=== PATIENT | female | born 1960 | race Two or more races ===

== ENCOUNTER 2020-02-23 13:11 | Outpatient (REF) | payer OTHER, SELFPAY ==
--- NOTE | 2020-02-23 14:51 | XR_ITS ---
EXAMINATION: XR CHEST CLINICAL INFORMATION: Dyspnea. COMPARISON: None TECHNIQUE: 2 views of the chest were obtained. FINDINGS: No significant abnormality is noted involving the heart, lungs, mediastinum, bony thorax or soft tissues. IMPRESSION: Unremarkable chest examination.
== END 2020-02-23 13:12 | disposition home or self-care (01) ==
LOC: HO.XRAY 13:11
PROVIDERS: PCP Internal Medicine; Visit Provider Internal Medicine Pulmonary Disease
DX: R06.00 Dyspnea, unspecified (principal); G47.33 Obstructive sleep apnea (adult) (pediatric)
CPT/HCPCS: 71046; 99203; 99204

== ENCOUNTER 2020-03-10 09:59 | Outpatient (REF) | payer OTHER, SELFPAY ==
--- NOTE | 2020-03-10 10:31 | MM_ITS ---
EXAMINATION: MM SCREENING DIGITAL BREAST TOMOSYNTHESIS, BILATERAL CLINICAL INFORMATION: Screening. Asymptomatic. The lifetime risk of breast cancer based on the Tyrer-Cuzick Model is 7.3%. COMPARISON: Mammography: January 05, 2019 and studies dating back to December 16, 2013 TECHNIQUE: Digital breast tomosynthesis is performed in both the craniocaudal and mediolateral oblique views along with computer-aided detection (CAD). Synthesized 2D images are generated from the tomosynthesis. FINDINGS: The breasts are almost entirely fatty (ACR BI-RADS breast composition Category a). There are no significant masses, abnormal calcifications, or other abnormalities. MM/MM tomosynthesis screening BI IMPRESSION: There are no significant changes from prior study. ASSESSMENT: BI-RADS 1: Negative RECOMMENDATION: Routine annual mammography screening. This patient's information was entered into a reminder system with a target due date for their next mammogram.
[2020-03-10 11:59] LABS: TSH reflex Free T4 1.13 mIU/mL (0.32-4.0)
== END 2020-03-10 10:00 | disposition home or self-care (01) ==
LOC: HO.LAB 09:59
PROVIDERS: Visit Provider Internal Medicine
DX: Z12.31 Encounter for screening mammogram for malignant neoplasm of breast (principal); E06.3 Autoimmune thyroiditis
CPT/HCPCS: 77063; 77067; 84443

== ENCOUNTER 2020-03-10 10:23 | Outpatient (REF) | payer OTHER, SELFPAY | END 2020-03-10 10:24 | disposition home or self-care (01) | LOC: HO.MAMMO 10:23 | PROVIDERS: PCP Internal Medicine; Visit Provider Internal Medicine | DX: Z13.89 Encounter for screening for other disorder (principal) ==

== ENCOUNTER 2020-03-13 08:34 | Outpatient (REF) | payer OTHER, SELFPAY | END 2020-03-13 08:35 | disposition home or self-care (01) | LOC: HO.LAB 08:34 | PROVIDERS: Visit Provider Internal Medicine | DX: Z20.828 Contact with and (suspected) exposure to other viral communicable diseases (principal) | CPT/HCPCS: C9803; U0003 ==

== ENCOUNTER 2020-07-11 11:42 | Outpatient (REF) | payer OTHER, SELFPAY ==
[2020-07-11 13:59] LABS: Glucose Urine UA NEG (NEG); Leukocyte Esterase Urine 1+ (NEG); Nitrite Urine NEG (NEG); PH 5.5 (5.0-8.0); Specific Gravity - Urine 1.025 (1.005-1.025); Urine Blood NEG (NEG); Urine Ketones NEG (NEG); Urine Protein NEG (NEG-TRACE)
[2020-07-11 14:10] LABS: Appearance Urine HAZY; Color Urine YELLOW
[2020-07-11 14:27] LABS: Anion Gap 12 (12-20); Blood Urea Nitrogen 18 mg/dL (9-16); Calcium 9.7 mg/dL (8.4-10.2); Carbon Dioxide 29 mmol/L (22-29); Chloride 107 mmol/L (96-108); Estimated Glomerular Filt Rate > 60; Glucose Fasting 95 mg/dL (60-99); Potassium 4.4 mmol/L (3.3-5.1); Sodium 144 mmol/L (135-145)
[2020-07-11 14:38] LABS: TSH reflex Free T4 0.54 uIU/mL (0.32-4.0)
[2020-07-11 14:48] LABS: Bacteria Urine TRACE /LPF; RBC Urine 0 /HPF (0); Squamous Epithelial Cell Urine 1+ /LPF
[2020-07-13 04:55] LABS: SARS COV2 IgG Negative (Negative)
== END 2020-07-11 11:43 | disposition home or self-care (01) ==
LOC: HO.LAB 11:42
PROVIDERS: Nurse Practitioner Family; PCP Internal Medicine; Visit Provider Internal Medicine
DX: E03.9 Hypothyroidism, unspecified (principal); M54.5 Low back pain; N39.0 Urinary tract infection, site not specified; Z20.822 Contact with and (suspected) exposure to COVID-19; Z11.9 Encounter for screening for infectious and parasitic diseases, unspecified
CPT/HCPCS: 36415; 80048; 81001; 81003; 84443; 86769

== ENCOUNTER 2020-07-11 12:52 | Outpatient (REF) | payer OTHER, SELFPAY | END 2020-07-11 12:53 | disposition home or self-care (01) | LOC: HO.LAB 12:52 | PROVIDERS: Visit Provider Internal Medicine | DX: Z20.822 Contact with and (suspected) exposure to COVID-19 (principal) | CPT/HCPCS: 36415; C9803; U0003; U0005 ==

== ENCOUNTER 2020-10-03 13:02 | Outpatient (REF) | payer OTHER, SELFPAY ==
--- NOTE | ~2020-10-03 | US_ITS ---
EXAMINATION: US RETROPERITONEAL LIMITED (RENAL ONLY) CLINICAL INFORMATION: Cyst of kidney, acquired. COMPARISON: CT abdomen and pelvis 06/24/2018. Ultrasound abdomen 01/01/2017. X-ray abdomen KUB 07/31/2015. Renal ultrasound 04/23/2013. TECHNIQUE: Real-time imaging of the kidneys. FINDINGS: RIGHT KIDNEY: 11.4 x 6.1 x 5.9 cm (SAG x AP x TRV). The kidney is normal in size, contour, and echogenicity. Renal cortical thickness is normal. No renal calculi or hydronephrosis. There is anechoic cyst upper pole measuring 1.0 x 0.8 x 1.2 cm. No additional cyst seen. LEFT KIDNEY: 15.9 x 6.0 x 6.4 cm (SAG x AP x TRV). The kidney is normal in size, contour, and echogenicity. Renal cortical thickness is normal. No renal calculi or hydronephrosis. There is anechoic cyst upper pole measuring 5.4 x 6.4 x 7.6 cm. Cyst in the lower pole measures 7.9 x 7.1 x 7.6 cm. US/US renal BI IMPRESSION: Bilateral simple renal cysts. There are no echogenic renal calculi or hydronephrosis seen.
== END 2020-10-03 13:03 | disposition home or self-care (01) ==
LOC: HO.US 13:02
PROVIDERS: PCP Internal Medicine; Visit Provider Internal Medicine
DX: N28.1 Cyst of kidney, acquired (principal)
CPT/HCPCS: 76775

== ENCOUNTER 2020-10-05 13:26 | Outpatient (REF) | payer OTHER, SELFPAY ==
[2020-10-05 15:20] LABS: Glucose Urine UA NEG (NEG); Leukocyte Esterase Urine NEG (NEG); Nitrite Urine NEG (NEG); Urine Blood NEG (NEG); Urine Ketones NEG (NEG); Urine Protein NEG (NEG-TRACE)
[2020-10-05 15:45] LABS: Appearance Urine CLEAR; Color Urine YELLOW
== END 2020-10-05 13:27 | disposition home or self-care (01) ==
LOC: HO.LAB 13:26
PROVIDERS: PCP Internal Medicine; Visit Provider Internal Medicine Hypertension Specialist
DX: N28.1 Cyst of kidney, acquired (principal)
CPT/HCPCS: 81003

== ENCOUNTER 2020-10-05 13:58 | Outpatient (REF) | payer OTHER, SELFPAY ==
[2020-10-06 09:36] LABS: Urine Cytology See Pathology rpt
== END 2020-10-05 13:59 | disposition home or self-care (01) ==
LOC: HO.LNP 13:58
PROVIDERS: Visit Provider Internal Medicine Hypertension Specialist
DX: N39.0 Urinary tract infection, site not specified (principal)
CPT/HCPCS: 88112

== ENCOUNTER 2020-11-03 09:30 | Outpatient (REF) | payer OTHER, SELFPAY ==
[2020-11-03 10:57] LABS: Glucose Urine UA NEG (NEG); Leukocyte Esterase Urine 2+ (NEG); Nitrite Urine NEG (NEG); Specific Gravity - Urine 1.015 (1.005-1.025); Urine Blood TRACE (NEG); Urine Ketones NEG (NEG); Urine Protein NEG (NEG-TRACE)
[2020-11-03 10:58] LABS: Appearance Urine HAZY; Color Urine YELLOW
[2020-11-03 11:09] LABS: Bacteria Urine TRACE /LPF; Mucus Urine 1+ /LPF; Renal Epithelial Cells Urine TRACE /LPF; Squamous Epithelial Cell Urine 1+ /LPF; WBC Urine 30-49 /HPF (0-4)
[2020-11-03 11:13] LABS: Alanine Aminotransferase 18 U/L (0-31); Albumin Level 4.2 g/dL (3.5-5.0); Alkaline Phosphatase 91 U/L (39-117); Anion Gap 11 (12-20); Aspartate Amino Transferase 23 U/L (5-31); Bilirubin Total 0.8 mg/dL (0.0-1.0); Blood Urea Nitrogen 17 mg/dL (9-16); Calcium 9.8 mg/dL (8.4-10.2); Carbon Dioxide 31 mmol/L (22-29); Chloride 105 mmol/L (96-108); Cholesterol 164 mg/dL; Estimated Glomerular Filt Rate > 60; Glucose Fasting 87 mg/dL (60-99); HDL Cholesterol 56 mg/dL; LDL Cholesterol Calculated 87 mg/dl; Potassium 4.3 mmol/L (3.3-5.1); Sodium 143 mmol/L (135-145); Total Protein 7.3 g/dL (6.5-8.0); Triglycerides 106 mg/dL
[2020-11-03 11:36] LABS: Thyroid Stimulating Hormone 5.98 uIU/mL (0.32-4.0)
== END 2020-11-03 09:31 | disposition home or self-care (01) ==
LOC: HO.LAB 09:30
PROVIDERS: Internal Medicine; PCP Internal Medicine; Visit Provider Internal Medicine
DX: K27.9 Peptic ulcer, site unspecified, unspecified as acute or chronic, without hemorrhage or perforation (principal); K21.9 Gastro-esophageal reflux disease without esophagitis; D12.6 Benign neoplasm of colon, unspecified; K59.04 Chronic idiopathic constipation; N39.0 Urinary tract infection, site not specified; E03.9 Hypothyroidism, unspecified; E78.5 Hyperlipidemia, unspecified; Z11.9 Encounter for screening for infectious and parasitic diseases, unspecified
CPT/HCPCS: 36415; 80053; 80061; 81001; 84443; 99202

== ENCOUNTER → 2020-11-21 10:14 | Outpatient (BNVA) | payer OTHER, SELFPAY | PROVIDERS: PCP Internal Medicine | DX: N28.1 Cyst of kidney, acquired (principal); N39.0 Urinary tract infection, site not specified; K21.9 Gastro-esophageal reflux disease without esophagitis; E78.5 Hyperlipidemia, unspecified; E03.9 Hypothyroidism, unspecified; D12.6 Benign neoplasm of colon, unspecified; Z90.49 Acquired absence of other specified parts of digestive tract; Z90.710 Acquired absence of both cervix and uterus; Z88.8 Allergy status to other drugs, medicaments and biological substances; Z91.012 Allergy to eggs; Z91.013 Allergy to seafood | CPT/HCPCS: 99212 ==

== ENCOUNTER → 2020-11-24 09:07 | Outpatient (BNVA) | payer OTHER, SELFPAY | PROVIDERS: PCP Internal Medicine; Visit Provider Nurse Practitioner ==

== ENCOUNTER 2021-01-10 08:57 | Outpatient (REF) | payer OTHER, SELFPAY ==
[2021-01-10 09:54] LABS: Appearance Urine CLEAR; Color Urine YELLOW; Glucose Urine UA NEG (NEG); Leukocyte Esterase Urine 1+ (NEG); Nitrite Urine NEG (NEG); Specific Gravity - Urine 1.015 (1.005-1.025); UACC Culture Trigger YES; Urine Blood TRACE (NEG); Urine Ketones NEG (NEG); Urine Protein NEG (NEG-TRACE)
[2021-01-10 10:36] LABS: Thyroid Stimulating Hormone 10.31 uIU/mL (0.32-4.0)
[2021-01-10 10:41] LABS: Squamous Epithelial Cell Urine 1+ /LPF
[2021-01-10 10:42] LABS: Mucus Urine 1+ /LPF; RBC Urine 0-2 /HPF (0)
[2021-01-10 10:43] LABS: Bacteria Urine TRACE /LPF
== END 2021-01-10 08:58 | disposition home or self-care (01) ==
LOC: HO.LAB 08:57
PROVIDERS: PCP Internal Medicine; Visit Provider Internal Medicine
DX: E03.9 Hypothyroidism, unspecified (principal)
CPT/HCPCS: 36415; 81001; 81003; 84443; 87086

== ENCOUNTER 2021-01-19 08:44 | Outpatient (REF) | payer OTHER, SELFPAY | END 2021-01-19 08:45 | disposition home or self-care (01) | LOC: HO.MAMMO 08:44 | PROVIDERS: Visit Provider Internal Medicine | DX: Z13.89 Encounter for screening for other disorder (principal) ==

== ENCOUNTER 2021-01-19 09:10 | Day surgery (SDC) | payer OTHER, SELFPAY ==
--- NOTE | 2021-01-18 09:09 | HO.ANESPROP2 ---
Documented by User: Juhi Celestin NP 01/29/21 15:26 HPI - Anesthesia Eval Consult details Narrative: 61yo F for Upper Endoscopy and Colonoscopy [facility] Active Problems Active Problems: All Active Problems (Updated 11/03/20 @ 11:10 by MARKUS Machado) Chronic idiopathic constipation (Acute) Tubular adenoma of colon (Acute) PUD (peptic ulcer disease) (Acute) Renal cyst (Acute) Screening examination for infectious disease (Acute) Urinary tract infection (Acute) Abdominal pain (Acute) Idiopathic chronic hypotension (Acute) Unsteady gait (Acute) Hypothyroidism (Acute) Lower back pain (Acute) BREONNA (obstructive sleep apnea) (Acute) Dyspnea (Acute) Takes daily multivitamins (Acute) GERD (gastroesophageal reflux disease) (Acute) Past Medical History Medical History Dyslipidemia GERD (gastroesophageal reflux disease) Hypothyroidism Idiopathic chronic hypotension Lower back pain Mild recurrent major depression PUD (peptic ulcer disease) Renal cyst Skin lesion Takes daily multivitamins Unsteady gait Family History Family History Father Diabetes Mother Thyroid disease Chronic mental illness Hypertension Hypercholesterolemia Maternal Aunt Breast cancer Brother In good health Daughter In good health Daughter In good health Sister No problems noted. Surgical History Surgical History H/O elbow surgery H/O hand surgery H/O knee surgery History of section History of cholecystectomy History of foot surgery History of hysterectomy History of removal of cyst History of varicose vein ligation Social History Social History Housing: Apartment Alcohol intake: never Patient Tobacco Use Status: Never used Tobacco e-Cigarette/Vaping Use: Never Used Second Hand Smoke Exposure: No Advance Directives: No Advance Directives Information Provided: No Patient : No service: No Current occupational status: disabled Meds Allergies Allergy/AdvReac Type Severity Reaction Status Date / Time eggs Allergy Intermediate rash Verified 01/23/21 13:34 seafood Allergy Intermediate hives Verified 01/23/21 13:34 shellfish derived Allergy Intermediate RASH Verified 01/23/21 13:34 zolpidem [ZOLPIDEM] Allergy Intermediate HEART Verified 01/23/21 13:34 PALPITATIONS morphine AdvReac Intermediate Vomiting Verified 01/23/21 13:34 Home Medications Medication Instructions Recorded Confirmed Last Taken Type cyclobenzaprine 10 mg tablet 10 mg PO Q8H PRN 02/23/20 01/22/21 Unknown History lidocaine-prilocaine 2.5 %-2.5 % TOPICAL 02/23/20 01/22/21 Unknown History topical cream lorazepam 0.5 mg tablet 0.5 mg PO BID PRN 02/23/20 01/22/21 Unknown History naproxen 500 mg tablet 500 mg PO BID 02/23/20 01/22/21 Unknown History paroxetine HCl 40 mg tablet 40 mg PO DAILY 02/23/20 01/22/21 Unknown History quetiapine 200 mg tablet 200 mg PO BEDTIME 02/23/20 01/22/21 Unknown History trazodone 150 mg tablet 150 mg PO BEDTIME 02/23/20 01/22/21 Unknown History Exam Exam Date and Time: January 18, 2021 09 Pertinent Lab Results Pertinent Lab Results: Laboratory Tests 11/03/20 10:01 Sodium 143 Potassium 4.3 Chloride 105 Carbon Dioxide 31 H BUN 17 H Creatinine 0.79 Assessment and Plan Assessment Anesthesia Assessment: Chart Reviewed Documented by User: Mony Valentin MD 01/19/21 08:34 [facility] Past Medical History Medical History Dyslipidemia GERD (gastroesophageal reflux disease) Hypothyroidism Idiopathic chronic hypotension Lower back pain Mild recurrent major depression PUD (peptic ulcer disease) Renal cyst Skin lesion Takes daily multivitamins Unsteady gait Functional capacity: independent ambulation Patient : No Family History Family History Father Diabetes Mother Thyroid disease Chronic mental illness Hypertension Hypercholesterolemia Maternal Aunt Breast cancer Brother In good health Daughter In good health Daughter In good health Sister No problems noted. Surgical History Surgical History H/O elbow surgery H/O hand surgery H/O knee surgery History of section History of cholecystectomy History of foot surgery History of hysterectomy History of removal of cyst History of varicose vein ligation Social History Social History Housing: Apartment Alcohol intake: never Patient Tobacco Use Status: Never used Tobacco e-Cigarette/Vaping Use: Never Used Second Hand Smoke Exposure: No Advance Directives: No Advance Directives Information Provided: No Patient : No service: No Current occupational status: disabled Meds Allergies Allergy/AdvReac Type Severity Reaction Status Date / Time eggs Allergy Intermediate rash Verified 01/23/21 13:34 seafood Allergy Intermediate hives Verified 01/23/21 13:34 shellfish derived Allergy Intermediate RASH Verified 01/23/21 13:34 zolpidem [ZOLPIDEM] Allergy Intermediate HEART Verified 01/23/21 13:34 PALPITATIONS morphine AdvReac Intermediate Vomiting Verified 01/23/21 13:34 Home Medications Medication Instructions Recorded Confirmed Last Taken Type cyclobenzaprine 10 mg tablet 10 mg PO Q8H PRN 02/23/20 01/22/21 Unknown History lidocaine-prilocaine 2.5 %-2.5 % TOPICAL 02/23/20 01/22/21 Unknown History topical cream lorazepam 0.5 mg tablet 0.5 mg PO BID PRN 02/23/20 01/22/21 Unknown History naproxen 500 mg tablet 500 mg PO BID 02/23/20 01/22/21 Unknown History paroxetine HCl 40 mg tablet 40 mg PO DAILY 02/23/20 01/22/21 Unknown History quetiapine 200 mg tablet 200 mg PO BEDTIME 02/23/20 01/22/21 Unknown History trazodone 150 mg tablet 150 mg PO BEDTIME 02/23/20 01/22/21 Unknown History
[2021-01-19 09:25] VITALS: BMI 37.0
[2021-01-19 09:44] VITALS: BP 125/71; PULSE 64; RESP 16; TEMP 36.5; O2SAT 100
--- NOTE | 2021-01-19 09:50 | MHC.SHP ---
Pre-Procedural Eval Section A Date of Service: 01/19/21 The patient is an INPATIENT: No The History & Physical has been completed within 30 days and I have reviewed it.: No Section B Chief Complaint: Colon cancer screening, constipation, FU of PUD Details of Present Illness: Colon cancer screening, chronic constipation, follow-up of peptic ulcer disease Relevant Family History (Specify if Yes): No Relevant Social History: None Present Medications: see Short Stay Collaborative assessment Medical History: Significant History (GERD (gastroesophageal reflux disease) Hypothyroidism Idiopathic chronic hypotension Lower back pain PUD (peptic ulcer disease) Renal cyst Takes daily multivitamins Unsteady gait) History of Previous Operations: Relevant previous surgery/procedure and date(s) (H/O elbow surgery H/O hand surgery H/O knee surgery History of section History of cholecystectomy History of foot surgery History of hysterectomy History of removal of cyst History of varicose vein ligation) Allergies: Allergies Allergy/AdvReac Type Severity Reaction Status Date / Time eggs Allergy Intermediate rash Verified 11/24/20 09:08 seafood Allergy Intermediate hives Verified 11/24/20 09:08 shellfish derived Allergy Intermediate RASH Verified 11/24/20 09:08 zolpidem [ZOLPIDEM] Allergy Intermediate HEART Verified 11/24/20 09:08 PALPITATIONS Review of Systems Sugical H&P ROS: Negative: Constitution, Cardiovascular and Respiratory and Yes, Specify: Gastrointestinal (abd pain, constipation) Exam Surgical H&P Exam: Normal: Heart, Normal: Lungs, Normal: Extremities and Normal: Abdomen Plan Diagnosis/Plan: Unchanged I have reviewed the history and physical and performed a pertinent physical examination on my patient. No changes have occurred unless specified.
--- NOTE | 2021-01-19 09:58 | PM.OP ---
Brief Operative Note Date of Service: 01/19/21 Pre-op diagnosis: Colon cancer screening, chronic constipation, follow-up of PUD Post-op diagnosis: other (Gastritis, gastric polyp, colon polyps, diverticulosis) Procedure: FLEXIBLE TRANSORAL UPPER GASTROINTESTINAL ENDOSCOPY WITH BIOPSIES AND COLONOSCOPY TILL CECUM WITH SNARE POLYPECTOMY AND SUBMUCOSAL INJECTION UPPER ENDOSCOPY Consent: Indications for the procedure and potential complications of bleeding, perforation, reaction to medications and missed diagnosis were discussed with the patient and informed consent was obtained. Instrument: Olympus GIF H 190 mid size upper endoscope Monitoring: Vital signs and clinical assessment, continuous EKG monitoring, Pulse oximetry, Carbon Dioxide monitoring and blood pressure monitoring were done throughout the procedure. Procedure: The patient was placed in the left lateral decubitis position and pre-procedure medications were administered and a bite block was placed. The endoscope was inserted into the mouth and advanced under direct vision to the third part of duodenum. A careful inspection was made as the upper endoscope was withdrawn including a retroflexed examination of the proximal stomach; Findings and interventions are described below. Findings: Larynx: Normal Esophagus: GE junction at 38 cms. No esophagitis or Badillo's. Stomach: Moderate gastric erythema. No ulcers or erosions noted. Antral biopsies were obtained. A 7-8 mm benign appearing polyp in the antrum - biopsied. Grade 2 flap valve on retroflexed examination of the cardia. Duodenum: Normal bulb and descending duodenum Intervention: Biopsies as noted above COLONOSCOPY PROCEDURE NOTE Consent: Indications for the procedure and potential complications of bleeding, perforation, reaction to medications and missed diagnosis were discussed with the patient and informed consent was obtained. Instrument: Olympus PCF H 190 L variable stiffness pediatric colonoscope Monitoring: Vital signs and clinical assessment, intermittent blood pressure monitoring, continuous EKG monitoring, Pulse oximetry and Carbon Dioxide monitoring were done throughout the procedure. Colon withdrawl time was 44 minutes. Procedure: The patient was placed in the left lateral decubitis position and pre-procedure medications were administered. After a digital rectal examination of the ano-rectum, the video colonoscope was inserted into the rectum and advanced through the colon to the cecum. The colonoscope was slowly withdrawn in a retrograde panoramic fashion and the colon mucosa was carefully examined including a retroflexed view of the rectum. Findings and interventions are described below. Procedure Difficulty: : Colon was long and tortuous and there was some loop formation. Patient was placed in the supine position and LLQ pressure was applied to intubate the cecum Findings: Terminal Ileum: Not evaluated Cecum: Normal Ascending Colon: Two 8-10 mm sessile polyps removed with a hot snare. A 3rd 2 - 2.5 cms sessile polyp in the distal AC removed with a hot snare. Transverse Colon: A 1.5 to 2 cms sessile polyp at the hepatic flexure removed with a hot snare. A 2nd 2 to 2.5 cms sessile polyp at the hepatic flexure raised with 3 cc of Orise and removed with a hot snare. Polypectomy site was marked with Kiara ink. Polyp was retrieved with the help of a Coon Net. A 12-15 mm sessile polyp in the ascending colon removed with a hot snare A few 4-5 mm polyps in the right colon not removed due to excessive length of the procedure. Descending Colon: Normal Sigmoid Colon: A 10 mm diminutive appearing polyp removed with a cold snare. Moderate diverticulosis Rectum: Normal Ano-rectum: Normal Colon preparation: Good after some irrigation Impression and Post Procedure Diagnosis: Endoscopy Findings: STOMACH: Moderate gastric erythema. No ulcers or erosions noted. Antral biopsies were obtained. A 7-8 mm benign appearing polyp in the antrum - biopsied. Colonoscopy Findings: Six medium sized and one large polyps removed Moderate diverticulosis seen in the sigmoid colon Plan: Await pathology results Patient has an appointment on 02/01/21 in the GI Clinic with Madelin Barnes NP. Repeat Colonoscopy interval based on path results - in 1 year if polyps are adenomatous and since multiple polyps were detected and a few polyps smaller polyps were not removed. Adult colonoscope for future colonoscopies. Above findings were reviewed with the patient and Gastritis, colon polyps and diverticulosis handouts were given in the discharge area Surgeon: Melissa Ríos MD Anesthesia: MAC (Gideon Cao CRNA) Was an Electrocardiographic Technician used for this Procedure?: No Electrocardiographic Technician: Evelina Avila Estimated blood loss (mL): 0 Pathology: other (A. gastric antrum, R/O H. pylori B. gastric antrum polyp C. transverse colon polyp D. ascending colon polyp E. hepatic flexure polyps with Orise F. sigmoid polyp) Condition: stable Disposition: PACU
--- NOTE | 2021-01-19 09:59 | W.PM.OPN ---
Operative Note Operative Note Date of Service: 01/19/21 Narrative: Pre-op diagnosis:?Colon cancer screening, chronic constipation, follow-up of PUD Post-op diagnosis:?other (Gastritis, gastric polyp, colon polyps, diverticulosis) Procedure:? FLEXIBLE TRANSORAL UPPER GASTROINTESTINAL ENDOSCOPY WITH BIOPSIES AND COLONOSCOPY TILL CECUM WITH SNARE POLYPECTOMY AND SUBMUCOSAL INJECTION UPPER ENDOSCOPY Consent:?Indications for the procedure and potential complications of bleeding, perforation, reaction to medications and missed diagnosis were discussed with the patient and informed consent was obtained. Instrument:?Olympus GIF H 190 mid size upper endoscope Monitoring: Vital signs and clinical assessment, continuous EKG monitoring, Pulse oximetry, Carbon Dioxide monitoring and blood pressure monitoring were done throughout the procedure. Procedure:?The patient was placed in the left lateral decubitis position and pre-procedure medications were administered and a bite block was placed. The endoscope was inserted into the mouth and advanced under direct vision to the third part of duodenum. A careful inspection was made as the upper endoscope was withdrawn including a retroflexed examination of the proximal stomach; Findings and interventions are described below. Findings: Larynx:??Normal Esophagus:?GE junction at 38 cms. No esophagitis or Badillo's. Stomach:?Moderate gastric erythema. No ulcers or erosions noted.? Antral biopsies were obtained. A 7-8 mm benign appearing polyp in the antrum - biopsied. Grade 2 flap valve on retroflexed examination of the cardia. Duodenum:?Normal bulb and descending duodenum Intervention:?Biopsies as noted above COLONOSCOPY PROCEDURE NOTE Consent:?Indications for the procedure and potential complications of bleeding, perforation, reaction to medications and missed diagnosis were discussed with the patient and informed consent was obtained. Instrument:?Olympus PCF H 190 L variable stiffness pediatric colonoscope Monitoring:?Vital signs and clinical assessment, intermittent blood pressure monitoring, continuous EKG monitoring, Pulse oximetry and Carbon Dioxide monitoring were done throughout the procedure. Colon withdrawl time was 44 minutes. Procedure:?The patient was placed in the left lateral decubitis position and pre-procedure medications were administered. After a digital rectal examination of the ano-rectum, the video colonoscope was inserted into the rectum and advanced through the colon to the cecum. The colonoscope was slowly withdrawn in a retrograde panoramic fashion and the colon mucosa was carefully examined including a retroflexed view of the rectum. Findings and interventions are described below. Procedure Difficulty:?: Colon was long and tortuous and there was some loop formation.? Patient was placed in the supine position and LLQ pressure was applied to intubate the? cecum Findings: Terminal Ileum: Not evaluated Cecum:? Normal Ascending Colon:??Two 8-10 mm sessile polyps removed with a hot snare.? A 3rd 2 - 2.5 cms sessile polyp in the distal AC removed with a hot snare. Transverse Colon:??A 1.5 to 2 cms sessile polyp at the hepatic flexure removed with a hot snare. A 2nd 2 to 2.5 cms sessile polyp at the hepatic flexure raised with 3 cc of Orise and removed with a hot snare.? Polypectomy site was marked with Kiara ink.? Polyp was retrieved with the help of a Coon Net.? A 12-15 mm sessile polyp in the ascending colon removed with a hot snare A few 4-5 mm polyps in the right colon not removed due to excessive length of the procedure. Descending Colon:? Normal Sigmoid Colon:? A 10 mm diminutive appearing polyp removed with a cold snare. Moderate diverticulosis Rectum:??Normal Ano-rectum:??Normal Colon preparation:? Good after some irrigation Impression and Post Procedure Diagnosis: Endoscopy Findings: STOMACH: Moderate gastric erythema. No ulcers or erosions noted.? Antral biopsies were obtained. A 7-8 mm benign appearing polyp in the antrum - biopsied. Colonoscopy Findings: Six medium sized and one large polyps removed Moderate diverticulosis seen in the sigmoid colon Plan: Await pathology results Patient has an appointment on 02/01/21 in the GI Clinic with? Madelin Barnes NP. Repeat Colonoscopy interval based on path results - in 1 year if polyps are adenomatous and since multiple polyps were detected and a few polyps smaller polyps were not removed. Adult colonoscope for future colonoscopies. Above findings were reviewed with the patient and Gastritis, colon polyps and diverticulosis handouts were given in the discharge area Surgeon:?Melissa Ríos MD Anesthesia:?MAC (Gideon Cao CRNA) Was an Manager Event used for this Procedure?:?No Manager Event:?Evelina Avila Estimated blood loss (mL):?0 Pathology:?other (A. gastric antrum, R/O H. pylori? B. gastric antrum polyp? C. transverse colon polyp? D. ascending colon polyp? E. hepatic flexure polyps with Orise? F. sigmoid polyp) Condition:?stable Disposition:?PACU
[2021-01-19 11:30] VITALS: BP 112/63; PULSE 66; RESP 16; TEMP 36.1; O2SAT 99
[2021-01-19 11:45] VITALS: BP 128/75; PULSE 66; RESP 16; TEMP 36.1; O2SAT 98
--- NOTE | 2021-01-19 12:02 | HO.POSTANES ---
Post Anesthesia Evaluation Post Anesthesia Evaluation Vital Signs: Vital Signs Temp Pulse Resp BP Pulse Ox 01/19/21 11:45 97.0 F 66 16 128/75 98 01/19/21 11:30 97.0 F 66 16 112/63 99 01/19/21 09:44 97.7 F 64 16 125/71 100 Anesthesia: Monitored Mental Status: Awake Pain Control: Satisfactory Hydration: Adequate Anesthesia-Related Issues: No Anes. Related Issues
== END 2021-01-19 12:57 | disposition home or self-care (01) ==
PROVIDERS: PCP Internal Medicine; Visit Provider Internal Medicine Gastroenterology
PROC: (CPT 45385; principal; 2021-01-19 10:00)
DX: Z12.11 Encounter for screening for malignant neoplasm of colon (principal); D12.2 Benign neoplasm of ascending colon; D12.3 Benign neoplasm of transverse colon; D12.5 Benign neoplasm of sigmoid colon; K57.30 Diverticulosis of large intestine without perforation or abscess without bleeding; K59.04 Chronic idiopathic constipation; K27.9 Peptic ulcer, site unspecified, unspecified as acute or chronic, without hemorrhage or perforation; K21.9 Gastro-esophageal reflux disease without esophagitis; K29.50 Unspecified chronic gastritis without bleeding; K31.7 Polyp of stomach and duodenum; Z90.49 Acquired absence of other specified parts of digestive tract; Z79.899 Other long term (current) drug therapy; Z88.8 Allergy status to other drugs, medicaments and biological substances
CPT/HCPCS: 45385; 45381; 43239; 88305; 88342

== ENCOUNTER 2021-01-23 12:55 | Outpatient (REF) | payer OTHER, SELFPAY | END 2021-01-23 12:56 | disposition home or self-care (01) | LOC: HO.LAB 12:55 | DX: N39.0 Urinary tract infection, site not specified (principal); N28.1 Cyst of kidney, acquired | CPT/HCPCS: 87086; 99212 ==

== ENCOUNTER 2021-01-25 10:58 | Emergency (ER) | payer OTHER, SELFPAY ==
[2021-01-25 11:46] VITALS: BP 130/67; PULSE 74; RESP 18; TEMP 36.8; O2SAT 98; BMI 38.7
[2021-01-25 12:41] LABS: MANUAL DIFF FLAG NO
[2021-01-25 12:45] LABS: Basophils Percent Auto 0.4 % (0-2); Eosinophils Absolute Auto 0.1 X10*3/uL (0.0-0.4); Eosinophils Percent Auto 2.1 % (0-4); Hematocrit 44.8 % (37-47); Hemoglobin 13.5 g/dl (12.0-16.0); Imm Gran Abs Auto 0.01 X10*3/uL (0.00-0.03); Imm Gran Pct Auto 0.2 % (0.0-0.4); Lymphocytes Absolute Auto 1.3 X10*3/uL (1.2-4.9); Lymphocytes Percent Auto 22.8 % (20-40); Mean Corpuscular HGB Conc 30.1 g/dl (31.0-35.0); Mean Corpuscular Hemoglobin 27.3 pg (27.0-33.0); Mean Corpuscular Volume 90.7 fL (80-98); Mean Platelet Volume 12.6 fL (9.4-12.3); Monocytes Absolute Auto 0.4 X10*3/uL (0.1-1.2); Monocytes Percent Auto 7.7 % (2-11); Neutrophils Absolute Auto 3.8 X10*3/uL (2.0-8.3); Neutrophils Percent Auto 66.8 % (45-73); Platelet Count 153 X10*3/uL (160-400); Red Blood Count 4.94 X10*6/uL (4.20-5.50); Red Cell Distribution Width 12.8 % (11.0-16.0); White Blood Count 5.6 X10*3/uL (4.8-10.8)
[2021-01-25 13:05] LABS: Alanine Aminotransferase 17 U/L (0-31); Albumin Level 3.9 g/dL (3.5-5.0); Alkaline Phosphatase 90 U/L (39-117); Anion Gap 10 (12-20); Aspartate Amino Transferase 19 U/L (5-31); Bilirubin Total 0.3 mg/dL (0.0-1.0); Blood Urea Nitrogen 15 mg/dL (9-16); Calcium 9.7 mg/dL (8.4-10.2); Carbon Dioxide 31 mmol/L (22-29); Chloride 106 mmol/L (96-108); Creatinine Clr Calc Pharmacy 95.3; Estimated Glomerular Filt Rate > 60; Glucose Random 81 mg/dL (60-115); Potassium 4.3 mmol/L (3.3-5.1); Sodium 143 mmol/L (135-145); Total Protein 6.9 g/dL (6.5-8.0)
== END 2021-01-25 14:44 | disposition left against medical advice (07) ==
LOC: HO.ED 14:36
PROVIDERS: Emergency Provider Emergency Medicine
DX: M54.5 Low back pain (principal)
CPT/HCPCS: 36415; 80053; 81001; 85025; 99281; 99283

== ENCOUNTER 2021-01-25 16:18 | Emergency (ER) | payer OTHER, SELFPAY ==
[2021-01-25 16:35] VITALS: BP 144/70; PULSE 79; RESP 8; TEMP 37.1; O2SAT 96; BMI 38.2
[2021-01-25 17:03] LABS: Appearance Urine CLEAR; Color Urine YELLOW; Glucose Urine UA NEG (NEG); Leukocyte Esterase Urine 1+ (NEG); Nitrite Urine NEG (NEG); UACC Culture Trigger YES; Urine Blood NEG (NEG); Urine Ketones NEG (NEG); Urine Protein NEG (NEG-TRACE)
--- NOTE | 2021-01-25 17:18 | ED.GENADULT ---
HPI - General Adult General Chief complaint: Back Pain/Injury Stated complaint: Back pain Time Seen by Provider: 01/25/21 17:18 Source: patient Mode of arrival: ambulatory Limitations: language barrier History of Present Illness HPI narrative: 61-year-old female with past medical history of dyslipidemia, depression, CIC, GERD is here today for complaining of bilateral lower back pain. Her pain started 4 days ago, patient denies any trauma or injury. Patient reports that the pain is worse at night. Patient denies any fecal or urinary incontinence, no paresthesia, pain radiates from her right lower back to right middle back. Patient reports that the pain is located close to the spine. She reports that her pain is worse when she is laying down Related Data Home Medications Medication Instructions Recorded Confirmed cyclobenzaprine 10 mg tablet 10 mg PO Q8H PRN 02/23/20 01/22/21 lidocaine-prilocaine 2.5 %-2.5 % TOPICAL 02/23/20 01/22/21 topical cream lorazepam 0.5 mg tablet 0.5 mg PO BID PRN 02/23/20 01/22/21 naproxen 500 mg tablet 500 mg PO BID 02/23/20 01/22/21 paroxetine HCl 40 mg tablet 40 mg PO DAILY 02/23/20 01/22/21 quetiapine 200 mg tablet 200 mg PO BEDTIME 02/23/20 01/22/21 trazodone 150 mg tablet 150 mg PO BEDTIME 02/23/20 01/22/21 Previous Rx's Medication Instructions Recorded multivitamin-ferrous 1 tab PO DAILY 30 Days #30 tab 02/10/20 fumarate-folic acid 18 mg-400 mcg tablet (Certavite-Antioxidant) blood pressure test kit-large #1 ea 06/06/20 ([facility] Blood Pressure Monitr) atorvastatin 10 mg tablet 10 mg PO DAILY #90 tab 06/23/20 calcium carbonate 600 mg calcium 600 mg PO BID #180 tab 06/23/20 (1,500 mg) tablet sucralfate 1 gram tablet 1 g PO BID #60 tab 09/01/20 pantoprazole 40 mg tablet,delayed 40 mg PO DAILY 90 Days #90 tab 09/19/20 release cane #1 ea 10/11/20 lubiprostone 8 mcg capsule 8 mcg PO BID 30 Days #60 cap 11/03/20 (Amitiza) ibuprofen 800 mg tablet 800 mg PO TID 30 Days #90 tab 11/16/20 lidocaine 5 % topical patch 1 patch TOPICAL DAILY 30 Days #30 12/06/20 ea bisacodyl 5 mg tablet,delayed 10 mg PO BEDTIME 2 Days #4 tab 01/10/21 release (Dulcolax (bisacodyl)) levothyroxine 150 mcg tablet 150 mcg PO DAILY 90 Days #90 tab 01/10/21 toilet seat #1 ea 01/16/21 clotrimazole-betamethasone 1 1 appl TOPICAL BID 14 Days #15 g 01/22/21 %-0.05 % topical cream midodrine 5 mg tablet 5 mg PO TID 30 Days #90 tab 01/22/21 cyclobenzaprine 10 mg tablet 10 mg PO QAM #10 tab 01/25/21 diazepam 5 mg tablet (Valium) 5 mg PO BEDTIME PRN #5 tab 01/25/21 Allergies Allergy/AdvReac Type Severity Reaction Status Date / Time eggs Allergy Intermediate rash Verified 01/23/21 13:34 seafood Allergy Intermediate hives Verified 01/23/21 13:34 shellfish derived Allergy Intermediate RASH Verified 01/23/21 13:34 zolpidem [ZOLPIDEM] Allergy Intermediate HEART Verified 01/23/21 13:34 PALPITATIONS morphine AdvReac Intermediate Vomiting Verified 01/23/21 13:34 Review of Systems Review of Systems: Constitutional : No Weight loss, No Fever, No Chills, No Night Sweats, No Fatigue, No Malaise ENT/Mouth : No Hearing loss, No Ear Pain, No Nasal Congestion, No Sinus Pain, No Hoarseness, No sore throat, No Rhinorrhea, No Swallowing Difficulty Eyes: No Eye Pain, No Swelling, No Redness, No Foreign Body, No Discharge, No Vision Changes Cardiovascular : No Chest Pain, No SOB, No Dyspnea on Exertion, No Orthopnea, No Edema, No Palpitations Respiratory : No Cough, No Sputum, No Wheezing, No Smoke Exposure, No Dyspnea Gastrointestinal : No Nausea, No Vomiting, No Diarrhea, No Constipation, No abdominal Pain, No Hematochezia, No Melena Genitourinary : no irregular bleeding, No Dysuria, No Urinary Frequency, No Hematuria, No Urinary Incontinence, No Urgency, No Flank Pain, No Urinary Flow Changes, No Hesitancy Musculoskeletal : No joint pain, Myalgias, No Joint Swelling, right lower back pain Skin : No Skin Lesions, No rash Neuro : No Weakness, No Numbness, No Paresthesias, No Loss of Consciousness, No Dizziness, No Headache Yes all other systems are reviewed and are negative PMFSH Past Medical History Medical History Dyslipidemia GERD (gastroesophageal reflux disease) Hypothyroidism Idiopathic chronic hypotension Lower back pain Mild recurrent major depression PUD (peptic ulcer disease) Renal cyst Skin lesion Takes daily multivitamins Unsteady gait Surgical History H/O elbow surgery H/O hand surgery H/O knee surgery History of section History of cholecystectomy History of foot surgery History of hysterectomy History of removal of cyst History of varicose vein ligation Family History Family History Father Diabetes Mother Thyroid disease Chronic mental illness Hypertension Hypercholesterolemia Maternal Aunt Breast cancer Brother In good health Daughter In good health Daughter In good health Sister No problems noted. Social History Social History Housing: Apartment Alcohol intake: never Patient Tobacco Use Status: Never used Tobacco e-Cigarette/Vaping Use: Never Used Second Hand Smoke Exposure: No Advance Directives: No Advance Directives Information Provided: No Patient : No service: No Current occupational status: disabled Physical Exam Vital Signs: Vital Signs: Last Vital Signs Temp 98.7 F 01/25/21 16:35 Pulse 79 01/25/21 16:35 Resp 8 L 01/25/21 16:35 BP 144/70 H 01/25/21 16:35 Pulse Ox 96 01/25/21 16:35 Body Mass Index 38.2 Const: General: healthy appearing, no acute distress and well developed Nutritional Appearance: well nourished Orientation/consciousness: patient oriented x3 HENMT: Head: Yes normal to inspection, Yes normocephalic and Yes atraumatic Neck: Neck: Yes normal visual inspection, Yes full ROM and Yes trachea midline Thyroid: Thyroid normal Resp: Auscultation: clear to auscultation bilaterally Cardio: Rate: regular rate Rhythm: regular rhythm GI: Inspection: Yes normal to inspection and No distended Palpation (GI): No hepatosplenomegaly present Auscultation: normal bowel sounds : General: Yes no CVA tenderness Back/Spine/Pelvis: Back: no CVA tenderness Cervical Spine: normal cervical lordosis Thoracic/Lumbar Spine: thoracic and lumbar spine normal to inspection and other (Lower paraspinal muscle tenderness on the right) Pelvis: no pain with anterior-posterior compression Skin: General skin exam: elasticity normal, turgor normal and dry skin Neuro: General: patient oriented x3 Course Course Course Narrative: 61-year-old female with past medical history of dyslipidemia, depression, CIC, hypothyroidism, lower back pain, GERD is here today for name right lower back pain. Upon exam patient has tenderness to paraspinal muscle on the right and mild tenderness to paraspinal muscles on the left. No CVA tenderness, no abdominal pain patient reports that she does have symptoms of nausea at times. Just had upper endoscopy done and has appointment with her certified pedorthotist done at . Will give her antispasmatic. Patient request Zofran. Patient denies any vomiting any abdominal discomfort. Medical Decision Making Lab Data Labs: Lab Results 01/25/21 Range/Units 16:23 Urine Color YELLOW Urine Appearance CLEAR Urine pH 6.0 (5.0-8.0) Ur Specific [place] 1.020 (1.005-1.025) Urine Protein NEG (NEG-TRACE) MG/DL Urine Glucose (UA) NEG (NEG) MG/DL Urine Ketones NEG (NEG) MG/DL Urine Blood NEG (NEG) Urine Nitrite NEG (NEG) Ur Leukocyte Esterase 1+ H (NEG) Discharge Plan Discharge Clinical Impression: Lower back pain Qualifiers: Chronicity: chronic Back pain laterality: right Sciatica presence: without sciatica Qualified Code(s): M54.5 - Low back pain Patient Disposition: Home, Self-Care Instructions: Muscle Spasm (ED) Additional Instructions: You were seen here today for mass of spasm in your back. Your given medication to help you with your spasms. You will be sent home with same medication and in addition you will be sent home with medication that will help you relaxer muscle and get some rest. Please follow-up with your primary care doctor in 2-3 days. Please follow-up with your certified pedorthotist after your upper endoscopy. I am giving you couple doses of anti nausea medication. Prescriptions: New cyclobenzaprine 10 mg tablet 10 mg PO QAM Qty: 10 RF: 0 diazepam [Valium] 5 mg tablet 5 mg PO BEDTIME PRN (Reason: muscle spasm) Qty: 5 RF: 0 No Action Certavite-Antioxidant 18-400 mg-mcg tablet 1 tab PO DAILY 30 Days Qty: 30 RF: 11 (DME) blood pressure test kit-large [[facility] Blood Pressure Monitr] Kit See Rx Instructions .ROUTE .MEDSUPPLY Qty: 1 RF: 0 calcium carbonate 600 mg calcium (1,500 mg) tablet 600 mg PO BID Qty: 180 RF: 3 atorvastatin 10 mg tablet 10 mg PO DAILY Qty: 90 RF: 3 sucralfate 1 gram tablet 1 g PO BID Qty: 60 RF: 6 (DME) cane Device See Rx Instructions .ROUTE .MEDSUPPLY Qty: 1 RF: 0 ibuprofen 800 mg tablet 800 mg PO TID 30 Days Qty: 90 RF: 1 lidocaine 5 % adhesive patch,medicated 1 patch topical DAILY 30 Days Qty: 30 RF: 0 levothyroxine 150 mcg tablet 150 mcg PO DAILY 90 Days Qty: 90 RF: 2 bisacodyl [Dulcolax (bisacodyl)] 5 mg tablet,delayed release (DR/EC) 10 mg PO BEDTIME 2 Days Qty: 4 RF: 0 (DME) toilet seat See Rx Instructions .Route .MEDSUPPLY Qty: 1 RF: 0 midodrine 5 mg tablet 5 mg PO TID 30 Days Qty: 90 RF: 4 clotrimazole-betamethasone 1-0.05 % cream 1 appl topical BID 14 Days Qty: 15 RF: 1 pantoprazole 40 mg tablet,delayed release (DR/EC) 40 mg PO DAILY 90 Days Qty: 90 RF: 4 paroxetine HCl 40 mg tablet 40 mg PO DAILY RF: 0 trazodone 150 mg tablet 150 mg PO BEDTIME RF: 0 lorazepam 0.5 mg tablet 0.5 mg PO BID PRN (Reason: Anxiety) RF: 0 quetiapine 200 mg tablet 200 mg PO BEDTIME RF: 0 lidocaine-prilocaine 2.5-2.5 % cream topical RF: 0 cyclobenzaprine 10 mg tablet 10 mg PO Q8H PRN (Reason: muscle spasm) RF: 0 naproxen 500 mg tablet 500 mg PO BID RF: 0 lubiprostone [Amitiza] 8 mcg capsule 8 mcg PO BID 30 Days Qty: 60 RF: 6
[2021-01-25] MEDS: Cyclobenzaprine HCl 10 MG TABLET PO (17:45)
[2021-01-25] MEDS: Ondansetron ODT 4 MG TAB.RAPDIS TRANSLINGU (17:45)
[2021-01-25 18:19] LABS: Calcium Oxalate Crystals Urine 3+ /LPF; RBC Urine 0 /HPF (0)
== END 2021-01-25 18:32 | disposition home or self-care (01) ==
PROVIDERS: Emergency Provider Emergency Medicine; PCP Internal Medicine
DX: M54.5 Low back pain (principal); F33.1 Major depressive disorder, recurrent, moderate; Z79.899 Other long term (current) drug therapy
CPT/HCPCS: 81001; 81003; 99283

== ENCOUNTER 2021-02-01 10:44 | Outpatient (REF) | payer OTHER, SELFPAY ==
--- NOTE | ~2021-02-01 | XR_ITS ---
EXAMINATION: XR LUMBOSACRAL SPINE CLINICAL INFORMATION: Lower back pain. COMPARISON: Most recent lumbar spine radiographs dated 06/26/2019. TECHNIQUE: Three views of the lumbosacral spine. FINDINGS: The lumbar lordosis is maintained. Minimal grade 1 anterolisthesis of L4 on L5, unchanged. No acute fracture or subluxation. No loss of vertebral body height. Mild multilevel loss of intervertebral disc height with small anterior endplate osteophytes. Bilateral facet arthropathy at L4 through S1. Dystrophic ossification redemonstrated posterior to the sacrum. XR/XR lumbar spine 2-3V IMPRESSION: Minimal grade 1 anterolisthesis of L4 on L5, unchanged. Multilevel degenerative disc disease and bilateral facet arthropathy, unchanged.
== END 2021-02-01 10:45 | disposition home or self-care (01) ==
LOC: HO.XRAY 10:44
PROVIDERS: PCP Internal Medicine; Visit Provider Nurse Practitioner
DX: D12.6 Benign neoplasm of colon, unspecified (principal); K59.04 Chronic idiopathic constipation; K21.9 Gastro-esophageal reflux disease without esophagitis; M54.5 Low back pain; Z98.890 Other specified postprocedural states
CPT/HCPCS: 72100; 99212

== ENCOUNTER 2021-03-13 15:12 | Outpatient (REF) | payer OTHER, SELFPAY ==
--- NOTE | ~2021-03-13 | US_ITS ---
EXAMINATION: US THYROID CLINICAL INFORMATION: Nontoxic goiter, unspecified COMPARISON: None TECHNIQUE: Linear transducer grayscale and color Doppler examination with attention to the region of the thyroid. FINDINGS: SIZE: Measurements of the thyroid lobes and nodules are given in sagittal, anteroposterior and transverse dimensions respectively. Right Thyroid Lobe: 3.5 x 1.1 x 1.1 cm, volume 2.2 mL. Left Thyroid Lobe: 3.1 x 0.6 x 1.0 cm, volume 1.0 mL. Isthmus: 0.1 cm in maximum AP dimension. THYROID PARENCHYMA AND NODULES: The thyroid gland is diffusely atrophied and slightly heterogeneous. There are no nodules. The vascularity of the gland is grossly normal. NODES: No lymphadenopathy is seen in the tissue surrounding the thyroid gland. US/US thyroid IMPRESSION: Thyroid gland is atrophied and heterogeneous. There are no thyroid nodules.
== END 2021-03-13 15:13 | disposition home or self-care (01) ==
LOC: HO.US 15:12
PROVIDERS: PCP Student in an Organized Health Care Education/Training Program; Visit Provider Internal Medicine
DX: E04.9 Nontoxic goiter, unspecified (principal)
CPT/HCPCS: 76536

== ENCOUNTER 2021-03-14 13:54 | Outpatient (REF) | payer OTHER, SELFPAY ==
--- NOTE | ~2021-03-14 | MM_ITS ---
EXAMINATION: MM SCREENING DIGITAL BREAST TOMOSYNTHESIS, BILATERAL CLINICAL INFORMATION: Screening. Asymptomatic. The lifetime risk of breast cancer based on the Tyrer-Cuzick Model is 6%. COMPARISON: Mammography: 03/10/2020, 01/05/2019, 12/31/2017 TECHNIQUE: Digital breast tomosynthesis is performed in both the craniocaudal and mediolateral oblique views along with computer-aided detection (CAD). Synthesized 2D images are generated from the tomosynthesis. FINDINGS: There are scattered areas of fibroglandular density (ACR BI-RADS breast composition Category b). There are no significant masses, abnormal calcifications, or other abnormalities. Breast tissue composition borders on predominantly fatty. Background stromal markings are stable. No significant changes. MM/MM tomosynthesis screening BI IMPRESSION: No mammographic evidence of malignancy. ASSESSMENT: BI-RADS 1: Negative RECOMMENDATION: Routine annual mammography screening. This patient's information was entered into a reminder system with a target due date for their next mammogram.
== END 2021-03-14 13:55 | disposition home or self-care (01) ==
LOC: HO.MAMMO 13:54
PROVIDERS: Visit Provider Internal Medicine
DX: Z12.31 Encounter for screening mammogram for malignant neoplasm of breast (principal)
CPT/HCPCS: 77063; 77067

== ENCOUNTER → 2021-03-15 12:59 | Outpatient (BNVA) | payer OTHER, SELFPAY | PROVIDERS: PCP Student in an Organized Health Care Education/Training Program; Referring Provider Student in an Organized Health Care Education/Training Program; Visit Provider Nurse Practitioner | DX: K59.04 Chronic idiopathic constipation (principal); K21.9 Gastro-esophageal reflux disease without esophagitis; D36.9 Benign neoplasm, unspecified site; M51.36 Other intervertebral disc degeneration, lumbar region; M43.16 Spondylolisthesis, lumbar region | CPT/HCPCS: 99212 ==

== ENCOUNTER 2021-03-27 11:00 | Outpatient (REF) | payer OTHER, SELFPAY ==
[2021-03-27 12:09] LABS: Cholesterol 169 mg/dL; HDL Cholesterol 50 mg/dL; LDL Cholesterol Calculated 99 mg/dl; Triglycerides 100 mg/dL
[2021-03-27 12:30] LABS: Thyroid Stimulating Hormone 3.12 uIU/mL (0.32-4.0)
[2021-03-27 13:57] LABS: Appearance Urine HAZY; Color Urine YELLOW; Glucose Urine UA NEG (NEG); Leukocyte Esterase Urine TRACE (NEG); Nitrite Urine NEG (NEG); Specific Gravity - Urine 1.025 (1.005-1.025); UACC Culture Trigger YES; Urine Blood NEG (NEG); Urine Ketones NEG (NEG); Urine Protein NEG (NEG-TRACE)
[2021-03-27 14:20] LABS: Calcium Oxalate Crystals Urine 1+ /LPF; RBC Urine 0-2 /HPF (0); Squamous Epithelial Cell Urine 1+ /LPF
[2021-03-27 14:21] LABS: Bacteria Urine TRACE /LPF
== END 2021-03-27 11:01 | disposition home or self-care (01) ==
LOC: HO.LAB 11:00
PROVIDERS: PCP Internal Medicine; Visit Provider Internal Medicine
DX: E78.5 Hyperlipidemia, unspecified (principal); E03.9 Hypothyroidism, unspecified
CPT/HCPCS: 36415; 80061; 81001; 81003; 84443; 87086

== ENCOUNTER 2021-06-13 13:19 | Outpatient (REF) | payer OTHER, SELFPAY ==
--- NOTE | ~2021-06-13 | US_ITS ---
EXAMINATION: US RETROPERITONEAL LIMITED (RENAL ONLY) CLINICAL INFORMATION: Acquired cyst. COMPARISON: Ultrasound renal 10/03/2020. CT abdomen 11/12/2018. Ultrasound abdomen 01/01/2017. X-ray KUB 07/31/2015. TECHNIQUE: Real-time imaging of the kidneys. FINDINGS: RIGHT KIDNEY: 11.8 x 6.0 x 5.4 cm (SAG x AP x TRV). The kidney is normal in size, contour, and echogenicity. Renal cortical thickness is normal. No renal calculi or hydronephrosis. Within the upper pole there is a 1.3 x 1.1 x 0.9 cm cyst with a 1 mm septation without internal vascularity with the appearance of a Bosniak 2 cyst. LEFT KIDNEY: 13.3 x 5.6 x 6.5 cm (SAG x AP x TRV). The kidney is normal in size, contour, and echogenicity. Renal cortical thickness is normal. No renal calculi or hydronephrosis. Within the lower pole there is a 7.4 x 8.8 x 5.5 cm simple appearing cyst. Within the upper pole there is a 6.5 x 6.2 x 6.6 cm probably simple cyst but with limited visualization due to rib shadows. US/US renal BI IMPRESSION: Bilateral renal cysts with mildly septated Bosniak 2 type cyst upper pole right kidney..
== END 2021-06-13 13:20 | disposition home or self-care (01) ==
LOC: HO.US 13:19
DX: N28.1 Cyst of kidney, acquired (principal)
CPT/HCPCS: 76775

== ENCOUNTER → 2021-07-13 13:06 | Outpatient (BNVA) | payer OTHER, SELFPAY | PROVIDERS: PCP Internal Medicine; Visit Provider Advanced Practice Midwife ==

== ENCOUNTER → 2021-07-23 13:12 | Outpatient (BNVA) | payer OTHER, SELFPAY | PROVIDERS: PCP Internal Medicine | DX: N28.1 Cyst of kidney, acquired (principal); E03.9 Hypothyroidism, unspecified; E78.5 Hyperlipidemia, unspecified; Z88.8 Allergy status to other drugs, medicaments and biological substances; Z88.6 Allergy status to analgesic agent; Z91.012 Allergy to eggs; Z91.013 Allergy to seafood | CPT/HCPCS: 99212 ==

== ENCOUNTER 2021-08-14 17:23 | Emergency (ER) | payer OTHER, SELFPAY ==
--- NOTE | ~2021-08-14 | XR_ITS ---
EXAMINATION: XR FOOT, RIGHT CLINICAL INFORMATION: 5th pinky toe fracture? Foreign body? COMPARISON: Right foot 09/20/2019 TECHNIQUE: AP, lateral, and oblique views of the right foot. FINDINGS: No radiopaque foreign body. No air in the soft tissue. Status post osteotomy of the distal portion of the proximal phalanx of the fifth toe. There is no fracture. No dislocation. No acute abnormality of the foot. Large plantar calcaneal spur. Large spur at the posterior calcaneus at the insertion of the Achilles tendon. Mild degenerative change of the first metatarsal phalangeal joint. Compared to prior study there has not been substantial change. XR/XR foot RT 2V IMPRESSION: No acute abnormality. No radiopaque foreign body. No air in soft tissue.
[2021-08-14 18:38] VITALS: BP 153/88; PULSE 85; RESP 17; TEMP 36.6; O2SAT 98; BMI 37.0
[2021-08-14 19:37] VITALS: BP 149/79; PULSE 74; RESP 18; O2SAT 100
--- NOTE | 2021-08-14 20:15 | ED.GENADULT ---
HPI - General Adult General Chief complaint: Extremity Problem Stated complaint: object stuck in finger Time Seen by Provider: 08/14/21 18:50 Source: patient Mode of arrival: ambulatory Limitations: no limitations History of Present Illness HPI narrative: 61-year-old female with past medical history of high blood pressure presents to the ED for ecchymosis/blister under right pinky due to possibly hitting toe. Patient states no open wounds, fever, chills, pus discharge, redness, or any other concerning symptoms. Related Data Home Medications Medication Instructions Recorded Confirmed cyclobenzaprine 10 mg tablet 10 mg PO Q8H PRN 02/23/20 06/21/21 lidocaine-prilocaine 2.5 %-2.5 % TOPICAL 02/23/20 06/21/21 topical cream lorazepam 0.5 mg tablet 0.5 mg PO BID PRN 02/23/20 06/21/21 paroxetine HCl 40 mg tablet 40 mg PO DAILY 02/23/20 06/21/21 quetiapine 200 mg tablet 200 mg PO BEDTIME 02/23/20 06/21/21 trazodone 150 mg tablet 150 mg PO BEDTIME 02/23/20 06/21/21 Previous Rx's Medication Instructions Recorded blood pressure test kit-large #1 ea 06/06/20 ([facility] Blood Pressure Monitr) cane #1 ea 10/11/20 ibuprofen 800 mg tablet 800 mg PO TID 30 Days #90 tab 11/16/20 lidocaine 5 % topical patch 1 patch TOPICAL DAILY 30 Days #30 12/06/20 ea bisacodyl 5 mg tablet,delayed 10 mg PO BEDTIME 2 Days #4 tab 01/10/21 release (Dulcolax (bisacodyl)) levothyroxine 150 mcg tablet 150 mcg PO DAILY 90 Days #90 tab 01/10/21 toilet seat #1 ea 01/16/21 diazepam 5 mg tablet (Valium) 5 mg PO BEDTIME PRN #5 tab 01/25/21 multivitamin-ferrous 1 tab PO DAILY 30 Days #30 tab 03/04/21 fumarate-folic acid 18 mg-400 mcg tablet (Certavite-Antioxidant) lubiprostone 24 mcg capsule 24 mcg PO BID 30 Days #60 cap 03/15/21 (Amitiza) sucralfate 1 gram tablet 1 g PO BID #60 tab 03/15/21 clotrimazole-betamethasone 1 1 appl TOPICAL BID 14 Days #15 g 05/11/21 %-0.05 % topical cream atorvastatin 10 mg tablet 10 mg PO DAILY #90 tab 06/01/21 terbinafine HCl 250 mg tablet 250 mg PO DAILY 90 Days #90 tab 06/21/21 calcium carbonate 600 mg calcium 600 mg PO BID #180 tab 06/29/21 (1,500 mg) tablet midodrine 5 mg tablet 5 mg PO TID 30 Days #90 tab 06/29/21 pantoprazole 40 mg tablet,delayed 40 mg PO DAILY 90 Days #90 tab 07/03/21 release naproxen 500 mg tablet 500 mg PO BID 30 Days #60 tab 07/28/21 Allergies Allergy/AdvReac Type Severity Reaction Status Date / Time eggs Allergy Intermediate rash Verified 07/23/21 13:18 seafood Allergy Intermediate hives Verified 07/23/21 13:18 shellfish derived Allergy Intermediate RASH Verified 07/23/21 13:18 zolpidem [ZOLPIDEM] Allergy Intermediate HEART Verified 07/23/21 13:18 PALPITATIONS morphine AdvReac Intermediate Vomiting Verified 07/23/21 13:18 Review of Systems Review of Systems: Ecchymosis/blood blister on the right pinky toe Yes all other systems are reviewed and are negative [facility] Past Medical History Medical History Dyslipidemia GERD (gastroesophageal reflux disease) Hypothyroidism Idiopathic chronic hypotension Lower back pain Mild recurrent major depression Obesity (BMI 35.0-39.9 without comorbidity) Onychomycosis PUD (peptic ulcer disease) Renal cyst Skin lesion Takes daily multivitamins Unsteady gait Surgical History H/O elbow surgery H/O hand surgery H/O knee surgery History of section History of cholecystectomy History of foot surgery History of hysterectomy History of removal of cyst History of varicose vein ligation Family History Family History Father Diabetes Mother Thyroid disease Chronic mental illness Hypertension Hypercholesterolemia Maternal Aunt Breast cancer Brother In good health Daughter In good health Daughter In good health Sister No problems noted. Social History Social History Housing: Apartment Alcohol intake: never Patient Tobacco Use Status: Never used Tobacco e-Cigarette/Vaping Use: Never Used Second Hand Smoke Exposure: No Advance Directives: No Advance Directives Information Provided: No service: No Current occupational status: disabled Physical Exam ED Vital Signs: Vital Signs - 24 hr 08/14/21 18:38 08/14/21 19:37 Temperature 97.8 F Pulse Rate 85 74 Respiratory Rate 17 18 Blood Pressure 153/88 H 149/79 H Pulse Oximetry 98 100 BMI result Body Mass Index 37.0 Const General: cooperative, healthy appearing, comfortable, no acute distress and well developed Orientation/consciousness: patient oriented x3 HENMT Head: Yes normal to inspection, Yes No palpable skull fracture present, Yes normocephalic and No atraumatic Eyes General: appearance normal, both eyes and all related structures Neck Neck: Yes normal visual inspection, Yes full ROM, Yes no lymphadenopathy, Yes no meningeal signs, Yes trachea midline, No anterior neck swelling and No tender Chest Chest palpation & inspection: normal inspection of the chest and normal palpation of entire chest wall Resp Effort & Inspection: normal respiratory effort and able to speak in complete sentences Auscultation: clear to auscultation bilaterally Cardio Jugular venous distension: no JVD Heart sounds: S1 normal heart sound present and S2 normal heart sound present GI Inspection: Yes normal to inspection and No abdominal wall ecchymosis Palpation (GI): Soft to palpation, not firm, nontender, no guarding and not rigid General: No CVA tenderness and Yes no CVA tenderness Back/Spine/Pelvis Back: no CVA tenderness, No CVA tenderness and No back tenderness Skin General skin exam: no rashes or lesions noted and elasticity normal Neuro General: patient oriented x3, gait normal and no meningeal signs Cranial nerves: Yes CN's II-XII intact bilaterally Extrem General: Yes normal to inspection and Yes full ROM Ankle/foot/toe images: 1. small area of blood blister. Negative for any erythema, ecchymosis, open wound, pus discharge, foul odor, or deformity. Lower extremity motor/neuro/vascular exam intact. Psych Appearance: grossly normal, well kempt and not disheveled Course Course Course Narrative: Patient sent for x-ray to rule out any fracture, foreign body, osteomyelitis Reevaluation(s) Reevaluation #1: X-ray came back normal and negative for any fracture, foreign body, or osteomyelitis Time: 20:48 Medical Decision Making MDM Narrative Medical decision making narrative: Blood blister Discharge Plan Discharge Clinical Impression: Blood blister Patient Disposition: Home, Self-Care Instructions: Blister (ED) Additional Instructions: Tiene kevin ampolla de rosales debajo del dedo del pie. Recomendamos simplemente colocar hielo en la ampolla y el vendaje para evitar la fricci?n y la irritaci?n. Rosemary la ampolla, esto puede provocar kevin infecci?n. Regrese al servicio de urgencias por enrojecimiento, hinchaz?n, fiebre, escalofr?os, secreci?n de pus, mal olor o cualquier otro s?ntoma preocupante. Por favor, stoney un seguimiento con el PCP. Prescriptions: No Action (DME) blood pressure test kit-large [[facility] Blood Pressure Monitr] Kit See Rx Instructions .ROUTE .MEDSUPPLY Qty: 1 0RF Rx Instructions: As directed (DME) cane Device See Rx Instructions .ROUTE .MEDSUPPLY Qty: 1 0RF Rx Instructions: As directed ibuprofen 800 mg tablet 800 mg PO TID 30 Days Qty: 90 1RF lidocaine 5 % adhesive patch,medicated 1 patch topical DAILY 30 Days Qty: 30 0RF levothyroxine 150 mcg tablet 150 mcg PO DAILY 90 Days Qty: 90 2RF bisacodyl [Dulcolax (bisacodyl)] 5 mg tablet,delayed release (DR/EC) 10 mg PO BEDTIME 2 Days Qty: 4 0RF (DME) toilet seat See Rx Instructions .Route .MEDSUPPLY Qty: 1 0RF Rx Instructions: As directed Certavite-Antioxidant 18-400 mg-mcg tablet 1 tab PO DAILY 30 Days Qty: 30 11RF clotrimazole-betamethasone 1-0.05 % cream 1 appl topical BID 14 Days Qty: 15 1RF atorvastatin 10 mg tablet 10 mg PO DAILY Qty: 90 3RF calcium carbonate 600 mg calcium (1,500 mg) tablet 600 mg PO BID Qty: 180 3RF midodrine 5 mg tablet 5 mg PO TID 30 Days Qty: 90 4RF Rx Instructions: do not give last dose of day after 6PM or within 4 hrs of bedtime pantoprazole 40 mg tablet,delayed release (DR/EC) 40 mg PO DAILY 90 Days Qty: 90 4RF naproxen 500 mg tablet 500 mg PO BID 30 Days Qty: 60 0RF diazepam [Valium] 5 mg tablet 5 mg PO BEDTIME PRN (Reason: muscle spasm) Qty: 5 0RF terbinafine HCl 250 mg tablet 250 mg PO DAILY 90 Days Qty: 90 0RF paroxetine HCl 40 mg tablet 40 mg PO DAILY 0RF trazodone 150 mg tablet 150 mg PO BEDTIME 0RF lorazepam 0.5 mg tablet 0.5 mg PO BID PRN (Reason: Anxiety) 0RF quetiapine 200 mg tablet 200 mg PO BEDTIME 0RF lidocaine-prilocaine 2.5-2.5 % cream topical 0RF cyclobenzaprine 10 mg tablet 10 mg PO Q8H PRN (Reason: muscle spasm) 0RF sucralfate 1 gram tablet 1 g PO BID Qty: 60 6RF lubiprostone [Amitiza] 24 mcg capsule 24 mcg PO BID 30 Days Qty: 60 6RF Interventions: ED Discharge Assessment Last Done: 08/14/21 21:10 Discharge Date/Time: 08/14/21 21:10 Print Language: Yi
== END 2021-08-14 21:10 | disposition home or self-care (01) ==
PROVIDERS: Emergency Provider Internal Medicine; PCP Internal Medicine
DX: S91.134A Puncture wound without foreign body of right lesser toe(s) without damage to nail, initial encounter (principal); X58.XXXA Exposure to other specified factors, initial encounter; L98.9 Disorder of the skin and subcutaneous tissue, unspecified; E78.5 Hyperlipidemia, unspecified; Z79.02 Long term (current) use of antithrombotics/antiplatelets; Y93.9 Activity, unspecified; Y92.9 Unspecified place or not applicable; Y99.9 Unspecified external cause status
CPT/HCPCS: 73620; 99283; 99284

== ENCOUNTER 2021-08-20 09:54 | Outpatient (REF) | payer OTHER, SELFPAY ==
[2021-08-20 10:56] LABS: Appearance Urine HAZY; Color Urine YELLOW; Glucose Urine UA NEG (NEG); Leukocyte Esterase Urine 2+ (NEG); Nitrite Urine NEG (NEG); UACC Culture Trigger YES; Urine Blood TRACE (NEG); Urine Ketones NEG (NEG); Urine Protein NEG (NEG-TRACE)
[2021-08-20 11:08] LABS: Mucus Urine 1+ /LPF; Squamous Epithelial Cell Urine 1+ /LPF
[2021-08-20 11:28] LABS: Alanine Aminotransferase 19 U/L (0-31); Alkaline Phosphatase 103 U/L (39-117); Anion Gap 12 (12-20); Aspartate Amino Transferase 21 U/L (5-31); Bilirubin Total 0.7 mg/dL (0.0-1.0); Blood Urea Nitrogen 17 mg/dL (9-16); Calcium 9.7 mg/dL (8.4-10.2); Carbon Dioxide 31 mmol/L (22-29); Chloride 103 mmol/L (96-108); Cholesterol 173 mg/dL; Estimated Glomerular Filt Rate > 60; Glucose Random 92 mg/dL (60-115); HDL Cholesterol 44 mg/dL; LDL Cholesterol Calculated 107 mg/dl; Potassium 4.6 mmol/L (3.3-5.1); Sodium 141 mmol/L (135-145); Total Protein 7.2 g/dL (6.5-8.0); Triglycerides 111 mg/dL
[2021-08-20 11:38] LABS: Thyroid Stimulating Hormone 4.06 uIU/mL (0.32-4.0)
== END 2021-08-20 09:55 | disposition home or self-care (01) ==
LOC: HO.LAB 09:54
PROVIDERS: PCP Internal Medicine; Visit Provider Internal Medicine
DX: E78.5 Hyperlipidemia, unspecified (principal); E03.9 Hypothyroidism, unspecified
CPT/HCPCS: 36415; 80053; 80061; 81001; 84443; 87086

== ENCOUNTER → 2021-09-13 11:58 | Outpatient (BNVA) | payer OTHER, SELFPAY | PROVIDERS: PCP Internal Medicine; Referring Provider Student in an Organized Health Care Education/Training Program; Visit Provider Nurse Practitioner | DX: K59.04 Chronic idiopathic constipation (principal); K21.9 Gastro-esophageal reflux disease without esophagitis; D36.9 Benign neoplasm, unspecified site | CPT/HCPCS: 99212 ==

== ENCOUNTER → 2021-10-11 13:02 | Outpatient (BNVA) | payer OTHER, SELFPAY | PROVIDERS: PCP Internal Medicine; Visit Provider Nurse Practitioner | DX: K59.04 Chronic idiopathic constipation (principal); K21.9 Gastro-esophageal reflux disease without esophagitis; Z86.010 Personal history of colon polyps | CPT/HCPCS: 99212 ==

== ENCOUNTER → 2021-10-26 14:57 | Outpatient (BNVA) | payer OTHER, SELFPAY | PROVIDERS: PCP Internal Medicine; Visit Provider Nurse Practitioner | DX: K21.9 Gastro-esophageal reflux disease without esophagitis (principal); K59.04 Chronic idiopathic constipation; K27.9 Peptic ulcer, site unspecified, unspecified as acute or chronic, without hemorrhage or perforation; Z86.010 Personal history of colon polyps; Z98.890 Other specified postprocedural states | CPT/HCPCS: 99212 ==

== ENCOUNTER 2021-10-30 10:03 | Outpatient (REF) | payer OTHER, SELFPAY ==
[2021-10-30 12:04] LABS: Thyroid Stimulating Hormone 3.18 uIU/mL (0.32-4.0)
== END 2021-10-30 10:04 | disposition home or self-care (01) ==
LOC: HO.LAB 10:03
PROVIDERS: PCP Internal Medicine; Visit Provider Internal Medicine
DX: E03.9 Hypothyroidism, unspecified (principal)
CPT/HCPCS: 36415; 84443

== ENCOUNTER 2021-12-05 16:10 | Outpatient (REF) | payer OTHER, SELFPAY ==
[2021-12-05 16:21] LABS: MANUAL DIFF FLAG NO
[2021-12-05 17:21] LABS: Basophils Absolute Auto 0.1 X10*3/uL (0.0-0.2); Basophils Percent Auto 0.7 % (0-2); Eosinophils Absolute Auto 0.2 X10*3/uL (0.0-0.4); Eosinophils Percent Auto 2.1 % (0-4); Hematocrit 45.8 % (37.0-47.0); Hemoglobin 13.9 g/dl (12.0-16.0); Imm Gran Abs Auto 0.02 X10*3/uL (0.00-0.03); Imm Gran Pct Auto 0.3 % (0.0-0.4); Lymphocytes Percent Auto 27.2 % (20-40); Mean Corpuscular HGB Conc 30.3 g/dl (31.0-35.0); Mean Corpuscular Volume 89.1 fL (80.0-98.0); Mean Platelet Volume 12.9 fL (9.4-12.3); Monocytes Absolute Auto 0.6 X10*3/uL (0.1-1.2); Monocytes Percent Auto 8.1 % (2-11); Neutrophils Absolute Auto 4.5 x10*3/uL (2.0-8.3); Neutrophils Percent Auto 61.6 % (45-73); Platelet Count 184 X10*3/uL (160-400); Red Blood Count 5.14 X10*6/uL (4.20-5.50); Red Cell Distribution Width 12.7 % (11.0-16.0); White Blood Count 7.3 X10*3/uL (4.8-10.8)
[2021-12-05 18:15] LABS: Alanine Aminotransferase 17 U/L (0-31); Albumin Level 4.1 g/dL (3.5-5.0); Alkaline Phosphatase 101 U/L (39-117); Anion Gap 17 (12-20); Aspartate Amino Transferase 18 U/L (5-31); Bilirubin Total 0.4 mg/dL (0.0-1.0); Blood Urea Nitrogen 21 mg/dL (9-16); Calcium 9.3 mg/dL (8.4-10.2); Carbon Dioxide 23 mmol/L (22-29); Chloride 107 mmol/L (96-108); Estimated Glomerular Filt Rate > 60; Glucose Random 81 mg/dL (60-115); Potassium 4.2 mmol/L (3.3-5.1); Sodium 143 mmol/L (135-145); Total Protein 7.3 g/dL (6.5-8.0)
== END 2021-12-05 16:11 | disposition home or self-care (01) ==
LOC: HO.LAB 16:10
PROVIDERS: PCP Internal Medicine; Visit Provider Nurse Practitioner
DX: Z01.818 Encounter for other preprocedural examination (principal); K59.04 Chronic idiopathic constipation; K21.9 Gastro-esophageal reflux disease without esophagitis; D36.9 Benign neoplasm, unspecified site; K59.9 Functional intestinal disorder, unspecified
CPT/HCPCS: 36415; 80053; 84443; 85025; 99212

== ENCOUNTER 2021-12-20 15:16 | Outpatient (REF) | payer OTHER, SELFPAY ==
[2021-12-20 15:59] LABS: Urine Cytology See Pathology rpt
[2021-12-20 16:03] LABS: Appearance Urine Clear; Color Urine Yellow; Glucose Urine UA Negative (Negative); Leukocyte Esterase Urine Moderate (2+) (Negative); Nitrite Urine Negative (Negative); Urine Blood Trace (Negative); Urine Ketones Negative (Negative); Urine Protein Negative (Neg-Trace)
[2021-12-20 16:29] LABS: Bacteria Urine None Seen (None Seen); Hyaline Casts Urine 0-2 /LPF (0-2); WBC Urine 0-5 /HPF (0-5)
== END 2021-12-20 15:17 | disposition home or self-care (01) ==
LOC: HO.LAB 15:16
PROVIDERS: PCP Internal Medicine; Visit Provider Internal Medicine Hypertension Specialist
DX: N28.1 Cyst of kidney, acquired (principal)
CPT/HCPCS: 81001; 81003; 88112

== ENCOUNTER 2022-01-02 12:01 | Outpatient (REF) | payer OTHER, SELFPAY ==
--- NOTE | ~2022-01-02 | US_ITS ---
EXAMINATION: US RETROPERITONEAL LIMITED (RENAL ONLY) CLINICAL INFORMATION: Cyst of kidney, acquired. COMPARISON: US retroperitoneal limited (renal only) 06/13/2021 and 10/03/2020. CT abdomen with contrast 11/12/2018. XR abdomen KUB 07/31/2015 and 05/22/2013. TECHNIQUE: Real-time imaging of the kidneys. Technically suboptimal study secondary to body habitus. FINDINGS: RIGHT KIDNEY: 12.8 x 4.0 x 6.3 cm (SAG x AP x TRV). The kidney is normal in size, contour, and echogenicity. Renal cortical thickness is normal. No renal calculi or hydronephrosis. Upper pole 1.3 cm cyst with thin internal septations. No Doppler vascularity. LEFT KIDNEY: 13.9 x 5.8 x 4.8 cm (SAG x AP x TRV). The kidney is normal in size, contour, and echogenicity. Renal cortical thickness is normal. No renal calculi or hydronephrosis. Lower pole cyst measures 8.3 x 5.5 x 7.7 cm . Upper pole cyst measures 6 x 6.3 x 8.2 cm. These appear simple. US/US renal BI IMPRESSION: Bilateral renal cysts. The left-sided cysts are prominent, similar to prior and appearing simple. No specific follow-up recommended. The right renal cyst has a thin internal septation, likely Bosniak 2. This is unchanged.
== END 2022-01-02 12:02 | disposition home or self-care (01) ==
LOC: HO.US 12:01
PROVIDERS: PCP Internal Medicine
DX: N28.1 Cyst of kidney, acquired (principal); K21.9 Gastro-esophageal reflux disease without esophagitis; K59.9 Functional intestinal disorder, unspecified; K59.04 Chronic idiopathic constipation; D36.9 Benign neoplasm, unspecified site
CPT/HCPCS: 76775; 99212

== ENCOUNTER 2022-03-18 12:47 | Outpatient (REF) | payer OTHER, SELFPAY ==
--- NOTE | ~2022-03-18 | MM_ITS ---
EXAMINATION: MM SCREENING DIGITAL BREAST TOMOSYNTHESIS, BILATERAL CLINICAL INFORMATION: Screening. Asymptomatic. COMPARISON: Mammography: 03/14/2021, 03/10/2020, 01/05/2019 TECHNIQUE: Digital breast tomosynthesis is performed in both the craniocaudal and mediolateral oblique views along with computer-aided detection (CAD). Synthesized 2D images are generated from the tomosynthesis. FINDINGS: There are scattered areas of fibroglandular density (ACR BI-RADS breast composition Category b). Breast tissue composition borders on predominantly fatty. Background fibroglandular and stromal densities are stable. No developing density. There are no significant masses, abnormal calcifications, or other abnormalities. The axilla and skin contours are unremarkable. No significant changes. MM/MM tomosynthesis screening BI IMPRESSION: No mammographic evidence of malignancy. ASSESSMENT: BI-RADS 1: Negative RECOMMENDATION: Routine annual mammography screening. This patient's information was entered into a reminder system with a target due date for their next mammogram.
== END 2022-03-18 12:48 | disposition home or self-care (01) ==
LOC: HO.MAMMO 12:47
PROVIDERS: PCP Internal Medicine; Visit Provider Internal Medicine
DX: Z12.31 Encounter for screening mammogram for malignant neoplasm of breast (principal)
CPT/HCPCS: 77063; 77067

== ENCOUNTER 2022-03-20 08:55 | Outpatient (REF) | payer OTHER, SELFPAY ==
[2022-03-20 10:11] LABS: Alanine Aminotransferase 21 U/L (0-31); Albumin Level 4.2 g/dL (3.5-5.0); Alkaline Phosphatase 108 U/L (39-117); Anion Gap 14 (12-20); Aspartate Amino Transferase 23 U/L (5-31); Bilirubin Total 0.6 mg/dL (0.0-1.0); Blood Urea Nitrogen 18 mg/dL (9-16); Calcium 9.5 mg/dL (8.4-10.2); Carbon Dioxide 29 mmol/L (22-29); Chloride 103 mmol/L (96-108); Cholesterol 163 mg/dL; Estimated Glomerular Filt Rate > 60; Glucose Fasting 88 mg/dL (60-99); HDL Cholesterol 44 mg/dL; LDL Cholesterol Calculated 96 mg/dl; Potassium 4.2 mmol/L (3.3-5.1); Sodium 142 mmol/L (135-145); Thyroid Stimulating Hormone 6.43 uIU/mL (0.32-4.0); Total Protein 7.2 g/dL (6.5-8.0); Triglycerides 118 mg/dL
[2022-03-20 12:05] LABS: Appearance Urine Clear; Color Urine Dark Yellow; Glucose Urine UA Negative (Negative); Leukocyte Esterase Urine Moderate (2+) (Negative); Nitrite Urine Negative (Negative); PH 5.5 (5.0-9.0); Specific Gravity - Urine 1.025 (1.005-1.025); UMIC TRIGGER UACC YES; Urine Blood Negative (Negative); Urine Ketones Trace mg/dL (Negative); Urine Protein Trace mg/dL (Neg-Trace)
[2022-03-20 12:15] LABS: Bacteria Urine None Seen (None Seen); Hyaline Casts Urine 0-2 /LPF (0-2); UACC Culture Trigger YES; WBC Urine >50 /HPF (0-5)
== END 2022-03-20 08:56 | disposition home or self-care (01) ==
LOC: HO.LAB 08:55
PROVIDERS: PCP Internal Medicine; Visit Provider Internal Medicine
DX: I95.0 Idiopathic hypotension (principal); E78.5 Hyperlipidemia, unspecified; E03.9 Hypothyroidism, unspecified; R35.0 Frequency of micturition
CPT/HCPCS: 36415; 80053; 80061; 81001; 81003; 84443; 87086

== ENCOUNTER 2022-03-25 13:59 | Emergency (ER) | payer OTHER, SELFPAY ==
[2022-03-25 14:50] VITALS: BP 143/87; PULSE 89; RESP 18; TEMP 36.9; O2SAT 99; BMI 37.9
--- NOTE | 2022-03-25 15:28 | ED.BACK ---
HPI - Back Pain/Injury General Chief Complaint: Back Pain/Injury Stated Complaint: back pain Time Seen by Provider: 03/25/22 15:26 Source: patient Mode of arrival: ambulatory Limitations: no limitations History of Present Illness HPI Narrative: 62 yo female with history of BREONNA, GERD, constipation, hypothyroidism who is presenting to the ER for evaluation of low back pain that started on March 07 after doing heavy lifting at home. She states the pain acutely got worse today, prompting her ER evaluation. Last week she was taking Tylenol with intermittent relief but has not tried any other medications. She states the pain is in her middle and lower back bilaterally. It is worse with moving, bending and lifting. No radiation of the pain into her buttocks or legs. She has no urinary symptoms, no abdominal pain. She denies any weakness or numbness in her lower extremities. No fevers. No trauma or falls. MD elicited complaint: back pain Pertinent past history: prior back pain Onset (ago): week(s) Timing: progressively worsening Severity: severe Similar Symptoms Previously: Yes Quality: aching and spasming Location: right lower back and left lower back Radiation: none Exacerbating factors: movement and walking Relieving factors: supine Context: while lifting Associated symptoms: denies other symptoms Work related injury: No Related Data Home Medications Medication Instructions Recorded Confirmed cyclobenzaprine 10 mg tablet 10 mg PO Q8H PRN muscle spasm 02/23/20 11/06/21 lidocaine-prilocaine 2.5 %-2.5 % topical 02/23/20 11/06/21 topical cream lorazepam 0.5 mg tablet 0.5 mg PO BID PRN Anxiety 02/23/20 11/06/21 paroxetine HCl 40 mg tablet 40 mg PO DAILY 02/23/20 11/06/21 quetiapine 200 mg tablet 200 mg PO BEDTIME 02/23/20 11/06/21 trazodone 150 mg tablet 150 mg PO BEDTIME 02/23/20 11/06/21 Previous Rx's Medication Instructions Recorded blood pressure test kit-large #1 ea 06/06/20 (Advocate Blood Pressure Monitor kit) cane #1 ea 10/11/20 ibuprofen 800 mg tablet 800 mg PO TID 30 days #90 tabs 11/16/20 bisacodyl 5 mg tablet,delayed 10 mg PO BEDTIME 2 days #4 tabs 01/10/21 release (Dulcolax (bisacodyl)) toilet seat #1 ea 01/16/21 diazepam 5 mg tablet (Valium) 5 mg PO BEDTIME PRN muscle spasm 01/25/21 #5 tabs clotrimazole-betamethasone 1 1 appl topical BID 14 days #15 05/11/21 %-0.05 % topical cream grams atorvastatin 10 mg tablet 10 mg PO DAILY #90 tabs 06/01/21 calcium carbonate 600 mg calcium 600 mg PO BID #180 tabs 06/29/21 (1,500 mg) tablet pantoprazole 40 mg tablet,delayed 40 mg PO DAILY 90 days #90 tabs 07/03/21 release naproxen 500 mg tablet 500 mg PO BID 30 days #60 tabs 07/28/21 lubiprostone 24 mcg capsule 24 mcg PO BID #60 caps 08/21/21 sucralfate 1 gram tablet 1 g PO BID #60 tabs 08/21/21 terbinafine HCl 250 mg tablet 250 mg PO DAILY 90 days #90 tabs 10/10/21 linaclotide 290 mcg capsule 290 mcg PO QAM 30 days #30 caps 10/11/21 (Linzess) peg 3350-electrolytes 236 240 ml PO Q10M 1 day #4,000 mL 10/11/21 gram-22.74 gram-6.74 gram-5.86 gram solution (Golytely) famotidine 40 mg tablet (Pepcid) 40 mg PO BEDTIME #30 tabs 10/26/21 midodrine 5 mg tablet 5 mg PO TID 30 days #90 tabs 11/21/21 metoclopramide HCl 5 mg tablet 5 mg PO QIDACHS #120 tabs 12/05/21 (Reglan) multivitamin-ferrous 1 tab PO DAILY 30 days #30 tabs 02/17/22 fumarate-folic acid 18 mg-400 mcg tablet (Certavite-Antioxidant) levothyroxine 200 mcg tablet 200 mcg PO DAILY 90 days #90 tabs 03/21/22 nystatin 100,000 unit/gram topical 1 appl topical DAILY 30 days #30 03/21/22 cream grams cyclobenzaprine 10 mg tablet 10 mg PO TID PRN muscle spasm #14 03/25/22 tabs ibuprofen 600 mg tablet 600 mg PO Q8H PRN pain #14 tabs 03/25/22 lidocaine 5 % topical patch 1 patch topical DAILY #15 ea 03/25/22 Allergies Allergy/AdvReac Type Severity Reaction Status Date / Time eggs Allergy Intermediate rash Verified 01/02/22 14:33 seafood Allergy Intermediate hives Verified 01/02/22 14:33 shellfish derived Allergy Intermediate RASH Verified 01/02/22 14:33 zolpidem [ZOLPIDEM] Allergy Intermediate HEART Verified 01/02/22 14:33 PALPITATIONS morphine AdvReac Intermediate Vomiting Verified 01/02/22 14:33 Review of Systems Review of Systems: Constitutional: No Fever, No Chills ENT/Mouth: No sore throat, No Rhinorrhea Cardiovascular: No Chest Pain, No SOB Respiratory: No Cough, No Sputum Gastrointestinal: No Nausea, No Vomiting, No Diarrhea, No abdominal Pain Genitourinary: No Dysuria, No Urinary Frequency, No Hematuria, no urinary incontinence Musculoskeletal: No joint pain, +Myalgias Skin: No Skin Lesions, No rash Neuro: No Weakness, No Numbness, No Dizziness, No Headache Psych: + Anxiety/Panic, No Depression Heme/Lymph: No Bruising PMFSH Past Medical History Medical History Dyslipidemia GERD (gastroesophageal reflux disease) Hypothyroidism Idiopathic chronic hypotension Lower back pain Mild recurrent major depression Obesity (BMI 35.0-39.9 without comorbidity) Onychomycosis PUD (peptic ulcer disease) Renal cyst Skin lesion Takes daily multivitamins Tubular adenoma of colon Unsteady gait Surgical History H/O elbow surgery H/O hand surgery H/O knee surgery History of section History of cholecystectomy History of foot surgery History of hysterectomy History of removal of cyst History of varicose vein ligation Family History Family History Father Diabetes Mother Thyroid disease Chronic mental illness Hypertension Hypercholesterolemia Maternal Aunt Breast cancer Brother In good health Daughter In good health Daughter In good health Sister No problems noted. Social History Social History Housing: Apartment Alcohol intake: never Patient Tobacco Use Status: Never used Tobacco e-Cigarette/Vaping Use: Never Used Second Hand Smoke Exposure: No Advance Directives: No Advance Directives Information Provided: Yes service: No Current occupational status: disabled Cognitive needs: No Hearing needs: No Vision needs: No Physical Exam Vital Signs: Vital Signs: Last Vital Signs Temp 98.4 F 03/25/22 14:50 Pulse 89 03/25/22 14:50 Resp 18 03/25/22 14:50 BP 143/87 H 03/25/22 14:50 Pulse Ox 99 03/25/22 14:50 O2 Del Method 03/25/22 14:50 BMI result Body Mass Index 37.9 Appearance: Alert. Oriented X3. No acute distress. HEENT: normal inspection CVS: Normal heart rate and rhythm. Pulses normal. Respiratory: No respiratory distress. Skin: Skin warm and dry. Normal skin color. Normal skin turgor. No rashes. Extremities: Normal inspection, normal range of motion of all 4 extremities. Back: Normal inspection, soft tissue tenderness of the low thoracic area and high lumbar area of the paraspinous muscles with palpable spasm. No midline tenderness. Pain with flexion. No CVA tenderness. No SI joint tenderness. Negative straight leg raise test. Neuro: Oriented X 3. No motor deficit. No sensory deficit. Normal DTRs, slow but steady gait Course Course Course Narrative: 62-year-old female presents to the ER for evaluation of low back pain after heavy lifting. No red flag symptoms of low back pain. Palpable spasm and soft tissue tenderness on examination consistent with muscle strain and spasm. Will treat accordingly. Return precautions have been discussed. Encourage follow-up with her PCP. Stable for discharge home. Medications Administered Discontinued Medications Generic Name Dose Route Start Last Admin Trade Name Claudia PRN Reason Stop Dose Admin Ketorolac Tromethamine 30 mg 03/25/22 15:33 03/25/22 15:44 Ketorolac Tromethamine 30 Mg/Ml Vial IM 03/25/22 15:34 30 mg ONCE ONE Administration Lidocaine 1 patch 03/25/22 15:33 03/25/22 15:43 Lidocaine 4 % Patch Adh..Patch TRANSDERMA 03/25/22 15:34 1 patch ONCE ONE Administration Protocol Oxycodone HCl 5 mg 03/25/22 15:33 03/25/22 15:44 Oxycodone Hcl Immed Release 5 Mg Tablet PO 03/25/22 15:34 5 mg ONCE ONE Administration Discharge Plan Discharge Clinical Impression: Strain of lumbar region Patient Disposition: Home, Self-Care Instructions: Low Back Strain (ED), Lower Back Exercises (ED) Additional Instructions: No bending, lifting or twisting. Use ice several times per day for 20 minutes at a time for the next 48 hours and then change to heat. Take medications as prescribed to help with pain and discomfort. Follow up with your Primary Care Doctor this week. If your pain worsens, if you develop new numbness, tingling, weakness, loss of function or incontinence call 911 or come back to the ER right away for evaluation. Sin doblar, levantar o torcer. Use hielo varias veces al d?a arturo 20 minutos a la vez arturo las pr?ximas 48 horas y luego cambie a calor. [place] los medicamentos seg?n lo prescrito para ayudar con el dolor y la incomodidad. Karel un seguimiento con leal m?dico de atenci?n primaria esta semana. Si leal dolor empeora, si desarrolla un nuevo entumecimiento, hormigueo, debilidad, p?rdida de funci?n o incontinencia, llame al 911 o regrese a la keny de emergencias de inmediato para kevin evaluaci?n. Prescriptions: New cyclobenzaprine 10 mg tablet 10 mg PO TID PRN (Reason: muscle spasm) Qty: 14 0RF ibuprofen 600 mg tablet 600 mg PO Q8H PRN (Reason: pain) Qty: 14 0RF lidocaine 5 % adhesive patch,medicated 1 patch topical DAILY Qty: 15 0RF Rx Instructions: leave on most painful area for up to 12 hrs No Action (DME) blood pressure test kit-large [[facility]ocate Blood Pressure Monitr] Kit See Rx Instructions .ROUTE .MEDSUPPLY Qty: 1 0RF Rx Instructions: As directed (DME) cane Device See Rx Instructions .ROUTE .MEDSUPPLY Qty: 1 0RF Rx Instructions: As directed ibuprofen 800 mg tablet 800 mg PO TID 30 Days Qty: 90 1RF bisacodyl [Dulcolax (bisacodyl)] 5 mg tablet,delayed release (DR/EC) 10 mg PO BEDTIME 2 Days Qty: 4 0RF (DME) toilet seat See Rx Instructions .Route .MEDSUPPLY Qty: 1 0RF Rx Instructions: As directed clotrimazole-betamethasone 1-0.05 % cream 1 appl topical BID 14 Days Qty: 15 1RF atorvastatin 10 mg tablet 10 mg PO DAILY Qty: 90 3RF calcium carbonate 600 mg calcium (1,500 mg) tablet 600 mg PO BID Qty: 180 3RF pantoprazole 40 mg tablet,delayed release (DR/EC) 40 mg PO DAILY 90 Days Qty: 90 4RF naproxen 500 mg tablet 500 mg PO BID 30 Days Qty: 60 0RF lubiprostone 24 mcg capsule 24 mcg PO BID Qty: 60 6RF Hold Instructions: Doctor's Order sucralfate 1 gram tablet 1 g PO BID Qty: 60 6RF Hold Instructions: Doctor's Order terbinafine HCl 250 mg tablet 250 mg PO DAILY 90 Days Qty: 90 0RF midodrine 5 mg tablet 5 mg PO TID 30 Days Qty: 90 4RF Rx Instructions: do not give last dose of day after 6PM or within 4 hrs of bedtime Certavite-Antioxidant 18-400 mg-mcg tablet 1 tab PO DAILY 30 Days Qty: 30 11RF levothyroxine 200 mcg tablet 200 mcg PO DAILY 90 Days Qty: 90 1RF nystatin 100,000 unit/gram cream 1 appl topical DAILY 30 Days Qty: 30 1RF diazepam [Valium] 5 mg tablet 5 mg PO BEDTIME PRN (Reason: muscle spasm) Qty: 5 0RF paroxetine HCl 40 mg tablet 40 mg PO DAILY trazodone 150 mg tablet 150 mg PO BEDTIME lorazepam 0.5 mg tablet 0.5 mg PO BID PRN (Reason: Anxiety) quetiapine 200 mg tablet 200 mg PO BEDTIME lidocaine-prilocaine 2.5-2.5 % cream topical cyclobenzaprine 10 mg tablet 10 mg PO Q8H PRN (Reason: muscle spasm) famotidine [Pepcid] 40 mg tablet 40 mg PO BEDTIME Qty: 30 6RF metoclopramide HCl [Reglan] 5 mg tablet 5 mg PO QIDACHS Qty: 120 3RF Rx Instructions: Provider aware of potential interaction with prozac and is monitornig Linzess 290 mcg capsule 290 mcg PO QAM 30 Days Qty: 30 6RF peg 3350-electrolytes [Golytely] 236-22.74-6.74 -5.86 gram recon soln 240 ml PO Q10M 1 Days Qty: 4000 0RF Rx Instructions: until fecal effluent is clear; do not exceed a total volume of 2,000 mL Referrals: Rae Nunez MD [Primary Care Provider] - Print Language: Panamanian
[2022-03-25] MEDS: Lidocaine 4 % Patch ADH..PATCH 1 PATCH TRANSDERMA (15:43)
[2022-03-25] MEDS: Ketorolac Tromethamine 30 MG/ML VIAL IM (15:44)
[2022-03-25] MEDS: oxyCODONE HCl Immed Release 5 MG TABLET PO (15:44)
== END 2022-03-25 16:30 | disposition home or self-care (01) ==
PROVIDERS: Emergency Provider Emergency Medicine; PCP Internal Medicine
DX: S39.012A Strain of muscle, fascia and tendon of lower back, initial encounter (principal); X50.0XXA Overexertion from strenuous movement or load, initial encounter; Y93.E9 Activity, other interior property and clothing maintenance; Y92.039 Unspecified place in apartment as the place of occurrence of the external cause; Y99.9 Unspecified external cause status
CPT/HCPCS: 96372; 99283; 99284; J1885

== ENCOUNTER 2022-04-03 15:04 | Outpatient (REF) | payer OTHER, SELFPAY ==
--- NOTE | ~2022-04-03 | XR_ITS ---
EXAMINATION: X-RAY BILATERAL KNEES CLINICAL INFORMATION: Knee pain COMPARISON: X-ray 01/15/2014 right knee TECHNIQUE: Left knee 5 views. Right knee 4 views. FINDINGS: Right knee: Marginal spur in the 3 compartments. Mild medial compartment joint space loss. Apparent mild patellofemoral joint space loss. No acute fracture or dislocation. Small suprapatellar joint fluid. There is insertional enthesopathy at the patella. Tibial tubercle insertional enthesopathy. Left knee: Marginal osteophytes in 3 compartments. Mild medial and patellofemoral compartment joint space loss. Small effusion. No fracture or dislocation. Insertional enthesopathy of the patella. Tibial tubercle insertional discopathy. XR/XR knee RT 3V IMPRESSION: Right knee: No acute findings. Mild tricompartment osteoarthritis. Small effusion. Left knee: No acute findings seen. Mild tricompartment osteoarthritis. Small effusion.
--- NOTE | ~2022-04-03 | XR_ITS ---
EXAMINATION: X-RAY BILATERAL KNEES CLINICAL INFORMATION: Knee pain COMPARISON: X-ray 01/15/2014 right knee TECHNIQUE: Left knee 5 views. Right knee 4 views. FINDINGS: Right knee: Marginal spur in the 3 compartments. Mild medial compartment joint space loss. Apparent mild patellofemoral joint space loss. No acute fracture or dislocation. Small suprapatellar joint fluid. There is insertional enthesopathy at the patella. Tibial tubercle insertional enthesopathy. Left knee: Marginal osteophytes in 3 compartments. Mild medial and patellofemoral compartment joint space loss. Small effusion. No fracture or dislocation. Insertional enthesopathy of the patella. Tibial tubercle insertional discopathy. XR/XR knee LT 3V IMPRESSION: Right knee: No acute findings. Mild tricompartment osteoarthritis. Small effusion. Left knee: No acute findings seen. Mild tricompartment osteoarthritis. Small effusion.
--- NOTE | ~2022-04-03 | XR_ITS ---
EXAMINATION: XR LUMBOSACRAL SPINE CLINICAL INFORMATION: Low back pain COMPARISON: X-ray 02/01/2021 TECHNIQUE: 5 views of lumbosacral spine. FINDINGS: Minimal anterolisthesis of L4 on L5. Vertebral body heights are maintained. No evidence of acute fracture or subluxation. Multilevel mild loss of intervertebral disc height, with moderate disc height loss at L5-S1. Multilevel facet degeneration. Stable dystrophic ossification posterior to the sacrum. SI joints are intact. XR/XR lumbar spine 2-3V IMPRESSION: Minimal anterolisthesis of L4 on L5. No acute fractures seen. Lumbar spondylosis, moderate L5-S1 disc degeneration, slightly progressed from previous.
== END 2022-04-03 15:05 | disposition home or self-care (01) ==
LOC: HO.XRAY 15:04
PROVIDERS: PCP Internal Medicine; Visit Provider Internal Medicine
DX: M54.50 Low back pain, unspecified (principal); M25.561 Pain in right knee; M25.562 Pain in left knee
CPT/HCPCS: 72100; 73562

== ENCOUNTER 2022-04-05 10:28 | Day surgery (SDC) | payer OTHER, SELFPAY ==
[2022-04-02 14:07] VITALS: BMI 39.6
--- NOTE | 2022-04-04 13:04 | P.CONAN_ITS ---
Documented by User: Juhi Celestin NP 04/04/22 13:05 HPI - Anesthesia Eval Consult details Narrative: 62yo F for Colonoscopy PMFSH Active Problems Active Problems: All Active Problems (Updated 04/03/22 @ 15:19 by Rae Landis MD) Physical exam (Acute) Lumbar pain (Acute) Right knee pain (Acute) Left knee pain (Acute) Small bowel motility disorder (Acute) Pre-op exam (Acute) Onychomycosis (Acute) Obesity (BMI 35.0-39.9 without comorbidity) (Acute) Lumbar adjacent segment disease with spondylolisthesis (Acute) Tubulovillous adenoma (Acute) Low back pain (Acute) Dyslipidemia (Acute) Mild recurrent major depression (Acute) Skin lesion (Acute) Chronic idiopathic constipation (Acute) PUD (peptic ulcer disease) (Acute) Renal cyst (Acute) Screening examination for infectious disease (Acute) Urinary tract infection (Acute) Abdominal pain (Acute) Idiopathic chronic hypotension (Acute) Unsteady gait (Acute) Hypothyroidism (Acute) Lower back pain (Acute) BREONNA (obstructive sleep apnea) (Acute) Dyspnea (Acute) Takes daily multivitamins (Acute) GERD (gastroesophageal reflux disease) (Acute) Past Medical History Medical History Dyslipidemia GERD (gastroesophageal reflux disease) Hypothyroidism Idiopathic chronic hypotension Lower back pain Mild recurrent major depression Obesity (BMI 35.0-39.9 without comorbidity) Onychomycosis PUD (peptic ulcer disease) Renal cyst Skin lesion Takes daily multivitamins Tubular adenoma of colon Unsteady gait Family History Family History Father Diabetes Mother Thyroid disease Chronic mental illness Hypertension Hypercholesterolemia Maternal Aunt Breast cancer Brother In good health Daughter In good health Daughter In good health Sister No problems noted. Surgical History Surgical History H/O elbow surgery H/O hand surgery H/O knee surgery History of section History of cholecystectomy History of foot surgery History of hysterectomy History of removal of cyst History of varicose vein ligation Social History Social History Housing: Apartment Alcohol intake: never Patient Tobacco Use Status: Never used Tobacco e-Cigarette/Vaping Use: Never Used Second Hand Smoke Exposure: No Use of substances other than those prescribed or required for medical reasons: No Are you DNR?: No Advance Directives: No Advance Directives Information Provided: Yes service: No Current occupational status: disabled Cognitive needs: No Hearing needs: No Vision needs: No Meds Allergies Allergy/AdvReac Type Severity Reaction Status Date / Time eggs Allergy Intermediate rash Verified 04/03/22 14:33 seafood Allergy Intermediate hives Verified 04/03/22 14:33 shellfish derived Allergy Intermediate RASH Verified 04/03/22 14:33 zolpidem [ZOLPIDEM] Allergy Intermediate HEART Verified 04/03/22 14:33 PALPITATIONS morphine AdvReac Intermediate Vomiting Verified 04/03/22 14:33 Home Medications Medication Instructions Recorded Confirmed Last Taken Type cyclobenzaprine 10 mg tablet 10 mg PO Q8H PRN muscle spasm 02/23/20 04/03/22 Unknown History lidocaine-prilocaine 2.5 %-2.5 % topical 02/23/20 04/03/22 Unknown History topical cream lorazepam 0.5 mg tablet 0.5 mg PO BID PRN Anxiety 02/23/20 04/03/22 Unknown History paroxetine HCl 40 mg tablet 40 mg PO DAILY 02/23/20 04/03/22 Unknown History quetiapine 200 mg tablet 200 mg PO BEDTIME 02/23/20 04/03/22 Unknown History trazodone 150 mg tablet 150 mg PO BEDTIME 02/23/20 04/03/22 Unknown History Exam Exam Date and Time: April 04, 2022 1304 Height,Weight and Vital Signs: Height 5 ft 7 in Weight 114.759 kg Pertinent Lab Results Pertinent Lab Results: Laboratory Tests 12/05/21 03/20/22 16:19 09:09 WBC 7.3 Hgb 13.9 Hct 45.8 Plt Count 184 Sodium 142 Potassium 4.2 Chloride 103 Carbon Dioxide 29 BUN 18 H Creatinine 0.79 Assessment and Plan Assessment Anesthesia Assessment: Chart Reviewed Documented by User: Reny Gupta MD 04/05/22 10:59 [facility] Past Medical History Medical History Dyslipidemia GERD (gastroesophageal reflux disease) Hypothyroidism Idiopathic chronic hypotension Lower back pain Mild recurrent major depression Obesity (BMI 35.0-39.9 without comorbidity) Onychomycosis PUD (peptic ulcer disease) Renal cyst Skin lesion Takes daily multivitamins Tubular adenoma of colon Unsteady gait Family History Family History Father Diabetes Mother Thyroid disease Chronic mental illness Hypertension Hypercholesterolemia Maternal Aunt Breast cancer Brother In good health Daughter In good health Daughter In good health Sister No problems noted. Family history of problems with anesthesia: No Surgical History Surgical History H/O elbow surgery H/O hand surgery H/O knee surgery History of section History of cholecystectomy History of foot surgery History of hysterectomy History of removal of cyst History of varicose vein ligation History of Problems with Anesthesia: No Social History Social History Housing: Apartment Alcohol intake: never Patient Tobacco Use Status: Never used Tobacco e-Cigarette/Vaping Use: Never Used Second Hand Smoke Exposure: No Use of substances other than those prescribed or required for medical reasons: No Are you DNR?: No Advance Directives: No Advance Directives Information Provided: Yes service: No Current occupational status: disabled Cognitive needs: No Hearing needs: No Vision needs: No Meds Allergies Allergy/AdvReac Type Severity Reaction Status Date / Time eggs Allergy Intermediate rash Verified 04/03/22 14:33 seafood Allergy Intermediate hives Verified 04/03/22 14:33 shellfish derived Allergy Intermediate RASH Verified 04/03/22 14:33 zolpidem [ZOLPIDEM] Allergy Intermediate HEART Verified 04/03/22 14:33 PALPITATIONS morphine AdvReac Intermediate Vomiting Verified 04/03/22 14:33 Home Medications Medication Instructions Recorded Confirmed Last Taken Type cyclobenzaprine 10 mg tablet 10 mg PO Q8H PRN muscle spasm 02/23/20 04/03/22 Unknown History lidocaine-prilocaine 2.5 %-2.5 % topical 02/23/20 04/03/22 Unknown History topical cream lorazepam 0.5 mg tablet 0.5 mg PO BID PRN Anxiety 02/23/20 04/03/22 Unknown History paroxetine HCl 40 mg tablet 40 mg PO DAILY 02/23/20 04/03/22 Unknown History quetiapine 200 mg tablet 200 mg PO BEDTIME 02/23/20 04/03/22 Unknown History trazodone 150 mg tablet 150 mg PO BEDTIME 02/23/20 04/03/22 Unknown History Exam Airway Mallampati Class: II TM Dist: >3cm Neck ROM: Full Heart: rrr Lungs: cta Assessment and Plan Assessment Anesthesia Assessment: Anesthesia Plan Discussed Final Anesthetic Review Family History of Problems with Anesthesia: No History of Problems with Anesthesia: No NPO: Yes ASA Class: II Final Preanesthetic Review: No Changes in Pt Med Stat, Meds/Allgs Chart Reviewed and Consent Obtained/Reviewed Patient Risk: Intermediate Procedure Risk: Intermediate Anesthetic Plan Anesthetic Plan: MAC: Disposition: Standard PACU
[2022-04-05 11:02] VITALS: BP 141/74; PULSE 73; RESP 16; TEMP 36.7; O2SAT 99
[2022-04-05] MEDS: Lactated Ringers 1,000 ML 100 ML IVCONT (11:16)
--- NOTE | 2022-04-05 11:54 | MHC.SHP ---
Pre-Procedural Eval Section A Date of Service: 04/05/22 The patient is an INPATIENT: No The History & Physical has been completed within 30 days and I have reviewed it.: No Section B Chief Complaint: colon cancer screening, history of colon polyps, Relevant Family History (Specify if Yes): No Relevant Social History: None Present Medications: see Short Stay Collaborative assessment Medical History: Significant History (Dyslipidemia GERD (gastroesophageal reflux disease) Hypothyroidism Idiopathic chronic hypotension Lower back pain Mild recurrent major depression Obesity (BMI 35.0-39.9 without comorbidity) Onychomycosis PUD (peptic ulcer disease) Renal cyst Skin lesion Takes daily multivitamins Tubular adenoma of c) History of Previous Operations: Relevant previous surgery/procedure and date(s) (H/O knee surgery History of section History of cholecystectomy History of foot surgery History of hysterectomy History of removal of cyst History of varicose vein ligation) Allergies: Allergies Allergy/AdvReac Type Severity Reaction Status Date / Time eggs Allergy Intermediate rash Verified 04/03/22 14:33 seafood Allergy Intermediate hives Verified 04/03/22 14:33 shellfish derived Allergy Intermediate RASH Verified 04/03/22 14:33 zolpidem [ZOLPIDEM] Allergy Intermediate HEART Verified 04/03/22 14:33 PALPITATIONS morphine AdvReac Intermediate Vomiting Verified 04/03/22 14:33 Review of Systems Sugical H&P ROS: Negative: Constitution, Cardiovascular, Respiratory and Gastrointestinal Exam Surgical H&P Exam: Normal: Heart, Normal: Lungs, Normal: Extremities and Normal: Abdomen Plan Diagnosis/Plan: Unchanged I have reviewed the history and physical and performed a pertinent physical examination on my patient. No changes have occurred unless specified.
--- NOTE | 2022-04-05 12:38 | PM.OP ---
Brief Operative Note Date of Service: 04/05/22 Pre-op diagnosis: colon cancer screen, history of colon polyps, chronic constipation Post-op diagnosis: other ( colon polyps, diverticulosis) Procedure: COLONOSCOPY TO CECUM WITH BIOPSIES AND SNARE POLYPECTOMY Surgeon: Melissa Ríos MD Anesthesia: MAC Was an Vp Of Digital Marketing used for this Procedure?: Yes Vp Of Digital Marketing: Gunnar Angeles Estimated blood loss (mL): 0 Pathology: other (A- ASCENDING COLON POLYPS B- TRANSVERSE COLON POLYPS) Condition: stable Disposition: PACU
[2022-04-05 12:39] VITALS: BP 121/76; PULSE 72; RESP 16; TEMP 36.1; O2SAT 100
--- NOTE | 2022-04-05 12:40 | W.PM.OPN ---
Operative Note Operative Note Date of Service: 04/05/22 Narrative: Pre-op diagnosis: colon cancer screen, history of colon polyps, chronic constipation Post-op diagnosis:?other ( colon polyps, diverticulosis) Surgeon: Melissa Ríos MD Anesthesia:?MAC COLONOSCOPY TILL CECUM WITH BIOPSIES AND SNARE POLYPECTOMY Consent: Indications for the procedure and potential complications of bleeding, perforation, reaction to medications and missed diagnosis were discussed with the patient and informed consent was obtained. Instrument: Olympus PCF H 190 L variable stiffness pediatric colonoscope Monitoring: Vital signs and clinical assessment, intermittent blood pressure monitoring, continuous EKG monitoring, Pulse oximetry and Carbon Dioxide monitoring were done throughout the procedure. Colon withdrawl time was 20 minutes. Procedure: The patient was placed in the left lateral decubitis position and pre-procedure medications were administered. After a digital rectal examination of the ano-rectum, the video colonoscope was inserted into the rectum and advanced through the colon to the cecum. The colonoscope was slowly withdrawn in a retrograde panoramic fashion and the colon mucosa was carefully examined including a retroflexed view of the rectum. Findings and interventions are described below. Procedure Difficulty: Without difficulty Findings: Terminal Ileum: Not evaluated Cecum: Normal Ascending Colon: Two 5-6 mm sessile polyps removed with a cold snare Transverse Colon: A 10-12 mm sessile polyp removed with a hot snare. A 3-4 mm sessile polyp removed with a cold biopsy. Descending Colon: Normal Sigmoid Colon: Moderate diverticulosis Rectum: Normal Ano-rectum: Normal Colon preparation: Good after copious irrigation Impression and Post Procedure Diagnosis: Colonoscopy Findings: Four small to medium sized polyps removed Moderate diverticulosis seen in the sigmoid colon Plan: Await pathology results Patient has an appointment on 05/31/21 in the [facility] with Madelin Barnes NP . Repeat Colonoscopy interval based on path results - in 3-5 years if polyps are adenomatous and 10 years if polyps are hyperplastic. Colon polyps and diverticulosis handouts were given in the discharge area
[2022-04-05 12:54] VITALS: BP 118/69; PULSE 70; RESP 20; TEMP 36.3; O2SAT 100
== END 2022-04-05 13:55 | disposition home or self-care (01) ==
PROVIDERS: PCP Internal Medicine; Visit Provider Internal Medicine Gastroenterology
PROC: 0DJD8ZZ Inspection of Lower Intestinal Tract, Via Natural or Artificial Opening Endoscopic (ICD-10-PCS; CPT 45378; principal; 2022-04-05 11:50)
DX: Z12.11 Encounter for screening for malignant neoplasm of colon (principal); Z86.010 Personal history of colon polyps; D12.2 Benign neoplasm of ascending colon; D12.3 Benign neoplasm of transverse colon; K57.30 Diverticulosis of large intestine without perforation or abscess without bleeding; K59.04 Chronic idiopathic constipation; K59.9 Functional intestinal disorder, unspecified; I95.0 Idiopathic hypotension; K21.9 Gastro-esophageal reflux disease without esophagitis; E78.5 Hyperlipidemia, unspecified; E03.9 Hypothyroidism, unspecified; F33.0 Major depressive disorder, recurrent, mild; Z88.8 Allergy status to other drugs, medicaments and biological substances
CPT/HCPCS: 45385; 45380; 88305

== ENCOUNTER → 2022-06-06 11:52 | Outpatient (BNVA) | payer OTHER, SELFPAY | PROVIDERS: PCP Internal Medicine; Visit Provider Nurse Practitioner | DX: K59.04 Chronic idiopathic constipation (principal); K21.9 Gastro-esophageal reflux disease without esophagitis; K59.9 Functional intestinal disorder, unspecified; D12.2 Benign neoplasm of ascending colon; D12.3 Benign neoplasm of transverse colon; K57.30 Diverticulosis of large intestine without perforation or abscess without bleeding; Z98.890 Other specified postprocedural states | CPT/HCPCS: 99212 ==

== ENCOUNTER 2022-06-10 13:32 | Outpatient (REF) | payer OTHER, SELFPAY ==
[2022-06-10 15:32] LABS: Thyroid Stimulating Hormone 0.44 uIU/mL (0.32-4.0)
== END 2022-06-10 13:33 | disposition home or self-care (01) ==
LOC: HO.LAB 13:32
PROVIDERS: PCP Internal Medicine; Visit Provider Internal Medicine
DX: E03.9 Hypothyroidism, unspecified (principal)
CPT/HCPCS: 36415; 84443

== ENCOUNTER 2022-07-15 13:10 | Outpatient (REF) | payer OTHER, SELFPAY ==
[2022-07-15 14:53] LABS: Appearance Urine Clear; Color Urine Yellow; Glucose Urine UA Negative (Negative); Leukocyte Esterase Urine Small (1+) (Negative); Nitrite Urine Negative (Negative); PH 5.5 (5.0-9.0); Specific Gravity - Urine 1.025 (1.005-1.025); UMIC TRIGGER UACC YES; Urine Blood Trace (Negative); Urine Ketones Negative (Negative); Urine Protein Negative (Neg-Trace)
[2022-07-15 15:03] LABS: Bacteria Urine None Seen (None Seen); Hyaline Casts Urine 0-2 /LPF (0-2); Squamous Epithelial Cell Urine 0-2 /HPF (0-2); UACC Culture Trigger YES
[2022-07-15 15:23] LABS: Syphilis Screen Nonreactive (Nonreactive)
[2022-07-16 10:57] LABS: BV Int Neg Control Negative (Negative); BV Int Pos Control Positive (Positive)
[2022-07-17 04:33] LABS: HBc Num1 0.07 S/CO (0.00-0.79); HIV AB/AG Nonreactive (Nonreactive); HIV Num 1 0.05 S/CO (0.00-0.99); Hepatitis B Core Antibody Nonreactive (Nonreactive); ~HepC Num1 0.12 S/CO (0.00-0.79); ~Hepatitis C Antibody Nonreactive (Nonreactive)
== END 2022-07-15 13:11 | disposition home or self-care (01) ==
LOC: HO.LAB 13:10
PROVIDERS: PCP Internal Medicine; Visit Provider Advanced Practice Midwife
DX: Z01.419 Encounter for gynecological examination (general) (routine) without abnormal findings (principal); Z11.4 Encounter for screening for human immunodeficiency virus [HIV]; Z20.2 Contact with and (suspected) exposure to infections with a predominantly sexual mode of transmission; E03.9 Hypothyroidism, unspecified; N89.8 Other specified noninflammatory disorders of vagina
CPT/HCPCS: 36415; 81001; 84443; 86704; 86780; 86803; 87086; 87389; 87480; 87510; 87660

== ENCOUNTER → 2022-08-08 11:57 | Outpatient (BNVA) | payer OTHER, SELFPAY | PROVIDERS: PCP Internal Medicine; Visit Provider Nurse Practitioner | DX: K21.9 Gastro-esophageal reflux disease without esophagitis (principal); K59.04 Chronic idiopathic constipation | CPT/HCPCS: 99212 ==

== ENCOUNTER 2022-09-05 10:55 | Emergency (ER) | payer OTHER, SELFPAY ==
--- NOTE | ~2022-09-05 | XR_ITS ---
EXAMINATION: XR KNEE, LEFT CLINICAL INFORMATION: Left knee pain status post fall. COMPARISON: None available. TECHNIQUE: Four views of the left knee. FINDINGS: Mild tricompartmental degenerative joint changes are seen most pronounced in the medial femoral-tibial compartment. There is no acute fracture, dislocation or joint effusion. The soft tissues are unremarkable. XR/XR knee LT 4V IMPRESSION: Mild tricompartmental degenerative joint changes most consistent with osteoarthritis. No acute fracture.
--- NOTE | ~2022-09-05 | CT_ITS ---
EXAMINATION: CT HEAD WITHOUT CONTRAST CLINICAL INFORMATION: Status post fall with head strike. COMPARISON: None available. TECHNIQUE: Contiguous axial imaging was performed from the skull base to vertex without intravenous administration of contrast. This CT examination was performed using dose optimization techniques as appropriate, variously including the following: *Automated exposure control *Adjustment of mA and/or kV according to patient size (this includes techniques or standardized protocols for targeted exams where dose is matched to indication/reason for exam; i.e. extremities or head) *Use of iterative reconstruction technique DLP: 977 mGy-cm FINDINGS: The cortical sulci are normal. The lateral ventricles are symmetrical. The third and fourth ventricles are in their normal midline position. The basilar and prepontine cisterns are unremarkable. There is no acute intra or extracerebral abnormality. There is no mass effect or midline shift. Sections through the bony calvarium are unremarkable. The paranasal sinuses are clear. The bony orbits and orbital contents are unremarkable. CT/CT head/brain wo IV con IMPRESSION: No acute intracranial pathology.
--- NOTE | ~2022-09-05 | XR_ITS ---
EXAMINATION: XR KNEE, RIGHT CLINICAL INFORMATION: Right knee pain status post fall. COMPARISON: None available. TECHNIQUE: Four views of the right knee. FINDINGS: Mild tricompartmental degenerative joint changes are seen. There is no acute fracture, dislocation or joint effusion. Mild soft tissue swelling is seen. XR/XR knee RT 4V IMPRESSION: Mild degenerative joint changes. No acute fracture.
--- NOTE | ~2022-09-05 | XR_ITS ---
EXAMINATION: XR LUMBOSACRAL SPINE CLINICAL INFORMATION: Back pain status post fall. COMPARISON: 04/03/2022 lumbar spine radiographs. TECHNIQUE: Three views of the lumbosacral spine. FINDINGS: There is generalized osteopenia. Mild to moderate multilevel marginal osteophyte formation is seen. There is no acute fracture. Mild to moderate multilevel bilateral facet arthropathy is seen most pronounced inferiorly. The soft tissues are unremarkable. XR/XR lumbar spine 2-3V IMPRESSION: Mild to moderate multilevel degenerative changes without significant interval change. No overt acute abnormality.
--- NOTE | ~2022-09-05 | XR_ITS ---
EXAMINATION: XR FOREARM, LEFT CLINICAL INFORMATION: Arm pain status post fall. COMPARISON: None available. TECHNIQUE: AP and lateral views of the left forearm were obtained. FINDINGS: The radius and ulna are intact. There is no acute fracture or dislocation. There is a small to moderate-sized degenerative spur off of the posterior olecranon. The soft tissues are unremarkable. XR/XR forearm LT 2V IMPRESSION: 1. No acute fracture. 2. Small to moderate-sized degenerative spur off of the posterior olecranon.
--- NOTE | 2022-09-05 11:44 | ED_ITS ---
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 Patient states that yesterday she tripped and fell and now has pain of both knees and left forearm. Patient denies any dizziness, lightheadedness, abdominal pain, nausea, vomiting, fever, chills, blurry vision, double vision, loss of vision, chest pain, difficulty breathing, shortness of breath, back pain, night sweats, pain with urination, increased urinary frequency, increased urinary urgency, blood in her urine or stool, syncope or a near syncopal episode, bowel incontinence, bladder incontinence, bowel retention, bladder retention, or any other complaints at this time. <AMRITA Livingston Last Filed: 09/05/22 14:37> Onset (ago): day(s) (1) <AMRITA Livingston Last Filed: 09/05/22 14:37> Location: head, left (forearm) and lower extremity (bilateral knees) <AMRITA Livingston Last Filed: 09/05/22 14:37> Radiation: non-radiation <AMRITA Livingston Last Filed: 09/05/22 14:37> Severity: mild <AMRITA Livingston Last Filed: 09/05/22 14:37> Severity scale (1-10): 2 <AMRITA Livingston Last Filed: 09/05/22 14:37> Relieving factors: none <AMRITA Livingston - Last Filed: 09/05/22 14:37> Exacerbating factors: none <AMRITA Livingston - Last Filed: 09/05/22 14:37> Associated symptoms: denies other symptoms <AMRITA Livingston - Last Filed: 09/05/22 14:37> Treatments prior to arrival: none <AMRITA Livingston - Last Filed: 09/05/22 14:37> Related Data Home medications: Home Medications Medication Instructions Recorded Confirmed lidocaine-prilocaine 2.5 %-2.5 % topical 02/23/20 07/30/22 topical cream lorazepam 0.5 mg tablet 0.5 mg PO BID PRN Anxiety 02/23/20 07/30/22 paroxetine HCl 40 mg tablet 40 mg PO DAILY 02/23/20 07/30/22 quetiapine 200 mg tablet 200 mg PO BEDTIME 02/23/20 07/30/22 trazodone 150 mg tablet 150 mg PO BEDTIME 02/23/20 07/30/22 Previous Rx's Medication Instructions Recorded blood pressure test kit-large #1 ea 06/06/20 ([facility] Blood Pressure Monitor kit) cane #1 ea 10/11/20 toilet seat #1 ea 01/16/21 diazepam 5 mg tablet (Valium) 5 mg PO BEDTIME PRN muscle spasm 01/25/21 #5 tabs clotrimazole-betamethasone 1 1 appl topical BID 14 days #15 05/11/21 %-0.05 % topical cream grams naproxen 500 mg tablet 500 mg PO BID 30 days #60 tabs 07/28/21 midodrine 5 mg tablet 5 mg PO TID 30 days #90 tabs 11/21/21 multivitamin-ferrous 1 tab PO DAILY 30 days #30 tabs 02/17/22 fumarate-folic acid 18 mg-400 mcg tablet (Certavite-Antioxidant) cyclobenzaprine 10 mg tablet 10 mg PO TID PRN muscle spasm #14 03/25/22 tabs ibuprofen 600 mg tablet 600 mg PO Q8H PRN pain #14 tabs 03/25/22 lidocaine 5 % topical patch 1 patch topical DAILY #15 ea 03/25/22 atorvastatin 10 mg tablet 10 mg PO DAILY #90 tabs 05/18/22 calcium carbonate 600 mg calcium 600 mg PO BID #180 tabs 06/26/22 (1,500 mg) tablet levothyroxine 175 mcg tablet 175 mcg PO DAILY 90 days #90 tabs 07/30/22 nystatin 100,000 unit/gram topical 1 appl topical DAILY 30 days #30 08/01/22 cream grams dicyclomine 20 mg tablet 20 mg PO TID 30 days #90 tabs 08/08/22 famotidine 40 mg tablet 40 mg PO BEDTIME #30 tabs 08/08/22 linaclotide 290 mcg capsule 290 mcg PO QAM #30 caps 08/08/22 (Linzess) metoclopramide HCl 5 mg tablet 5 mg PO QIDACHS #120 tabs 08/08/22 (Reglan) pantoprazole 40 mg tablet,delayed 40 mg PO DAILY 90 days #90 tabs 08/08/22 release sucralfate 1 gram tablet 1 g PO BID #60 tabs 08/08/22 toilet seat elevator #1 ea 08/19/22 raised toilet seat #1 ea 08/21/22 <AMRITA Huntley Last Filed: 09/05/22 11:49> Allergies/adverse reactions: Allergies Allergy/AdvReac Type Severity Reaction Status Date / Time egg Allergy Intermediate Rash Verified 09/05/22 11:49 seafood Allergy Intermediate Rash Verified 09/05/22 11:49 shellfish derived Allergy Intermediate RASH Verified 09/05/22 11:49 zolpidem [ZOLPIDEM] Allergy Intermediate HEART Verified 09/05/22 11:49 PALPITATIONS morphine AdvReac Intermediate Vomiting Verified 09/05/22 11:49 <AMRITA Huntley Last Filed: 09/05/22 11:49> Review of Systems Constitutional: Constitutional: Reports no additional constitutional complaints, Denies chills, Denies fever(s) and Denies night sweats <AMRITA Livingston Last Filed: 09/05/22 14:37> Eyes: Eyes: Reports no additional eye complaints, Denies blurry vision, Denies change in vision, Denies diplopia, Denies eye discharge, Denies loss of vision and Denies eye pain <AMRITA Livingston Last Filed: 09/05/22 14:37> ENT: Denies dizziness <AMRITA Livingston - Last Filed: 09/05/22 14:37> Comments: forehead abrasion <AMRITA Livingston - Last Filed: 09/05/22 14:37> Cardiovascular: Cardiovascular: Reports no additional cardiovascular complaints, Denies chest pain, Denies lightheadedness, Denies Loss of Consciousness and Denies dyspnea <AMRITA Livingston - Last Filed: 09/05/22 14:37> Respiratory: Respiratory: Reports no additional respiratory complaints and D enies dyspnea <AMRITA Livingston - Last Filed: 09/05/22 14:37> Gastrointestinal: Gastrointestinal: Reports no additional gastrointestinal complaints, Denies abdominal pain, Denies melena, Denies hematochezia, Denies change in bowel habits and Denies change in stool character <AMRITA Livingston Last Filed: 09/05/22 14:37> Genitourinary: Genitourinary: Denies hematuria, Denies urinary frequency, Denies dysuria, Denies urinary incontinence, Denies urinary hesitancy and Denies urinary urgency <AMRITA Livingston - Last Filed: 09/05/22 14:37> Musculoskeletal: Musculoskeletal: Reports no additional musculoskeletal complaints, Denies numbness and Denies tingling <AMRITA Livingston - Last Filed: 09/05/22 14:37> Comments: bilateral knee pain, left forearm pain <AMRITA Livingston - Last Filed: 09/05/22 14:37> Neurologic: Denies dizziness, Denies loss of vision, Denies numbness and Denies tingling <AMRITA Livingston Last Filed: 09/05/22 14:37> Psychiatric: Psychiatric: Reports no additional psychiatric complaints <AMRITA Livingston - Last Filed: 09/05/22 14:37> Endocrine: Endocrine: Reports no additional endocrine complaints <AMRITA Livingston - Last Filed: 09/05/22 14:37> Hematologic/Lymphatic: Hematologic/Lymphatic: Reports no additional hem atologic/lymphatic complaints <AMRITA Livingston - Last Filed: 09/05/22 14:37> Allergic/Immunologic: Allergic/Immunologic: Reports no additional allergic/immunologic complaints <AMRITA Livingston - Last Filed: 09/05/22 14:37> [facility] Past Medical History Attestation statement: The following information was validated with the patient. <AMRITA Livingston - Last Filed: 09/05/22 14:37> Source: old records reviewed and nursing notes reviewed <AMRITA Livingston - Last Filed: 09/05/22 14:37> Medical History: Medical History Dyslipidemia GERD (gastroesophageal reflux disease) Hypothyroidism Idiopathic chronic hypotension Lower back pain Mild recurrent major depression Obesity (BMI 35.0-39.9 without comorbidity) Onychomycosis PUD (peptic ulcer disease) Renal cyst Skin lesion Takes daily multivitamins Tubular adenoma of colon Unsteady gait <AMRITA Huntley - Last Filed: 09/05/22 11:49> Surgical History: Surgical History H/O elbow surgery H/O hand surgery H/O knee surgery History of section History of cholecystectomy History of foot surgery History of hysterectomy History of removal of cyst History of varicose vein ligation <AMRITA Huntley - Last Filed: 09/05/22 11:49> Family History Family History: Family History Father Diabetes Mother Thyroid disease Chronic mental illness Hypertension Hypercholesterolemia Maternal Aunt Breast cancer Brother In good health Daughter In good health Daughter In good health Sister No problems noted. <AMRITA Huntley - Last Filed: 09/05/22 11:49> Social History Social History: Social History Household Members: None Housing: Apartment Alcohol intake: never Patient Tobacco Use Status: Never used Tobacco e-Cigarette/Vaping Use: Never Used Second Hand Smoke Exposure: No Advance Directives: No service: No Current occupational status: disabled Cognitive needs: No Hearing needs: No Vision needs: Yes <AMRITA Huntley Last Filed: 09/05/22 11:49> Physical Exam ED Vital Signs: Vital Signs - 24 hr 09/05/22 11:45 Temperature 97.1 F Pulse Rate 73 Respiratory Rate 16 Blood Pressure 136/73 Pulse Oximetry 94 Oxygen Delivery Method Room Air BMI result Body Mass Index 40.8 <AMRITA Huntley - Last Filed: 09/05/22 11:49> Vital Signs - 24 hr 09/05/22 11:45 Temperature 97.1 F Pulse Rate 73 Respiratory Rate 16 Blood Pressure 136/73 Pulse Oximetry 94 Oxygen Delivery Method Room Air BMI result Body Mass Index 40.8 <AMRITA Livingston - Last Filed: 09/05/22 14:37> Const General: cooperative, no acute distress, alert and awake <AMRITA Livingston - Last Filed: 09/05/22 14:37> Nutritional Appearance: well nourished <AMRITA Livingston - Last Filed: 09/05/22 14:37> Orientation/consciousness: patient oriented x3 <AMRITA Livingston - Last Filed: 09/05/22 14:37> Limitations: no limitations <AMRITA Livingston - Last Filed: 09/05/22 14:37> [facility] Head images: 1. abrasion, no active bleeding, no gaping areas <AMRITA Huntley - Last Filed: 09/05/22 11:49> 1. abrasion, no active bleeding, no gaping areas <AMRITA Livingston - Last Filed: 09/05/22 14:37> Ears: hearing grossly normal bilaterally and external ears normal <AMRITA Livingston Last Filed: 09/05/22 14:37> General nose exam: Normal external nose present, no nasal discharge noted and no epistaxis <AMRITA Livingston - Last Filed: 09/05/22 14:37> Face and sinus: Yes normal facial exam, No abrasion and No laceration <AMRITA Livingston - Last Filed: 09/05/22 14:37> Mouth: Normal oral and palatal mucosa present, no drooling and no muffled voice <AMRITA Livingston Last Filed: 09/05/22 14:37> Eyes General: appearance normal, both eyes and all related structures <AMRITA Livingston - Last Filed: 09/05/22 14:37> Periorbital: periorbital findings normal <Roxann Frey PA - Last Filed: 09/05/22 14:37> Eyelids: Yes eyelids normal <Roxann Frey PA - Last Filed: 09/05/22 14:37> Conjunctivae: conjunctivae normal <Roxann Frey PA - Last Filed: 09/05/22 14:37> Pupils: Equal, round and reactive pupils present <Roxann Frey PA - Last Filed: 09/05/22 14:37> EOM: EOMs intact bilaterally <Roxann Frey PA - Last Filed: 09/05/22 14:37> Neck Neck: Yes normal visual inspection, Yes full ROM and Yes no lymphadenopathy <Roxann Frey PA - Last Filed: 09/05/22 14:37> Chest Chest palpation & inspection: normal inspection of the chest <Roxann Frey PA - Last Filed: 09/05/22 14:37> Resp Effort & Inspection: normal respiratory effort and able to speak in complete sentences <Roxann Frey PA - Last Filed: 09/05/22 14:37> Auscultation: clear to auscultation bilaterally <Roxann Frey PA - Last Filed: 09/05/22 14:37> Cardio Rate: regular rate <Roxann Frey PA - Last Filed: 09/05/22 14:37> Rhythm: regular rhythm <Roxann Frey PA - Last Filed: 09/05/22 14:37> GI Inspection: Yes normal to inspection <Roxann Frey PA - Last Filed: 09/05/22 14:37> Neuro General: patient oriented x3 and moves all extremities <Roxann Frey PA - Last Filed: 09/05/22 14:37> Cranial nerves: Yes Equal, round and reactive pupils present <Roxann Frey PA - Last Filed: 09/05/22 14:37> Cognition (Neuro): normal cognition <Roxann Frey PA - Last Filed: 09/05/22 14:37> Motor exam (neuro): 5/5 motor strength present throughout <Roxann Frey PA - Last Filed: 09/05/22 14:37> Sensory Exam: Normal double simultaneous stimulation for sensation <AMRITA Livingston - Last Filed: 09/05/22 14:37> Coordination: [id number] test normal <AMRITA Livingston - Last Filed: 09/05/22 14:37> Extrem General: Yes normal to inspection, Yes full ROM and Yes capillary refill normal <AMRITA Livingston - Last Filed: 09/05/22 14:37> Psych Appearance: grossly normal <AMRITA Livingston - Last Filed: 09/05/22 14:37> Mental Status: mental status grossly normal <AMRITA Livingston - Last Filed: 09/05/22 14:37> Affect: normal affect <AMRITA Livingston - Last Filed: 09/05/22 14:37> Attitude: cooperative <AMRITA Livingston - Last Filed: 09/05/22 14:37> Thought process: Normal thought process present <AMRITA Livingston Last Filed: 09/05/22 14:37> Thought content: Normal thought content present <AMRITA Livingston Last Filed: 09/05/22 14:37> Insight: Good insight present (Psych) <AMRITA Livingston - Last Filed: 09/05/22 14:37> Course Course Course Narrative: 62 year old female with PMH of obesity and idiopathic chronic hypotension presents s/p fall down the stairs in which she tripped and hit her forehead yesterday. She additionally reports she fell on both of her knees and her left wrist when she fell. Patient reports she doesn't remember anything about the fall. Patient is not on blood thinners. Patient endorses HIRSCH and denies lightheaded sensation or visual changes. PE: Small skin abrasion to right inferior forehead just superior to lateral e yebrow Plan: Imaging, labs <AMRITA Huntley Last Filed: 09/05/22 11:49> Medications Administered Discontinued Medications Generic Name Dose Route Start Last Admin Trade Name Valdezq PRN Reason Stop Dose Admin Bacitracin 1 appl 09/05/22 14:24 09/05/22 14:27 Bacitracin Oint 0.9 Gm Packet TOPICAL 09/05/22 14:25 1 appl ONCE ONE Administration Protocol <AMRITA Huntley Last Filed: 09/05/22 11:49> Medications Administered Discontinued Medications Generic Name Dose Route Start Last Admin Trade Name Claudia PRN Reason Stop Dose Admin Bacitracin 1 appl 09/05/22 14:24 09/05/22 14:27 Bacitracin Oint 0.9 Gm Packet TOPICAL 09/05/22 14:25 1 appl ONCE ONE Administration Protocol <AMRITA Livingston Last Filed: 09/05/22 14:37> Medical Decision Making Medical Decision Making MDM Narrative: Patient is a 62 year old assigned female at with a history of GERD presenting to the emergency department today with a forehead abrasion, left forearm pain, and bilateral knee pain. Patient's physical exam showed a small right forehead abrasion with no active bleeding or gaping areas. Patient's head and C-Spine CT, lumbar XR, left forearm XR, and bilateral knee XRs showed no acute process. I explained my physical exam findings as well as all test results to the patient. I answered all questions asked by the patient. I stressed the importance of the patient taking her medication as prescribed. I stressed the importance of the patient following up with her primary care provider. I str essed the importance of the patient returning to the emergency department immediately if her symptoms were to worsen or if she were to develop any dizziness, shortness of breath, difficulty breathing, chest pain, blurry vision, loss of vision, nausea, vomiting, abdominal pain, fever, chills, back pain, or any other complaints. Patient verbalized agreement and understanding with this treatment plan and discharge. <AMRITA Livingston Last Filed: 09/05/22 14:37> Differential Diagnosis Differential Diagnoses: The differential diagnosis associated with the presentation includes <AMRITA Livingston Last Filed: 09/05/22 14:37> mechanical fall, forehead abrasion <AMRITA Livingston Last Filed: 09/05/22 14:37> Independent Interpretation I performed an independent interpretation of an: Plain X-Ray and CT Scan <AMRITA Livingston Last Filed: 09/05/22 14:37> Interpretation: My interpretation is in agreement with the radiologist's impression of these imaging studies. EXAMINATION: CT HEAD WITHOUT CONTRAST CLINICAL INFORMATION: Status post fall with head strike.? COMPARISON: None available. TECHNIQUE: Contiguous axial imaging was performed from the skull base to vertex without intravenous administration of contrast. This CT examination was performed using dose optimization techniques as appropriate, variously including the following: *Automated exposure control *Adjustment of mA and/or kV according to patient size (this includes techniques or standardized protocols for targeted exams where dose is matched to indication/reason for exam; i.e. extremities or head) *Use of iterative reconstruction technique DLP: 977 mGy-cm FINDINGS: The cortical sulci are normal. The lateral ventricles are symmetrical. The third and fourth ventricles are in their normal midline position. The basilar and prepontine cisterns are unremarkable. There is no acute intra or extracerebral abnormality. There is no mass effect or midline shift. Sections through the bony calvarium are unremarkable. The paranasal sinuses are clear. The bony orbits and orbital contents are unremarkable. CT/CT head/brain wo IV con IMPRESSION: No acute intracranial pathology. Dictated By: Yfn Fuentes MD Signed By: Electronically signed by Yfn Fuentes MD 09/05/22 1249 EXAMINATION: XR FOREARM, LEFT CLINICAL INFORMATION: Arm pain status post fall.? COMPARISON: None available.? TECHNIQUE: AP and lateral views of the left forearm were obtained. FINDINGS: The radius and ulna are intact. There is no acute fracture or dislocation. There is a small to moderate-sized degenerative spur off of the posterior olecranon. The soft tissues are unremarkable.? XR/XR forearm LT 2V IMPRESSION: 1.? No acute fracture. 2.? Small to moderate-sized degenerative spur off of the posterior olecranon. Dictated By: Yfn Fuentes MD Signed By: Electronically signed by Yfn Fuentes MD 09/05/22 1479 EXAMINATION: XR KNEE, RIGHT? CLINICAL INFORMATION: Right knee pain status post fall.? COMPARISON: None available.? TECHNIQUE: Four views of the right knee. FINDINGS: Mild tricompartmental degenerative joint changes are seen. There is no acute fracture, dislocation or joint effusion. Mild soft tissue swelling is seen.? XR/XR knee RT 4V IMPRESSION: Mild degenerative joint changes. No acute fracture. Dictated By: Yfn Fuentes MD Signed By: Electronically signed by Yfn Fuentes MD 09/05/22 9994 --- EXAMINATION: XR KNEE, LEFT CLINICAL INFORMATION: Left knee pain status post fall.? COMPARISON: None available.? TECHNIQUE: Four views of the left knee. FINDINGS: Mild tricompartmental degenerative joint changes are seen most pronounced in the medial femoral-tibial compartment. There is no acute fracture, dislocation or joint effusion. The soft tissues are unremarkable.? XR/XR knee LT 4V IMPRESSION: Mild tricompartmental degenerative joint changes most consistent with osteoarthritis. No acute fracture. Dictated By: Yfn Fuentes MD Signed By: Electronically signed by Yfn Fuentes MD 09/05/22 1416 EXAMINATION: XR LUMBOSACRAL SPINE CLINICAL INFORMATION: Back pain status post fall. COMPARISON: 04/03/2022 lumbar spine radiographs. TECHNIQUE: Three views of the lumbosacral spine. FINDINGS: There is generalized osteopenia. Mild to moderate multilevel marginal osteophyte formation is seen. There is no acute fracture. Mild to moderate multilevel bilateral facet arthropathy is seen most pronounced inferiorly. The soft tissues are unremarkable. XR/XR lumbar spine 2-3V IMPRESSION: Mild to moderate multilevel degenerative changes without significant interval change. No overt acute abnormality. Dictated By: Yfn Fuentes MD Signed By: Electronically signed by Yfn Fuentes MD 09/05/22 1419 <AMRITA Livingston - Last Filed: 09/05/22 14:37> Discharge Plan Discharge Clinical Impression: Abrasion, Acute knee pain, Elbow pain <AMRITA Huntley - Last Filed: 09/05/22 11:49> Patient Disposition: Home, Self-Care <AMRITA Huntley - Last Filed: 09/05/22 11:49> Instructions: Knee Pain (ED), Arm Pain (ED) <AMRITA Huntley - Last Filed: 09/05/22 11:49> Additional Instructions: Follow up with your primary care provider. Return to the emergency department immediately if your symptoms worsen or if you develop any dizziness, shortness of breath, difficulty breathing, chest pain, blurry vision, loss of vision, nausea, vomiting, abdominal pain, fever, chills, back pain, or any other complaints. Karel un seguimiento con leal proveedor de atenci?n primaria. Regrese al depart amento de emergencias de inmediato si melly s?ntomas empeoran o si presenta mareos, falta de aire, dificultad para respirar, dolor de pecho, visi?n borrosa, p?rdida de la visi?n, n?useas, v?mitos, dolor abdominal, fiebre, escalofr?os, dolor de espalda o cualquier otras quejas. <AMRITA Huntley - Last Filed: 09/05/22 11:49> Prescriptions: No Action (DME) blood pressure test kit-large [[facility] Blood Pressure Monitr] Kit See Rx Instructions .ROUTE .MEDSUPPLY Qty: 1 0RF Rx Instructions: As directed (DME) cane Device See Rx Instructions .ROUTE .MEDSUPPLY Qty: 1 0RF Rx Instructions: As directed (DME) toilet seat See Rx Instructions .Route .MEDSUPPLY Qty: 1 0RF Rx Instructions: As directed clotrimazole-betamethasone 1-0.05 % cream 1 appl topical BID 14 Days Qty: 15 1RF naproxen 500 mg tablet 500 mg PO BID 30 Days Qty: 60 0RF midodrine 5 mg tablet 5 mg PO TID 30 Days Qty: 90 4RF Rx Instructions: do not give last dose of day after 6PM or within 4 hrs of bedtime Certavite-Antioxidant 18-400 mg-mcg tablet 1 tab PO DAILY 30 Days Qty: 30 11RF atorvastatin 10 mg tablet 10 mg PO DAILY Qty: 90 3RF calcium carbonate 600 mg calcium (1,500 mg) tablet 600 mg PO BID Qty: 180 3RF nystatin 100,000 unit/gram cream 1 appl topical DAILY 30 Days Qty: 30 1RF (DME) toilet seat elevator See Rx Instructions .Route .MEDSUPPLY Qty: 1 0RF Rx Instructions: As directed (DME) raised toilet seat See Rx Instructions .Route .MEDSUPPLY Qty: 1 0RF Rx Instructions: As directed diazepam [Valium] 5 mg tablet 5 mg PO BEDTIME PRN (Reason: muscle spasm) Qty: 5 0RF cyclobenzaprine 10 mg tablet 10 mg PO TID PRN (Reason: muscle spasm) Qty: 14 0RF ibuprofen 600 mg tablet 600 mg PO Q8H PRN (Reason: pain) Qty: 14 0RF lidocaine 5 % adhesive patch,medicated 1 patch topical DAILY Qty: 15 0RF Rx Instructions: leave on most painful area for up to 12 hrs levothyroxine 175 mcg tablet 175 mcg PO DAILY 90 Days Qty: 90 1RF paroxetine HCl 40 mg tablet 40 mg PO DAILY trazodone 150 mg tablet 150 mg PO BEDTIME lorazepam 0.5 mg tablet 0.5 mg PO BID PRN (Reason: Anxiety) quetiapine 200 mg tablet 200 mg PO BEDTIME lidocaine-prilocaine 2.5-2.5 % cream topical sucralfate 1 gram tablet 1 g PO BID Qty: 60 6RF pantoprazole 40 mg tablet,delayed release (DR/EC) 40 mg PO DAILY 90 Days Qty: 90 4RF Linzess 290 mcg capsule 290 mcg PO QAM Qty: 30 6RF famotidine 40 mg tablet 40 mg PO BEDTIME Qty: 30 6RF dicyclomine 20 mg tablet 20 mg PO TID 30 Days Qty: 90 2RF metoclopramide HCl [Reglan] 5 mg tablet 5 mg PO QIDACHS Qty: 120 6RF Rx Instructions: Provider aware of potential interaction with prozac and is monitornig <AMRITA Huntley - Last Filed: 09/05/22 11:49> Referrals: Rae Nunez MD [Primary Care Provider] - <AMRITA Huntley - Last Filed: 09/05/22 11:49> Interventions: ED Discharge Assessment Last Done: 09/05/22 14:27 <AMRITA Huntley - Last Filed: 09/05/22 11:49> Print Language: Icelandic <AMRITA Huntley - Last Filed: 09/05/22 11:49>
[2022-09-05 11:45] VITALS: BP 136/73; PULSE 73; RESP 16; TEMP 36.2; O2SAT 94; BMI 40.8
[2022-09-05] MEDS: Bacitracin Oint 0.9 GM PACKET 1 APPL TOPICAL (14:27)
== END 2022-09-05 14:30 | disposition home or self-care (01) ==
PROVIDERS: Emergency Provider Emergency Medicine; PCP Internal Medicine
DX: S00.81XA Abrasion of other part of head, initial encounter (principal); W01.198A Fall on same level from slipping, tripping and stumbling with subsequent striking against other object, initial encounter; G89.11 Acute pain due to trauma; M25.562 Pain in left knee; M25.561 Pain in right knee; M25.522 Pain in left elbow; Y93.9 Activity, unspecified; Y92.038 Other place in apartment as the place of occurrence of the external cause; Y99.9 Unspecified external cause status
CPT/HCPCS: 70450; 72100; 73090; 73564; 99284

== ENCOUNTER 2022-09-19 11:56 | Outpatient (REF) | payer OTHER, SELFPAY ==
[2022-09-19 14:17] LABS: Appearance Urine Cloudy; Color Urine Yellow; Glucose Urine UA Negative (Negative); Leukocyte Esterase Urine Large (3+) (Negative); Nitrite Urine Negative (Negative); PH 5.5 (5.0-9.0); Specific Gravity - Urine >= 1.030 (1.005-1.025); UMIC TRIGGER UACC YES; Urine Blood Small (1+) (Negative); Urine Ketones Negative (Negative); Urine Protein Trace mg/dL (Neg-Trace)
[2022-09-19 14:37] LABS: Bacteria Urine None Seen (None Seen); Hyaline Casts Urine 0-2 /LPF (0-2); UACC Culture Trigger YES; WBC Urine >50 /HPF (0-5)
[2022-09-19 14:47] LABS: Thyroid Stimulating Hormone 0.07 uIU/mL (0.32-4.0)
== END 2022-09-19 11:57 | disposition home or self-care (01) ==
LOC: HO.LAB 11:56
PROVIDERS: PCP Internal Medicine; Visit Provider Internal Medicine
DX: E03.9 Hypothyroidism, unspecified (principal); R35.0 Frequency of micturition
CPT/HCPCS: 36415; 81001; 81003; 84443; 87086

== ENCOUNTER 2022-10-24 14:03 | Outpatient (REF) | payer OTHER, SELFPAY ==
[2022-10-24 16:24] LABS: Thyroid Stimulating Hormone 1.67 uIU/mL (0.32-4.0)
== END 2022-10-24 14:04 | disposition home or self-care (01) ==
LOC: HO.LAB 14:03
PROVIDERS: PCP Internal Medicine; Visit Provider Internal Medicine
DX: E03.9 Hypothyroidism, unspecified (principal)
CPT/HCPCS: 36415; 84443

== ENCOUNTER 2022-12-27 11:59 | Outpatient (REF) | payer OTHER, SELFPAY ==
--- NOTE | ~2022-12-27 | US_ITS ---
EXAMINATION: US RETROPERITONEAL LIMITED (RENAL ONLY) CLINICAL INFORMATION: Cyst of kidney, acquired. COMPARISON: Renal ultrasound 01/02/2022 and 06/13/2021. CT abdomen 11/12/2018. X-ray KUB 07/31/2015 and 05/22/2013. TECHNIQUE: Real-time imaging of the kidneys. FINDINGS: RIGHT KIDNEY: 11.8 x 4.5 x 6.2 cm (SAG x AP x TRV). The kidney is normal in size, contour, and echogenicity. Renal cortical thickness is normal. No renal calculi or hydronephrosis. At the upper pole, a 1.5 x 1.4 x 1.5 cm mildly complex cyst is seen, with fine septations. This shows no mural nodularity or associated color Doppler flow. On the ultrasound examination 01/02/2022, this measured 1.2 x 1.3 x 1.2 cm. LEFT KIDNEY: 16.1 x 7.2 x 8.4 cm (SAG x AP x TRV). The kidney is normal in size, contour, and echogenicity. Renal cortical thickness is normal. No renal calculi or hydronephrosis. At the upper pole, a 7.5 cm in maximal diameter benign, simple cyst is seen. At the interpolar aspect, an 8.4 cm benign, simple cyst is seen. These require no imaging follow-up. US/US renal BI IMPRESSION: There is mild interim increase in a previously noted mildly complex right renal upper pole cyst, with fine septations. Urology evaluation and management is recommended. Continued imaging follow-up may be warranted.
== END 2022-12-27 12:00 | disposition home or self-care (01) ==
LOC: HO.US 11:59
PROVIDERS: PCP Internal Medicine; Visit Provider Nurse Practitioner Family
DX: N28.1 Cyst of kidney, acquired (principal)
CPT/HCPCS: 76775

== ENCOUNTER 2023-01-03 13:00 | Outpatient (AMB) | payer OTHER, SELFPAY ==
--- NOTE | 2023-01-03 13:15 | A.OFFVIS_ITS ---
Intake Intake Visit Reasons: 1 yr nephrolithiasis follow up with renal US (SET) Intake Note: Patient presents for follow up nephrolithiasis/ultrasound (imaging 12/27/22) Urology Medications: none Blood Thinner: none Patrol Guard Required: Yes Patrol Guard Name: HEAVENLY Allergies egg Allergy (Intermediate, Verified 01/03/23 13:52) Rash seafood Allergy (Intermediate, Verified 01/03/23 13:52) Rash shellfish derived Allergy (Intermediate, Verified 01/03/23 13:52) RASH zolpidem [ZOLPIDEM] Allergy (Intermediate, Verified 01/03/23 13:52) HEART PALPITATIONS morphine Adverse Reaction (Intermediate, Verified 01/03/23 13:52) Vomiting Medication List - Last Reconciled 01/03/23 by SY Tapia atorvastatin 10 mg PO DAILY blood pressure test kit-large ([facility] Blood Pressure Monitor kit) As directed calcium carbonate 600 mg PO BID cane As directed famotidine 40 mg PO BEDTIME levothyroxine 150 mcg PO DAILY 90 days linaclotide (Linzess) 290 mcg PO QAM lorazepam 0.5 mg PO BID PRN metoclopramide HCl (Reglan) 5 mg PO QIDACHS midodrine 5 mg PO TID 30 days xnoyimorjdih-sxqz-dfbwh acid 18-400 mg-mcg (Certavite-Antioxidant) 1 tab PO DAILY 30 days nitrofurantoin macrocrystal 100 mg PO BID 7 days nystatin 1 appl topical DAILY 30 days pantoprazole 40 mg PO DAILY 90 days paroxetine HCl 40 mg PO DAILY quetiapine 200 mg PO BEDTIME [raised toilet seat As directed] sucralfate 1 g PO BID [toilet seat As directed] [toilet seat elevator As directed] trazodone 150 mg PO BEDTIME HPI HPI Comments History of Present Illness Details Genna is a 62-year-old [id number]-[id number] patient of Dr. Paige. She has a past medical history of dyslipidemia, GERD, hypothyroidism, low back pain, depression, obesity, peptic ulcer disease, and renal cysts. She presents to the office today for follow-up of her renal cyst. In discussion with the patient today she reports to be doing and feeling well. Recent renal imaging results reviewed with the patient today. Right kidney with no calculi or hydronephrosis. At the upper pole, a 1.5 x 1.4 x 1.5 cm mildly complex cyst is seen, with fine septations. This shows no mural nodularity or associated color Doppler flow. On the ultrasound examination 01/02/2022, this measured 1.2 x 1.3 x 1.2 cm. Left kidney with no calculi or hydronephrosis. At the upper pole, a 7.5 cm in maximal diameter benign, simple cyst is seen. At the interpolar aspect, an 8.4 cm benign, simple cyst is seen. These require no imaging follow- up. Continued imaging follow-up is recommended per radiology report. When asked she does report intermittent he was episodes of dysuria and vaginal itching however, she denies urinary urgency, urinary frequency, incontinence, nocturia, hematuria, foul smelling urine, changes to urinary stream, flank pain, fever, and or chills. She is happy with her current voiding parameters. In office urinalysis results reviewed with the patient today. She otherwise offers no issues or concerns at this time. [facility] Medical History Dyslipidemia GERD (gastroesophageal reflux disease) Hypothyroidism Idiopathic chronic hypotension Lower back pain Mild recurrent major depression Obesity (BMI 35.0-39.9 without comorbidity) Onychomycosis PUD (peptic ulcer disease) Renal cyst Skin lesion Takes daily multivitamins Tubular adenoma of colon Unsteady gait Surgical History H/O elbow surgery H/O hand surgery H/O knee surgery History of section History of cholecystectomy History of foot surgery History of hysterectomy History of removal of cyst History of varicose vein ligation Family History Father Diabetes Mother Thyroid disease Chronic mental illness Hypertension Hypercholesterolemia Maternal Aunt Breast cancer Brother In good health Daughter In good health Daughter In good health Sister No problems noted. Social History Household Members: None Housing: Apartment Alcohol intake: never Patient Tobacco Use Status: Never used Tobacco e-Cigarette/Vaping Use: Never Used Second Hand Smoke Exposure: No service: No Current occupational status: disabled Cognitive needs: No Hearing needs: No Vision needs: Yes Female Reproductive History Menstrual Age of Menarche: 9 Review of Systems Const Reports as per [facility] Eyes Reports no additional complaints ENT Reports no additional complaints Card Reports as per [facility] Resp Reports no additional complaints GI Reports as per [facility] Reports as per [facility] Musc Reports as per [facility] Neuro Reports no additional complaints Psych Reports as per HPI Endo Reports no additional complaints Sebas/Lymph Reports no additional complaints Aller/Immun Reports no additional complaints Physical Exam Const General: cooperative, healthy appearing, comfortable, no acute distress, well developed, alert and awake Orientation/consciousness: patient oriented x3 Limitations: no limitations HEENT Head: Yes normal to inspection, Yes normocephalic and Yes atraumatic Ears: hearing grossly normal bilaterally Eyes General: appearance normal, both eyes and all related structures Neck Neck: Yes normal visual inspection and Yes trachea midline Chest Chest palpation & inspection: normal inspection of the chest Resp Effort & Inspection: normal respiratory effort and able to speak in complete sentences Cardio Rate: regular rate GI Inspection: Yes normal to inspection General: Yes no CVA tenderness Back/Spine/Pelvis Back: no CVA tenderness Skin General skin exam: no rashes or lesions noted Neuro General: patient oriented x3 Extrem General: Yes normal to inspection Psych Appearance: grossly normal and well kempt Mental Status: mental status grossly normal Speech and movement: Normal speech and movement present and Clear speech present Affect: normal affect Attitude: cooperative Thought process: Normal thought process present Thought content: Normal thought content present Insight: Fair insight present (Psych) Judgement: Fair judgement present (Psych) Results AMB Urinalysis, Automated UA Leukoctes 500 Talha/uL Last Edit by PassKit Chaparro on 01/03/23 13:37 UA Nitrite Negative Last Edit by Wilfredo[employer]one[employer] Technology Corporationdede Mayfield on 01/03/23 13:37 UA Urobilinogen 0.2 mg/dL Last Edit by PassKit Chaparro on 01/03/23 13:37 UA Protein 30 mg/dL Last Edit by PassKit Chaparro on 01/03/23 13:37 UA pH 6.0 Last Edit by Impliantdede Mayfield on 01/03/23 13:37 UA Blood 80 Raghavendra/uL Last Edit by Impliantdede Mayfield on 01/03/23 13:37 UA Specific Ethel 1.030 Last Edit by PassKit Chaparro on 01/03/23 13:37 UA Ketone Negative Last Edit by Yolanda Haysolomon on 01/03/23 13:37 UA Bilirubin 1 mg/dL Last Edit by Yolanda Haysolomon on 01/03/23 13:37 UA Glucose 0 mg/dL Last Edit by Yolanda Haysolomon on 01/03/23 13:37 Results Reviewed Results Reviewed: Laboratory Last Values Urine pH (Auto) 6.0 01/03/23 13:35 Specific Ethel (Auto) 1.030 01/03/23 13:35 Urine Protein (Auto) 30 mg/dL 01/03/23 13:35 Glucose (UA)(Auto) 0 mg/dL 01/03/23 13:35 Urine Ketones (Auto) Negative 01/03/23 13:35 Urine Blood (Auto) 80 Raghavendra/uL 01/03/23 13:35 Urine Nitrite (Auto) Negative 01/03/23 13:35 Urine Bilirubin (Auto) 1 mg/dL 01/03/23 13:35 Urine Urobilinogen (Auto) 0.2 mg/dL 01/03/23 13:35 Leukocyte Esterase (Auto) 500 Talha/uL 01/03/23 13:35 Date of Service: 12/27/22 EXAMINATION: US RETROPERITONEAL LIMITED (RENAL ONLY) CLINICAL INFORMATION: Cyst of kidney, acquired. COMPARISON: Renal ultrasound 01/02/2022 and 06/13/2021. CT abdomen 11/12/2018. X-ray KUB 07/31/2015 and 05/22/2013. TECHNIQUE: Real-time imaging of the kidneys.? FINDINGS: RIGHT KIDNEY: 11.8 x 4.5 x 6.2 cm (SAG x AP x TRV). The kidney is normal in size, contour, and echogenicity. Renal cortical thickness is normal. No renal calculi or hydronephrosis. At the upper pole, a 1.5 x 1.4 x 1.5 cm mildly complex cyst is seen, with fine septations. This shows no mural nodularity or associated color Doppler flow. On the ultrasound examination 01/02/2022, this measured 1.2 x 1.3 x 1.2 cm. LEFT KIDNEY: 16.1 x 7.2 x 8.4 cm (SAG x AP x TRV). The kidney is normal in size, contour, and echogenicity. Renal cortical thickness is normal. No renal calculi or hydronephrosis. At the upper pole, a 7.5 cm in maximal diameter benign, simple cyst is seen. At the interpolar aspect, an 8.4 cm benign, simple cyst is seen. These require no imaging follow-up. IMPRESSION: There is mild interim increase in a previously noted mildly complex right renal upper pole cyst, with fine septations. Urology evaluation and management is recommended. Continued imaging follow-up may be warranted. Assessment & Plan Assessment & Plan (1) Urinary tract infection: Code(s): N39.0 - Urinary tract infection, site not specified (2) Complex renal cyst: Code(s): N28.1 - Cyst of kidney, acquired Plan In office urinalysis results reviewed with the patient today; as noted above; will send for urine culture. Recent renal imaging results reviewed with the patient today Discussed obtaining MRI imaging for surveillance monitoring Will continue with surveillance monitoring as discussed. Start Macrobid as discussed and prescribed Discussed UTI prevention with D mannose supplement, vitamin-C, increasing fluid intake, behavioral therapy with timed voiding, perineal hygiene and postcoital voiding, and management of constipation with stool softeners and increased fiber intake. Follow-up in 6 months with imaging to be completed prior; or sooner with any issues, concerns, and or questions. Orders: Orders MR kidney wo/w con 01/03/23 N28.1 - Cyst of kidney, acquired Urine Culture 01/03/23 N39.0 - Urinary tract infection, site not specified AMB Urinalysis Automated 01/03/23 Z13.9 - Encounter for screening, unspecified Medications: New nitrofurantoin macrocrystal 100 mg PO BID 7 days 14 caps 0RF R32 - Unspecified urinary incontinence Patient Instructions: The patient had an opportunity to ask questions regarding the treatment plan. All questions were answered. Physical exam, labs, and imaging were discussed and reviewed in detail. As well as risks, benefits, and discussion of treatment choices. No major barriers to understanding were identified. The patient expressed understanding and agreement with the above treatment plan. The patient was made aware they should contact our office by phone for worsening of their current condition, the appearance of new symptoms, or with any questions or concerns. Compliance is encouraged with any medications and follow up testing that is ordered. It is a privilege to be allowed the opportunity to participate in? your urological care.? Again, if you have any questions or concerns If you have any questions or concerns please do not hesitate to contact me. The office is [phone]. This note is constructed using voice recognition software. While every effort has been made to ensure accuracy manager strategic partnerships errors may have been included. Yours sincerely, SY Tapia Coding Level of Care Code Est Pt Level 4 (09718) Diagnoses Urinary tract infection N39.0 Complex renal cyst N28.1
== END 2023-01-03 13:49 | disposition home or self-care (01) ==
PROVIDERS: PCP Internal Medicine; Visit Provider Nurse Practitioner Family
DX: N39.0 Urinary tract infection, site not specified (principal); N28.1 Cyst of kidney, acquired
CPT/HCPCS: 99214

== ENCOUNTER 2023-01-03 13:00 | Outpatient (REF) | payer OTHER, SELFPAY | END 2023-01-03 13:01 | disposition home or self-care (01) | LOC: HO.LNP 13:00 | PROVIDERS: Visit Provider Nurse Practitioner Family | DX: N39.0 Urinary tract infection, site not specified (principal); N28.1 Cyst of kidney, acquired | CPT/HCPCS: 81003; 87086; 99212 ==

== ENCOUNTER 2023-01-17 10:31 | Emergency (ER) | payer OTHER, SELFPAY ==
--- NOTE | ~2023-01-17 | XR_ITS ---
EXAMINATION: XR CHEST CLINICAL INFORMATION: Chest pain COMPARISON: None available. TECHNIQUE: 2 views of the chest were obtained. FINDINGS: No acute finding. Lung castro are grossly clear and comparable to previous The cardiac silhouette is within normal limits. The hilar regions are felt to be comparable. Mild degenerative changes in the lumbar sacral spine. XR/XR chest 2V IMPRESSION: No acute finding
--- NOTE | 2023-01-17 10:33 | ECG_ITS ---
Test Reason : CP Blood Pressure : / mmHG Vent. Rate : 071 BPM Atrial Rate : 071 BPM P-R Int : 136 ms QRS Dur : 076 ms QT Int : 366 ms P-R-T Axes : 073 006 005 degrees QTc Int : 397 ms Normal sinus rhythm Nonspecific T wave abnormality Abnormal ECG When compared with ECG of 20-SEP-2019 14:10, Premature atrial complexes are no longer Present Referred By: Generic ED Physician Electronically Signed By:FELIPE ABEL
[2023-01-17 10:59] VITALS: BP 140/70; BP 151/85; PULSE 70; PULSE 80; RESP 16; TEMP 36.9; O2SAT 99; BMI 41.7
--- NOTE | 2023-01-17 11:07 | ED_ITS ---
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 Chest pain localized to central chest/epigastric region without radiation. Describes it as stabbing in sensation. She reports 1st episode yesterday while lying in bed, lasted about 5 minutes before completely resolving. Nothing seems to exacerbate her symptoms. Now reports chest pain since 0400 this morning, rates it a 5/10. Was administered aspirin en route to ED. Additionally reports intermittent dizziness with bending over x1 wk. Denies history of AK or CAD. Takes her medications as prescribed, no missed doses. Reports previous hospitalization for hypotension. Denies fever, chills, headache, dizziness, vision changes, palpitations, shortness of breath, nausea or vomiting, LE edema or swelling. No recent travel or sick contacts. Related Data Home Medications Medication Instructions Recorded Confirmed lorazepam 0.5 mg tablet 0.5 mg PO BID PRN Anxiety 02/23/20 07/30/22 paroxetine HCl 40 mg tablet 40 mg PO DAILY 02/23/20 07/30/22 quetiapine 200 mg tablet 200 mg PO BEDTIME 02/23/20 07/30/22 trazodone 150 mg tablet 150 mg PO BEDTIME 02/23/20 07/30/22 Previous Rx's Medication Instructions Recorded blood pressure test kit-large #1 ea 06/06/20 (Advocate Blood Pressure Monitor kit) cane #1 ea 10/11/20 toilet seat #1 ea 01/16/21 multivitamin-ferrous 1 tab PO DAILY 30 days #30 tabs 02/17/22 fumarate-folic acid 18 mg-400 mcg tablet (Certavite-Antioxidant) atorvastatin 10 mg tablet 10 mg PO DAILY #90 tabs 05/18/22 calcium carbonate 600 mg calcium 600 mg PO BID #180 tabs 06/26/22 (1,500 mg) tablet famotidine 40 mg tablet 40 mg PO BEDTIME #30 tabs 08/08/22 linaclotide 290 mcg capsule 290 mcg PO QAM #30 caps 08/08/22 (Linzess) metoclopramide HCl 5 mg tablet 5 mg PO QIDACHS #120 tabs 08/08/22 (Reglan) pantoprazole 40 mg tablet,delayed 40 mg PO DAILY 90 days #90 tabs 08/08/22 release sucralfate 1 gram tablet 1 g PO BID #60 tabs 08/08/22 toilet seat elevator #1 ea 08/19/22 raised toilet seat #1 ea 08/21/22 levothyroxine 150 mcg tablet 150 mcg PO DAILY 90 days #90 tabs 09/19/22 midodrine 5 mg tablet 5 mg PO TID 30 days #90 tabs 10/04/22 nystatin 100,000 unit/gram topical 1 appl topical DAILY 30 days #30 12/13/22 cream grams nitrofurantoin macrocrystal 100 mg 100 mg PO BID 7 days #14 caps 01/03/23 capsule Allergies Allergy/AdvReac Type Severity Reaction Status Date / Time egg Allergy Intermediate Rash Verified 01/03/23 13:52 seafood Allergy Intermediate Rash Verified 01/03/23 13:52 shellfish derived Allergy Intermediate RASH Verified 01/03/23 13:52 zolpidem [ZOLPIDEM] Allergy Intermediate HEART Verified 01/03/23 13:52 PALPITATIONS morphine AdvReac Intermediate Vomiting Verified 01/03/23 13:52 Review of Systems 2 Review of Systems: Constitutional: No fever, No chills, No fatigue, No malaise ENT/Mouth: No ear pain, No hearing loss, No nasal congestion, No sinus pain, No rhinorrhea, No sore throat Eyes: No eye pain, No swelling, No redness, No vision changes, No foreign body, No discharge Cardio: + chest pain, No palpitations, No dyspnea on exertion, No orthopnea, No edema Respiratory: No SOB, No cough, No sputum, No wheezing, No dyspnea, No hemoptysis GI: No nausea, No vomiting, No hematemesis, No abdominal pain, No diarrhea, No constipation, No hematochezia, No melena : No irregular bleeding, No dysuria, No frequency, No urgency, No hesitancy, No hematuria, No flank pain MSK: No back pain, No neck pain, No joint pain, No myalgias Skin: No skin lesions, No rashes Neuro: No weakness, No numbness, No paresthesias, No LOC, + dizziness, No headache All other systems reviewed and are negative. [facility] Past Medical History Attestation statement: The following information was validated with the patient. Source: old records reviewed and nursing notes reviewed Medical History Onychomycosis Obesity (BMI 35.0-39.9 without comorbidity) Dyslipidemia Mild recurrent major depression Skin lesion Tubular adenoma of colon PUD (peptic ulcer disease) Renal cyst Idiopathic chronic hypotension Unsteady gait Hypothyroidism Lower back pain Takes daily multivitamins GERD (gastroesophageal reflux disease) Surgical History H/O elbow surgery History of varicose vein ligation H/O knee surgery H/O hand surgery History of foot surgery History of section History of hysterectomy History of removal of cyst History of cholecystectomy Family History Family History Father Diabetes Mother Thyroid disease Chronic mental illness Hypertension Hypercholesterolemia Maternal Aunt Breast cancer Brother In good health Daughter In good health Daughter In good health Sister No problems noted. Social History Social History Household Members: None Housing: Apartment Alcohol intake: never Patient Tobacco Use Status: Never used Tobacco e-Cigarette/Vaping Use: Never Used Second Hand Smoke Exposure: No Advance Directives: No service: No Current occupational status: disabled Cognitive needs: No Hearing needs: No Vision needs: Yes Physical Exam 2 Vital Signs: Vital Signs: Last Vital Signs Temp 97.9 F 01/17/23 13:18 Pulse 68 01/17/23 13:18 Resp 18 01/17/23 13:18 BP 141/83 H 01/17/23 13:18 Pulse Ox 98 01/17/23 13:18 O2 Del Method Room Air 01/17/23 13:18 BMI result Body Mass Index 41.7 Vital signs stable General: Nontoxic appearing. NAD Skin: Warm and dry. No rashes or lesions. Head: Normocephalic, atraumatic. EENT: Conjunctiva clear. Sclera is anicteric. PERRLA. EOM intact. Moist mucous membranes. Neck: Supple without LAD. Normal ROM. Trachea midline. Cardiac: Chest wall symmetric. RRR. S1 and S1 appreciated. No MRG. No JVD. Lungs: CTA bilaterally. No rales, rhonchi, or wheezes. Normal respiratory effort without accessory muscle use. Abdomen: No visible lesions or scars. Soft, non-tender, non-distended. No rebound tenderness or guarding. Normoactive BS x4. Spine: No midline spinous tenderness. No deformity or step off. Ext: Upper and lower extremities atraumatic. Full ROM throughout.Capillary refill <2 seconds in all extremities. Pulses 2+ equal b/l. No edema, cyanosis, or clubbing. Negative Homans sign bilaterally. Neuro: Alert and oriented x3. Normal speech. CN 2-12 grossly intact. Strength 5/5 intact throughout. Sensation intact to light touch. NV intact distally. Reflexes 2+ bilaterally. Normal finger to nose, heel to june. Ambulating with steady gait. Psych: Appropriate mood and affect. Responds appropriately to questions. Course Course Course Narrative: 1045-- CBC without anemia or infection. Chemistry without acute electrolyte abnormality requiring intervention. BNP WNL. Troponin WNL > will repeat. Unlikely ACS. Lipase WNL. 1257-- serology negative for COVID/flu > unlikely viral syndrome. A chest x-ray and how infiltrate or consolidation, normal cardiac silhouette > unlikely pneumonia, pneumothorax, CHF. Orthostatic vital signs and negative > unlikely orthostatic hypotension. Will obtain it TSH to rule out thyroid pathology. 1430-- advised patient of all lab and imaging results. Informed her that we will be drawing a 2nd troponin to rule out cardiac etiology. Troponin and TSH pending. 1537-- physician observation initiated. Labs pending. 1600-- 2nd troponin negative. TSH still pending however this does not change patient's disposition. The patient's symptoms have improved. She has been informed of her lab results. Advised patient that we will call her if her TSH results return abnormal. Recommended follow-up with primary care provider and continue home meds as prescribed. Advised to return to the emergency department if her symptoms persist or worsen. Answered all patient's questions. Patient's vital signs are still stable. Ambulating with steady gait. Ready for discharge. Medications Administered Discontinued Medications Generic Name Dose Route Start Last Admin Trade Name Freq PRN Reason Stop Dose Admin Ketorolac Tromethamine 15 mg 01/17/23 13:01 01/17/23 13:17 Ketorolac Tromethamine 15 Mg/Ml Vial IVPUSH 01/17/23 13:02 15 mg ONCE ONE Administration Medical Decision Making Medical Decision Making [facility] Narrative: 63-year-old female with PMHx of HTN, GERD, PUD, hypothyroid presenting to the ED today via EMS complete of intermittent chest pain x1 day. Patient hypertensive to 151/85. Vital signs otherwise WNL. Exam unremarkable. Patient in no acute distress, nontoxic appearing, non diaphoretic. PERRL. Moist mucous membranes. RRR. Lungs CTA bilaterally. No JVD or peripheral edema. Nonfocal. Cerebellum intact. Clinical concern for hypertension vs ASC > will obtain cardiac enzymes. Concern for pneumonia, pneumothorax, viral syndrome > will obtain serology and chest x-ray. Patient has history of hypothyroidism > will check TSH. Basic labs ordered. Pain control ordered. Concern for orthostatic hypotension > orthostatic vital signs ordered. Unlikely CVA/TIA, posterior stroke, hypertensive urgency or emergency, cardiac arrhythmia, electrolyte abnormality, dissection, PE. Differential Diagnosis Differential Diagnoses: The differential diagnosis associated with the presentation includes Clinical concern for hypertension vs ASC > will obtain cardiac enzymes. Concern for pneumonia, pneumothorax, viral syndrome > will obtain serology and chest x- ray. Patient has history of hypothyroidism > will check TSH. Basic labs ordered. Pain control ordered. Concern for orthostatic hypotension > orthostatic vital signs ordered. Unlikely CVA/TIA, posterior stroke, hypertensive urgency or emergency, cardiac arrhythmia, electrolyte abnormality, dissection, PE. Admission/Observation Not indicated. Lab Data [facility] Lab Attestation statement: I reviewed the patient's lab results. See above course narrative 01/17/23 11:15 01/17/23 11:15 Labs: Lab Results 01/17/23 01/17/23 01/17/23 Range/Units 11:15 11:15 14:45 WBC 5.9 (4.8-10.8) X10*3/uL RBC 5.35 (4.20-5.50) X10*6/uL Hgb 14.3 (12.0-16.0) g/dl Hct 47.4 H (37.0-47.0) % MCV 88.6 (80.0-98.0) fL MCH 26.7 L (27.0-33.0) pg MCHC 30.2 L (31.0-35.0) g/dl RDW 13.2 (11.0-16.0) % Plt Count 154 L (160-400) X10*3/uL MPV 12.2 (9.4-12.3) fL Immature Gran % (Auto) 0.2 (0.0-0.4) % Neut % (Auto) 72.4 (45-73) % Lymph % (Auto) 20.3 (20-40) % Pender % (Auto) 4.6 (2-11) % Eos % (Auto) 2.0 (0-4) % Baso % (Auto) 0.5 (0-2) % Lymph # (Auto) 1.2 (1.2-4.9) X10*3/uL Pender # (Auto) 0.3 (0.1-1.2) X10*3/uL Eos # (Auto) 0.1 (0.0-0.4) X10*3/uL Baso # (Auto) 0.0 (0.0-0.2) X10*3/uL Abs Immat Gran (auto) 0.01 (0.00-0.03) X10*3/uL Absolute Neuts (auto) 4.2 (2.0-8.3) x10*3/uL Absolute Nucleated RBC 0.000 (0.0-0.012) X10*3/uL Nucleated RBC % (auto) 0.0 (0.0-0.2) /100WBC Sodium 141 (135-145) mmol/L Potassium 4.2 (3.3-5.1) mmol/L Chloride 109 H (96-108) mmol/L Carbon Dioxide 23 (22-29) mmol/L Anion Gap 13 (12-20) BUN 19 H (9-16) mg/dL Creatinine 0.78 (0.5-1.4) mg/dL Estim Creat Clear Calc 98.0 Estimated GFR > 60 Random Glucose 115 (60-115) mg/dL Calcium 9.8 (8.4-10.2) mg/dL Magnesium 2.3 (1.6-2.6) mg/dL Total Bilirubin 0.6 (0.0-1.0) mg/dL AST 23 (5-31) U/L ALT 17 (0-31) U/L Alkaline Phosphatase 103 (39-117) U/L Troponin I High Sens < 2.7 < 2.7 (<3.5-17.0) ng/L B-Natriuretic Peptide 33 (<100) pg/mL Total Protein 7.5 (6.5-8.0) g/dL Albumin 4.1 (3.5-5.0) g/dL Lipase 27 (8-78) U/L TSH 4.88 H Cancelled (0.32-4.0) uIU/mL COVID-19 (JOANN) Negative (Negative) COVID-19 Clin Com See Note Influenza Type A (ANNY) Negative (Negative) Influenza Type B (ANNY) Negative (Negative) Influenza A & B Note See Note Independent Interpretation I performed an independent interpretation of an: Plain X-Ray Interpretation: CXR without infiltrate or consolidation, agree with radiologist's interpretation. Radiology Impression Discussion of test interpretation with radiology: I have reviewed the radiologist's reading. Radiologist Impression: XR chest 2V IMPRESSION: No acute finding External Record Review External record reviewed: Inpatient record Prescription Management I considered prescription management with: Pain Medication Chronic Conditions Patient?s care impacted by: Hypertension Critical Care Time Critical Care Time Critical Care Time: No Discharge Plan Discharge Clinical Impression: Chest pain Patient Disposition: Home, Self-Care Instructions: Chest Pain (ED), Chest Wall Pain (ED) Additional Instructions: Your labs today were reassuring. Your cardiac enzyme was negative x2. Your CXR was unremarkable. Your EKG was normal. You tested negative for COVID and flu. This is likely musuloskeletal in nature. You can take Tylenol and Motrin as needed for discomfort. Please follow up with your PCP as needed. Return if your symptoms persist or worsen. Rafia an?lisis de hoy fueron tranquilizadores. Tu enzima card?tunde fue negativa x2. Pacheco CXR no fue nada especial. Pacheco electrocardiograma fue normal. Alexis negativo en la prueba de COVID y gripe. Es probable que esto sea de naturaleza musuloesquel?naomi. Puede mikaela Tylenol y Motrin seg?n sea necesario para las molestias. Karel un seguimiento con pacheco PCP seg?n sea necesario. Regrese si rafia s?ntomas persisten o empeoran. Prescriptions: No Action (DME) blood pressure test kit-large [Advocate Blood Pressure Monitr] Kit See Rx Instructions .ROUTE .MEDSUPPLY Qty: 1 0RF Rx Instructions: As directed (DME) cane Device See Rx Instructions .ROUTE .MEDSUPPLY Qty: 1 0RF Rx Instructions: As directed (DME) toilet seat See Rx Instructions .Route .MEDSUPPLY Qty: 1 0RF Rx Instructions: As directed Certavite-Antioxidant 18-400 mg-mcg tablet 1 tab PO DAILY 30 Days Qty: 30 11RF atorvastatin 10 mg tablet 10 mg PO DAILY Qty: 90 3RF calcium carbonate 600 mg calcium (1,500 mg) tablet 600 mg PO BID Qty: 180 3RF (DME) toilet seat elevator See Rx Instructions .Route .MEDSUPPLY Qty: 1 0RF Rx Instructions: As directed (DME) raised toilet seat See Rx Instructions .Route .MEDSUPPLY Qty: 1 0RF Rx Instructions: As directed levothyroxine 150 mcg tablet 150 mcg PO DAILY 90 Days Qty: 90 1RF midodrine 5 mg tablet 5 mg PO TID 30 Days Qty: 90 4RF Rx Instructions: do not give last dose of day after 6PM or within 4 hrs of bedtime nystatin 100,000 unit/gram cream 1 appl topical DAILY 30 Days Qty: 30 1RF paroxetine HCl 40 mg tablet 40 mg PO DAILY trazodone 150 mg tablet 150 mg PO BEDTIME lorazepam 0.5 mg tablet 0.5 mg PO BID PRN (Reason: Anxiety) quetiapine 200 mg tablet 200 mg PO BEDTIME nitrofurantoin macrocrystal 100 mg capsule 100 mg PO BID 7 Days Qty: 14 0RF sucralfate 1 gram tablet 1 g PO BID Qty: 60 6RF pantoprazole 40 mg tablet,delayed release (DR/EC) 40 mg PO DAILY 90 Days Qty: 90 4RF Linzess 290 mcg capsule 290 mcg PO QAM Qty: 30 6RF famotidine 40 mg tablet 40 mg PO BEDTIME Qty: 30 6RF metoclopramide HCl [Reglan] 5 mg tablet 5 mg PO QIDACHS Qty: 120 6RF Rx Instructions: Provider aware of potential interaction with prozac and is monitornig Referrals: Rae Nunez MD [Primary Care Provider] - Print Language: Czech
[2023-01-17 11:20] LABS: MANUAL DIFF FLAG NO
[2023-01-17 11:21] LABS: Basophils Percent Auto 0.5 % (0-2); Eosinophils Absolute Auto 0.1 X10*3/uL (0.0-0.4); Hematocrit 47.4 % (37.0-47.0); Hemoglobin 14.3 g/dl (12.0-16.0); Imm Gran Abs Auto 0.01 X10*3/uL (0.00-0.03); Imm Gran Pct Auto 0.2 % (0.0-0.4); Lymphocytes Absolute Auto 1.2 X10*3/uL (1.2-4.9); Lymphocytes Percent Auto 20.3 % (20-40); Mean Corpuscular HGB Conc 30.2 g/dl (31.0-35.0); Mean Corpuscular Hemoglobin 26.7 pg (27.0-33.0); Mean Corpuscular Volume 88.6 fL (80.0-98.0); Mean Platelet Volume 12.2 fL (9.4-12.3); Monocytes Absolute Auto 0.3 X10*3/uL (0.1-1.2); Monocytes Percent Auto 4.6 % (2-11); Neutrophils Absolute Auto 4.2 x10*3/uL (2.0-8.3); Neutrophils Percent Auto 72.4 % (45-73); Platelet Count 154 X10*3/uL (160-400); Red Blood Count 5.35 X10*6/uL (4.20-5.50); Red Cell Distribution Width 13.2 % (11.0-16.0); White Blood Count 5.9 X10*3/uL (4.8-10.8)
--- NOTE | 2023-01-17 11:23 | PC.NURSE ---
alert and oriented, respirations even and unlabored. iv established, labs drawn/swabs obtained and sent. NSR on monitor in the 70's. family at bedside, call wang within reach.
[2023-01-17 11:40] LABS: IDNOW Serial# 08D9AD1C; Influenza A Negative (Negative); Influenza B2 Negative (Negative)
[2023-01-17 11:42] LABS: B Type Natriuretic Peptide 33 pg/mL (<100)
[2023-01-17 11:52] LABS: COVID-19 Test Negative (Negative); IDNOW Serial# BCCEAD1C
[2023-01-17 11:54] LABS: Troponin-I High Sensitivity < 2.7 ng/L (<3.5-17.0)
[2023-01-17 12:06] LABS: Anion Gap 13 (12-20)
[2023-01-17 12:16] LABS: Alanine Aminotransferase 17 U/L (0-31); Albumin Level 4.1 g/dL (3.5-5.0); Alkaline Phosphatase 103 U/L (39-117); Aspartate Amino Transferase 23 U/L (5-31); Bilirubin Total 0.6 mg/dL (0.0-1.0); Blood Urea Nitrogen 19 mg/dL (9-16); Calcium 9.8 mg/dL (8.4-10.2); Carbon Dioxide 23 mmol/L (22-29); Chloride 109 mmol/L (96-108); Estimated Glomerular Filt Rate > 60; Glucose Random 115 mg/dL (60-115); Lipase 27 U/L (8-78); Magnesium 2.3 mg/dL (1.6-2.6); Potassium 4.2 mmol/L (3.3-5.1); Sodium 141 mmol/L (135-145); Total Protein 7.5 g/dL (6.5-8.0)
[2023-01-17 12:40] VITALS: BP 133/72; BP 133/75; PULSE 67
[2023-01-17 12:41] VITALS: BP 136/60; PULSE 73
[2023-01-17] MEDS: Ketorolac Tromethamine 15 MG/ML VIAL IVPUSH (13:17)
[2023-01-17 13:18] VITALS: BP 141/83; PULSE 68; RESP 18; TEMP 36.6; O2SAT 98
--- NOTE | 2023-01-17 13:20 | PC.NURSE ---
medicated per the MAR for pain
[2023-01-17 15:15] LABS: Troponin-I High Sensitivity < 2.7 ng/L (<3.5-17.0)
[2023-01-17 16:10] LABS: Thyroid Stimulating Hormone 4.88 uIU/mL (0.32-4.0)
== END 2023-01-17 16:36 | disposition home or self-care (01) ==
PROVIDERS: Physician Assistant Medical; Emergency Provider Emergency Medicine Emergency Medical Services; PCP Internal Medicine
DX: R07.9 Chest pain, unspecified (principal); I10 Essential (primary) hypertension; E78.5 Hyperlipidemia, unspecified; K21.9 Gastro-esophageal reflux disease without esophagitis; Z20.822 Contact with and (suspected) exposure to COVID-19; Z79.899 Other long term (current) drug therapy
CPT/HCPCS: 36415; 71046; 80053; 83690; 83735; 83880; 84443; 84484; 85025; 87502; 87635; 93005; 96374; 99284; 99285; J1885

== ENCOUNTER 2023-01-27 11:15 | Emergency (ER) | payer OTHER, SELFPAY ==
--- NOTE | ~2023-01-27 | XR_ITS ---
EXAMINATION: XR CHEST CLINICAL INFORMATION: Chest pain COMPARISON: 01/17/2023, 02/23/2020 TECHNIQUE: 2 views of the chest were obtained. FINDINGS: There is no gross pneumothorax. Heart size is normal. Mild degenerative changes in the thoracic spine. No pleural effusion. No focal consolidation to suggest pneumonia. XR/XR chest 2V IMPRESSION: No evidence of pneumonia. This examination was presented to me today 01/27/2023 at 1:00 PM for interpretation. Stat results provided to referring provider as requested at this time.
[2023-01-27 11:21] VITALS: BP 147/60; BP 172/100; PULSE 55; PULSE 92; RESP 17; TEMP 36.6; O2SAT 98; BMI 41.1
--- NOTE | 2023-01-27 11:25 | ED_ITS ---
HPI - General Adult General Chief complaint: General Medical Stated complaint: CP/sob per ems Time Seen by Provider: 01/27/23 17:35 Source: patient Mode of arrival: ambulatory Limitations: no limitations History of Present Illness HPI narrative: Patient comes to the emergency room complaining of chest pain for 11 days. When patient arrived in triage, she stated that the pain is intermittent with shortness of breath. When I spoke with the patient patient states she has no shortness of breath and the pain is constant and does not go away. Approximately 10 days ago, patient was evaluated for chest pain. Patient denies any recent URIs, denies cardiac history Related Data Home Medications Medication Instructions Recorded Confirmed lorazepam 0.5 mg tablet 0.5 mg PO BID PRN Anxiety 02/23/20 07/30/22 paroxetine HCl 40 mg tablet 40 mg PO DAILY 02/23/20 07/30/22 quetiapine 200 mg tablet 200 mg PO BEDTIME 02/23/20 07/30/22 trazodone 150 mg tablet 150 mg PO BEDTIME 02/23/20 07/30/22 Previous Rx's Medication Instructions Recorded blood pressure test kit-large #1 ea 06/06/20 ([facility] Blood Pressure Monitor kit) cane #1 ea 10/11/20 toilet seat #1 ea 01/16/21 multivitamin-ferrous 1 tab PO DAILY 30 days #30 tabs 02/17/22 fumarate-folic acid 18 mg-400 mcg tablet (Certavite-Antioxidant) atorvastatin 10 mg tablet 10 mg PO DAILY #90 tabs 05/18/22 calcium carbonate 600 mg calcium 600 mg PO BID #180 tabs 06/26/22 (1,500 mg) tablet famotidine 40 mg tablet 40 mg PO BEDTIME #30 tabs 08/08/22 linaclotide 290 mcg capsule 290 mcg PO QAM #30 caps 08/08/22 (Linzess) metoclopramide HCl 5 mg tablet 5 mg PO QIDACHS #120 tabs 08/08/22 (Reglan) pantoprazole 40 mg tablet,delayed 40 mg PO DAILY 90 days #90 tabs 08/08/22 release sucralfate 1 gram tablet 1 g PO BID #60 tabs 08/08/22 toilet seat elevator #1 ea 08/19/22 raised toilet seat #1 ea 08/21/22 levothyroxine 150 mcg tablet 150 mcg PO DAILY 90 days #90 tabs 09/19/22 midodrine 5 mg tablet 5 mg PO TID 30 days #90 tabs 10/04/22 nystatin 100,000 unit/gram topical 1 appl topical DAILY 30 days #30 12/13/22 cream grams nitrofurantoin macrocrystal 100 mg 100 mg PO BID 7 days #14 caps 01/03/23 capsule Allergies Allergy/AdvReac Type Severity Reaction Status Date / Time egg Allergy Intermediate Rash Verified 01/03/23 13:52 seafood Allergy Intermediate Rash Verified 01/03/23 13:52 shellfish derived Allergy Intermediate RASH Verified 01/03/23 13:52 zolpidem [ZOLPIDEM] Allergy Intermediate HEART Verified 01/03/23 13:52 PALPITATIONS morphine AdvReac Intermediate Vomiting Verified 01/03/23 13:52 Review of Systems 2 Review of Systems: Constitutional : No Weight loss, No Fever, No Chills, No Night Sweats, No Fatigue, No Malaise ENT/Mouth : No Hearing loss, No Ear Pain, No Nasal Congestion, No Sinus Pain, No Hoarseness, No sore throat, No Rhinorrhea, No Swallowing Difficulty Eyes: No Eye Pain, No Swelling, No Redness, No Foreign Body, No Discharge, No Vision Changes Cardiovascular : Complaining of fall constant chest pain for 11 days, No SOB, No Dyspnea on Exertion, No Orthopnea, No Edema, No Palpitations Respiratory : No Cough, No Sputum, No Wheezing, No Smoke Exposure, No Dyspnea Gastrointestinal : No Nausea, No Vomiting, No Diarrhea, No Constipation, No abdominal Pain, No Hematochezia, No Melena Genitourinary : no irregular bleeding, No Dysuria, No Urinary Frequency, No Hematuria, No Urinary Incontinence, No Urgency, No Flank Pain, No Urinary Flow Changes, No Hesitancy Musculoskeletal : No joint pain, No Myalgias, No Joint Swelling Skin : No Skin Lesions, No rash Neuro : No Weakness, No Numbness, No Paresthesias, No Loss of Consciousness, No Dizziness, No Headache Psych : No Anxiety/Panic, No Depression, No SI/HI/AH/VH, No Social Issues, Heme/Lymph: No Bruising, No Bleeding,No Lymphadenopathy Endocrine : No Polyuria, No Polydipsia, No Temperature Intolerance [facility] Past Medical History Medical History Morbid obesity Physical exam Lumbar pain Right knee pain Left knee pain Pre-op exam Low back pain Screening examination for infectious disease Abdominal pain Onychomycosis Obesity (BMI 35.0-39.9 without comorbidity) Dyslipidemia Mild recurrent major depression Skin lesion Tubular adenoma of colon PUD (peptic ulcer disease) Renal cyst Idiopathic chronic hypotension Unsteady gait Hypothyroidism Lower back pain Takes daily multivitamins GERD (gastroesophageal reflux disease) Surgical History H/O elbow surgery History of varicose vein ligation H/O knee surgery H/O hand surgery History of foot surgery History of section History of hysterectomy History of removal of cyst History of cholecystectomy Family History Family History Father Diabetes Mother Thyroid disease Chronic mental illness Hypertension Hypercholesterolemia Maternal Aunt Breast cancer Brother In good health Daughter In good health Daughter In good health Sister No problems noted. Social History Social History Household Members: None Housing: Apartment Alcohol intake: never Patient Tobacco Use Status: Never used Tobacco Smoked in Last 30 Days: No e-Cigarette/Vaping Use: Never Used Second Hand Smoke Exposure: No Use of substances other than those prescribed or required for medical reasons: No Advance Directives: No Advance Directives Information Provided: Yes Patient : No service: No Current occupational status: disabled Cognitive needs: No Hearing needs: No Vision needs: Yes Physical Exam ED Vital Signs: Vital Signs - 24 hr 01/27/23 11:21 Temperature 98 F Pulse Rate 55 Respiratory Rate 17 Blood Pressure 147/60 H Pulse Oximetry 98 Oxygen Delivery Method Room Air BMI result Body Mass Index 41.1 Const Other: Appearance: Alert. Oriented X3. No acute distress. Eyes: Pupils equal, round and reactive to light. ENT: Pharynx normal. Neck: Normal inspection. Neck supple. No lymph nodes noted. No crepitus CVS: Normal heart rate and rhythm. Pulses normal. Normal S1 and S2 Respiratory: No respiratory distress. Breath sounds normal. No Wheezing. No rales Abdomen: Soft and nontender. No rigidity. No distention. Skin: Skin warm and dry. Normal skin color. Normal skin turgor. Extremities: No lower extremity edema. No Lacerations. No Rash Neuro: Oriented X 3. No motor deficit. No sensory deficit. Moving all extremities. No slurred speech. CN 2 through 12 grossly intact Psych: calm, cooperative, normal affect Course Course Course Narrative: RME performed by Roxann Frey PA-C. Patient is a 63 year old assigned female at , swedish speaking only, presenting to the emergency department with chest pain. Labs, imaging, and swab ordered. Patient placed back in the waiting room pending room availability and results. Medical Decision Making Medical Decision Making [facility] Narrative: -patient has been having constant chest pain for 11 days, unlikely to be cardiac etiology. -interpretation EKG: Normal sinus rhythm, 172, nonspecific ST-T wave abnormalities previously seen on previous EKGs, QTC 398, nonspecific T-wave inversion in lead 3, QTC 398 -troponin x2 negative -my interpretation of chest x-ray: No infiltrates, no rib fractures Differential Diagnosis Differential Diagnoses: The differential diagnosis associated with the presentation includes (ACS, costochondritis, pneumonia) Admission/Observation Consideration of admission/observation: Escalation of care including admission/observation considered (Given patient's history, patient was considered on admission) Lab Data [facility] Lab Attestation statement: I reviewed the patient's lab results. 01/27/23 11:41 01/27/23 11:41 Labs: Lab Results 01/27/23 Range/Units 11:41 WBC 6.1 (4.8-10.8) X10*3/uL RBC 5.14 (4.20-5.50) X10*6/uL Hgb 13.8 (12.0-16.0) g/dl Hct 46.3 (37.0-47.0) % MCV 90.1 (80.0-98.0) fL MCH 26.8 L (27.0-33.0) pg MCHC 29.8 L (31.0-35.0) g/dl RDW 12.9 (11.0-16.0) % Plt Count 165 (160-400) X10*3/uL MPV 12.1 (9.4-12.3) fL Immature Gran % (Auto) 0.5 H (0.0-0.4) % Neut % (Auto) 72.2 (45-73) % Lymph % (Auto) 18.6 L (20-40) % [place] % (Auto) 5.7 (2-11) % Eos % (Auto) 2.0 (0-4) % Baso % (Auto) 1.0 (0-2) % Lymph # (Auto) 1.1 L (1.2-4.9) X10*3/uL [place] # (Auto) 0.4 (0.1-1.2) X10*3/uL Eos # (Auto) 0.1 (0.0-0.4) X10*3/uL Baso # (Auto) 0.1 (0.0-0.2) X10*3/uL Abs Immat Gran (auto) 0.03 (0.00-0.03) X10*3/uL Absolute Neuts (auto) 4.4 (2.0-8.3) x10*3/uL Absolute Nucleated RBC 0.000 (0.0-0.012) X10*3/uL Nucleated RBC % (auto) 0.0 (0.0-0.2) /100WBC PT 11.8 (11.1-13.3) SEC INR 1.0 (0.9-1.1) APTT 30.3 (26.0-36.4) SEC Sodium 143 (135-145) mmol/L Potassium 4.3 (3.3-5.1) mmol/L Chloride 110 H (96-108) mmol/L Carbon Dioxide 25 (22-29) mmol/L Anion Gap 12 (12-20) BUN 21 H (9-16) mg/dL Creatinine 0.74 (0.5-1.4) mg/dL Estim Creat Clear Calc 102.5 Estimated GFR > 60 Random Glucose 102 (60-115) mg/dL Calcium 9.3 (8.4-10.2) mg/dL Magnesium 2.0 (1.6-2.6) mg/dL Total Bilirubin 0.6 (0.0-1.0) mg/dL AST 20 (5-31) U/L ALT 15 (0-31) U/L Alkaline Phosphatase 95 (39-117) U/L Troponin I High Sens < 2.7 (<3.5-17.0) ng/L Total Protein 7.2 (6.5-8.0) g/dL Albumin 3.9 (3.5-5.0) g/dL Influenza Type A (PCR) NEGATIVE (Negative) Influenza Type B (PCR) NEGATIVE (Negative) RSV RNA Qual (PCR) NEGATIVE (Negative) SARS-CoV-2 RNA (RT-PCR) NEGATIVE (Negative) Independent Interpretation I performed an independent interpretation of an: Plain X-Ray Radiology Impression Discussion of test interpretation with radiology: I have reviewed the radiologist's reading. Radiologist Impression: FINDINGS: There is no gross pneumothorax. Heart size is normal. Mild degenerative changes in the thoracic spine. No pleural effusion. No focal consolidation to suggest pneumonia. XR/XR chest 2V IMPRESSION: No evidence of pneumonia. This examination was presented to me today 01/27/2023 at 1:00 PM for interpretation. Stat results provided to referring provider as requested at this time Critical Care Time Critical Care Time Critical Care Time: Yes Total Critical Care Time: 60 Attestation: I have personally provided critical care time. Time includes review of lab data, radiology results, discussion with consultants, and monitoring for potential decompensation. Intervention performed as documented. Discharge Plan Discharge Clinical Impression: Atypical chest pain Patient Disposition: Home, Self-Care Instructions: Chest Pain (ED) Additional Instructions: Please follow-up with your primary care physician tomorrow. If you have any worsening or new symptoms, please return to the emergency room or call 911 Prescriptions: No Action (DME) blood pressure test kit-large [[facility] Blood Pressure Monitr] Kit See Rx Instructions .ROUTE .MEDSUPPLY Qty: 1 0RF Rx Instructions: As directed (DME) cane Device See Rx Instructions .ROUTE .MEDSUPPLY Qty: 1 0RF Rx Instructions: As directed (DME) toilet seat See Rx Instructions .Route .MEDSUPPLY Qty: 1 0RF Rx Instructions: As directed Certavite-Antioxidant 18-400 mg-mcg tablet 1 tab PO DAILY 30 Days Qty: 30 11RF atorvastatin 10 mg tablet 10 mg PO DAILY Qty: 90 3RF calcium carbonate 600 mg calcium (1,500 mg) tablet 600 mg PO BID Qty: 180 3RF (DME) toilet seat elevator See Rx Instructions .Route .MEDSUPPLY Qty: 1 0RF Rx Instructions: As directed (DME) raised toilet seat See Rx Instructions .Route .MEDSUPPLY Qty: 1 0RF Rx Instructions: As directed levothyroxine 150 mcg tablet 150 mcg PO DAILY 90 Days Qty: 90 1RF midodrine 5 mg tablet 5 mg PO TID 30 Days Qty: 90 4RF Rx Instructions: do not give last dose of day after 6PM or within 4 hrs of bedtime nystatin 100,000 unit/gram cream 1 appl topical DAILY 30 Days Qty: 30 1RF paroxetine HCl 40 mg tablet 40 mg PO DAILY trazodone 150 mg tablet 150 mg PO BEDTIME lorazepam 0.5 mg tablet 0.5 mg PO BID PRN (Reason: Anxiety) quetiapine 200 mg tablet 200 mg PO BEDTIME nitrofurantoin macrocrystal 100 mg capsule 100 mg PO BID 7 Days Qty: 14 0RF sucralfate 1 gram tablet 1 g PO BID Qty: 60 6RF pantoprazole 40 mg tablet,delayed release (DR/EC) 40 mg PO DAILY 90 Days Qty: 90 4RF Linzess 290 mcg capsule 290 mcg PO QAM Qty: 30 6RF famotidine 40 mg tablet 40 mg PO BEDTIME Qty: 30 6RF metoclopramide HCl [Reglan] 5 mg tablet 5 mg PO QIDACHS Qty: 120 6RF Rx Instructions: Provider aware of potential interaction with prozac and is monitornig
--- NOTE | 2023-01-27 11:26 | ECG_ITS ---
Test Reason : CHEST PAIN Blood Pressure : / mmHG Vent. Rate : 072 BPM Atrial Rate : 072 BPM P-R Int : 142 ms QRS Dur : 078 ms QT Int : 364 ms P-R-T Axes : 028 000 -26 degrees QTc Int : 398 ms Normal sinus rhythm Nonspecific T wave abnormality Abnormal ECG When compared with ECG of 17-JAN-2023 10:48, No significant change was found Referred By: Roxann Frey Electronically Signed By:FELIPE ABEL
[2023-01-27 11:49] LABS: Basophils Absolute Auto 0.1 X10*3/uL (0.0-0.2); Eosinophils Absolute Auto 0.1 X10*3/uL (0.0-0.4); Hematocrit 46.3 % (37.0-47.0); Hemoglobin 13.8 g/dl (12.0-16.0); Imm Gran Abs Auto 0.03 X10*3/uL (0.00-0.03); Imm Gran Pct Auto 0.5 % (0.0-0.4); Lymphocytes Absolute Auto 1.1 X10*3/uL (1.2-4.9); Lymphocytes Percent Auto 18.6 % (20-40); MANUAL DIFF FLAG NO; Mean Corpuscular HGB Conc 29.8 g/dl (31.0-35.0); Mean Corpuscular Hemoglobin 26.8 pg (27.0-33.0); Mean Corpuscular Volume 90.1 fL (80.0-98.0); Mean Platelet Volume 12.1 fL (9.4-12.3); Monocytes Absolute Auto 0.4 X10*3/uL (0.1-1.2); Monocytes Percent Auto 5.7 % (2-11); Neutrophils Absolute Auto 4.4 x10*3/uL (2.0-8.3); Neutrophils Percent Auto 72.2 % (45-73); Platelet Count 165 X10*3/uL (160-400); Red Blood Count 5.14 X10*6/uL (4.20-5.50); Red Cell Distribution Width 12.9 % (11.0-16.0); White Blood Count 6.1 X10*3/uL (4.8-10.8)
[2023-01-27 11:59] LABS: Prothrombin Time 11.8 SEC (11.1-13.3)
[2023-01-27 12:02] LABS: Partial Thromboplastin Time 30.3 SEC (26.0-36.4)
[2023-01-27 12:18] LABS: Troponin-I High Sensitivity < 2.7 ng/L (<3.5-17.0)
[2023-01-27 12:26] LABS: Alanine Aminotransferase 15 U/L (0-31); Albumin Level 3.9 g/dL (3.5-5.0); Alkaline Phosphatase 95 U/L (39-117); Anion Gap 12 (12-20); Aspartate Amino Transferase 20 U/L (5-31); Bilirubin Total 0.6 mg/dL (0.0-1.0); Blood Urea Nitrogen 21 mg/dL (9-16); Calcium 9.3 mg/dL (8.4-10.2); Carbon Dioxide 25 mmol/L (22-29); Chloride 110 mmol/L (96-108); Creatinine Clr Calc Pharmacy 102.5; Estimated Glomerular Filt Rate > 60; Glucose Random 102 mg/dL (60-115); Potassium 4.3 mmol/L (3.3-5.1); Sodium 143 mmol/L (135-145); Total Protein 7.2 g/dL (6.5-8.0)
[2023-01-27 12:36] LABS: Influenza A PCR NEGATIVE (Negative); Influenza B PCR NEGATIVE (Negative); Resp Syncy Virus RNA Qual PCR NEGATIVE (Negative); SARS COV2 PCR INHOUSE NEGATIVE (Negative)
[2023-01-27 17:56] VITALS: BP 147/80; PULSE 66; RESP 18; O2SAT 98
[2023-01-27 18:21] LABS: Troponin-I High Sensitivity < 2.7 ng/L (<3.5-17.0)
[2023-01-27] MEDS: Ketorolac Tromethamine 60 MG/2 ML VIAL IM (19:07)
--- NOTE | 2023-01-27 19:14 | PC.NURSE ---
assist pt with dressing and preparing for discharge. IM toradol given per JUL.
== END 2023-01-27 19:27 | disposition home or self-care (01) ==
PROVIDERS: Physician Assistant Medical; Emergency Provider Emergency Medicine; PCP Student in an Organized Health Care Education/Training Program
DX: R07.89 Other chest pain (principal); E66.9 Obesity, unspecified; Z68.41 Body mass index [BMI] 40.0-44.9, adult; Z20.822 Contact with and (suspected) exposure to COVID-19; Z20.828 Contact with and (suspected) exposure to other viral communicable diseases
CPT/HCPCS: 0241U; 36415; 71046; 80053; 83735; 84484; 85025; 85610; 85730; 93005; 96372; 99284; J1885

== ENCOUNTER 2023-02-09 09:24 | Observation (INO) | payer OTHER, SELFPAY ==
[2023-02-09] VITALS (7 sets, daily range): BP systolic 126–150; BP diastolic 68–83; PULSE 63–76; RESP 16–20; TEMP 35.7–36.8; O2SAT 97–100; BMI 40.8; BMI 41.7
--- NOTE | 2023-02-09 10:20 | ED.ABDPAIN ---
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 She has not had an episode this bad in a while. No fevers or dysuria. Prior and cholecystectomy. MD elicited complaint: abdominal pain Pertinent past history: constipation Onset (ago): hour(s) (several ) Pain Consistency: constant Location: epigastric Severity: severe Quality: stabbing Radiation: none Exacerbating factors: eating and movement Relieving factors: nothing Associated symptoms: nausea and constipation Related Data Home Medications Medication Instructions Recorded Confirmed lorazepam 0.5 mg tablet 0.5 mg PO BID PRN Anxiety 02/23/20 07/30/22 paroxetine HCl 40 mg tablet 40 mg PO DAILY 02/23/20 07/30/22 quetiapine 200 mg tablet 200 mg PO BEDTIME 02/23/20 07/30/22 trazodone 150 mg tablet 150 mg PO BEDTIME 02/23/20 07/30/22 Previous Rx's Medication Instructions Recorded blood pressure test kit-large #1 ea 06/06/20 (Advocate Blood Pressure Monitor kit) cane #1 ea 10/11/20 toilet seat #1 ea 01/16/21 multivitamin-ferrous 1 tab PO DAILY 30 days #30 tabs 02/17/22 fumarate-folic acid 18 mg-400 mcg tablet (Certavite-Antioxidant) atorvastatin 10 mg tablet 10 mg PO DAILY #90 tabs 05/18/22 calcium carbonate 600 mg calcium 600 mg PO BID #180 tabs 06/26/22 (1,500 mg) tablet famotidine 40 mg tablet 40 mg PO BEDTIME #30 tabs 08/08/22 linaclotide 290 mcg capsule 290 mcg PO QAM #30 caps 08/08/22 (Linzess) metoclopramide HCl 5 mg tablet 5 mg PO QIDACHS #120 tabs 08/08/22 (Reglan) pantoprazole 40 mg tablet,delayed 40 mg PO DAILY 90 days #90 tabs 08/08/22 release sucralfate 1 gram tablet 1 g PO BID #60 tabs 08/08/22 toilet seat elevator #1 ea 08/19/22 raised toilet seat #1 ea 08/21/22 levothyroxine 150 mcg tablet 150 mcg PO DAILY 90 days #90 tabs 09/19/22 midodrine 5 mg tablet 5 mg PO TID 30 days #90 tabs 10/04/22 nystatin 100,000 unit/gram topical 1 appl topical DAILY 30 days #30 12/13/22 cream grams nitrofurantoin macrocrystal 100 mg 100 mg PO BID 7 days #14 caps 01/03/23 capsule acetaminophen 500 mg tablet 500 mg PO Q6H PRN pain #14 tabs 01/27/23 ibuprofen 600 mg tablet 600 mg PO TID PRN pain #14 tabs 01/27/23 ondansetron 4 mg disintegrating 4 mg PO Q8H PRN nausea and 02/09/23 tablet vomiting #20 tabs Allergies Allergy/AdvReac Type Severity Reaction Status Date / Time egg Allergy Intermediate Rash Verified 01/03/23 13:52 seafood Allergy Intermediate Rash Verified 01/03/23 13:52 shellfish derived Allergy Intermediate RASH Verified 01/03/23 13:52 zolpidem [ZOLPIDEM] Allergy Intermediate HEART Verified 01/03/23 13:52 PALPITATIONS morphine AdvReac Intermediate Vomiting Verified 01/03/23 13:52 Review of Systems Review of Systems Constitutional : No Weight loss, No Fever, No Chills ENT/Mouth : No sore throat, No Rhinorrhea Eyes: No Swelling, No Redness Cardiovascular : No Chest Pain, No SOB, NoEdema Respiratory : No Cough, No Sputum, No Wheezing Gastrointestinal : Positive Nausea, no Vomiting, no Diarrhea, positive abdominal Pain, No Hematochezia, No Melena, pos constipation Genitourinary : No Dysuria, No Urinary Frequency, No Hematuria, No Urgency Musculoskeletal : No joint pain, No Myalgias, No Joint Swelling Skin : No Skin Lesions, No rash Neuro : No Weakness, No Numbness, No Dizziness, No Headache Psych : No Anxiety/Panic, No Depression Heme/Lymph: No Bruising, No Lymphadenopathy Endocrine : No Polyuria, No Polydipsia All other systems reviewed and are negative. [facility] Past Medical History Attestation statement: The following information was validated with the patient. Source: old records reviewed Medical History Morbid obesity Physical exam Lumbar pain Right knee pain Left knee pain Pre-op exam Low back pain Screening examination for infectious disease Abdominal pain Onychomycosis Obesity (BMI 35.0-39.9 without comorbidity) Dyslipidemia Mild recurrent major depression Skin lesion Tubular adenoma of colon PUD (peptic ulcer disease) Renal cyst Idiopathic chronic hypotension Unsteady gait Hypothyroidism Lower back pain Takes daily multivitamins GERD (gastroesophageal reflux disease) Surgical History H/O elbow surgery History of varicose vein ligation H/O knee surgery H/O hand surgery History of foot surgery History of section History of hysterectomy History of removal of cyst History of cholecystectomy Family History Family History Father Diabetes Mother Thyroid disease Chronic mental illness Hypertension Hypercholesterolemia Maternal Aunt Breast cancer Brother In good health Daughter In good health Daughter In good health Sister No problems noted. Social History Social History Household Members: None Housing: Apartment Alcohol intake: never Patient Tobacco Use Status: Never used Tobacco Smoked in Last 30 Days: No e-Cigarette/Vaping Use: Never Used Second Hand Smoke Exposure: No Use of substances other than those prescribed or required for medical reasons: No Advance Directives: No Advance Directives Information Provided: Yes service: No Current occupational status: disabled Cognitive needs: No Hearing needs: No Vision needs: Yes Physical Exam ED Vital Signs: Vital Signs - 24 hr 02/09/23 09:38 02/09/23 10:13 Temperature 96.3 F L 98.1 F Pulse Rate 76 66 Respiratory Rate 20 18 Blood Pressure 138/68 126/83 Pulse Oximetry 100 97 Oxygen Delivery Method Room Air Room Air BMI result Body Mass Index 40.8 Appearance: Alert. Oriented X3. No acute distress. Eyes: Pupils equal, round and reactive to light. ENT: Pharynx normal. Neck: Normal inspection. Neck supple. CVS: Normal heart rate and rhythm. Pulses normal. Respiratory: No respiratory distress. Breath sounds normal. Abdomen:moderate epigastric ttp with mild distention no rebound Skin: Skin warm and dry. Normal skin color. Normal skin turgor. Extremities: No lower extremity edema. No calf ttp Neuro: Oriented X 3. No motor deficit. No sensory deficit. Course Course Course Narrative: started to vomit again will admit for intractable n/v pain improved with IV dilaudid Medical Decision Making Medical Decision Making [facility] Narrative: 63 yo female with PMH of obesity, hyperthyroidism, GERD, depression,, PUD, HLD, chronic hypotension on midodrine, idiopathic constipation, small bowel motillity disorder here with c/o abdominal pain nausea and constipation hx of same in past at this time will need basic labs, IV dilaudid for pain, CT scan for SBO. Differential Diagnosis Differential Diagnoses: The differential diagnosis associated with the presentation includes SBO, gastritis, vomiting, viral syndrome Admission/Observation Consideration of admission/observation: Escalation of care including admission/observation considered intractable n/v Consult Healthcare Provider Management of the patient was discussed with: Hospitalist (agrees to admit) Lab Data [facility] Lab Attestation statement: I reviewed the patient's lab results. 02/09/23 09:50 02/09/23 09:50 Labs: Lab Results 02/09/23 02/09/23 Range/Units 09:50 11:08 WBC 7.3 (4.8-10.8) X10*3/uL RBC 5.48 (4.20-5.50) X10*6/uL Hgb 14.6 (12.0-16.0) g/dl Hct 48.1 H (37.0-47.0) % MCV 87.8 (80.0-98.0) fL MCH 26.6 L (27.0-33.0) pg MCHC 30.4 L (31.0-35.0) g/dl RDW 12.7 (11.0-16.0) % Plt Count 197 (160-400) X10*3/uL MPV 12.6 H (9.4-12.3) fL Immature Gran % (Auto) 0.3 (0.0-0.4) % Neut % (Auto) 73.4 H (45-73) % Lymph % (Auto) 18.3 L (20-40) % [place] % (Auto) 5.9 (2-11) % Eos % (Auto) 1.5 (0-4) % Baso % (Auto) 0.6 (0-2) % Lymph # (Auto) 1.3 (1.2-4.9) X10*3/uL [place] # (Auto) 0.4 (0.1-1.2) X10*3/uL Eos # (Auto) 0.1 (0.0-0.4) X10*3/uL Baso # (Auto) 0.0 (0.0-0.2) X10*3/uL Abs Immat Gran (auto) 0.02 (0.00-0.03) X10*3/uL Absolute Neuts (auto) 5.3 (2.0-8.3) x10*3/uL Absolute Nucleated RBC 0.000 (0.0-0.012) X10*3/uL Nucleated RBC % (auto) 0.0 (0.0-0.2) /100WBC Sodium 142 (135-145) mmol/L Potassium 4.4 (3.3-5.1) mmol/L Chloride 106 (96-108) mmol/L Carbon Dioxide 27 (22-29) mmol/L Anion Gap 13 (12-20) BUN 20 H (9-16) mg/dL Creatinine 0.80 (0.5-1.4) mg/dL Estim Creat Clear Calc 94.5 Estimated GFR > 60 Random Glucose 116 H (60-115) mg/dL Calcium 10.2 D (8.4-10.2) mg/dL Total Bilirubin 0.7 (0.0-1.0) mg/dL Direct Bilirubin 0.2 (0.0-0.5) mg/dL AST 23 (5-31) U/L ALT 19 (0-31) U/L Alkaline Phosphatase 97 (39-117) U/L Total Protein 7.8 (6.5-8.0) g/dL Albumin 4.2 (3.5-5.0) g/dL Lipase 43 (8-78) U/L Urine Color Yellow Urine Appearance Clear Urine pH 5.5 (5.0-9.0) Ur Specific [place] 1.025 (1.005-1.025) Urine Protein Trace (Neg-Trace) mg/dL Urine Glucose (UA) Negative (Negative) mg/dL Urine Ketones Trace (Negative) mg/dL Urine Blood Trace H (Negative) Urine Nitrite Negative (Negative) Ur Leukocyte Esterase Small (1+) H (Negative) Urine RBC 6-10 H (0-2) /HPF Urine WBC 0-5 (0-5) /HPF Ur Squamous Epith Cells 0-2 (0-2) /HPF Urine Bacteria None Seen (None Seen) Hyaline Casts 0-2 (0-2) /LPF Independent Interpretation I performed an independent interpretation of an: CT Scan (+ constipation no SBO) Radiology Impression Discussion of test interpretation with radiology: I have reviewed the radiologist's reading. External Record Review External record reviewed: Inpatient record and Office record Prescription Management I considered prescription management with: Other Medications Administered Discontinued Medications Generic Name Dose Route Start Last Admin Trade Name Freq PRN Reason Stop Dose Admin Diphenhydramine HCl 25 mg 02/09/23 10:26 02/09/23 10:49 Diphenhydramine Hcl 50 Mg/Ml Vial IVPUSH 02/09/23 10:27 25 mg ONCE ONE Administration Droperidol 1.25 mg 02/09/23 12:23 02/09/23 12:53 Droperidol 5 Mg/2 Ml Vial IVPUSH 02/09/23 12:24 1.25 mg ONCE ONE Administration Hydromorphone HCl 0.5 mg 02/09/23 10:26 02/09/23 10:50 Hydromorphone Hcl 0.5 Mg/0.5 Ml Syringe IVPUSH 02/09/23 10:27 0.5 mg ONCE ONE Administration Protocol Sodium Chloride 1,000 mls @ 999 mls/hr 02/09/23 10:30 02/09/23 12:11 Ns IV 02/09/23 11:30 Infused .Q1H1M TOÑO Infusion Iohexol 100 ml 02/09/23 11:40 02/09/23 11:41 Iohexol 350 Mg/Ml 100 Ml Infus..Btl IV 02/09/23 11:41 85 ml ONCE ONE Administration Metoclopramide HCl 10 mg 02/09/23 10:26 02/09/23 10:49 Metoclopramide Hcl 10 Mg/2 Ml Vial IVPUSH 02/09/23 10:27 10 mg ONCE ONE Administration Critical Care Time Critical Care Time Critical Care Time: Yes Total Critical Care Time: 31 Attestation: pain improved with IV dilaudid I attest to this time spent taking care of the patient Discharge Plan Discharge Clinical Impression: Intractable nausea and vomiting Constipation Qualifiers: Constipation type: chronic idiopathic constipation Qualified Code(s): K59.04 - Chronic idiopathic constipation Patient Disposition: Admitted As Inpatient Prescriptions: New ondansetron 4 mg tablet,disintegrating 4 mg PO Q8H PRN (Reason: nausea and vomiting) Qty: 20 0RF No Action (DME) blood pressure test kit-large [Advocate Blood Pressure Monitr] Kit See Rx Instructions .ROUTE .MEDSUPPLY Qty: 1 0RF Rx Instructions: As directed (DME) cane Device See Rx Instructions .ROUTE .MEDSUPPLY Qty: 1 0RF Rx Instructions: As directed (DME) toilet seat See Rx Instructions .Route .MEDSUPPLY Qty: 1 0RF Rx Instructions: As directed Certavite-Antioxidant 18-400 mg-mcg tablet 1 tab PO DAILY 30 Days Qty: 30 11RF atorvastatin 10 mg tablet 10 mg PO DAILY Qty: 90 3RF calcium carbonate 600 mg calcium (1,500 mg) tablet 600 mg PO BID Qty: 180 3RF (DME) toilet seat elevator See Rx Instructions .Route .MEDSUPPLY Qty: 1 0RF Rx Instructions: As directed (DME) raised toilet seat See Rx Instructions .Route .MEDSUPPLY Qty: 1 0RF Rx Instructions: As directed levothyroxine 150 mcg tablet 150 mcg PO DAILY 90 Days Qty: 90 1RF midodrine 5 mg tablet 5 mg PO TID 30 Days Qty: 90 4RF Rx Instructions: do not give last dose of day after 6PM or within 4 hrs of bedtime nystatin 100,000 unit/gram cream 1 appl topical DAILY 30 Days Qty: 30 1RF ibuprofen 600 mg tablet 600 mg PO TID PRN (Reason: pain) Qty: 14 0RF acetaminophen 500 mg tablet 500 mg PO Q6H PRN (Reason: pain) Qty: 14 0RF paroxetine HCl 40 mg tablet 40 mg PO DAILY trazodone 150 mg tablet 150 mg PO BEDTIME lorazepam 0.5 mg tablet 0.5 mg PO BID PRN (Reason: Anxiety) quetiapine 200 mg tablet 200 mg PO BEDTIME nitrofurantoin macrocrystal 100 mg capsule 100 mg PO BID 7 Days Qty: 14 0RF sucralfate 1 gram tablet 1 g PO BID Qty: 60 6RF pantoprazole 40 mg tablet,delayed release (DR/EC) 40 mg PO DAILY 90 Days Qty: 90 4RF Linzess 290 mcg capsule 290 mcg PO QAM Qty: 30 6RF famotidine 40 mg tablet 40 mg PO BEDTIME Qty: 30 6RF metoclopramide HCl [Reglan] 5 mg tablet 5 mg PO QIDACHS Qty: 120 6RF Rx Instructions: Provider aware of potential interaction with prozac and is monitornig Print Language: Uzbek
--- NOTE | 2023-02-09 10:55 | PC.NURSE ---
pt is alert and oriented, skin appropriate for ethnicity, respirations even and unlabored, pt reports mid/upper abd pain with nausea but no vomiting that started yesterday, small bowel movement yesterday. abd soft but tender and hyperactive bowel sounds
--- NOTE | 2023-02-09 12:11 | PC.NURSE ---
pt reports not feeling all that better, pain at 7/10 and still having nausea
--- NOTE | 2023-02-09 14:08 | PC.NURSE ---
pt unable to tolerate po, even after all the medications, started to vomit
--- NOTE | 2023-02-09 15:37 | PM.IMHP ---
History of Present Illness Date of Service: 02/09/23 Attending physician on admission: Sheng Beckford Chief Complaint: n/v, dizziness 63-year-old female with history of hypothyroidism, chronic idiopathic constipation, hyperlipidemia, GERD, gastritis, hypotension on midodrine, and small-bowel motility disorder presented to the ED earlier today for evaluation of dizziness, nausea, and vomiting ongoing since last night. She states that she took a melatonin for the 1st time and shortly after developed nausea and a room spinning dizziness occurring with head movements and changes in position. Early this morning she developed nonbloody emesis as well as severe 10/10 nonradiating epigastric pain. She states the pain is constant and is unable to identify any alleviating or exacerbating factors. Pain is not affected by intake. She does have chronic constipation but takes Linzess and last bowel movement was this morning without any melena or hematochezia. She denies any fevers, chills, recent URI, diarrhea, lightheadedness, palpitations, shortness of breath, or chest pain. No headaches, changes in hearing or tinnitus. Denies eating any bad foods or sick contacts at home. She states she did have similar symptoms several years ago but is unable to provide additional details surrounding this. She denies any alcohol use, marijuana use, illicit drug use, or cigarette smoking. On arrival, vitals stable. There is no leukocytosis or anemia. Renal function and electrolyte levels are normal. Hepatic function normal. Urinalysis unremarkable. Urine tox screen pending. CT abdomen/pelvis is negative for any acute intra-abdominal process does show moderate constipation without any obstruction. In the ED, has received 0.5 mg Dilaudid, 10 mg Reglan, 25 mg Benadryl, 1.25 mg droperidol and 1 L IV NS. Despite this, continues to have intractable nausea and vomiting and failed p.o. trial. Review of Systems Review of Systems: General: No fevers, malaise, unintentional weight loss HEENT: No sore throat, nasal congestion, rhinorrhea, sinus pain, ear pain, hearing loss, or tinnitus Cardiovascular: No chest pain, palpitations, or leg edema Respiratory: No shortness of breath, wheezing, cough GI: +abdominal pain, +nausea, +vomiting, +constipation. No diarrhea, melena, hematochezia : No dysuria, hematuria, increased urinary frequency, decreased urinary output MSK: No myalgia, back pain Neuro: No headaches, weakness, paresthesias Skin: No rashes or lesions [facility] Medical History Morbid obesity Physical exam Lumbar pain Right knee pain Left knee pain Pre-op exam Low back pain Screening examination for infectious disease Abdominal pain Onychomycosis Obesity (BMI 35.0-39.9 without comorbidity) Dyslipidemia Mild recurrent major depression Skin lesion Tubular adenoma of colon PUD (peptic ulcer disease) Renal cyst Idiopathic chronic hypotension Unsteady gait Hypothyroidism Lower back pain Takes daily multivitamins GERD (gastroesophageal reflux disease) Family History Father Diabetes Mother Thyroid disease Chronic mental illness Hypertension Hypercholesterolemia Maternal Aunt Breast cancer Brother In good health Daughter In good health Daughter In good health Sister No problems noted. Surgical History H/O elbow surgery History of varicose vein ligation H/O knee surgery H/O hand surgery History of foot surgery History of section History of hysterectomy History of removal of cyst History of cholecystectomy Social History Household Members: None Housing: Apartment Alcohol intake: never Patient Tobacco Use Status: Never used Tobacco Smoked in Last 30 Days: No e-Cigarette/Vaping Use: Never Used Second Hand Smoke Exposure: No Use of substances other than those prescribed or required for medical reasons: No Advance Directives: No Advance Directives Information Provided: Yes Nutrition Risks: No Nutritional Risk service: No Current occupational status: disabled Cognitive needs: No Hearing needs: No Vision needs: Yes Meds Allergies Allergy/AdvReac Type Severity Reaction Status Date / Time egg Allergy Intermediate Rash Verified 01/03/23 13:52 seafood Allergy Intermediate Rash Verified 01/03/23 13:52 shellfish derived Allergy Intermediate RASH Verified 01/03/23 13:52 zolpidem [ZOLPIDEM] Allergy Intermediate HEART Verified 01/03/23 13:52 PALPITATIONS morphine AdvReac Intermediate Vomiting Verified 01/03/23 13:52 Active Medications: Current Medications Hydromorphone HCl (Hydromorphone Hcl 0.5 Mg/0.5 Ml Syringe) 0.25 mg IVPUSH Q4H PRN; Protocol PRN Reason: Pain, Severe (Pain Scale 7-10) Home Medications Medication Instructions Recorded Confirmed Last Taken Type lorazepam 0.5 mg tablet 0.5 mg PO BID PRN Anxiety 02/23/20 02/09/23 Unknown History paroxetine HCl 40 mg tablet 40 mg PO DAILY 02/23/20 02/09/23 02/09/23 09:00 History quetiapine 200 mg tablet 200 mg PO BEDTIME 02/23/20 02/09/23 02/08/23 History trazodone 150 mg tablet 150 mg PO BEDTIME 02/23/20 02/09/23 02/08/23 History ascorbic acid (vitamin C) 500 mg 500 mg PO DAILY 02/09/23 02/09/23 02/09/23 History tablet (Vitamin C) dicyclomine 20 mg tablet 20 mg PO TID PRN Abdominal Pain 02/09/23 02/09/23 Unknown History levothyroxine 150 mcg tablet 150 mcg PO DAILY@0600 02/09/23 02/09/23 02/09/23 09:00 History linaclotide 290 mcg capsule 290 mcg PO DAILY 02/09/23 02/09/23 02/09/23 09:00 History (Linzess) pantoprazole 40 mg tablet,delayed 40 mg PO DAILY@0630 02/09/23 02/09/23 02/09/23 09:00 History release vitamin E 268 mg (400 unit) capsule 268 mg PO DAILY 02/09/23 02/09/23 02/09/23 09:00 History Physical Exam Vital Signs and Narrative: Vital Signs: Last Vital Signs Temp 97.8 F 02/09/23 14:19 Pulse 69 02/09/23 14:19 Resp 18 02/09/23 14:19 BP 150/80 H 02/09/23 14:19 Pulse Ox 97 02/09/23 14:19 O2 Del Method Room Air 02/09/23 14:19 BMI result Body Mass Index 40.8 Constitutional - Awake and Alert, No apparent distress Eyes - PERRLA, EOMI Cardiovascular - S1S2, RRR, No edema Respiratory - Normal lung expansion, Normal respiratory effort, No respiratory distress, CTA bilaterally Gastrointestinal - epigastric ttp, ND; +BS but hypoactive; No rebound or guarding Extremities - no calf tenderness bilaterally, no swelling Skin - Warm/Dry Neurological - Alert & oriented x3, CN II-XII in tact no nystagmus Psychological - Appropriate affect Results Labs 02/10/23 05:21 02/10/23 05:21 Labs: Laboratory Results - last 24 hr 02/09/23 02/09/23 09:50 11:08 MCV 87.8 MCH 26.6 L MCHC 30.4 L RDW 12.7 Plt Count 197 MPV 12.6 H Immature Gran % (Auto) 0.3 Neut % (Auto) 73.4 H Lymph % (Auto) 18.3 L [place] % (Auto) 5.9 Eos % (Auto) 1.5 Baso % (Auto) 0.6 Lymph # (Auto) 1.3 [place] # (Auto) 0.4 Eos # (Auto) 0.1 Baso # (Auto) 0.0 Abs Immat Gran (auto) 0.02 Absolute Neuts (auto) 5.3 Absolute Nucleated RBC 0.000 Nucleated RBC % (auto) 0.0 Anion Gap 13 Estim Creat Clear Calc 94.5 Estimated GFR > 60 Random Glucose 116 H Calcium 10.2 D Total Bilirubin 0.7 Direct Bilirubin 0.2 AST 23 ALT 19 Alkaline Phosphatase 97 Total Protein 7.8 Albumin 4.2 Lipase 43 Urine Color Yellow Urine Appearance Clear Urine pH 5.5 Ur Specific [place] 1.025 Urine Protein Trace Urine Glucose (UA) Negative Urine Ketones Trace Urine Blood Trace H Urine Nitrite Negative Ur Leukocyte Esterase Small (1+) H Urine RBC 6-10 H Urine WBC 0-5 Ur Squamous Epith Cells 0-2 Urine Bacteria None Seen Hyaline Casts 0-2 Imaging Radiologist's Impressions: Impressions Abdomen/Pelvis CT 02/09/23 11:41 IMPRESSION: No acute intra-abdominal process seen.. There are bilateral renal cysts largest on the left side. Gallbladder is not seen. Moderate constipation. Appendix is not seen. No obstruction Fleischner guidelines were followed. Assessment and Plan (1) Intractable nausea and vomiting: Status: Acute (2) Vertigo: Status: Acute Plan 63-year-old female with history of hypothyroidism, chronic idiopathic constipation, hyperlipidemia, GERD, gastritis, hypotension on midodrine, and small-bowel motility disorder to be observed for intractable nausea and vomiting with po intolerance #Intractable nausea and vomiting with PO intolerance and epigastric pain -CT negative for acute intra-abdominal abnormality but shows moderate constipation without obstruction -etiology unclear- ?viral vs gastritis vs vestibular etiology given associated vertigo -denies substance use, but U tox pending -Trial meclizine 25mg prn -Ondansetron and reglan prn for nausea/vomiting -famotidine 20 mg IV b.i.d. -Pain management -continue oral PPI -keep NPO for now, advanced diet as tolerated -IV LR @ 100 mL/hr -monitor renal function and electrolytes # chronic idiopathic constipation with small-bowel motility disorder -continue Linzess and dicyclomine -MiraLax p.r.n. # hypothyroidism -continue Synthroid # hypotension -blood pressure reasonably controlled -continue midodrine # GERD -continue PPI # mood disorder -continue paroxetine DVT prophylaxis-Lovenox Full code Time Spent With Patient Time: Total time managing care of this patient today ____ minutes. Quality Stroke Does the patient have a stroke diagnosis?: No VTE Prior VTE?: No VTE Risk Level:: Medical - moderate - high VTE Device Contraindication: Treatment Not Indicated VTE Drug Contraindication: N/A - Med Ordered
--- NOTE | 2023-02-09 16:14 | PHA.MEDREC ---
Pharmacy Consult ? Medication Reconciliation Pharmacy has completed the medication reconciliation. Utilized [facility]. Patient had list with most meds, asked patient on ones not on list and patient confirmed.
--- NOTE | 2023-02-09 20:21 | MHC.EDTECH ---
THIS PCT ASSUMRD CARE OF PT AT 1900 ,VITALS SIGN TAKEN ,PT BELONGING LIST DONE ,PT HAS A BED ON MED SURGE ,WILL BE GOING UP SHORTLY .
[2023-02-10 07:26] VITALS: BP 121/58; PULSE 70; RESP 16; TEMP 36.6; O2SAT 97
--- NOTE | 2023-02-10 12:32 | HO.PM.IMPN ---
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 Requesting diet this a.m. Review of Systems denies chest pain Denies shortness of breath Admits to nausea and abdominal pain no diarrhea denies fever chills Physical Exam Vital Signs: Vital Signs: Last Vital Signs Temp 97.8 F 02/10/23 07:26 Pulse 70 02/10/23 07:26 Resp 16 02/10/23 07:26 BP 121/58 L 02/10/23 07:26 Pulse Ox 97 02/10/23 07:26 O2 Del Method Room Air 02/10/23 07:26 BMI result Body Mass Index 41.7 Const: Other: awake alert lying comfortably in bed Resp: Other: clear to auscultation bilaterally no rales rhonchi or wheezes Cardio: Other: no S4; positive S1-S2; no S3 murmurs rubs or gallops GI: Other: soft, minimally tender epigastrium without rebound Neuro: Other: cranial nerves 2-12 grossly intact as tested. Motor is 5/5 all extremities. Sensation intact. Cognition appropriate Extrem: Other: no edema bilaterally Objective Data Active Medications Acetaminophen (Acetaminophen 325 Mg Tablet) 650 mg PO Q6H PRN PRN Reason: Pain, Mild (Pain Scale 1-3) Ascorbic Acid (Ascorbic Acid 500 Mg Tablet) 500 mg PO DAILY [facility] Last Admin: 02/10/23 07:45 Dose: 500 mg Documented By: JHON Atorvastatin Calcium (Atorvastatin Calcium 10 Mg Tablet) 10 mg PO DAILY [facility] Last Admin: 02/10/23 07:46 Dose: 10 mg Documented By: JHON Calcium Carbonate (Calcium Carbonate 500 Mg Tablet) 500 mg PO BID [facility] Last Admin: 02/10/23 07:46 Dose: 500 mg Documented By: JHON Dicyclomine HCl (Dicyclomine Hcl 10 Mg Capsule) 20 mg PO TID PRN PRN Reason: Abdominal Pain Docusate Sodium (Docusate Sodium 100 Mg Capsule) 100 mg PO DAILY PRN PRN Reason: Constipation Last Admin: 02/09/23 15:46 Dose: 100 mg Documented By: COUSIB Enoxaparin Sodium (Enoxaparin Sodium 40 Mg/0.4 Ml Syringe) 40 mg SUBCUT Q24H [facility] Last Admin: 02/09/23 15:46 Dose: 40 mg Documented By: NAVJOT Hydromorphone HCl (Hydromorphone Hcl 0.5 Mg/0.5 Ml Syringe) 0.25 mg IVPUSH Q4H PRN; Protocol PRN Reason: Pain, Severe (Pain Scale 7-10) Last Admin: 02/09/23 15:46 Dose: 0.25 mg Documented By: NAVJOT Levothyroxine Sodium (Levothyroxine Sodium 150 Mcg Tablet) 150 mcg PO DAILY@0600 [facility] Last Admin: 02/10/23 06:42 Dose: Not Given Documented By: JEMAL Non-Admin Reason: Patient Refused Lorazepam (Lorazepam 0.5 Mg Tablet) 0.5 mg PO BID PRN PRN Reason: Anxiety Last Admin: 02/09/23 19:41 Dose: 0.5 mg Documented By: NAVJOT Meclizine HCl (Meclizine Hcl 25 Mg Tablet) 25 mg PO Q6H PRN PRN Reason: Vertigo Last Admin: 02/09/23 19:41 Dose: 25 mg Documented By: NAVJOT Metoclopramide HCl (Metoclopramide Hcl 5 Mg Tablet) 5 mg PO QIDACHS [facility] Last Admin: 02/10/23 11:32 Dose: 5 mg Documented By: KARLIE Midodrine (Midodrine Hcl 5 Mg Tablet) 5 mg PO TID [facility] Last Admin: 02/10/23 07:46 Dose: 5 mg Documented By: JHON Multivitamins/Vitamin C (Multivitamin Tablet) 1 tab PO DAILY [facility] Last Admin: 02/10/23 07:46 Dose: 1 tab Documented By: JHON Omeprazole (Omeprazole 20 Mg Capsule.Dr) 20 mg PO DAILY@0630 [facility] Last Admin: 02/10/23 06:42 Dose: Not Given Documented By: JEMAL Non-Admin Reason: Patient Refused Ondansetron HCl (Ondansetron Hcl 4 Mg/2 Ml Vial) 4 mg IVPUSH Q8H PRN PRN Reason: Nausea and Vomiting Last Admin: 02/10/23 09:48 Dose: 4 mg Documented By: JHON Oxycodone HCl (Oxycodone Hcl Immed Release 5 Mg Tablet) 10 mg PO Q4H PRN PRN Reason: Pain, Moderate(Pain Scale 4-6) Last Admin: 02/10/23 11:32 Dose: 10 mg Documented By: KARLIE Paroxetine HCl (Paroxetine Hcl 40 Mg Tablet) 40 mg PO DAILY [facility] Last Admin: 02/10/23 07:46 Dose: 40 mg Documented By: JHON Polyethylene Glycol (Polyethylene Glycol 3350 17 Gm Powd.Pack) 17 gm PO DAILY [facility] Last Admin: 02/10/23 07:46 Dose: 17 gm Documented By: JHON Quetiapine Fumarate (Quetiapine Fumarate 200 Mg Tablet) 200 mg PO BEDTIME [facility] Last Admin: 02/09/23 23:29 Dose: Not Given Documented By: JEMAL Non-Admin Reason: Nausea Sodium Chloride (0.9 % Sodium Chloride Flush 3 Ml Syringe) 3 ml IVFLUSH QSHIFT [facility] Last Admin: 02/10/23 07:46 Dose: 3 ml Documented By: JHON Sucralfate (Sucralfate 1 Gm Tablet) 1 gm PO BID [facility] Last Admin: 02/10/23 07:45 Dose: 1 gm Documented By: JHON Trazodone HCl (Trazodone Hcl 50 Mg Tablet) 150 mg PO BEDTIME [facility] Last Admin: 02/09/23 23:29 Dose: Not Given Documented By: JEMAL Non-Admin Reason: Nausea Vitamin E (Vitamin E (Dl,Tocopheryl Acet) 180 Mg (400 Unit) Capsule) 180 mg PO DAILY [facility] Last Admin: 02/10/23 07:46 Dose: 180 mg Documented By: JHON Labs 02/10/23 05:21 02/10/23 05:21 Labs: Laboratory Results - last 24 hr 02/09/23 02/10/23 17:39 05:21 MCV 87.5 MCH 26.7 L MCHC 30.6 L RDW 12.9 Plt Count 183 MPV 12.8 H Immature Gran % (Auto) 0.2 Neut % (Auto) 71.6 Lymph % (Auto) 18.3 L Winkler % (Auto) 8.2 Eos % (Auto) 1.0 Baso % (Auto) 0.7 Lymph # (Auto) 1.7 Winkler # (Auto) 0.7 Eos # (Auto) 0.1 Baso # (Auto) 0.1 Abs Immat Gran (auto) 0.02 Absolute Neuts (auto) 6.5 Absolute Nucleated RBC 0.000 Nucleated RBC % (auto) 0.0 Anion Gap 14 Estim Creat Clear Calc 112.5 Estimated GFR > 60 Random Glucose 87 Calcium 9.2 D Urine Opiates Screen Not Detected Urine Fentanyl Screen Not Detected Ur Barbiturates Screen Not Detected Ur Phencyclidine Scrn Not Detected Ur Amphetamines Screen Not Detected U Benzodiazepines Scrn Not Detected Urine Cocaine Screen Not Detected U Marijuana (THC) Screen Not Detected Microbiology Microbiology Results: Microbiology 02/09/23 Unknown Urine Culture - Final Urine clean catch - Urine garcia top Assessment and Plan (1) Intractable nausea and vomiting: Status: Acute (2) Midepigastric pain: Status: Acute (3) Idiopathic chronic hypotension: Status: Acute Plan 63-year-old female with history of hypothyroidism, chronic idiopathic constipation, hyperlipidemia, GERD, gastritis, hypotension on midodrine, and small-bowel motility disorder to be observed for intractable nausea and vomiting with po intolerance; somewhat improved this a.m. requesting d 1.Intractable nausea and vomiting/mid epigastric pain - continue Zofran/ Reglan and as ordered - given history of peptic ulcer disease will switch Pepcid to IV pantoprazole - advance diet as tolerated 2.Chronic idiopathic constipation with small-bowel motility disorder -continue Linzess and dicyclomine -MiraLax p.r.n. 3.Hypothyroidism -continue Synthroid 4.Chronic idiopathic hypotension -blood pressure reasonably controlled -continue midodrine.. adjust for renal function Lovenox Full code Requires ongoing hospitalization for IV PPI to treat likely gastritis Time Spent With Patient Time: Total time managing care of this patient today ____ minutes. Quality Stroke Does the patient have a stroke diagnosis?: No VTE Prior VTE?: No VTE Risk Level:: Medical - moderate - high VTE Device Contraindication: Treatment Not Indicated VTE Drug Contraindication: N/A - Med Ordered
[2023-02-10 15:27] VITALS: BP 145/83; PULSE 75; RESP 18; TEMP 36.2; O2SAT 98
[2023-02-10 19:21] VITALS: BP 164/78; PULSE 70; RESP 18; TEMP 36.4; O2SAT 99
[2023-02-10 23:55] VITALS: BP 121/58; PULSE 96; RESP 18; TEMP 36.1; O2SAT 96
[2023-02-11 08:00] VITALS: BP 126/79; PULSE 77; RESP 18; TEMP 36.1; O2SAT 98
--- NOTE | 2023-02-11 12:24 | PM.DS ---
DS: Providers Provider Date of Service: 02/11/23 Date of admission: 02/09/23 15:31 Date of discharge: 02/11/23 Primary care physician: Rae Landis MD DS: Diagnosis Discharge Diagnosis (1) Intractable nausea and vomiting: Status: Acute (2) Midepigastric pain: Status: Acute (3) Idiopathic chronic hypotension: Status: Acute DS: Summary Hospital Course Hospital Course: 63-year-old female with history of hypothyroidism, chronic idiopathic constipation, hyperlipidemia, GERD, gastritis, hypotension on midodrine, and small-bowel motility disorder presented to the ED earlier today for evaluation of dizziness, nausea, and vomiting ongoing since last night. She states that she took a melatonin for the 1st time and shortly after developed nausea and a room spinning dizziness occurring with head movements and changes in position. Early this morning she developed nonbloody emesis as well as severe 10/10 nonradiating epigastric pain. She states the pain is constant and is unable to identify any alleviating or exacerbating factors. Pain is not affected by intake. She does have chronic constipation but takes Linzess and last bowel movement was this morning without any melena or hematochezia. She denies any fevers, chills, recent URI, diarrhea, lightheadedness, palpitations, shortness of breath, or chest pain. No headaches, changes in hearing or tinnitus. Denies eating any bad foods or sick contacts at home. She states she did have similar symptoms several years ago but is unable to provide additional details surrounding this. She denies any alcohol use, marijuana use, illicit drug use, or cigarette smoking. ER COurse 63-year-old female with history of hypothyroidism, chronic idiopathic constipation, hyperlipidemia, GERD, gastritis, hypotension on midodrine, and small-bowel motility disorder presented to the ED earlier today for evaluation of dizziness, nausea, and vomiting ongoing since last night. She states that she took a melatonin for the 1st time and shortly after developed nausea and a room spinning dizziness occurring with head movements and changes in position. Early this morning she developed nonbloody emesis as well as severe 10/10 nonradiating epigastric pain. She states the pain is constant and is unable to identify any alleviating or exacerbating factors. Pain is not affected by intake. She does have chronic constipation but takes Linzess and last bowel movement was this morning without any melena or hematochezia. She denies any fevers, chills, recent URI, diarrhea, lightheadedness, palpitations, shortness of breath, or chest pain. No headaches, changes in hearing or tinnitus. Denies eating any bad foods or sick contacts at home. She states she did have similar symptoms several years ago but is unable to provide additional details surrounding this. She denies any alcohol use, marijuana use, illicit drug use, or cigarette smoking. Hospital Course Admitted to general medical floor given IV pantoprazole b.i.d. along with generalized pain medicine. Over the course of the next 48 hours patient's abdominal pain resolved and she complained only of mild constipation. This has been ongoing issue for her for which she has follow-up with GI 02/12/2023 for same. She will be given a script to lactulose to use as needed for constipation Time Spent with Patient Time attestation: Total time managing care of this patient today ____ minutes. Discharge coordination time: Greater than 30 minutes Quality: Safe Use of Opioids Does Pt have an Active Cancer Diagnosis on the Problem List?: No Quality: Stroke Does the patient have a stroke diagnosis?: No Physical Exam Vital Signs: Vital Signs: Last Vital Signs Temp 97.0 F 02/11/23 08:00 Pulse 77 02/11/23 08:00 Resp 18 02/11/23 08:00 BP 126/79 02/11/23 08:00 Pulse Ox 98 02/11/23 08:00 O2 Del Method Room Air 02/11/23 08:00 BMI result Body Mass Index 41.7 Const: Other: awake alert lying comfortably in bed Resp: Other: clear to auscultation bilaterally no rales rhonchi or wheezes Cardio: Other: no S4; positive S1-S2; no S3 murmurs rubs or gallops GI: Other: soft, minimally tender epigastrium without rebound Neuro: Other: cranial nerves 2-12 grossly intact as tested. Motor is 5/5 all extremities. Sensation intact. Cognition appropriate Extrem: Other: no edema bilaterally Discharge Plan Discharge Anticipated Discharge Date/Time: 02/11/23 12:20 Patient Disposition: Home, Self-Care Discharge Diagnosis: Intractable nausea and vomiting Referrals: Rae Nunez MD [Primary Care Provider] - 1 Week Discharge Medications: New ondansetron 4 mg tablet,disintegrating 4 mg PO Q8H PRN (Reason: nausea and vomiting) Qty: 20 0RF lactulose 10 gram/15 mL (15 mL) solution 20 g PO DAILY Qty: 600 0RF Continued (DME) blood pressure test kit-large [Advocate Blood Pressure Monitr] Kit See Rx Instructions .ROUTE .MEDSUPPLY Qty: 1 0RF Rx Instructions: As directed (DME) cane Device See Rx Instructions .ROUTE .MEDSUPPLY Qty: 1 0RF Rx Instructions: As directed (DME) toilet seat See Rx Instructions .Route .MEDSUPPLY Qty: 1 0RF Rx Instructions: As directed Certavite-Antioxidant 18-400 mg-mcg tablet 1 tab PO DAILY 30 Days Qty: 30 11RF atorvastatin 10 mg tablet 10 mg PO DAILY Qty: 90 3RF calcium carbonate 600 mg calcium (1,500 mg) tablet 600 mg PO BID Qty: 180 3RF (DME) toilet seat elevator See Rx Instructions .Route .MEDSUPPLY Qty: 1 0RF Rx Instructions: As directed (DME) raised toilet seat See Rx Instructions .Route .MEDSUPPLY Qty: 1 0RF Rx Instructions: As directed midodrine 5 mg tablet 5 mg PO TID 30 Days Qty: 90 4RF Rx Instructions: do not give last dose of day after 6PM or within 4 hrs of bedtime dicyclomine 20 mg tablet 20 mg PO TID Qty: 90 2RF ibuprofen 600 mg tablet 600 mg PO TID PRN (Reason: pain) Qty: 14 0RF acetaminophen 500 mg tablet 500 mg PO Q6H PRN (Reason: pain) Qty: 14 0RF pantoprazole 40 mg tablet,delayed release (DR/EC) 40 mg PO DAILY@0630 levothyroxine 150 mcg tablet 150 mcg PO DAILY@0600 Linzess 290 mcg capsule 290 mcg PO DAILY ascorbic acid (vitamin C) [Vitamin C] 500 mg Tablet 500 mg PO DAILY vitamin E 268 mg (400 unit) Capsule 268 mg PO DAILY paroxetine HCl 40 mg tablet 40 mg PO DAILY trazodone 150 mg tablet 150 mg PO BEDTIME lorazepam 0.5 mg tablet 0.5 mg PO BID PRN (Reason: Anxiety) quetiapine 200 mg tablet 200 mg PO BEDTIME sucralfate 1 gram tablet 1 g PO BID Qty: 60 6RF famotidine 40 mg tablet 40 mg PO BEDTIME Qty: 30 6RF metoclopramide HCl [Reglan] 5 mg tablet 5 mg PO QIDACHS Qty: 120 6RF Rx Instructions: Provider aware of potential interaction with prozac and is monitornig Discharge Orders: Discharge Order (Routine); Ordered 02/11/23 Ordered By: Sheng Beckford Diet: Advance to usual diet Activity on Discharge: As tolerated Stand Alone Forms: Patient Portal Discharge page Print Language: Guamanian Care Plan Goals: Resume all pre-hospital medications Health Concerns: Utilize lactulose 30 mL daily p.r.n. constipation Plan of Treatment: Follow-up with GI as scheduled Assessment: See discharge summary
--- NOTE | 2023-02-11 13:14 | MHC.CM.PN ---
CM MET WITH PT WITH [employer] [facility] SHE LIVES ALONE AND IS INDEPENDENT WITH CARE SHE HAS NO DME AND NO SERVICES SHE HAS NO HCP, SHE DOES NOT WANT TO COMPLETE ONE BUT DID ACCEPT INFO AND DOCUMENT INFO PROVIDED IN [facility] PCP: GREG [facility] NOTICE DELIVERED PT WILL DC HOME TODAY WITH NO SERVICES VIA PRIVATE TRANSPORT
== END 2023-02-11 13:12 | disposition home or self-care (01) ==
LOC: HO.ED 14:02 → HO.EDOVER 17:00 → HO.S3 18:11
PROVIDERS: Admitting Provider Physician Assistant; Emergency Provider Emergency Medicine; PCP Internal Medicine; Visit Provider Hospitalist
DX: R11.2 Nausea with vomiting, unspecified (principal); R10.13 Epigastric pain; I95.0 Idiopathic hypotension; E78.5 Hyperlipidemia, unspecified; K59.00 Constipation, unspecified; E66.9 Obesity, unspecified; K59.04 Chronic idiopathic constipation; R42 Dizziness and giddiness; N28.1 Cyst of kidney, acquired; E03.9 Hypothyroidism, unspecified; K21.9 Gastro-esophageal reflux disease without esophagitis; Z68.35 Body mass index [BMI] 35.0-35.9, adult; Z79.899 Other long term (current) drug therapy
CPT/HCPCS: 36415; 74177; 80048; 80076; 80307; 81001; 83690; 85025; 87086; 96361; 96372; 96374; 96375; 96376; 99221; 99285; J1170; J1200; J1650; J1790; J2405; J2765; Q9967

== ENCOUNTER → 2023-02-09 15:31 | Outpatient (BNV) | payer OTHER, SELFPAY | PROVIDERS: Admitting Provider Physician Assistant; Emergency Provider Emergency Medicine; PCP Internal Medicine; Visit Provider Physician Assistant | DX: R11.2 Nausea with vomiting, unspecified (principal); R10.13 Epigastric pain; I95.0 Idiopathic hypotension | CPT/HCPCS: 99223; 99233; 99239 ==

== ENCOUNTER 2023-02-26 08:54 | Outpatient (AMB) | payer OTHER, SELFPAY ==
[2023-02-26 09:03] VITALS: BP 124/82; PULSE 80; O2SAT 100; BMI 40.6
--- NOTE | 2023-02-26 09:03 | MHC.PC.OV ---
Vital Signs 02/26/23 09:03 Height 5 ft 7 in Weight 259 lb 0.8 oz BMI 40.6 BP 124/82 Blood Pressure Location Lt brachial Position Sitting Pulse 80 Pulse Source Pulse Oximeter Pulse Oximetry (%) 100 Oxygen Delivery Method Room Air Intake Visit Reasons: chest pains [facility] [place] 01/27 Intake Note: Patient is here to follow-up after a visit the emergency department at [facility] on 01/27 for chest pain Breeder Service Technician Required: Yes Breeder Service Technician Language: Cuban Allergies egg Allergy (Intermediate, Verified 02/26/23 09:17) Rash seafood Allergy (Intermediate, Verified 02/26/23 09:17) Rash shellfish derived Allergy (Intermediate, Verified 02/26/23 09:17) RASH zolpidem [ZOLPIDEM] Allergy (Intermediate, Verified 02/26/23 09:17) HEART PALPITATIONS morphine Adverse Reaction (Intermediate, Verified 02/26/23 09:17) Vomiting Medication List - Last Reconciled 02/26/23 by BECKY Varela acetaminophen 500 mg PO Q6H PRN ascorbic acid (vitamin C) (Vitamin C) 500 mg PO DAILY atorvastatin 10 mg PO DAILY blood pressure test kit-large (Advocate Blood Pressure Monitor kit) As directed calcium carbonate 600 mg PO BID cane As directed dicyclomine 20 mg PO TID famotidine 40 mg PO BEDTIME ibuprofen 600 mg PO TID PRN lactulose 20 grams (30 mL) PO DAILY levothyroxine 150 mcg PO DAILY@0600 linaclotide (Linzess) 290 mcg PO DAILY lorazepam 0.5 mg PO BID PRN metoclopramide HCl (Reglan) 5 mg PO QIDACHS midodrine 5 mg PO TID 30 days [id number] acid 18-400 mg-mcg (Certavite-Antioxidant) 1 tab PO DAILY 30 days ondansetron 4 mg PO Q8H PRN pantoprazole 40 mg PO DAILY@0630 paroxetine HCl 40 mg PO DAILY quetiapine 200 mg PO BEDTIME [raised toilet seat As directed] sucralfate 1 g PO BID [toilet seat As directed] [toilet seat elevator As directed] trazodone 150 mg PO BEDTIME vitamin E 268 mg PO DAILY Tobacco use date assessed: 02/26/23 Fall risk assessment: No Falls in past year Last assessed Fall Risk: 02/26/23 HPI chest pains [facility] [place] 01/27 HPI Details Patient is a 63-year-old female who presents today to follow-up after [place] [facility] visit 01/27/2023 due to chest pain and shortness of breath. Patient of Dr. Paige. Discharge diagnosis: atypical chest pain. Per ED notes: Patient comes to the emergency room complaining of chest pain for 11 days. When patient arrived in triage, she stated that the pain is intermittent with shortness of breath. When I spoke with the patient patient states she has no shortness of breath and the pain is constant and does not go away. Approximately 10 days ago, patient was evaluated for chest pain. Patient denies any recent URIs, denies cardiac history -patient has been having constant chest pain for 11 days, unlikely to be cardiac etiology. -interpretation EKG: Normal sinus rhythm, 172, nonspecific ST-T wave abnormalities previously seen on previous EKGs, QTC 398, nonspecific T-wave inversion in lead 3, QTC 398 -troponin x2 negative -my interpretation of chest x-ray: No infiltrates, no rib fractures Today, patient reports ongoing intermittent mid lower chest pains for the past 2 months. She reports that GERD medications are not helping with this chest pain. She reports chest pains are random and not related to activity. Reports intermittent dizziness. Denies shortness of breath. No chest pain in the office today. 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 [facility] Medical History Constipation Morbid obesity Physical exam Lumbar pain Right knee pain Left knee pain Pre-op exam Low back pain Screening examination for infectious disease Abdominal pain Onychomycosis Obesity (BMI 35.0-39.9 without comorbidity) Dyslipidemia Mild recurrent major depression Skin lesion Tubular adenoma of colon PUD (peptic ulcer disease) Renal cyst Idiopathic chronic hypotension Unsteady gait Hypothyroidism Lower back pain Takes daily multivitamins GERD (gastroesophageal reflux disease) Surgical History H/O elbow surgery History of varicose vein ligation H/O knee surgery H/O hand surgery History of foot surgery History of section History of hysterectomy History of removal of cyst History of cholecystectomy Family History Father Diabetes Mother Thyroid disease Chronic mental illness Hypertension Hypercholesterolemia Maternal Aunt Breast cancer Brother In good health Daughter In good health Daughter In good health Sister No problems noted. Social History Household Members: None Housing: Apartment Alcohol intake: never Patient Tobacco Use Status: Never used Tobacco e-Cigarette/Vaping Use: Never Used Second Hand Smoke Exposure: No service: No Current occupational status: disabled Cognitive needs: No Hearing needs: No Vision needs: Yes Female Reproductive History Menstrual Age of Menarche: 9 Questionnaire Thrive Questionnaire Date Thrive assessed: 02/11/23 AUDIT C Alcohol Use Questionnaire (AUDIT-C) 1. How often do you have a drink containing alcohol?: Never Total Score: 0 Score Reviewed/Action Taken: No NANCY-7 AMB Questionnaire NANCY-7 Date NANCY - 7 assessed: 06/10/22 Source: Developed by Drs. Fady Bustos, Minerva Laws, Marquis Matute and colleagues, with an educational victoriano from [employer]. Review of Systems Const Denies body aches, Denies chills, Denies fever(s) and Denies headache(s) ENT Denies dizziness, Denies otalgia, Denies headache(s), Denies nasal discharge, Denies sinus pain and Denies sore throat Card Reports chest pain (Intermittent, not now), Denies edema, Denies lightheadedness and Denies dyspnea Resp Denies cough, Denies dyspnea and Denies wheezing GI Denies abdominal pain and Reports heartburn Denies dysuria Musc Denies myalgias Skin/Breast Denies rash Neuro Denies dizziness and Denies headache(s) Aller/Immun Denies wheezing Physical exam (Primary Care) Vital Signs: Last Vital Signs Pulse 80 02/26/23 09:03 BP 124/82 02/26/23 09:03 Pulse Ox 100 02/26/23 09:03 Oxygen Delivery Method Room Air 02/26/23 09:03 BMI result Body Mass Index 40.6 Tobacco/Smoking Status: Tobacco use Status Tobacco use date assessed 02/26/23 02/26/23 09:05 Patient Tobacco Use Status Never used Tobacco 02/26/23 09:05 e-Cigarette/Vaping Use Never Used 02/26/23 09:05 Thrive Assessment: Date of Thrive Assessment Date Thrive assessed 02/11/23 02/26/23 09:05 Const General: cooperative and no acute distress Orientation/consciousness: patient oriented x3 HENMT Head: Yes normocephalic and Yes atraumatic Mouth: oropharynx normal and moist mucous membranes Throat: Yes posterior oropharynx normal Eyes General: appearance normal, both eyes and all related structures Pupils: Equal, round and reactive pupils present EOM: EOMs intact bilaterally Neck Neck: Yes normal visual inspection, Yes full ROM and Yes no lymphadenopathy Chest Chest palpation & inspection: no tenderness Resp Effort & Inspection: normal respiratory effort and able to speak in complete sentences Auscultation: clear to auscultation bilaterally, no crackles, no rales, no rhonchi and no wheezes Cardio Rate: regular rate Rhythm: regular rhythm Heart sounds: S1 normal heart sound present, S2 normal heart sound present and no murmurs GI Palpation (GI): Soft to palpation, not firm, nontender, no guarding, not rigid and no hepatosplenomegaly Auscultation: normal bowel sounds Skin General skin exam: no rashes or lesions noted Neuro General: patient oriented x3 Cranial nerves: Yes Equal, round and reactive pupils present Gait exam (Neuro): Normal gait present Extrem General: Yes full ROM and No edema Office Procedures Flu Questionnaire Does the patient have a severe egg allergy?: No Does the patient have severe life threatening allergies?: No Does the patient have a fever or illness today?: No Has the patient ever had Guillain-Geary Syndrome?: No Has the patient ever had any past reaction to a flu shot?: No Immunizations flu vacc [id number] 6mos up(PF) 60 mcg(15 mcgx4)/0.5 mL IM syringe Performing Provider: BECKY Varela Performing Location: [facility] Administered by: LUIS E Suárez on 02/26/23 09:41 Dose Route Admin Location Dispensed Lot Number Expiration Date NDC Manager Delivery 0.5 mL IM Left Deltoid 0.5 mL [id number] 11/02/23 [id number] [employer] VIS Given Date VIS Provided VIS Publication Date 02/26/23 Single Vaccine 20 Eligibility Eligibility Date Funding Source Not [facility] Eligible 02/26/23 Private Assessment and Plan Assessment & Plan (1) Intermittent chest pain: Code(s): R07.9 - Chest pain, unspecified Plan: Patient with intermittent mid chest pains that are random for the past 2 months. Patient denies acute symptoms in the office today. Physical exam normal. Will order stress test. Patient has a follow-up appointment with environmental health nurse next week for her GI diagnosis. Signs and symptoms reviewed when to notify provider or go to the emergency department. Patient agreed with the plan. Orders: Orders Influenza [id number] Immunization Today Z23 - Encounter for immunization CA stress test Today R07.9 - Chest pain, unspecified Coding Level of Care Code Est Pt Level 3 (01120) Diagnoses Intermittent chest pain R07.9
== END 2023-02-26 09:46 | disposition home or self-care (01) ==
PROVIDERS: PCP Internal Medicine; Visit Provider Nurse Practitioner Family
DX: Z23 Encounter for immunization (principal); R07.9 Chest pain, unspecified
CPT/HCPCS: 90471; 90686; 99213

== ENCOUNTER 2023-03-04 12:58 | Outpatient (AMB) | payer OTHER, SELFPAY ==
--- NOTE | 2023-03-04 13:00 | A.OFFVIS_ITS ---
Intake Vital Signs 03/04/23 13:08 Height 5 ft 7 in Weight 259 lb BMI 40.6 BP 112/63 Blood Pressure Location Lt brachial Position Sitting Pulse 84 Intake Visit Reasons: 6 Month Follow up Intake Note: Genna presents in the office as a 6 month follow up. CC: She states that she is not having any concerns today. Linen Clerk Required: Yes Linen Clerk Name: [id number] René Allergies egg Allergy (Intermediate, Verified 03/04/23 13:12) Rash seafood Allergy (Intermediate, Verified 03/04/23 13:12) Rash shellfish derived Allergy (Intermediate, Verified 03/04/23 13:12) RASH zolpidem [ZOLPIDEM] Allergy (Intermediate, Verified 03/04/23 13:12) HEART PALPITATIONS morphine Adverse Reaction (Intermediate, Verified 03/04/23 13:12) Vomiting HPI 6 Month Follow up HPI Details Assessment & Plan (1) GERD (gastroesophageal reflux diseas e): Code(s): K21.9 - Gastro-esophageal reflux disease without esophagitis Qualifiers: Esophagitis presence: esophagitis presence not specified Qualified Code(s): K21.9 - Gastro-esophageal reflux disease without esophagitis Plan: Nigerian #[place] live She continues on her sucralfate for her stomach, Linzess, pantoprazole and famotidine and bentyl. She is doing very well and is only very rarely constipated. She will occasionally see RB on the TT but nothing severe and no rectal irritation or itching. Hemorrhoid education is given. ROV 6 mos. (2) Chronic idiopathic constipation: Code(s): K59.04 - Chronic idiopathic constipation Medications: New sucralfate 1 g PO BID 60 tab s 6RF Refilled pantoprazole 40 mg PO DAILY 90 days 90 tabs 4RF K21.9 - Gastro-eso phageal reflux dis ease without esoph agitis linaclotide (Linze ss) 290 mcg PO QAM 30 caps 6RF K59.04 - Chronic i diopathic constipa tion famotidine 40 mg PO BEDTIME 30 tabs 6RF K27.9 - Peptic ulc er, site unspecifi ed, unspecified as acute or chronic, without hemorrhag e or perforation dicyclomine 20 mg PO TID 30 d ays 90 tabs 2RF metoclopramide HCl (Reglan) Provi berenice aware of poten tiagraciela interaction w ith prozac and is monitornig 5 mg PO QIDACHS 1 20 tabs 6RF K59.9 - Functional intestinal disord er, unspecified TODAY'S VISIT Nigerian #[id number] René Starting around 02/09 she had strong abd pain and she went to the ER and was admitted. She understands that it was caused by [facility]. They discharged her with lactulose and intended for her to take it with the LInzess 290, but she feels that the lactulose is helping her more and has only been taking the Linzess occasionally. We will stop the Linzess. I also want to stop the carafate as this is very constipating and we don't want her to develop SBO. She continues on metoclopramide 5 mg 4 times a day, pantoprazole in the morning and famotidine at night, and dicyclomine for cramping. Return office visit in 6 weeks. [facility] Medical History Constipation Morbid obesity Physical exam Lumbar pain Right knee pain Left knee pain Pre-op exam Low back pain Screening examination for infectious disease Abdominal pain Onychomycosis Obesity (BMI 35.0-39.9 without comorbidity) Dyslipidemia Mild recurrent major depression Skin lesion Tubular adenoma of colon PUD (peptic ulcer disease) Renal cyst Idiopathic chronic hypotension Unsteady gait Hypothyroidism Lower back pain Takes daily multivitamins GERD (gastroesophageal reflux disease) Surgical History H/O elbow surgery History of varicose vein ligation H/O knee surgery H/O hand surgery History of foot surgery History of section History of hysterectomy History of removal of cyst History of cholecystectomy Family History Father Diabetes Mother Thyroid disease Chronic mental illness Hypertension Hypercholesterolemia Maternal Aunt Breast cancer Brother In good health Daughter In good health Daughter In good health Sister No problems noted. Social History Household Members: None Housing: Apartment Alcohol intake: never Patient Tobacco Use Status: Never used Tobacco e-Cigarette/Vaping Use: Never Used Second Hand Smoke Exposure: No service: No Current occupational status: disabled Cognitive needs: No Hearing needs: No Vision needs: Yes Female Reproductive History Menstrual Age of Menarche: 9 Review of Systems Const Denies fatigue, Denies fever(s), Denies night sweats, Denies poor appetite and Denies weight loss Eyes Details: glasses Reports requires corrective lenses ENT Reports Normal hearing present, Denies dental pain, Denies dysphagia, Denies hearing loss, Denies mouth pain, Denies odynophagia, Denies throat swelling, Denies tongue swelling and Reports other (Dentition adequate) Card Reports no additional complaints Resp Reports no additional complaints GI Reports abdominal pain, Denies melena, Denies bloating, Denies hematochezia, Reports constipation, Reports GI cramping, Denies dysphagia, Denies excessive flatus, Denies early satiety, Reports heartburn, Denies diarrhea, Denies nausea, Denies odynophagia, Denies vomiting and Denies hematemesis Skin/Breast Denies pruritus, Denies lesions, Denies rash and Denies jaundice Neuro Reports Normal hearing present and Denies Abnormal speech present Endo Denies fatigue Aller/Immun Denies throat swelling and Denies tongue swelling Physical Exam Vital Signs: Last Vital Signs Pulse 84 03/04/23 13:08 BP 112/63 03/04/23 13:08 BMI result Body Mass Index 40.6 Const General: cooperative, no acute distress, well developed and well groomed Nutritional Appearance: well nourished and obese morbidly obese Orientation/consciousness: oriented to person, oriented to place and oriented to time Limitations: language barrier HEENT Head: Yes normocephalic and Yes atraumatic Eyes General: appearance normal, both eyes and all related structures Pupils: Equal, round and reactive pupils present Neck Neck: Yes normal visual inspection and Yes no lymphadenopathy Thyroid: Thyroid normal Resp Effort & Inspection: normal respiratory effort and able to speak in complete sentences Auscultation: clear to auscultation bilaterally Cardio Rate: regular rate Rhythm: regular rhythm Heart sounds: Normal, physiologic split S2 sound present Peripheral pulses: radial pulses present and posterior tibial pulses present GI Inspection: No distended, Yes Abdominal panniculus present and Yes obesity Palpation (GI): Soft to palpation, nontender, no guarding, not rigid and No hepatosplenomegaly present Percussion: Yes normal to percussion Auscultation: normal bowel sounds Rectal Exam - Female: deferred Skin General skin exam: no rashes or lesions noted, turgor normal, skin not dry, no jaundice, No spider nevi and no striae Rashes: no rashes Nails: normal Neuro General: oriented to person, oriented to place and oriented to time Cranial nerves: Yes Equal, round and reactive pupils present and Yes Normal hearing present Speech: No Abnormal speech present Extrem General: Yes normal to inspection, No clubbing, No cyanosis and No edema Psych Appearance: grossly normal and well kempt Mental Status: mental status grossly normal Speech and movement: Normal speech and movement present Affect: normal affect Attitude: cooperative Thought process: Normal thought process present and not confabulating Thought content: Normal thought content present Insight: Limited insight present (Psych) Judgement: Limited judgement present (Psych) Assessment & Plan Assessment & Plan (1) Small bowel motility disorder: Code(s): K59.9 - Functional intestinal disorder, unspecified (2) Chronic idiopathic constipation: Code(s): K59.04 - Chronic idiopathic constipation (3) GERD (gastroesophageal reflux disease): Code(s): K21.9 - Gastro-esophageal reflux disease without esophagitis Qualifiers: Esophagitis presence: esophagitis presence not specified Qualified Code(s): K21.9 - Gastro-esophageal reflux disease without esophagitis (4) PUD (peptic ulcer disease): Code(s): K27.9 - Peptic ulcer, site unspecified, unspecified as acute or chronic, without hemorrhage or perforation Plan Nigerian #[id number] René Starting around 02/09 she had strong abd pain and she went to the ER and was admitted. She understands that it was caused by [facility]. They discharged her with lactulose and intended for her to take it with the LInzess 290, but she feels that the lactulose is helping her more and has only been taking the Linzess occasionally. We will stop the Linzess. I also want to stop the carafate as this is very constipating and we don't want her to develop SBO. She continues on metoclopramide 5 mg 4 times a day, pantoprazole in the morning and famotidine at night, and dicyclomine for cramping. Return office visit in 6 weeks Medications: New pantoprazole 40 mg PO DAILY@0630 30 tabs 6RF Changed From lactulose 20 grams (30 mL) PO DAILY 600 mL 0RF To lactulose 20 grams (30 mL) PO DAILY 600 mL 6RF Refilled famotidine 40 mg PO BEDTIME 30 tabs 6RF K27.9 - Peptic ulcer, site unspecified, unspecified as acute or chronic, without hemorrhage or perforation metoclopramide HCl (Reglan) Provider aware of potential interaction with prozac and is monitornig 5 mg PO QIDACHS 120 tabs 6RF K59.9 - Functional intestinal disorder, unspecified Discontinued sucralfate Discontinued Reason: Doctor's Order 1 g PO BID 60 tabs 6RF Patient Instructions: Por favor, suspenda leal Linzess y el sucralfato (carafate). Continuamos con los siguientes medicamentos: 1. pantoprazol 2. famotidina 3. lactulosa 4. metoclopramida 5. diciclomina Quiero verte en 6 semanas para asegurarme de que todo esto est? funcionando brenda para ti. Coding Level of Care Code Est Pt Level 3 (10248) Diagnoses Small bowel motility disorder K59.9 Chronic idiopathic constipation K59.04 Gastroesophageal reflux disease, unspecified whether esophagitis present K21.9 Esophagitis presence: esophagitis presence not specified PUD (peptic ulcer disease) K27.9
[2023-03-04 13:08] VITALS: BP 112/63; PULSE 84; BMI 40.6
== END 2023-03-04 13:34 | disposition home or self-care (01) ==
PROVIDERS: PCP Internal Medicine; Visit Provider Nurse Practitioner
DX: K59.9 Functional intestinal disorder, unspecified (principal); K59.04 Chronic idiopathic constipation; K21.9 Gastro-esophageal reflux disease without esophagitis; K27.9 Peptic ulcer, site unspecified, unspecified as acute or chronic, without hemorrhage or perforation
CPT/HCPCS: 99213

== ENCOUNTER → 2023-03-04 12:58 | Outpatient (BNVA) | payer OTHER, SELFPAY | PROVIDERS: PCP Internal Medicine; Visit Provider Nurse Practitioner | DX: K21.9 Gastro-esophageal reflux disease without esophagitis (principal); K59.04 Chronic idiopathic constipation; K27.9 Peptic ulcer, site unspecified, unspecified as acute or chronic, without hemorrhage or perforation; K59.9 Functional intestinal disorder, unspecified | CPT/HCPCS: 99212 ==

== ENCOUNTER → 2023-03-13 10:14 | Outpatient (REF) | payer OTHER, SELFPAY ==
--- NOTE | 2023-03-13 10:16 | CA_ITS ---
Acquisition Time: 2023-03-13 10:11:28 Total Exercise Time: 00:03:18 Test Indications: CHEST PAIN Medications: Protocol: DAVID Max HR: 125 BPM 80% of Pred: 156 BPM Max BP: 128/078 mmHG Max Work Load: 4.9 METS Exercise stress test exercise 3 min 18 sec of David protocool briefly achieving 80%, with request to stop due to knee pain, with mild SOB, no chest discomfort, without arrhythmias, with normotensive response to exercise, with nondiagnoisitic EKGs. Test reviewed with Dr. Coreas. Referred By: Hailee Redmond Overread By: Matilda Grigsby
== END ==
LOC: HO.CARD 10:14
PROVIDERS: PCP Internal Medicine; Visit Provider Nurse Practitioner Family
DX: R07.9 Chest pain, unspecified (principal)
CPT/HCPCS: 93017

== ENCOUNTER → 2023-03-13 10:16 | Outpatient (BNV) | payer OTHER, SELFPAY | PROVIDERS: PCP Internal Medicine; Visit Provider Nurse Practitioner | DX: R07.9 Chest pain, unspecified (principal) | CPT/HCPCS: 93016; 93018 ==

== ENCOUNTER 2023-03-20 10:16 | Outpatient (REF) | payer OTHER, SELFPAY ==
[2023-03-20 11:16] LABS: Anion Gap 10 (12-20); Blood Urea Nitrogen 21 mg/dL (9-16); Calcium 9.7 mg/dL (8.4-10.2); Carbon Dioxide 28 mmol/L (22-29); Chloride 110 mmol/L (96-108); Estimated Glomerular Filt Rate > 60; Potassium 3.9 mmol/L (3.3-5.1); Sodium 144 mmol/L (135-145)
== END 2023-03-20 10:17 | disposition home or self-care (01) ==
LOC: HO.MAMMO 10:16
PROVIDERS: Absent Provider Internal Medicine Hypertension Specialist; PCP Nurse Practitioner Family; Visit Provider Internal Medicine
DX: N28.1 Cyst of kidney, acquired (principal); Z12.31 Encounter for screening mammogram for malignant neoplasm of breast
CPT/HCPCS: 36415; 77063; 77067; 80051; 82310; 82565; 84520

== ENCOUNTER → 2023-03-20 14:15 | Outpatient (BNV) | payer OTHER, SELFPAY | PROVIDERS: Absent Provider Internal Medicine Hypertension Specialist; PCP Nurse Practitioner Family; Visit Provider Radiology Diagnostic Radiology | DX: Z12.31 Encounter for screening mammogram for malignant neoplasm of breast (principal) | CPT/HCPCS: 77063; 77067 ==

== ENCOUNTER 2023-04-09 14:16 | Outpatient (AMB) | payer OTHER, SELFPAY ==
[2023-04-09 14:18] VITALS: BP 116/80; BMI 40.6
--- NOTE | 2023-04-09 14:18 | MHC.PC.OV ---
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 Accompanied by: Self / Same As Patient Allergies egg Allergy (Intermediate, Verified 04/09/23 14:31) Rash seafood Allergy (Intermediate, Verified 04/09/23 14:31) Rash shellfish derived Allergy (Intermediate, Verified 04/09/23 14:31) RASH zolpidem [ZOLPIDEM] Allergy (Intermediate, Verified 04/09/23 14:31) HEART PALPITATIONS morphine Adverse Reaction (Intermediate, Verified 04/09/23 14:31) Vomiting Medication List - Last Reconciled 04/09/23 by Rae Landis MD acetaminophen 500 mg PO Q6H PRN ascorbic acid (vitamin C) (Vitamin C) 500 mg PO DAILY atorvastatin 10 mg PO DAILY blood pressure test kit-large ([facility] Blood Pressure Monitor kit) As directed calcium carbonate 600 mg PO BID cane As directed dicyclomine 20 mg PO TID famotidine 40 mg PO BEDTIME ibuprofen 600 mg PO TID PRN lactulose 20 grams (30 mL) PO DAILY levothyroxine 150 mcg PO DAILY 90 days lorazepam 0.5 mg PO BID PRN metoclopramide HCl (Reglan) 5 mg PO QIDACHS midodrine 5 mg PO TID 30 days [id number] acid 18-400 mg-mcg (Certavite-Antioxidant) 1 tab PO DAILY 30 days nystatin 1 appl topical BID ondansetron 4 mg PO Q8H PRN pantoprazole 40 mg PO DAILY@0630 paroxetine HCl 40 mg PO DAILY quetiapine 200 mg PO BEDTIME [raised toilet seat As directed] [toilet seat As directed] [toilet seat elevator As directed] trazodone 150 mg PO BEDTIME vitamin E 268 mg PO DAILY Tobacco use date assessed: 02/26/23 Fall risk assessment: No Falls in past year Last assessed Fall Risk: 04/09/23 Dental Screening Dental Screen Date: 04/09/23 Did you have a dental visit in the last 12 months?: Yes Did you have a dental problem in the last 6 months where you did not have access to dental care?: No Was dental information given to patient?: Patient has dentist HPI HPI Comments History of Present Illness Details This is a 63-year-old female with morbid obesity and mild recurrent major depression that comes for her physical exam. She is morbidly obese and was advised to diet and exercise to reach BMI goal less than 30. She was recommended to have weight loss surgery and is thinking about it. Depression stable with paroxetine and this is follow by Psychiatry. Mammogram done last month and results are still pending. No need for Pap smear due to hysterectomy. Last colonoscopy was 2021 showing tubular adenoma and next colonoscopy should be 2024. No chest pain or shortness of breath. [facility] Medical History (Updated 04/09/23 @ 14:42 by Rae Landis MD) Physical exam Constipation Morbid obesity Lumbar pain Right knee pain Left knee pain Pre-op exam Low back pain Screening examination for infectious disease Abdominal pain Onychomycosis Obesity (BMI 35.0-39.9 without comorbidity) Dyslipidemia Mild recurrent major depression Skin lesion Tubular adenoma of colon PUD (peptic ulcer disease) Renal cyst Idiopathic chronic hypotension Unsteady gait Hypothyroidism Lower back pain Takes daily multivitamins GERD (gastroesophageal reflux disease) Surgical History H/O elbow surgery History of varicose vein ligation H/O knee surgery H/O hand surgery History of foot surgery History of section History of hysterectomy History of removal of cyst History of cholecystectomy Family History Father Diabetes Mother Thyroid disease Chronic mental illness Hypertension Hypercholesterolemia Maternal Aunt Breast cancer Brother In good health Daughter In good health Daughter In good health Sister No problems noted. Social History Household Members: None Housing: Apartment Alcohol intake: never Patient Tobacco Use Status: Never used Tobacco e-Cigarette/Vaping Use: Never Used Second Hand Smoke Exposure: No service: No Current occupational status: disabled Cognitive needs: No Hearing needs: No Vision needs: Yes Female Reproductive History Menstrual Age of Menarche: 9 Questionnaire Thrive Questionnaire Date Thrive assessed: 02/11/23 NANCY-7 AMB Questionnaire NANCY-7 Date NANCY - 7 assessed: 06/10/22 Source: Developed by Minerva PerdomoW. Veto, Marquis Matute and colleagues, with an educational victoriano from [employer]. Review of Systems Const All systems reviewed & are unremarkable except as noted in HPI and below Eyes Reports no additional complaints, Denies change in vision and Denies other visual disturbances Card Denies chest pain at rest, Denies chest pain with activity, Denies edema, Denies irregular heart rhythm, Denies claudication, Denies dyspnea, Denies dyspnea on exertion, Denies orthopnea, Denies paroxysmal nocturnal dyspnea and Denies slow heart rate Resp Denies cough, Denies dyspnea and Denies dyspnea on exertion GI Denies abdominal pain, Denies change in bowel habits, Denies excessive flatus, Denies nausea and Denies vomiting Denies urinary incontinence, Denies urinary hesitancy and Denies urinary urgency Musc Denies abnormal gait, Denies atrophy, Denies deformity and Denies limited range of motion Skin/Breast Denies bleeding lesions, Denies changing lesions and Denies rash Neuro Denies abnormal gait, Denies behavioral changes, Denies confusion and Denies lack of coordination Psych Denies behavioral changes and Denies confusion Physical exam (Primary Care) Vital Signs: Last Vital Signs BP 116/80 04/09/23 14:18 BMI result Body Mass Index 40.6 Tobacco/Smoking Status: Tobacco use Status Tobacco use date assessed 02/26/23 04/09/23 14:23 Patient Tobacco Use Status Never used Tobacco 04/09/23 14:23 e-Cigarette/Vaping Use Never Used 04/09/23 14:23 Thrive Assessment: Date of Thrive Assessment Date Thrive assessed 02/11/23 04/09/23 14:23 Const General: No confusion Orientation/consciousness: patient oriented x3 and No confusion HENMT Head: Yes normal to inspection, Yes normocephalic and Yes atraumatic Ears: external ears normal Eyes General: appearance normal, both eyes and all related structures Eyelids: Yes eyelids normal Conjunctivae: conjunctivae normal Neck Neck: Yes normal visual inspection and Yes supple Resp Effort & Inspection: normal respiratory effort Auscultation: clear to auscultation bilaterally Cardio Jugular venous distension: no JVD Rate: regular rate Rhythm: regular rhythm Heart sounds: S1 normal heart sound present and S2 normal heart sound present GI Inspection: Yes normal to inspection Palpation (GI): Soft to palpation and nontender Auscultation: normal bowel sounds Skin General skin exam: no rashes or lesions noted Neuro General: patient oriented x3, no focal motor deficits and No confusion Extrem General: Yes full ROM Psych Appearance: grossly normal Assessment and Plan Assessment & Plan (1) Physical exam: Code(s): Z00.00 - Encounter for general adult medical examination without abnormal findings Plan: Repeat in a year. (2) Mild recurrent major depression: Code(s): F33.0 - Major depressive disorder, recurrent, mild Plan: Continue paroxetine. Follow-up with psychiatry. (3) Morbid obesity with BMI of 40.0-44.9, adult: Code(s): E66.01 - Morbid (severe) obesity due to excess calories; Z68.41 - Body mass index [BMI] 40.0-44.9, adult Plan: Consider weight loss surgery. BMI goal is less than 30. Orders: Orders Lipid Panel Today E78.5 - Hyperlipidemia, unspecified Vitamin D 25-OH Total Today E55.9 - Vitamin D deficiency, unspecified Thyroid Stimulating Hormone Today E03.9 - Hypothyroidism, unspecified Comprehensive [place]. Panel Fast Today G89.29 - Other chronic pain, M54.5 - Low back pain Coding Level of Care Code Est Pt Prev Care 40-64y(40665) Diagnoses Physical exam Z00.00 Mild recurrent major depression F33.0 Morbid obesity with BMI of 40.0-44.9, adult E66.01; Z68.41 Time Spent (min) 33
== END 2023-04-09 14:44 | disposition home or self-care (01) ==
PROVIDERS: PCP Nurse Practitioner Family; Visit Provider Internal Medicine
DX: Z00.00 Encounter for general adult medical examination without abnormal findings (principal); F33.0 Major depressive disorder, recurrent, mild; E66.01 Morbid (severe) obesity due to excess calories; Z68.41 Body mass index [BMI] 40.0-44.9, adult
CPT/HCPCS: 99396

== ENCOUNTER 2023-04-11 12:53 | Outpatient (AMB) | payer OTHER, SELFPAY ==
--- NOTE | 2023-04-11 13:09 | A.OFFVIS_ITS ---
Intake Vital Signs 04/11/23 13:12 Height 5 ft 7 in Weight 259 lb 11.272 oz BMI 40.7 BP 129/67 Blood Pressure Location Rt brachial Position Sitting Pulse 78 Intake Visit Reasons: 6 week follow up GERD, CIC Intake Note: Genna presents in the office as a 6 weeks follow up of GERD and CIC. CC: Patient states she continues having a little constipation , epigastric pain, and nausea. Denies other GI concerns today. Bottling Room Worker Required: Yes Bottling Room Worker Name: [id number] René Allergies egg Allergy (Intermediate, Verified 04/11/23 13:15) Rash seafood Allergy (Intermediate, Verified 04/11/23 13:15) Rash shellfish derived Allergy (Intermediate, Verified 04/11/23 13:15) RASH zolpidem [ZOLPIDEM] Allergy (Intermediate, Verified 04/11/23 13:15) HEART PALPITATIONS morphine Adverse Reaction (Intermediate, Verified 04/11/23 13:15) Vomiting HPI 6 week follow up GERD, CIC HPI Details Assessment & Plan (1) Small bowel motility disorder: Code(s): K59.9 - Functional intestinal disorder, unspecified (2) Chronic idiopathic constipation: Code(s): K59.04 - Chronic idiopathic constipation (3) GERD (gastroesophageal reflux diseas e): Code(s): K21.9 - Gastro-esophageal reflux disease without esophagitis Qualifiers: Esophagitis presence: esophagitis presence not specified Qualified Code(s): K21.9 - Gastro-esophageal reflux disease without esophagitis (4) PUD (peptic ulcer disease): Code(s): K27.9 - Peptic ulcer, site unspecified, unspecified as acute or chronic, without hemorrhage or perforation Plan [place]ian #[id number] René Starting around 02/09 she had strong abd pain and she went to the ER and was admitted. She understands that it was caused by CIC. They discharged her with lactulose and intended for her to take it with the LInzess 290, but she feels that the lactulose is helping her more and has only been taking the Linzess occasionally. We will stop the Linzess. I also want to stop the carafate as this is very constipating and we don't want her to develop SBO. She continues on metoclopramide 5 mg 4 times a day, pantoprazole in the morning and famotidine at night, and dicyclomine for cramping. Return office visit in 6 weeks Medications: New pantoprazole 40 mg PO DAILY@063 0 30 tabs 6RF Changed From lactulose 20 grams (30 mL) P O DAILY 600 mL 0RF To lactulose 20 grams (30 mL) P O DAILY 600 mL 6RF Refilled famotidine 40 mg PO BEDTIME 3 0 tabs 6RF K27.9 - Peptic ulc er, site unspecifi ed, unspecified as acute or chronic, without hemorrhag e or perforation metoclopramide HCl (Reglan) Provi berenice aware of poten tial interaction w ith prozac and is monitornig 5 mg PO QIDACHS 12 0 tabs 6RF K59.9 - Functional intestinal disord er, unspecified Discontinued sucralfate Disc ontinued Reason: Doctor's Order 1 g PO BID 60 tab s 6RF Patient Instructions: Por favor, suspenda leal Linzess y el sucralfato (carafate). Continuamos con los siguientes medicamentos: 1. pantoprazol 2. famotidina 3. lactulosa 4. metoclopramida 5. diciclomina Quiero verte en 6 semanas para asegurarme de que todo esto est? funcionando brenda para ti. TODAY'S VISIT .Tunisian #[id number] She is moving her bowels better but is still having hard stools. She is taking the lactulose only qd (this is what she prefers) but we will increase this to tid and she can use this bid-tid prn. She is still c/o pain and nausea and asks for a pain pill and I tell her we really can not treat her which additional pain medications because they tend to worsen constipation but I can give her a nausea pill. She is concerned that she will be going on vacation in [place] and she does not want to ruin her trip. This is understandable. She did stop the Carafate is requested and she is continuing on the metoclopramide 4 times a day. She also has pantoprazole and famotidine and dicyclomine for symptom control. Return office visit in early June when she is back from [place] since she is going there on vacation. [facility] Medical History Physical exam Constipation Morbid obesity Lumbar pain Right knee pain Left knee pain Pre-op exam Low back pain Screening examination for infectious disease Abdominal pain Onychomycosis Obesity (BMI 35.0-39.9 without comorbidity) Dyslipidemia Mild recurrent major depression Skin lesion Tubular adenoma of colon PUD (peptic ulcer disease) Renal cyst Idiopathic chronic hypotension Unsteady gait Hypothyroidism Lower back pain Takes daily multivitamins GERD (gastroesophageal reflux disease) Surgical History H/O elbow surgery History of varicose vein ligation H/O knee surgery H/O hand surgery History of foot surgery History of section History of hysterectomy History of removal of cyst History of cholecystectomy Family History Father Diabetes Mother Thyroid disease Chronic mental illness Hypertension Hypercholesterolemia Maternal Aunt Breast cancer Brother In good health Daughter In good health Daughter In good health Sister No problems noted. Social History Household Members: None Housing: Apartment Alcohol intake: never Patient Tobacco Use Status: Never used Tobacco e-Cigarette/Vaping Use: Never Used Second Hand Smoke Exposure: No service: No Current occupational status: disabled Cognitive needs: No Hearing needs: No Vision needs: Yes Female Reproductive History Menstrual Age of Menarche: 9 Review of Systems Const Denies fatigue, Denies fever(s), Denies night sweats, Denies poor appetite and Denies weight loss Eyes Details: glasses Reports requires corrective lenses ENT Reports Normal hearing present, Denies dental pain, Denies dysphagia, Denies hearing loss, Denies mouth pain, Denies odynophagia, Denies throat swelling, Denies tongue swelling and Reports other (Dentition adequate) Card Reports no additional complaints Resp Reports no additional complaints GI Denies abdominal pain, Denies melena, Reports bloating, Denies hematochezia, Reports constipation, Reports GI cramping, Denies dysphagia, Denies excessive flatus, Denies early satiety, Reports heartburn, Denies diarrhea, Reports nausea, Denies odynophagia, Denies vomiting and Denies hematemesis Skin/Breast Denies pruritus, Denies lesions, Denies rash and Denies jaundice Neuro Reports Normal hearing present and Denies Abnormal speech present Endo Denies fatigue Aller/Immun Denies throat swelling and Denies tongue swelling Physical Exam Vital Signs: Last Vital Signs Pulse 78 04/11/23 13:12 BP 129/67 04/11/23 13:12 BMI result Body Mass Index 40.7 Const General: cooperative, no acute distress, well developed and well groomed Nutritional Appearance: well nourished and obese morbidly obese Orientation/consciousness: oriented to person, oriented to place and oriented to time Limitations: language barrier HEENT Head: Yes normocephalic and Yes atraumatic Eyes General: appearance normal, both eyes and all related structures Pupils: Equal, round and reactive pupils present Neck Neck: Yes normal visual inspection and Yes no lymphadenopathy Thyroid: Thyroid normal Resp Effort & Inspection: normal respiratory effort and able to speak in complete sentences Auscultation: clear to auscultation bilaterally Cardio Rate: regular rate Rhythm: regular rhythm Heart sounds: Normal, physiologic split S2 sound present Peripheral pulses: radial pulses present and posterior tibial pulses present GI Inspection: No distended, Yes Abdominal panniculus present and Yes obesity Palpation (GI): Soft to palpation, nontender, no guarding, not rigid and No hepatosplenomegaly present Percussion: Yes normal to percussion Auscultation: normal bowel sounds Rectal Exam - Female: deferred Skin General skin exam: no rashes or lesions noted, turgor normal, skin not dry, no jaundice, No spider nevi and no striae Rashes: no rashes Nails: normal Neuro General: oriented to person, oriented to place and oriented to time Cranial nerves: Yes Equal, round and reactive pupils present and Yes Normal hearing present Speech: No Abnormal speech present Extrem General: Yes normal to inspection, No clubbing, No cyanosis and No edema Psych Appearance: grossly normal and well kempt Mental Status: mental status grossly normal Speech and movement: Normal speech and movement present Affect: normal affect Attitude: cooperative Thought process: Normal thought process present and not confabulating Thought content: Normal thought content present Insight: Limited insight present (Psych) Judgement: Limited judgement present (Psych) Assessment & Plan Assessment & Plan (1) Small bowel motility disorder: Code(s): K59.9 - Functional intestinal disorder, unspecified (2) Chronic idiopathic constipation: Code(s): K59.04 - Chronic idiopathic constipation (3) GERD (gastroesophageal reflux disease): Code(s): K21.9 - Gastro-esophageal reflux disease without esophagitis Qualifiers: Esophagitis presence: esophagitis presence not specified Qualified Code(s): K21.9 - Gastro-esophageal reflux disease without esophagitis (4) Nausea and vomiting: Code(s): R11.2 - Nausea with vomiting, unspecified Plan [place]ian #[id number] She is moving her bowels better but is still having hard stools. She is taking the lactulose only qd (this is what she prefers) but we will increase this to tid and she can use this bid-tid prn. She is still c/o pain and nausea and asks for a pain pill and I tell her we really can not treat her which additional pain medications because they tend to worsen constipation but I can give her a nausea pill. She is concerned that she will be going on vacation in [place] and she does not want to ruin her trip. This is understandable. She did stop the Carafate is requested and she is continuing on the metoclopramide 4 times a day. She also has pantoprazole and famotidine and dicyclomine for symptom control. Return office visit in early June when she is back from [place] since she is going there on vacation Medications: New ondansetron HCl 4 mg PO BID-TID 14 days PRN 90 tabs 0RF nausea and vomiting R11.2 - Nausea with vomiting, unspecified Changed From dicyclomine 20 mg PO TID 90 tabs 2RF To dicyclomine 40 mg (2 x 20 mg) PO TID 270 tabs 2RF From lactulose 20 grams (30 mL) PO DAILY 600 mL 6RF To lactulose 20 grams (30 mL) PO TID 600 mL 6RF Coding Level of Care Code Est Pt Level 3 (95362) Diagnoses Small bowel motility disorder K59.9 Chronic idiopathic constipation K59.04 Gastroesophageal reflux disease, unspecified whether esophagitis present K21.9 Esophagitis presence: esophagitis presence not specified Nausea and vomiting R11.2
[2023-04-11 13:12] VITALS: BP 129/67; PULSE 78; BMI 40.7
== END 2023-04-11 14:39 | disposition home or self-care (01) ==
PROVIDERS: PCP Internal Medicine; Visit Provider Nurse Practitioner
DX: K59.9 Functional intestinal disorder, unspecified (principal); K59.04 Chronic idiopathic constipation; K21.9 Gastro-esophageal reflux disease without esophagitis; R11.2 Nausea with vomiting, unspecified
CPT/HCPCS: 99213

== ENCOUNTER → 2023-04-11 12:53 | Outpatient (BNVA) | payer OTHER, SELFPAY | PROVIDERS: PCP Internal Medicine; Visit Provider Nurse Practitioner | DX: K59.9 Functional intestinal disorder, unspecified (principal); K59.04 Chronic idiopathic constipation; K21.9 Gastro-esophageal reflux disease without esophagitis; R11.2 Nausea with vomiting, unspecified | CPT/HCPCS: 99212 ==

== ENCOUNTER 2023-06-02 10:06 | Emergency (ER) | payer OTHER, SELFPAY ==
--- NOTE | ~2023-06-02 | XR_ITS ---
EXAMINATION: XR CHEST CLINICAL INFORMATION: Cough. COMPARISON: None available. TECHNIQUE: 2 views of the chest were obtained. FINDINGS: No significant abnormality is noted involving the heart, lungs, mediastinum, bony thorax or soft tissues. XR/XR chest 2V IMPRESSION: Unremarkable chest examination.
[2023-06-02 10:09] VITALS: BP 143/63; PULSE 69; RESP 18; TEMP 36.1; O2SAT 98; BMI 40.3
[2023-06-02 10:42] LABS: IDNOW Serial# 08D9AD1C; Influenza A Negative (Negative); Influenza B2 Negative (Negative)
[2023-06-02 10:43] LABS: COVID-19 Test Negative (Negative); IDNOW Serial# 152EDE1D
--- NOTE | 2023-06-02 12:30 | ED.URI ---
HPI - URI/Sore Throat General Chief Complaint: Upper Respiratory Symptoms Stated Complaint: cough Time Seen by Provider: 06/02/23 10:24 Source: patient, RN notes reviewed and fashion consultant Mode of arrival: ambulatory Limitations: language barrier History of Present Illness HPI Narrative: This is a 63-year-old Luxembourger-speaking female, with a history of hypothyroidism, anxiety, depression, and hypertension, presenting to the emergency department for evaluation of ongoing cough x2 weeks. Patient states that she was diagnosed with COVID on May 16. She states that she initially had fevers, chills, body ache, cough. She states that her symptoms have since resolved however still has a nonproductive cough. She states she was seen by her primary care physician where she was given Tessalon Perles for the last 5 days, states that this did not help with her symptoms. She was also given Robitussin which she took without any relief. She denies any fevers, chills, sore throat, nasal congestion, chest pain, shortness breast, abdominal pain, nausea, vomiting or diarrhea. No other complaints or concerns at this time. Related Data Home Medications Medication Instructions Recorded Confirmed lorazepam 0.5 mg tablet 0.5 mg PO BID PRN Anxiety 02/23/20 04/09/23 paroxetine HCl 40 mg tablet 40 mg PO DAILY 02/23/20 04/09/23 quetiapine 200 mg tablet 200 mg PO BEDTIME 02/23/20 04/09/23 trazodone 150 mg tablet 150 mg PO BEDTIME 02/23/20 04/09/23 ascorbic acid (vitamin C) 500 mg 500 mg PO DAILY 02/09/23 04/09/23 tablet (Vitamin C) vitamin E 268 mg (400 unit) capsule 268 mg PO DAILY 02/09/23 04/09/23 nystatin 100,000 unit/gram topical 1 appl topical BID 03/04/23 04/09/23 cream Previous Rx's Medication Instructions Recorded blood pressure test kit-large #1 ea 06/06/20 (Advocate Blood Pressure Monitor kit) cane #1 ea 10/11/20 toilet seat #1 ea 01/16/21 calcium carbonate 600 mg calcium 600 mg PO BID #180 tabs 06/26/22 (1,500 mg) tablet toilet seat elevator #1 ea 08/19/22 raised toilet seat #1 ea 08/21/22 acetaminophen 500 mg tablet 500 mg PO Q6H PRN pain #14 tabs 01/27/23 ibuprofen 600 mg tablet 600 mg PO TID PRN pain #14 tabs 01/27/23 ondansetron 4 mg disintegrating 4 mg PO Q8H PRN nausea and 02/09/23 tablet vomiting #20 tabs famotidine 40 mg tablet 40 mg PO BEDTIME #30 tabs 03/04/23 metoclopramide HCl 5 mg tablet 5 mg PO QIDACHS #120 tabs 03/04/23 (Reglan) pantoprazole 40 mg tablet,delayed 40 mg PO DAILY@0630 #30 tabs 03/04/23 release multivitamin-ferrous 1 tab PO DAILY 30 days #30 tabs 03/07/23 fumarate-folic acid 18 mg-400 mcg tablet (Certavite-Antioxidant) levothyroxine 150 mcg tablet 150 mcg PO DAILY 90 days #90 tabs 03/11/23 midodrine 5 mg tablet 5 mg PO TID 30 days #90 tabs 03/14/23 dicyclomine 20 mg tablet 40 mg (2 x 20 mg) PO TID #270 tabs 04/11/23 lactulose 10 gram/15 mL (15 mL) 20 g (30 mL) PO TID #600 mL 04/11/23 oral solution ondansetron HCl 4 mg tablet 4 mg PO BID-TID PRN nausea and 04/11/23 vomiting 14 days #90 tabs atorvastatin 10 mg tablet 10 mg PO DAILY #90 tabs 05/20/23 benzonatate 100 mg capsule 100 mg PO BID PRN cough 5 days #10 05/26/23 caps humidifiers #1 ea 06/02/23 hydrocodone-homatropine 5 mg-1.5 5 ml PO Q6H PRN cough #473 mL 06/02/23 mg/5 mL oral syrup (Hycodan (with homatropine)) Allergies Allergy/AdvReac Type Severity Reaction Status Date / Time egg Allergy Intermediate Rash Verified 04/11/23 13:15 seafood Allergy Intermediate Rash Verified 04/11/23 13:15 shellfish derived Allergy Intermediate RASH Verified 04/11/23 13:15 zolpidem [ZOLPIDEM] Allergy Intermediate HEART Verified 04/11/23 13:15 PALPITATIONS morphine AdvReac Intermediate Vomiting Verified 04/11/23 13:15 Review of Systems Review of Systems: Yes all other systems are reviewed and are negative Constitutional: Constitutional: Reports as per [facility] Past Medical History Medical History (Updated 06/02/23 @ 12:46 by AMRITA Read) Cough Physical exam Constipation Morbid obesity Lumbar pain Right knee pain Left knee pain Pre-op exam Low back pain Screening examination for infectious disease Abdominal pain Onychomycosis Obesity (BMI 35.0-39.9 without comorbidity) Dyslipidemia Mild recurrent major depression Skin lesion Tubular adenoma of colon PUD (peptic ulcer disease) Renal cyst Idiopathic chronic hypotension Unsteady gait Hypothyroidism Lower back pain Takes daily multivitamins GERD (gastroesophageal reflux disease) Surgical History H/O elbow surgery History of varicose vein ligation H/O knee surgery H/O hand surgery History of foot surgery History of section History of hysterectomy History of removal of cyst History of cholecystectomy Family History Family History Father Diabetes Mother Thyroid disease Chronic mental illness Hypertension Hypercholesterolemia Maternal Aunt Breast cancer Brother In good health Daughter In good health Daughter In good health Sister No problems noted. Social History Social History Household Members: None Housing: Apartment Alcohol intake: never Patient Tobacco Use Status: Never used Tobacco e-Cigarette/Vaping Use: Never Used Second Hand Smoke Exposure: No Advance Directives: No Advance Directives Information Provided: No service: No Current occupational status: disabled Cognitive needs: No Hearing needs: No Vision needs: Yes Physical Exam Vital Signs: Vital Signs: Last Vital Signs Temp 97.2 F 06/02/23 12:49 Pulse 73 06/02/23 12:49 Resp 18 06/02/23 12:49 BP 148/66 H 06/02/23 12:49 Pulse Ox 98 06/02/23 12:49 O2 Del Method Room Air 06/02/23 12:49 BMI result Body Mass Index 40.3 Const: General: cooperative, comfortable and no acute distress Orientation/consciousness: patient oriented x3 Limitations: no limitations HEENT: Head: Yes normal to inspection, Yes normocephalic and Yes atraumatic Ears: hearing grossly normal bilaterally General nose exam: Normal external nose present Face and sinus: Yes normal facial exam Mouth: Normal oral and palatal mucosa present, oropharynx normal and moist mucous membranes Throat: Yes posterior oropharynx normal Eyes: General: appearance normal, both eyes and all related structures Eyelids: Yes eyelids normal Conjunctivae: conjunctivae normal Sclerae: sclerae normal Pupils: Equal, round and reactive pupils present EOM: EOMs intact bilaterally Neck: Neck: Yes normal visual inspection, Yes full ROM and Yes no lymphadenopathy Lymphatic: no lymphadenopathy noted Chest: Chest palpation & inspection: normal inspection of the chest Resp: Effort & Inspection: normal respiratory effort and able to speak in complete sentences Auscultation: clear to auscultation bilaterally, no crackles, no rales, no rhonchi and no wheezes Cardio: Rate: regular rate Rhythm: regular rhythm Heart sounds: S1 normal heart sound present and S2 normal heart sound present GI: Inspection: Yes normal to inspection Skin: General skin exam: no rashes or lesions noted Trauma: no lacerations or abrasions Wounds: no wounds Neuro: General: patient oriented x3 and moves all extremities Cranial nerves: Yes Equal, round and reactive pupils present Extrem: General: Yes normal to inspection Right upper extremity: normal to inspection Left upper extremity: normal to inspection Right lower extremity: normal to inspection Left lower extremity: normal to inspection Course Reevaluation(s) Reevaluation #1: Chest x-ray negative, patient tested negative for COVID and flu. Symptoms likely due to chronic secondary to COVID. Discharged on Hycodan, given return precautions. Also advised patient to follow-up with her primary care physician. She has no chest pain or shortness a breath, lungs clear to auscultation bilaterally, does not require antibiotics at this time given cough is dry. Denies any other complaints or concerns at this time. Patient stable for discharge. Time: 13:55 Medical Decision Making Medical Decision Making MDM Narrative: This is a 66-bdme-nui-female presenting to the emergency department with a complaint of persistent cough after having COVID 2 weeks ago. She was seen by her primary care physician where she was given Robitussin as well as Tessalon. She states that she took these medications which has provided him without any relief. Vital signs within normal limits. She is afebrile, nontoxic-appearing, differential diagnoses include pneumonia, reactive airway disease, URI, pneumothorax-unlikely, COVID, influenza. Plan: Chest x-ray, COVID swab, influenza Differential Diagnosis Differential Diagnoses: The differential diagnosis associated with the presentation includes See above Admission/Observation Consideration of admission/observation: Escalation of care including admission/observation considered Patient would have been admitted to the hospital had her work up had any findings where hospital admission was appropriate and her clinical presentation warranted hospital admission. Lab Data MDM Lab Attestation statement: I reviewed the patient's lab results. COVID negative, flu negative Labs: Lab Results 06/02/23 Range/Units 10:20 COVID-19 (JOANN) Negative (Negative) COVID-19 Clin Com See Note Influenza Type A (ANNY) Negative (Negative) Influenza Type B (ANNY) Negative (Negative) Influenza A & B Note See Note Radiology Impression Discussion of test interpretation with radiology: I have reviewed the radiologist's reading. Radiologist Impression: EXAMINATION: XR CHEST CLINICAL INFORMATION: Cough. COMPARISON: None available. TECHNIQUE: 2 views of the chest were obtained. FINDINGS: No significant abnormality is noted involving the heart, lungs, mediastinum, bony thorax or soft tissues. XR/XR chest 2V IMPRESSION: Unremarkable chest examination. Dictated By: Alberto Stephenson MD Discharge Plan Discharge Clinical Impression: Cough, Post-COVID chronic cough Patient Disposition: Home, Self-Care Instructions: Chronic Cough (ED) Additional Instructions: You were seen in the emergency department due to cough. You tested negative for COVID and flu today. Your chest x-ray does not show a pneumonia. Your cough is likely due to having COVID several weeks ago. This does take several weeks for it to go away. You do not require antibiotics at this time. I am prescribing you a strong cough suppressant, this is a narcotic cough medicine, please only use as directed, and do not drink or drive while taking this medication. It will likely cause drowsiness. Please follow-up with your primary care physician, call today to make an appointment. If any new or worsening symptoms, including but not limited to chest pain, shortness for breath, fevers, chills, or worsening cough, please return for re-evaluation. Le atendieron en urgencias por tos. Usted pallavi negativo en la prueba de COVID y gripe hoy. Pacheco radiograf?a de t?rax no muestra neumon?a. Es probable que pacheco tos se deba a que tuvo COVID hace varias semanas. Shaniko tarda varias semanas en desaparecer. No necesita antibi?ticos en bea momento. Le estoy recetando un rao supresor de la tos, bea es un medicamento narc?ferdinand para la tos, ?selo ?nicamente seg?n las indicaciones y no quirino ni conduzca mientras george bea medicamento. Probablemente le provocar? somnolencia. Karel un seguimiento con pacheco m?dico de atenci?n primaria, llame hoy para programar kevin delores. Si presenta alg?n s?ntoma nuevo o que empeora, incluidos, entre otros, dolor en el pecho, dificultad para respirar, fiebre, escalofr?os o tos que empeora, regrese para kevin nueva evaluaci?n. Prescriptions: New hydrocodone-homatropine [Hycodan (with homatropine)] 5-1.5 mg/5 mL syrup 5 ml PO Q6H PRN (Reason: cough) Qty: 473 0RF Rx Instructions: Partial Fill upon patient request. (DME) humidifiers Misc See Rx Instructions .Route Qty: 1 0RF Rx Instructions: As directed No Action (DME) blood pressure test kit-large [Advocate Blood Pressure Monitr] Kit See Rx Instructions .ROUTE .MEDSUPPLY Qty: 1 0RF Rx Instructions: As directed (DME) cane Device See Rx Instructions .ROUTE .MEDSUPPLY Qty: 1 0RF Rx Instructions: As directed (DME) toilet seat See Rx Instructions .Route .MEDSUPPLY Qty: 1 0RF Rx Instructions: As directed calcium carbonate 600 mg calcium (1,500 mg) tablet 600 mg PO BID Qty: 180 3RF (DME) toilet seat elevator See Rx Instructions .Route .MEDSUPPLY Qty: 1 0RF Rx Instructions: As directed (DME) raised toilet seat See Rx Instructions .Route .MEDSUPPLY Qty: 1 0RF Rx Instructions: As directed Certavite-Antioxidant 18-400 mg-mcg tablet 1 tab PO DAILY 30 Days Qty: 30 11RF levothyroxine 150 mcg tablet 150 mcg PO DAILY 90 Days Qty: 90 1RF midodrine 5 mg tablet 5 mg PO TID 30 Days Qty: 90 4RF Rx Instructions: do not give last dose of day after 6PM or within 4 hrs of bedtime atorvastatin 10 mg tablet 10 mg PO DAILY Qty: 90 3RF benzonatate 100 mg capsule 100 mg PO BID PRN (Reason: cough) 5 Days Qty: 10 0RF ibuprofen 600 mg tablet 600 mg PO TID PRN (Reason: pain) Qty: 14 0RF acetaminophen 500 mg tablet 500 mg PO Q6H PRN (Reason: pain) Qty: 14 0RF ondansetron 4 mg tablet,disintegrating 4 mg PO Q8H PRN (Reason: nausea and vomiting) Qty: 20 0RF ascorbic acid (vitamin C) [Vitamin C] 500 mg Tablet 500 mg PO DAILY vitamin E 268 mg (400 unit) Capsule 268 mg PO DAILY paroxetine HCl 40 mg tablet 40 mg PO DAILY trazodone 150 mg tablet 150 mg PO BEDTIME lorazepam 0.5 mg tablet 0.5 mg PO BID PRN (Reason: Anxiety) quetiapine 200 mg tablet 200 mg PO BEDTIME nystatin 100,000 unit/gram cream 1 appl topical BID famotidine 40 mg tablet 40 mg PO BEDTIME Qty: 30 6RF pantoprazole 40 mg tablet,delayed release (DR/EC) 40 mg PO DAILY@0630 Qty: 30 6RF metoclopramide HCl [Reglan] 5 mg tablet 5 mg PO QIDACHS Qty: 120 6RF Rx Instructions: Provider aware of potential interaction with prozac and is monitornig lactulose 10 gram/15 mL (15 mL) solution 20 g PO TID Qty: 600 6RF dicyclomine 20 mg tablet 40 mg PO TID Qty: 270 2RF ondansetron HCl 4 mg tablet 4 mg PO BID-TID PRN (Reason: nausea and vomiting) 14 Days Qty: 90 0RF Interventions: ED Discharge Assessment Last Done: 06/02/23 13:05 Discharge Date/Time: 06/02/23 13:07 Print Language: Luxembourger
[2023-06-02 12:49] VITALS: BP 148/66; PULSE 73; RESP 18; TEMP 36.2; O2SAT 98
== END 2023-06-02 13:07 | disposition home or self-care (01) ==
PROVIDERS: Emergency Provider Emergency Medicine; PCP Internal Medicine
DX: R05.9 Cough, unspecified (principal); U09.9 Post COVID-19 condition, unspecified; E03.9 Hypothyroidism, unspecified; I10 Essential (primary) hypertension; R68.83 Chills (without fever); R52 Pain, unspecified; Z79.899 Other long term (current) drug therapy
CPT/HCPCS: 71046; 87502; 87635; 99283

== ENCOUNTER → 2023-06-10 09:05 | Outpatient (REF) | payer OTHER, SELFPAY ==
--- NOTE | ~2023-06-10 | NM_ITS ---
Lexiscan Myocardial perfusion study Indication: Chest pain, assess for coronary disease and ischemia Technique: The patient was brought in for a Lexiscan perfusion study on 06/10/2023 and was injected 0.4 mg of Lexiscan intravenously. Within a minute of this injection 40 mCi of sestamibi was given intravenously. Images were obtained using the SPECT gamma camera interlaced with the gating device. Images were obtained in supine position. Resting perfusion study was performed on 06/12/2023. Patient was administered 40 mCi of sestamibi intravenously at rest. Images were then obtained in supine position. Images were processed with the software and compared side to side in short axis, horizontal long axis and vertical long axis views. Total DLP 113mGy-cm. Findings: Raw acquisition reviewed. The stress perfusion study showed no significant perfusion abnormality. Both uncorrected as well as CT attenuation corrected images were reviewed. The gated study shows normal LV systolic function with calculated LVEF of 65%. LV cavity is normal in size. The gated study shows normal wall thickening and contraction of segments. Resting study shows no significant perfusion abnormality. Gating at rest reveals normal wall motion with ejection fraction at 62%. The findings are consistent with no clear reversible or fixed perfusion abnormality. NM/NM cardiolite stress test Impression: 1. Myocardial perfusion imaging study shows probably normal myocardial perfusion. 2. Gated LVEF is 65% during stress and 62% during rest. 3. Transient ischemic dilatation not present. EKG component of the test reported separately.
--- NOTE | 2023-06-10 09:08 | CA_ITS ---
Acquisition Time: 2023-06-10 09:24:31 Total Exercise Time: 00:02:45 Test Indications: Chest pain under exertion Medications: See H Protocol: DAVID Max HR: 108 BPM 69% of Pred: 156 BPM Max BP: 130/078 mmHG Max Work Load: 1.0 METS Pharmacological stress test with Lexiscan injection while sitting and kicking her legs, without anginal symptoms, with isolated PACs, with normotensive response to injection, with nondiagnositic EKGs. Aminophylline 75mg IVP given to reverse Lexicsan. Nuclear images pending. Test reviewed with Dr. Rosario. Referred By: Hailee Redmond Overread By: Matilda Grigsby
== END ==
LOC: HO.CARD 09:05
PROVIDERS: PCP Internal Medicine; Visit Provider Nurse Practitioner Family
DX: R07.9 Chest pain, unspecified (principal)
CPT/HCPCS: 78452; 93017; A9500; J0280; J2785

== ENCOUNTER → 2023-06-10 09:08 | Outpatient (BNV) | payer OTHER, SELFPAY | PROVIDERS: PCP Internal Medicine; Visit Provider Nurse Practitioner | DX: R07.89 Other chest pain (principal) | CPT/HCPCS: 78452; 93016; 93018 ==

== ENCOUNTER 2023-06-11 12:55 | Outpatient (AMB) | payer OTHER, SELFPAY ==
--- NOTE | 2023-06-11 13:27 | MHC.OFFVIS ---
Intake Vital Signs 06/11/23 13:40 Height 5 ft 7 in Weight 255 lb BMI 39.9 Intake Visit Reasons: 2 month follow up Intake Note: Genna presents in the office as a 2 months follow up of GERD and CIC. 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 Allergies egg Allergy (Intermediate, Verified 06/11/23 14:14) Rash seafood Allergy (Intermediate, Verified 06/11/23 14:14) Rash shellfish derived Allergy (Intermediate, Verified 06/11/23 14:14) RASH zolpidem [ZOLPIDEM] Allergy (Intermediate, Verified 06/11/23 14:14) HEART PALPITATIONS morphine Adverse Reaction (Intermediate, Verified 06/11/23 14:14) Vomiting HPI 2 month follow up HPI Details Assessment & Plan (1) Small bowel motility disorder: Code(s): K59.9 - Functional intestinal disorder, unspecified (2) Chronic idiopathic constipation: Code(s): K59.04 - Chronic idiopathic constipation (3) GERD (gastroesophageal reflux disease): Code(s): K21.9 - Gastro-esophageal reflux disease without esophagitis Qualifiers: Esophagitis presence: esophagitis presence not specified Qualified Code(s): K21.9 - Gastro-esophageal reflux disease without esophagitis (4) Nausea and vomiting: Code(s): R11.2 - Nausea with vomiting, unspecified Plan Bulgarian #[id number] She is moving her bowels better but is still having hard stools. She is taking the lactulose only qd (this is what she prefers) but we will increase this to tid and she can use this bid-tid prn. She is still c/o pain and nausea and asks for a pain pill and I tell her we really can not treat her which additional pain medications because they tend to worsen constipation but I can give her a nausea pill. She is concerned that she will be going on vacation in [place] and she does not want to ruin her trip. This is understandable. She did stop the Carafate is requested and she is continuing on the metoclopramide 4 times a day. She also has pantoprazole and famotidine and dicyclomine for symptom control. Return office visit in early June when she is back from [place] since she is going there on vacation Medications: New ondansetron HCl 4 mg PO BID-TID 1 4 days PRN 90 tabs 0RF nausea and vo miting R11.2 - Nausea wit h vomiting, unspec ified Changed From dicyclomine 20 mg PO TID 90 t abs 2RF To dicyclomine 40 mg (2 x 20 mg) PO TID 270 tabs 2R F From lactulose 20 grams (30 mL) P O DAILY 600 mL 6RF To lactulose 20 grams (30 mL) P O TID 600 mL 6RF TODAY'S VISIT [place] #Lm [place] She did not increase the timing of the lactulose, as was the recommended course of action last visit, so her sx are unchanged. She again c/o general burning, and is again asking for pain medication. I again explain that any pain medication would only worsen CIC, again. She can try tylenol. She admits to increasing the frequency of the lactulose and will get together again a few weeks to see how this is working. She did stop the Carafate is requested and she is continuing on the metoclopramide 4 times a day. She also has pantoprazole and famotidine and dicyclomine for symptom control. Return office visit in 6 weeks [facility] Medical History Complex renal cyst Dyspepsia Physical exam Obesity (BMI 35.0-39.9 without comorbidity) Renal cyst Urinary tract infection Lower back pain Cough Constipation Morbid obesity Lumbar pain Right knee pain Left knee pain Pre-op exam Low back pain Screening examination for infectious disease Abdominal pain Onychomycosis Dyslipidemia Mild recurrent major depression Skin lesion Tubular adenoma of colon PUD (peptic ulcer disease) Idiopathic chronic hypotension Unsteady gait Hypothyroidism Takes daily multivitamins GERD (gastroesophageal reflux disease) Surgical History H/O elbow surgery History of varicose vein ligation H/O knee surgery H/O hand surgery History of foot surgery History of section History of hysterectomy History of removal of cyst History of cholecystectomy Family History Father Diabetes Mother Thyroid disease Chronic mental illness Hypertension Hypercholesterolemia Maternal Aunt Breast cancer Brother In good health Daughter In good health Daughter In good health Sister No problems noted. Social History Household Members: None Housing: Apartment Alcohol intake: never Patient Tobacco Use Status: Never used Tobacco e-Cigarette/Vaping Use: Never Used Second Hand Smoke Exposure: No service: No Current occupational status: disabled Cognitive needs: No Hearing needs: No Vision needs: Yes Female Reproductive History Menstrual Age of Menarche: 9 Review of Systems Const Denies fatigue, Denies fever(s), Denies night sweats, Denies poor appetite and Denies weight loss Eyes Details: glasses Reports requires corrective lenses ENT Reports Normal hearing present, Denies dental pain, Denies dysphagia, Denies hearing loss, Denies mouth pain, Denies odynophagia, Denies throat swelling, Denies tongue swelling and Reports other (Dentition adequate) Card Reports no additional complaints Resp Reports no additional complaints GI Details: Reports abdominal pain, Denies melena, Reports bloating, Denies hematochezia, Reports constipation, Denies GI cramping, Denies dysphagia, Denies excessive flatus, Reports early satiety, Reports heartburn, Denies diarrhea, Denies nausea, Denies odynophagia, Denies vomiting and Denies hematemesis Skin/Breast Denies pruritus, Denies lesions, Denies rash and Denies jaundice Neuro Reports Normal hearing present and Denies Abnormal speech present Endo Denies fatigue Aller/Immun Denies throat swelling and Denies tongue swelling Physical Exam Vital Signs: BMI result Body Mass Index 39.9 Const General: cooperative, no acute distress, well developed and well groomed Nutritional Appearance: well nourished and obese Orientation/consciousness: oriented to person, oriented to place and oriented to time Limitations: language barrier HEENT Head: Yes normocephalic and Yes atraumatic Eyes General: appearance normal, both eyes and all related structures Pupils: Equal, round and reactive pupils present Neck Neck: Yes normal visual inspection and Yes no lymphadenopathy Thyroid: Thyroid normal Resp Effort & Inspection: normal respiratory effort and able to speak in complete sentences Auscultation: clear to auscultation bilaterally Cardio Rate: regular rate Rhythm: regular rhythm Heart sounds: Normal, physiologic split S2 sound present Peripheral pulses: radial pulses present and posterior tibial pulses present GI Inspection: No distended, No Abdominal panniculus present and Yes obesity Palpation (GI): Soft to palpation, nontender, no guarding, not rigid and No hepatosplenomegaly present Percussion: Yes normal to percussion Auscultation: normal bowel sounds Rectal Exam - Female: deferred Skin General skin exam: no rashes or lesions noted, turgor normal, skin not dry, no jaundice, No spider nevi and no striae Rashes: no rashes Nails: normal Neuro General: oriented to person, oriented to place and oriented to time Cranial nerves: Yes Equal, round and reactive pupils present and Yes Normal hearing present Speech: No Abnormal speech present Extrem General: Yes normal to inspection, No clubbing, No cyanosis and No edema Psych Appearance: grossly normal and well kempt Mental Status: mental status grossly normal Speech and movement: Normal speech and movement present Affect: normal affect Attitude: cooperative Thought process: Normal thought process present and not confabulating Thought content: Normal thought content present Insight: Limited insight present (Psych) and Poor insight present (Psych) Judgement: Limited judgement present (Psych) and Poor judgement present (Psych) Assessment & Plan Assessment & Plan (1) Chronic idiopathic constipation: Code(s): K59.04 - Chronic idiopathic constipation (2) GERD (gastroesophageal reflux disease): Code(s): K21.9 - Gastro-esophageal reflux disease without esophagitis Qualifiers: Esophagitis presence: esophagitis presence not specified Qualified Code(s): K21.9 - Gastro-esophageal reflux disease without esophagitis (3) Nausea and vomiting: Code(s): R11.2 - Nausea with vomiting, unspecified (4) Small bowel motility disorder: Code(s): K59.9 - Functional intestinal disorder, unspecified (5) Morbid obesity with BMI of 40.0-44.9, adult: Code(s): E66.01 - Morbid (severe) obesity due to excess calories; Z68.41 - Body mass index [BMI] 40.0-44.9, adult (6) PUD (peptic ulcer disease): Code(s): K27.9 - Peptic ulcer, site unspecified, unspecified as acute or chronic, without hemorrhage or perforation (7) Tubulovillous adenoma: Comment: 2021=2TA's repeat 3-5 years, 2020=TVA repeat 1 year Code(s): D36.9 - Benign neoplasm, unspecified site Plan Bulgarian #Ulises, Live She did not increase the timing of the lactulose, as was the recommended course of action last visit, so her sx are unchanged. She again c/o general burning, and is again asking for pain medication. I again explain that any pain medication would only worsen CIC, again. She can try tylenol. She admits to increasing the frequency of the lactulose and will get together again a few weeks to see how this is working. She did stop the Carafate is requested and she is continuing on the metoclopramide 4 times a day. She also has pantoprazole and famotidine and dicyclomine for symptom control. Return office visit in 6 weeks Coding Level of Care Code Est Pt Level 3 (95543) Diagnoses Chronic idiopathic constipation K59.04 Gastroesophageal reflux disease, unspecified whether esophagitis present K21.9 Esophagitis presence: esophagitis presence not specified Nausea and vomiting R11.2 Small bowel motility disorder K59.9 Morbid obesity with BMI of 40.0-44.9, adult E66.01; Z68.41 PUD (peptic ulcer disease) K27.9 Tubulovillous adenoma D36.9
[2023-06-11 13:40] VITALS: BMI 39.9
== END 2023-06-11 14:19 | disposition home or self-care (01) ==
PROVIDERS: PCP Internal Medicine; Visit Provider Nurse Practitioner
DX: K59.04 Chronic idiopathic constipation (principal); K21.9 Gastro-esophageal reflux disease without esophagitis; R11.2 Nausea with vomiting, unspecified; K59.9 Functional intestinal disorder, unspecified; E66.01 Morbid (severe) obesity due to excess calories; Z68.41 Body mass index [BMI] 40.0-44.9, adult; K27.9 Peptic ulcer, site unspecified, unspecified as acute or chronic, without hemorrhage or perforation; D36.9 Benign neoplasm, unspecified site
CPT/HCPCS: 99213

== ENCOUNTER → 2023-06-11 12:55 | Outpatient (BNVA) | payer OTHER, SELFPAY | PROVIDERS: PCP Internal Medicine; Visit Provider Nurse Practitioner | DX: K59.04 Chronic idiopathic constipation (principal); K21.9 Gastro-esophageal reflux disease without esophagitis; K59.9 Functional intestinal disorder, unspecified; K27.9 Peptic ulcer, site unspecified, unspecified as acute or chronic, without hemorrhage or perforation; R11.2 Nausea with vomiting, unspecified; D36.9 Benign neoplasm, unspecified site; E66.01 Morbid (severe) obesity due to excess calories; Z68.39 Body mass index [BMI] 39.0-39.9, adult | CPT/HCPCS: 99212 ==

== ENCOUNTER 2023-07-15 16:03 | Emergency (ER) | payer OTHER, SELFPAY ==
--- NOTE | ~2023-07-15 | CT_ITS ---
EXAMINATION: CT ABDOMEN AND PELVIS WITHOUT CONTRAST CLINICAL INFORMATION: Vomiting. Constipation. Concern for bowel obstruction. COMPARISON: CT scan abdomen pelvis February 09, 2023 TECHNIQUE: Multidetector volumetric imaging was performed from the superior aspect of the liver through the pubic symphysis. Sagittal and coronal reformatted images were obtained on the technologist's workstation. This CT examination was performed using dose optimization techniques as appropriate, variously including the following: *Automated exposure control *Adjustment of mA and/or kV according to patient size (this includes techniques or standardized protocols for targeted exams where dose is matched to indication/reason for exam; i.e. extremities or head) *Use of iterative reconstruction technique DLP: 145 mGy-cm FINDINGS: LUNG BASES: The visualized lung bases are unremarkable. LIVER, GALLBLADDER, AND BILIARY TREE: The liver is normal in size, shape, and attenuation. No focal hepatic lesion or biliary ductal dilatation is present. Gallbladder nonvisualized. PANCREAS: Unremarkable. SPLEEN: Unremarkable. ADRENAL GLANDS: Unremarkable. KIDNEYS AND URETERS: The kidneys are normal in size, shape, and attenuation. No hydronephrosis, hydroureter, or calculi seen. No perinephric stranding. Bilateral renal cysts unchanged since prior study.. No follow-up imaging is recommended for simple renal cyst.. BLADDER: Unremarkable. GASTROINTESTINAL TRACT: The small and large bowel are unremarkable. The appendix is nonvisualized.. ABDOMINAL WALL: No significant hernia is appreciated. LYMPH NODES: Normal. VASCULAR: Unremarkable. PELVIC VISCERA: Unremarkable. OSSEOUS STRUCTURES: No acute osseous abnormality. Multilevel degenerative spondylosis spine. CT/CT abdomen pelvis wo IV con IMPRESSION: No acute abnormality CT scan abdomen pelvis. Fleischner guidelines were followed.
[2023-07-15 17:26] VITALS: BP 154/86; PULSE 74; RESP 16; TEMP 37.3; O2SAT 95; BMI 40.8
--- NOTE | 2023-07-15 17:49 | ECG_ITS ---
Test Reason : ABDOMINAL PAIN Blood Pressure : / mmHG Vent. Rate : 064 BPM Atrial Rate : 064 BPM P-R Int : 126 ms QRS Dur : 076 ms QT Int : 418 ms P-R-T Axes : 020 005 -10 degrees QTc Int : 431 ms Normal sinus rhythm Nonspecific T wave abnormality Abnormal ECG When compared with ECG of 27-JAN-2023 11:33, No significant change was found Referred By: Pedro Luis Abernathy Electronically Signed By:MONICA WICK MD
--- NOTE | 2023-07-15 17:51 | ED.GENADULT ---
HPI - General Adult General Chief complaint: Abdominal Pain Stated complaint: nausea Time Seen by Provider: 07/15/23 22:37 Source: patient and old records reviewed Mode of arrival: ambulatory Limitations: no limitations History of Present Illness HPI narrative: 63 yo female with PMH of small bowel motility disorder, obesity, n/v, hypothyroidism, constipation, GERD, BREONNA here with start of nausea, vomiting x 1, epigastric pain starting today. She felt dizzy after vomiting. She has no cp/sob. She reports BM today but it was hard. She denies sick contacts in [place] but was in the hospital visiting her mom. She has had this before. MD complaint: abdominal pain nausea and vomiting Onset (ago): day(s) (1) Location: abdomen Radiation: non-radiation Severity: moderate Quality: aching Pain Consistency: intermittent Relieving factors: none Exacerbating factors: eating Associated symptoms: nausea/vomiting Treatments prior to arrival: none Related Data Home Medications Medication Instructions Recorded Confirmed lorazepam 0.5 mg tablet 0.5 mg PO BID PRN Anxiety 02/23/20 04/09/23 paroxetine HCl 40 mg tablet 40 mg PO DAILY 02/23/20 04/09/23 quetiapine 200 mg tablet 200 mg PO BEDTIME 02/23/20 04/09/23 trazodone 150 mg tablet 150 mg PO BEDTIME 02/23/20 04/09/23 ascorbic acid (vitamin C) 500 mg 500 mg PO DAILY 02/09/23 04/09/23 tablet (Vitamin C) vitamin E 268 mg (400 unit) capsule 268 mg PO DAILY 02/09/23 04/09/23 nystatin 100,000 unit/gram topical 1 appl topical BID 03/04/23 04/09/23 cream Previous Rx's Medication Instructions Recorded blood pressure test kit-large #1 ea 06/06/20 (Advocate Blood Pressure Monitor kit) cane #1 ea 10/11/20 toilet seat #1 ea 01/16/21 calcium carbonate 600 mg calcium 600 mg PO BID #180 tabs 06/26/22 (1,500 mg) tablet toilet seat elevator #1 ea 08/19/22 raised toilet seat #1 ea 08/21/22 acetaminophen 500 mg tablet 500 mg PO Q6H PRN pain #14 tabs 01/27/23 ibuprofen 600 mg tablet 600 mg PO TID PRN pain #14 tabs 01/27/23 ondansetron 4 mg disintegrating 4 mg PO Q8H PRN nausea and 02/09/23 tablet vomiting #20 tabs famotidine 40 mg tablet 40 mg PO BEDTIME #30 tabs 03/04/23 metoclopramide HCl 5 mg tablet 5 mg PO QIDACHS #120 tabs 03/04/23 (Reglan) pantoprazole 40 mg tablet,delayed 40 mg PO DAILY@0630 #30 tabs 03/04/23 release multivitamin-ferrous 1 tab PO DAILY 30 days #30 tabs 03/07/23 fumarate-folic acid 18 mg-400 mcg tablet (Certavite-Antioxidant) levothyroxine 150 mcg tablet 150 mcg PO DAILY 90 days #90 tabs 03/11/23 midodrine 5 mg tablet 5 mg PO TID 30 days #90 tabs 03/14/23 dicyclomine 20 mg tablet 40 mg (2 x 20 mg) PO TID #270 tabs 04/11/23 lactulose 10 gram/15 mL (15 mL) 20 g (30 mL) PO TID #600 mL 04/11/23 oral solution ondansetron HCl 4 mg tablet 4 mg PO BID-TID PRN nausea and 04/11/23 vomiting 14 days #90 tabs atorvastatin 10 mg tablet 10 mg PO DAILY #90 tabs 05/20/23 benzonatate 100 mg capsule 100 mg PO BID PRN cough 5 days #10 05/26/23 caps hydrocodone-homatropine 5 mg-1.5 5 ml PO Q6H PRN cough #473 mL 06/02/23 mg/5 mL oral syrup (Hycodan (with homatropine)) humidifiers #1 ea 06/07/23 prochlorperazine maleate 10 mg 10 mg PO BID PRN nausea and 07/16/23 tablet (Compazine) vomiting #10 tabs Allergies Allergy/AdvReac Type Severity Reaction Status Date / Time egg Allergy Intermediate Rash Verified 06/11/23 14:14 seafood Allergy Intermediate Rash Verified 06/11/23 14:14 shellfish derived Allergy Intermediate RASH Verified 06/11/23 14:14 zolpidem [ZOLPIDEM] Allergy Intermediate HEART Verified 06/11/23 14:14 PALPITATIONS morphine AdvReac Intermediate Vomiting Verified 06/11/23 14:14 Review of Systems Review of Systems: Constitutional : No Weight loss, No Fever, No Chills ENT/Mouth : No sore throat, No Rhinorrhea Eyes: No Swelling, No Redness Cardiovascular : No Chest Pain, No SOB, NoEdema Respiratory : No Cough, No Sputum, No Wheezing Gastrointestinal : Positive Nausea, Positive Vomiting, no Diarrhea, positive abdominal Pain, No Hematochezia, No Melena Genitourinary : No Dysuria, No Urinary Frequency, No Hematuria, No Urgency Musculoskeletal : No joint pain, No Myalgias, No Joint Swelling Skin : No Skin Lesions, No rash Neuro : No Weakness, No Numbness, No Dizziness, No Headache Psych : No Anxiety/Panic, No Depression All other systems reviewed and are negative. [facility] Past Medical History Attestation statement: The following information was validated with the patient. Source: old records reviewed Medical History Complex renal cyst Dyspepsia Physical exam Obesity (BMI 35.0-39.9 without comorbidity) Renal cyst Urinary tract infection Lower back pain Cough Constipation Morbid obesity Lumbar pain Right knee pain Left knee pain Pre-op exam Low back pain Screening examination for infectious disease Abdominal pain Onychomycosis Dyslipidemia Mild recurrent major depression Skin lesion Tubular adenoma of colon PUD (peptic ulcer disease) Idiopathic chronic hypotension Unsteady gait Hypothyroidism Takes daily multivitamins GERD (gastroesophageal reflux disease) Surgical History H/O elbow surgery History of varicose vein ligation H/O knee surgery H/O hand surgery History of foot surgery History of section History of hysterectomy History of removal of cyst History of cholecystectomy Family History Family History Father Diabetes Mother Thyroid disease Chronic mental illness Hypertension Hypercholesterolemia Maternal Aunt Breast cancer Brother In good health Daughter In good health Daughter In good health Sister No problems noted. Social History Social History Household Members: None Housing: Apartment Alcohol intake: never Patient Tobacco Use Status: Never used Tobacco Smoked in Last 30 Days: No e-Cigarette/Vaping Use: Never Used Second Hand Smoke Exposure: No Use of substances other than those prescribed or required for medical reasons: No Any prior treatment program specific to substance use: No Advance Directives: No Advance Directives Information Provided: No service: No Current occupational status: disabled Cognitive needs: No Hearing needs: No Vision needs: Yes Physical Exam ED Vital Signs: Vital Signs - 24 hr 07/15/23 17:26 07/15/23 22:29 07/16/23 01:09 Temperature 99.1 F 97.8 F 96.4 F L Pulse Rate 74 66 59 Respiratory Rate 16 16 16 Blood Pressure 154/86 H 148/74 H 149/75 H Pulse Oximetry 95 100 100 Oxygen Delivery Method Room Air Room Air Room Air 07/16/23 04:37 Temperature 97.6 F Pulse Rate 68 Respiratory Rate 16 Blood Pressure 153/68 H Pulse Oximetry 96 Oxygen Delivery Method Room Air BMI result Body Mass Index 40.8 Appearance: Alert. Oriented X3. No acute distress. Eyes: Pupils equal, round and reactive to light. ENT: Pharynx normal. Neck: Normal inspection. Neck supple. CVS: Normal heart rate and rhythm. Pulses normal. Respiratory: No respiratory distress. Breath sounds normal. Abdomen: Soft and moderate ttp in epigastric area no rebound or guarding no distention Skin: Skin warm and dry. Normal skin color. Normal skin turgor. Extremities: No lower extremity edema. No calf ttp Neuro: Oriented X 3. No motor deficit. No sensory deficit. Course Course Course Narrative: RME: 63 yold female presents to the ED For epigastric abdominal pain for 4 days. Patient states recently traveled from [place] and had symptoms since being in [place]. Patient denies any chest pain, shortness of breath, leg swelling, calf pain, coughing up blood, or pleurisy. EKG labs ordered. Reevaluation(s) Reevaluation #1: patient is able to pass PO Reevaluation #2: has not vomited since reglan Medications Administered Discontinued Medications Generic Name Dose Route Start Last Admin Trade Name Freq PRN Reason Stop Dose Admin Diphenhydramine HCl 25 mg 07/16/23 00:04 07/16/23 00:33 Diphenhydramine Hcl 50 Mg/Ml Vial IVPUSH 07/16/23 00:05 25 mg ONCE ONE Administration Hydromorphone HCl 0.5 mg 07/15/23 23:05 07/15/23 23:43 Hydromorphone Hcl 0.5 Mg/0.5 Ml Syringe IVPUSH 07/15/23 23:06 0.5 mg ONCE ONE Administration Protocol Sodium Chloride 1,000 mls @ 999 mls/hr 07/15/23 23:15 07/15/23 23:44 Ns IV 07/16/23 00:15 999 mls/hr .Q1H1M TOÑO Administration Metoclopramide HCl 10 mg 07/16/23 00:04 07/16/23 00:33 Metoclopramide Hcl 10 Mg/2 Ml Vial IVPUSH 07/16/23 00:05 10 mg ONCE ONE Administration Ondansetron HCl 4 mg 07/15/23 23:05 07/15/23 23:44 Ondansetron Hcl 4 Mg/2 Ml Vial IVPUSH 07/15/23 23:06 4 mg ONCE ONE Administration Medical Decision Making Medical Decision Making MDM Narrative: 63 yo female with PMH of small bowel motility disorder, obesity, n/v, hypothyroidism, constipation, GERD, BREONNA here with n/v and upper abdominal pain since yesterday at this time will need basic labs, IVF, IV dilaudid for pain, nausea medications, CT scan for obstruction given persistent nausea and vomiting despite IV zofran and pain. Has newly elevated LFTs as well. Differential Diagnosis Differential Diagnoses: The differential diagnosis associated with the presentation includes SBO, gastritis, pancreatitis, retained stone, viral syndrome Admission/Observation Consideration of admission/observation: Escalation of care including admission/observation considered able to tolerate PO can be managed as outpatient Lab Data [facility] Lab Attestation statement: I reviewed the patient's lab results. 07/15/23 18:08 07/15/23 18:08 Labs: Lab Results 07/15/23 Range/Units 18:08 WBC 7.7 (4.8-10.8) X10*3/uL RBC 5.08 (4.20-5.50) X10*6/uL Hgb 13.5 (12.0-16.0) g/dl Hct 44.5 (37.0-47.0) % MCV 87.6 (80.0-98.0) fL MCH 26.6 L (27.0-33.0) pg MCHC 30.3 L (31.0-35.0) g/dl RDW 13.2 (11.0-16.0) % Plt Count 201 (160-400) X10*3/uL MPV 12.5 H (9.4-12.3) fL Immature Gran % (Auto) 0.7 H (0.0-0.4) % Neut % (Auto) 66.2 (45-73) % Lymph % (Auto) 21.3 (20-40) % [place] % (Auto) 9.4 (2-11) % Eos % (Auto) 1.6 (0-4) % Baso % (Auto) 0.8 (0-2) % Lymph # (Auto) 1.6 (1.2-4.9) X10*3/uL [place] # (Auto) 0.7 (0.1-1.2) X10*3/uL Eos # (Auto) 0.1 (0.0-0.4) X10*3/uL Baso # (Auto) 0.1 (0.0-0.2) X10*3/uL Abs Immat Gran (auto) 0.05 H (0.00-0.03) X10*3/uL Absolute Neuts (auto) 5.1 (2.0-8.3) x10*3/uL Absolute Nucleated RBC 0.000 (0.0-0.012) X10*3/uL Nucleated RBC % (auto) 0.0 (0.0-0.2) /100WBC PT 11.8 (11.1-13.3) SEC INR 1.0 (0.9-1.1) APTT 23.1 L (26.0-36.8) SEC Sodium 143 (135-145) mmol/L Potassium 4.5 (3.3-5.1) mmol/L Chloride 106 (96-108) mmol/L Carbon Dioxide 31 H (22-29) mmol/L Anion Gap 11 L (12-20) BUN 18 H (9-16) mg/dL Creatinine 0.68 (0.5-1.4) mg/dL Estim Creat Clear Calc 111.1 Estimated GFR > 60 Random Glucose 91 (60-115) mg/dL Calcium 9.7 (8.4-10.2) mg/dL Total Bilirubin 0.4 (0.0-1.0) mg/dL AST 38 H (5-31) U/L ALT 42 H (0-31) U/L Alkaline Phosphatase 94 (39-117) U/L Troponin I High Sens < 2.7 (<3.5-17.0) ng/L B-Natriuretic Peptide 63 (<100) pg/mL Total Protein 7.5 (6.5-8.0) g/dL Albumin 3.8 (3.5-5.0) g/dL Lipase 25 (8-78) U/L Urine Color Yellow Urine Appearance Cloudy Urine pH 7.5 (5.0-9.0) Ur Specific [place] >= 1.030 H (1.005-1.025) Urine Protein Trace (Neg-Trace) mg/dL Urine Glucose (UA) Negative (Negative) mg/dL Urine Ketones Trace (Negative) mg/dL Urine Blood Negative (Negative) Urine Nitrite Negative (Negative) Ur Leukocyte Esterase Moderate (2+) H (Negative) Urine RBC 0-2 (0-2) /HPF Urine WBC 11-20 H (0-5) /HPF Ur Squamous Epith Cells 6-10 (0-2) /HPF Urine Bacteria None Seen (None Seen) Hyaline Casts 0-2 (0-2) /LPF Independent Interpretation I performed an independent interpretation of an: EKG and CT Scan (no acute findings) Interpretation: Rate: 64 Rhythm: NSR [place]: normal Normal P waves. Normal ANNELISE. Normal QRS complex. ST T wave : no SKYE, inverted t wave III and aVF qTC: normal prior studies: no change The study has been interpreted contemporaneously by me. . Radiology Impression Discussion of test interpretation with radiology: I have reviewed the radiologist's reading. External Record Review External record reviewed: Inpatient record Discharge Plan Discharge Clinical Impression: Nausea and vomiting Qualifiers: Vomiting type: unspecified Qualified Code(s): R11.2 - Nausea with vomiting, unspecified Abdominal pain Qualifiers: Abdominal location: epigastric Qualified Code(s): R10.13 - Epigastric pain Patient Disposition: Home, Self-Care Instructions: Acute Nausea and Vomiting (ED), Abdominal Pain (ED) Additional Instructions: CT scan normal, stay hydrated return for worsening symptoms inability to eat or drink. advance diet slowly over 2 days. Tomograf?a computarizada normal, mant?ngase hidratado y regrese si los s?ntomas empeoran, incapacidad para comer o beber. avance la dieta lentamente arturo 2 d?as. Prescriptions: New prochlorperazine maleate [Compazine] 10 mg tablet 10 mg PO BID PRN (Reason: nausea and vomiting) Qty: 10 0RF No Action (DME) blood pressure test kit-large [Advocate Blood Pressure Monitr] Kit See Rx Instructions .ROUTE .MEDSUPPLY Qty: 1 0RF Rx Instructions: As directed (DME) cane Device See Rx Instructions .ROUTE .MEDSUPPLY Qty: 1 0RF Rx Instructions: As directed (DME) toilet seat See Rx Instructions .Route .MEDSUPPLY Qty: 1 0RF Rx Instructions: As directed calcium carbonate 600 mg calcium (1,500 mg) tablet 600 mg PO BID Qty: 180 3RF (DME) toilet seat elevator See Rx Instructions .Route .MEDSUPPLY Qty: 1 0RF Rx Instructions: As directed (DME) raised toilet seat See Rx Instructions .Route .MEDSUPPLY Qty: 1 0RF Rx Instructions: As directed Certavite-Antioxidant 18-400 mg-mcg tablet 1 tab PO DAILY 30 Days Qty: 30 11RF levothyroxine 150 mcg tablet 150 mcg PO DAILY 90 Days Qty: 90 1RF midodrine 5 mg tablet 5 mg PO TID 30 Days Qty: 90 4RF Rx Instructions: do not give last dose of day after 6PM or within 4 hrs of bedtime atorvastatin 10 mg tablet 10 mg PO DAILY Qty: 90 3RF benzonatate 100 mg capsule 100 mg PO BID PRN (Reason: cough) 5 Days Qty: 10 0RF (DME) humidifiers Misc See Rx Instructions .Route Qty: 1 0RF Rx Instructions: As directed ibuprofen 600 mg tablet 600 mg PO TID PRN (Reason: pain) Qty: 14 0RF acetaminophen 500 mg tablet 500 mg PO Q6H PRN (Reason: pain) Qty: 14 0RF ondansetron 4 mg tablet,disintegrating 4 mg PO Q8H PRN (Reason: nausea and vomiting) Qty: 20 0RF ascorbic acid (vitamin C) [Vitamin C] 500 mg Tablet 500 mg PO DAILY vitamin E 268 mg (400 unit) Capsule 268 mg PO DAILY hydrocodone-homatropine [Hycodan (with homatropine)] 5-1.5 mg/5 mL syrup 5 ml PO Q6H PRN (Reason: cough) Qty: 473 0RF Rx Instructions: Partial Fill upon patient request. paroxetine HCl 40 mg tablet 40 mg PO DAILY trazodone 150 mg tablet 150 mg PO BEDTIME lorazepam 0.5 mg tablet 0.5 mg PO BID PRN (Reason: Anxiety) quetiapine 200 mg tablet 200 mg PO BEDTIME nystatin 100,000 unit/gram cream 1 appl topical BID famotidine 40 mg tablet 40 mg PO BEDTIME Qty: 30 6RF pantoprazole 40 mg tablet,delayed release (DR/EC) 40 mg PO DAILY@0630 Qty: 30 6RF metoclopramide HCl [Reglan] 5 mg tablet 5 mg PO QIDACHS Qty: 120 6RF Rx Instructions: Provider aware of potential interaction with prozac and is monitornig lactulose 10 gram/15 mL (15 mL) solution 20 g PO TID Qty: 600 6RF dicyclomine 20 mg tablet 40 mg PO TID Qty: 270 2RF ondansetron HCl 4 mg tablet 4 mg PO BID-TID PRN (Reason: nausea and vomiting) 14 Days Qty: 90 0RF Interventions: ED Discharge Assessment Last Done: 07/16/23 05:21 Discharge Date/Time: 07/16/23 05:23 Print Language: English
[2023-07-15 18:16] LABS: MANUAL DIFF FLAG NO
[2023-07-15 18:19] LABS: Appearance Urine Cloudy; Color Urine Yellow; Glucose Urine UA Negative (Negative); Leukocyte Esterase Urine Moderate (2+) (Negative); Nitrite Urine Negative (Negative); PH 7.5 (5.0-9.0); Specific Gravity - Urine >= 1.030 (1.005-1.025); UMIC TRIGGER UACC YES; Urine Blood Negative (Negative); Urine Ketones Trace mg/dL (Negative); Urine Protein Trace mg/dL (Neg-Trace)
[2023-07-15 18:24] LABS: Prothrombin Time 11.8 SEC (11.1-13.3)
[2023-07-15 18:26] LABS: Bacteria Urine None Seen (None Seen); Hyaline Casts Urine 0-2 /LPF (0-2); RBC Urine 0-2 /HPF (0-2); UACC Culture Trigger YES
[2023-07-15 18:28] LABS: Partial Thromboplastin Time 23.1 SEC (26.0-36.8)
[2023-07-15 18:32] LABS: Alanine Aminotransferase 42 U/L (0-31); Albumin Level 3.8 g/dL (3.5-5.0); Alkaline Phosphatase 94 U/L (39-117); Anion Gap 11 (12-20); Aspartate Amino Transferase 38 U/L (5-31); Bilirubin Total 0.4 mg/dL (0.0-1.0); Blood Urea Nitrogen 18 mg/dL (9-16); Calcium 9.7 mg/dL (8.4-10.2); Carbon Dioxide 31 mmol/L (22-29); Chloride 106 mmol/L (96-108); Creatinine Clr Calc Pharmacy 111.1; Estimated Glomerular Filt Rate > 60; Glucose Random 91 mg/dL (60-115); Lipase 25 U/L (8-78); Potassium 4.5 mmol/L (3.3-5.1); Sodium 143 mmol/L (135-145); Total Protein 7.5 g/dL (6.5-8.0)
[2023-07-15 18:37] LABS: Basophils Absolute Auto 0.1 X10*3/uL (0.0-0.2); Basophils Percent Auto 0.8 % (0-2); Eosinophils Absolute Auto 0.1 X10*3/uL (0.0-0.4); Eosinophils Percent Auto 1.6 % (0-4); Hematocrit 44.5 % (37.0-47.0); Hemoglobin 13.5 g/dl (12.0-16.0); Imm Gran Abs Auto 0.05 X10*3/uL (0.00-0.03); Imm Gran Pct Auto 0.7 % (0.0-0.4); Lymphocytes Absolute Auto 1.6 X10*3/uL (1.2-4.9); Lymphocytes Percent Auto 21.3 % (20-40); Mean Corpuscular HGB Conc 30.3 g/dl (31.0-35.0); Mean Corpuscular Hemoglobin 26.6 pg (27.0-33.0); Mean Corpuscular Volume 87.6 fL (80.0-98.0); Mean Platelet Volume 12.5 fL (9.4-12.3); Monocytes Absolute Auto 0.7 X10*3/uL (0.1-1.2); Monocytes Percent Auto 9.4 % (2-11); Neutrophils Absolute Auto 5.1 x10*3/uL (2.0-8.3); Neutrophils Percent Auto 66.2 % (45-73); Platelet Count 201 X10*3/uL (160-400); Red Blood Count 5.08 X10*6/uL (4.20-5.50); Red Cell Distribution Width 13.2 % (11.0-16.0); White Blood Count 7.7 X10*3/uL (4.8-10.8)
[2023-07-15 18:46] LABS: Troponin-I High Sensitivity < 2.7 ng/L (<3.5-17.0)
[2023-07-15 19:12] LABS: B Type Natriuretic Peptide 63 pg/mL (<100)
[2023-07-15 22:29] VITALS: BP 148/74; PULSE 66; RESP 16; TEMP 36.6; O2SAT 100
[2023-07-15] MEDS: HYDROmorphone HCl 0.5 MG/0.5 ML SYRINGE IVPUSH (23:43)
[2023-07-15] MEDS: ondansetron HCL 4 MG/2 ML VIAL IVPUSH (23:44)
[2023-07-15] MEDS: 0.9 % Sodium Chloride 1,000 ML 999 ML IV (23:44)
[2023-07-16] MEDS: Metoclopramide HCl 10 MG/2 ML VIAL IVPUSH (00:33)
[2023-07-16] MEDS: diphenhydrAMINE HCL 50 MG/ML VIAL 25 MG IVPUSH (00:33)
[2023-07-16 01:09] VITALS: BP 149/75; PULSE 59; RESP 16; TEMP 35.8; O2SAT 100
--- NOTE | 2023-07-16 03:43 | PC.NURSE ---
pt states that she has small amount of nausea in cameroonian. pt has been sleeping no s/s of distress.
[2023-07-16 04:37] VITALS: BP 153/68; PULSE 68; RESP 16; TEMP 36.4; O2SAT 96
== END 2023-07-16 05:23 | disposition home or self-care (01) ==
PROVIDERS: Physician Assistant; Emergency Provider Emergency Medicine; PCP Internal Medicine
DX: R11.2 Nausea with vomiting, unspecified (principal); R10.13 Epigastric pain; R42 Dizziness and giddiness; R94.31 Abnormal electrocardiogram [ECG] [EKG]; R06.02 Shortness of breath; Z79.899 Other long term (current) drug therapy
CPT/HCPCS: 36415; 74176; 80053; 81001; 83690; 83880; 84484; 85025; 85610; 85730; 87086; 93005; 96374; 96375; 99284; 99285; J1170; J1200; J2405; J2765

== ENCOUNTER → 2023-07-15 17:49 | Outpatient (BNV) | payer OTHER, SELFPAY | PROVIDERS: Emergency Provider Emergency Medicine; PCP Internal Medicine; Visit Provider Internal Medicine Cardiovascular Disease | DX: R94.31 Abnormal electrocardiogram [ECG] [EKG] (principal) | CPT/HCPCS: 93010 ==

== ENCOUNTER 2023-07-18 12:59 | Outpatient (AMB) | payer OTHER, SELFPAY ==
--- NOTE | 2023-07-18 13:48 | MHC.OFFVIS ---
Intake Vital Signs 07/18/23 13:55 Height 5 ft 7 in Weight 255 lb BMI 39.9 BP 126/84 Intake Visit Reasons: Annual Intake Note: no concerns Oracle Identity Management Consultant Required: Yes [employer] Identity Management Consultant Language: Freelance Digital Project Manager Name: Hyun KIMBROUGH Information Interpreted: non-clinical & clinical Security System Analyst: Security System Analyst Present (Hyun KIMBROUGH) Accompanied by: Self / Same As Patient Allergies egg Allergy (Intermediate, Verified 07/18/23 13:57) Rash seafood Allergy (Intermediate, Verified 07/18/23 13:57) Rash shellfish derived Allergy (Intermediate, Verified 07/18/23 13:57) RASH zolpidem [ZOLPIDEM] Allergy (Intermediate, Verified 07/18/23 13:57) HEART PALPITATIONS morphine Adverse Reaction (Intermediate, Verified 07/18/23 13:57) Vomiting Post menopausal: Yes HPI HPI Comments History of Present Illness Details She is a postmenopausal woman presenting for her annual health center associate examination. She is doing well with no concerns. Attempting to eat a healthy diet with calcium and vitamin D and stays active with exercise w/walk. Currently not sexually active. Denies any vaginal dryness or irritation. Last mammogram; 2022. Colonoscopy is UTD. Denies any family history of breast, ovarian or colon cancer. [facility] Medical History Complex renal cyst Dyspepsia Physical exam Obesity (BMI 35.0-39.9 without comorbidity) Renal cyst Urinary tract infection Lower back pain Cough Constipation Morbid obesity Lumbar pain Right knee pain Left knee pain Pre-op exam Low back pain Screening examination for infectious disease Abdominal pain Onychomycosis Dyslipidemia Mild recurrent major depression Skin lesion Tubular adenoma of colon PUD (peptic ulcer disease) Idiopathic chronic hypotension Unsteady gait Hypothyroidism Takes daily multivitamins GERD (gastroesophageal reflux disease) Surgical History H/O elbow surgery History of varicose vein ligation H/O knee surgery H/O hand surgery History of foot surgery History of section History of hysterectomy History of removal of cyst History of cholecystectomy Family History Father Diabetes Mother Thyroid disease Chronic mental illness Hypertension Hypercholesterolemia Maternal Aunt Breast cancer Brother In good health Daughter In good health Daughter In good health Sister No problems noted. Social History Household Members: None Housing: Apartment Alcohol intake: never Patient Tobacco Use Status: Never used Tobacco e-Cigarette/Vaping Use: Never Used Second Hand Smoke Exposure: No service: No Current occupational status: disabled Sexually active: No Sexual orientation: Straight/Heterosexual Gender identity: Female Cognitive needs: No Hearing needs: No Vision needs: Yes Female Reproductive History Menstrual Age of Menarche: 9 Total pregnancies: 3 Full term: 2 Number of Living Children: 2 Date of Mammogram: 03/20/23 Review of Systems Const All systems reviewed & are unremarkable except as noted in HPI and below Reports as per HPI Eyes Reports no additional complaints ENT Reports no additional complaints Card Reports no additional complaints Resp Reports no additional complaints GI Reports as per HPI and Reports no additional complaints Reports as per HPI Musc Reports no additional complaints Skin/Breast Reports as per HPI Neuro Reports no additional complaints Psych Reports no additional complaints Endo Reports no additional complaints Sebas/Lymph Reports no additional complaints Aller/Immun Reports no additional complaints Physical Exam Vital Signs: Last Vital Signs BP 126/84 07/18/23 13:55 BMI result Body Mass Index 39.9 Const General: cooperative, healthy appearing, no acute distress, well developed and alert Orientation/consciousness: patient oriented x3 HEENT Head: Yes normal to inspection Eyes General: appearance normal, both eyes and all related structures Neck Neck: Yes normal visual inspection Thyroid: Thyroid normal Chest Chest palpation & inspection: normal inspection of the chest and other (no puckering, dimpling, peau de orange, retraction, discharge, masses) Breast/axilla inspection: normal inspection of the breasts Breast/axilla palpation: normal palpation of the breasts Resp Effort & Inspection: normal respiratory effort GI Inspection: Yes normal to inspection Palpation (GI): Soft to palpation Rectal Exam - Female: deferred General: Yes bladder normal to palpation External Female Exam: normal external appearance and normal appearance of the urethra Speculum Exam - Vagina: normal appearance of the vagina, normal palpation, normal vaginal discharge and vagina atrophic Speculum Exam - Cervix: Cervix absent (Vaginal cuff no lesions or nodules) Bimanual exam- vagina & uterus: normal bimanual exam, normal palpation, bladder normal to palpation and uterus absent Bimanual Exam- Adnexa, other: no masses Skin General skin exam: no rashes or lesions noted Rashes: no rashes Neuro General: patient oriented x3 Cognition (Neuro): normal cognition Extrem General: Yes normal to inspection Psych Attitude: cooperative Thought process: Normal thought process present Assessment & Plan Assessment & Plan (1) Encounter for well woman exam with routine gynecological exam: Code(s): Z01.419 - Encounter for gynecological examination (general) (routine) without abnormal findings Plan Discussed: Current recommendations for pap smears per ASCCP guidelines. Breast awareness, periodic self breast exams and yearly mammogram. Maintain a healthy lifestyle, well balanced diet including Calcium 1,200 mg and Vitamin D 600 IU daily, and routine exercise. Patient verbalizes understanding and agrees to the plan of care. She was given opportunity to ask questions and all questions were answered to the best of my ability. RTO in 1 year for annual health center associate exam. This note is constructed using voice recognition software. While every effort has been made to ensure accuracy, hand assembler errors may have been included. Coding Level of Care Code Est Pt Prev Care 40-64y(16317) Diagnoses Encounter for well woman exam with routine gynecological exam Z01.419
[2023-07-18 13:55] VITALS: BP 126/84; BMI 39.9
== END 2023-07-18 14:25 | disposition home or self-care (01) ==
LOC: HO.HWS 12:59
PROVIDERS: PCP Internal Medicine; Visit Provider Advanced Practice Midwife
DX: Z01.419 Encounter for gynecological examination (general) (routine) without abnormal findings (principal)
CPT/HCPCS: 99396

== ENCOUNTER → 2023-07-18 12:59 | Outpatient (BNVA) | payer OTHER, SELFPAY | PROVIDERS: PCP Internal Medicine; Visit Provider Advanced Practice Midwife | DX: Z01.419 Encounter for gynecological examination (general) (routine) without abnormal findings (principal) | CPT/HCPCS: 99396 ==

== ENCOUNTER 2023-07-23 11:59 | Outpatient (AMB) | payer OTHER, SELFPAY ==
--- NOTE | 2023-07-23 12:04 | A.OFFVIS_ITS ---
Intake Vital Signs 07/23/23 12:37 Height 5 ft 7 in Weight 254 lb 6.615 oz BMI 39.8 BP 125/69 Blood Pressure Location Rt brachial Position Sitting Pulse 75 Intake Visit Reasons: 6 week follow up Intake Note: Patient in office today in 6 weeks follow up of abdominal pain. CC: Patient seen in the ER on 07/15/23 with c/o nausea, vomiting x 1, epigastric pain, hard stools, and feeling dizzy after vomiting. Rn Family Practice Required: Yes Accompanied by: Self / Same As Patient Allergies egg Allergy (Intermediate, Verified 07/23/23 12:47) Rash seafood Allergy (Intermediate, Verified 07/23/23 12:47) Rash shellfish derived Allergy (Intermediate, Verified 07/23/23 12:47) RASH zolpidem [ZOLPIDEM] Allergy (Intermediate, Verified 07/23/23 12:47) HEART PALPITATIONS morphine Adverse Reaction (Intermediate, Verified 07/23/23 12:47) Vomiting HPI 6 week follow up HPI Details Assessment & Plan (1) Chronic idiopathic constipation: Code(s): K59.04 - Chronic idiopathic constipation (2) GERD (gastroesophageal reflux diseas e): Code(s): K21.9 - Gastro-esophageal reflux disease without esophagitis Qualifiers: Esophagitis presence: esophagitis presence not specified Qualified Code(s): K21.9 - Gastro-esophageal reflux disease without esophagitis (3) Nausea and vomiting: Code(s): R11.2 - Nausea with vomiting, unspecified (4) Small bowel motility disorder: Code(s): K59.9 - Functional intestinal disorder, unspecified (5) Morbid obesity with BMI of 40.0-44.9 , adult: Code(s): E66.01 - Morbid (severe) obesity due to excess calories; Z68.41 - Body mass index [BMI] 40.0-44.9, adult (6) PUD (peptic ulcer disease): Code(s): K27.9 - Peptic ulcer, site unspecified, unspecified as acute or chronic, without hemorrhage or perforation (7) Tubulovillous adenoma: Comment: 2021=2TA's repeat 3-5 years, 2020=TVA re peat 1 year Code(s): D36.9 - Benign neoplasm, unspecified site Plan [place] #Ulises, Live She did not increase the timing of the lactulose, as was the recommended course of action last visit, so her sx are unchanged. She again c/o general burning, and is again asking for pain medication. I again explain that any pain medication would only worsen CIC, again. She can try tylenol. She admits to increasing the frequency of the lactulose and will get together again a few weeks to see how this is working. She did stop the Carafate is requested and she is continuing on the metoclopramide 4 times a day. She also has pantoprazole and famotidine and dicyclomine for symptom control. Return office visit in 6 weeks TODAY'S VISIT [place] #Carmen Amato She has increased the frequency of the lactulose and this has improved her burning abd pain. She is taking it 2-3 times a day. Continuing on the metoclopramide 4 times a day. She also has pantoprazole and famotidine and dicyclomine for symptom control. SHe then tells me she was hospitalized for N/V, but has not been takign her reglan - this is likely the reason!! I emphasize she needs to take thie qid EVERY DAY to keep her small bowel moving and this will avert her N/V. Because she still has some hard BM's I will add bid colace. ROV 8 weeks. COUNTS INCLUDE 234 BEDS AT THE [facility] Medical History PUD (peptic ulcer disease) Complex renal cyst Dyspepsia Physical exam Obesity (BMI 35.0-39.9 without comorbidity) Renal cyst Urinary tract infection Lower back pain Cough Constipation Morbid obesity Lumbar pain Right knee pain Left knee pain Pre-op exam Low back pain Screening examination for infectious disease Abdominal pain Onychomycosis Dyslipidemia Mild recurrent major depression Skin lesion Tubular adenoma of colon Idiopathic chronic hypotension Unsteady gait Hypothyroidism Takes daily multivitamins GERD (gastroesophageal reflux disease) Surgical History H/O elbow surgery History of varicose vein ligation H/O knee surgery H/O hand surgery History of foot surgery History of section History of hysterectomy History of removal of cyst History of cholecystectomy Family History Father Diabetes Mother Thyroid disease Chronic mental illness Hypertension Hypercholesterolemia Maternal Aunt Breast cancer Brother In good health Daughter In good health Daughter In good health Sister No problems noted. Social History Household Members: None Housing: Apartment Alcohol intake: never Patient Tobacco Use Status: Never used Tobacco e-Cigarette/Vaping Use: Never Used Second Hand Smoke Exposure: No service: No Current occupational status: disabled Sexual orientation: Straight/Heterosexual Gender identity: Female Cognitive needs: No Hearing needs: No Vision needs: Yes Female Reproductive History Menstrual Age of Menarche: 9 Review of Systems Const Denies fatigue, Denies fever(s), Denies night sweats, Denies poor appetite and Denies weight loss Eyes Details: glasses Reports requires corrective lenses ENT Reports Normal hearing present, Denies dental pain, Denies dysphagia, Denies hearing loss, Denies mouth pain, Denies odynophagia, Denies throat swelling, Denies tongue swelling and Reports other (Dentition adequate) Card Reports no additional complaints Resp Reports no additional complaints GI Details: Denies abdominal pain, Denies melena, Denies bloating, Denies hematochezia, Reports constipation, Denies GI cramping, Denies dysphagia, Denies excessive flatus, Reports early satiety, Reports heartburn, Denies diarrhea, Reports nausea, Denies odynophagia, Denies vomiting and Reports hematemesis Skin/Breast Denies pruritus, Denies lesions, Denies rash and Denies jaundice Neuro Reports Normal hearing present and Denies Abnormal speech present Endo Denies fatigue Aller/Immun Denies throat swelling and Denies tongue swelling Physical Exam Vital Signs: Last Vital Signs Pulse 75 07/23/23 12:37 BP 125/69 07/23/23 12:37 BMI result Body Mass Index 39.8 Const General: cooperative, no acute distress, well developed and well groomed Nutritional Appearance: well nourished and obese Orientation/consciousness: oriented to person, oriented to place and oriented to time Limitations: language barrier HEENT Head: Yes normocephalic and Yes atraumatic Eyes General: appearance normal, both eyes and all related structures Pupils: Equal, round and reactive pupils present Neck Neck: Yes normal visual inspection and Yes no lymphadenopathy Thyroid: Thyroid normal Resp Effort & Inspection: normal respiratory effort and able to speak in complete sentences Auscultation: clear to auscultation bilaterally Cardio Rate: regular rate Rhythm: regular rhythm Heart sounds: Normal, physiologic split S2 sound present Peripheral pulses: radial pulses present and posterior tibial pulses present GI Inspection: No distended, Yes Abdominal panniculus present and Yes obesity Palpation (GI): Soft to palpation, nontender, no guarding, not rigid and No hepatosplenomegaly present Percussion: Yes normal to percussion Auscultation: normal bowel sounds Rectal Exam - Female: deferred Skin General skin exam: no rashes or lesions noted, turgor normal, skin not dry, no jaundice, No spider nevi and no striae Rashes: no rashes Nails: normal Neuro General: oriented to person, oriented to place and oriented to time Cranial nerves: Yes Equal, round and reactive pupils present and Yes Normal hearing present Speech: No Abnormal speech present Extrem General: Yes normal to inspection, No clubbing, No cyanosis and No edema Psych Appearance: grossly normal and well kempt Mental Status: mental status grossly normal Speech and movement: Normal speech and movement present Affect: normal affect Attitude: cooperative Thought process: Normal thought process present and not confabulating Thought content: Normal thought content present Insight: Limited insight present (Psych) and Poor insight present (Psych) Judgement: Limited judgement present (Psych) and Poor judgement present (Psych) Assessment & Plan Assessment & Plan (1) Chronic idiopathic constipation: Code(s): K59.04 - Chronic idiopathic constipation (2) GERD (gastroesophageal reflux disease): Code(s): K21.9 - Gastro-esophageal reflux disease without esophagitis Qualifiers: Esophagitis presence: esophagitis presence not specified Qualified Code(s): K21.9 - Gastro-esophageal reflux disease without esophagitis (3) Tubulovillous adenoma: Comment: 2021=2TA's repeat 3-5 years, 2020=TVA repeat 1 year Code(s): D36.9 - Benign neoplasm, unspecified site (4) Nausea and vomiting: Code(s): R11.2 - Nausea with vomiting, unspecified Qualifiers: Vomiting type: unspecified Qualified Code(s): R11.2 - Nausea with vomiting, unspecified (5) Small bowel motility disorder: Code(s): K59.9 - Functional intestinal disorder, unspecified Plan [place] #Carmen Live She has increased the frequency of the lactulose and this has improved her burning abd pain. She is taking it 2-3 times a day. Continuing on the metoclopramide 4 times a day. She also has pantoprazole and famotidine and dicyclomine for symptom control. She then tells me she was hospitalized for N/V, but has not been taking her reglan - this is likely the reason!! I emphasize she needs to take thie qid EVERY DAY to keep her small bowel moving and this will avert her N/V. Because she still has some hard BM's I will add bid colace. ROV 8 weeks Medications: New docusate sodium (Colace) 100 mg PO .DAILY WITH FOOD 30 days 60 caps 6RF Refilled metoclopramide HCl (Reglan) Provider aware of potential interaction with prozac and is monitornig 5 mg PO QIDACHS 120 tabs 6RF K59.9 - Functional intestinal disorder, unspecified lactulose 20 grams (30 mL) PO TID 600 mL 6RF dicyclomine 40 mg (2 x 20 mg) PO TID 270 tabs 2RF pantoprazole 40 mg PO DAILY@0630 30 tabs 6RF Coding Level of Care Code Est Pt Level 3 (27124) Diagnoses Chronic idiopathic constipation K59.04 Gastroesophageal reflux disease, unspecified whether esophagitis present K21.9 Esophagitis presence: esophagitis presence not specified Tubulovillous adenoma D36.9 Nausea and vomiting R11.2 Vomiting type: unspecified Small bowel motility disorder K59.9
[2023-07-23 12:37] VITALS: BP 125/69; PULSE 75; BMI 39.8
== END 2023-07-23 13:15 | disposition home or self-care (01) ==
PROVIDERS: PCP Internal Medicine; Visit Provider Nurse Practitioner
DX: K59.04 Chronic idiopathic constipation (principal); K21.9 Gastro-esophageal reflux disease without esophagitis; D36.9 Benign neoplasm, unspecified site; R11.2 Nausea with vomiting, unspecified; K59.9 Functional intestinal disorder, unspecified
CPT/HCPCS: 99213

== ENCOUNTER → 2023-07-23 11:59 | Outpatient (BNVA) | payer OTHER, SELFPAY | PROVIDERS: PCP Internal Medicine; Visit Provider Nurse Practitioner | DX: K59.04 Chronic idiopathic constipation (principal); K21.9 Gastro-esophageal reflux disease without esophagitis; R11.2 Nausea with vomiting, unspecified; K59.9 Functional intestinal disorder, unspecified; K27.9 Peptic ulcer, site unspecified, unspecified as acute or chronic, without hemorrhage or perforation; D36.9 Benign neoplasm, unspecified site; E66.01 Morbid (severe) obesity due to excess calories; Z68.39 Body mass index [BMI] 39.0-39.9, adult | CPT/HCPCS: 99212 ==

== ENCOUNTER 2023-08-12 12:55 | Outpatient (AMB) | payer OTHER, SELFPAY ==
[2023-08-12 13:06] VITALS: BP 126/86; BMI 39.6
--- NOTE | 2023-08-12 13:06 | MHC.PC.OV ---
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: No Accompanied by: Self / Same As Patient Allergies egg Allergy (Intermediate, Verified 08/12/23 13:22) Rash seafood Allergy (Intermediate, Verified 08/12/23 13:22) Rash shellfish derived Allergy (Intermediate, Verified 08/12/23 13:22) RASH zolpidem [ZOLPIDEM] Allergy (Intermediate, Verified 08/12/23 13:22) HEART PALPITATIONS morphine Adverse Reaction (Intermediate, Verified 08/12/23 13:22) Vomiting Medication List - Last Reconciled 08/12/23 by Rae Landis MD acetaminophen 500 mg PO Q6H PRN ascorbic acid (vitamin C) (Vitamin C) 500 mg PO DAILY atorvastatin 10 mg PO DAILY blood pressure test kit-large ([facility] Blood Pressure Monitor kit) As directed calcium carbonate 600 mg PO BID cane As directed dicyclomine 40 mg (2 x 20 mg) PO TID docusate sodium (Colace) 100 mg PO .DAILY WITH FOOD 30 days famotidine 40 mg PO BEDTIME humidifiers As directed ibuprofen 600 mg PO TID PRN lactulose 20 grams (30 mL) PO TID levothyroxine 150 mcg PO DAILY 90 days lorazepam 0.5 mg PO BID PRN metoclopramide HCl (Reglan) 5 mg PO QIDACHS midodrine 5 mg PO TID 30 days qmvbfnctnren-rdyh-xweue acid 18-400 mg-mcg (Certavite-Antioxidant) 1 tab PO DAILY 30 days nystatin 1 appl topical BID ondansetron 4 mg PO Q8H PRN pantoprazole 40 mg PO DAILY@0630 paroxetine HCl 40 mg PO DAILY prochlorperazine maleate (Compazine) 10 mg PO BID PRN quetiapine 200 mg PO BEDTIME [raised toilet seat As directed] [toilet seat As directed] [toilet seat elevator As directed] trazodone 150 mg PO BEDTIME vitamin E 268 mg PO DAILY Tobacco use date assessed: 08/12/23 Fall risk assessment: No Falls in past year Last assessed Fall Risk: 08/12/23 Dental Screening Dental Screen Date: 08/12/23 Did you have a dental visit in the last 12 months?: Yes Did you have a dental problem in the last 6 months where you did not have access to dental care?: No Was dental information given to patient?: Patient has dentist HPI HPI Comments History of Present Illness Details This is a 63-year-old female with mild recurrent major depression, hypothyroidism, dyslipidemia and idiopathic hypotension that comes today for follow-up on her conditions. Depression stable with medications and is follow by Psychiatry. Last TSH was normal and this will be repeated. Lipid panel will also be repeated. Blood pressure stable with midodrine. Denies any chest pain or shortness breath. Compliant with medications. [facility] Medical History (Updated 08/12/23 @ 13:57 by Rae Landis MD) PUD (peptic ulcer disease) Complex renal cyst Dyspepsia Physical exam Obesity (BMI 35.0-39.9 without comorbidity) Renal cyst Urinary tract infection Lower back pain Cough Constipation Morbid obesity Lumbar pain Right knee pain Left knee pain Pre-op exam Low back pain Screening examination for infectious disease Abdominal pain Onychomycosis Dyslipidemia Mild recurrent major depression Skin lesion Tubular adenoma of colon Idiopathic chronic hypotension Unsteady gait Hypothyroidism Takes daily multivitamins GERD (gastroesophageal reflux disease) Surgical History H/O elbow surgery History of varicose vein ligation H/O knee surgery H/O hand surgery History of foot surgery History of section History of hysterectomy History of removal of cyst History of cholecystectomy Family History Father Diabetes Mother Thyroid disease Chronic mental illness Hypertension Hypercholesterolemia Maternal Aunt Breast cancer Brother In good health Daughter In good health Daughter In good health Sister No problems noted. Social History Household Members: None Housing: Apartment Alcohol intake: never Patient Tobacco Use Status: Never used Tobacco e-Cigarette/Vaping Use: Never Used Second Hand Smoke Exposure: No service: No Current occupational status: disabled Sexual orientation: Straight/Heterosexual Gender identity: Female Cognitive needs: No Hearing needs: No Vision needs: Yes Female Reproductive History Menstrual Age of Menarche: 9 Questionnaire PHQ-9 Over the last 2 weeks, how often have you been bothered by any of the following problems? 1. Little interest or pleasure in doing things: not at all 2. Feeling down, depressed, or hopeless: several days 3. Trouble falling or staying asleep, or sleeping too much: several days 4. Feeling tired or having little energy: several days 5. Poor appetite or overeating: not at all 6. Feeling bad about yourself - or that you are a failure or have let yourself or your family down: not at all 7. Trouble concentrating on things, such as reading the newspaper or watching television: not at all 8. Moving or speaking so slowly that other people could have noticed. Or the opposite - being so fidgety or restless that you have been moving around a lot more than usual: not at all 9. Thoughts that you would be better off or of hurting yourself in some way: not at all Total score: 3 Depression Screening Interpretation: Negative Depression Screening Done: Yes 70327 - PHQ-9 Billing: Yes Source: Developed by Drs. Fady Bustos, Minerva Laws, Maruqis Matute and colleagues, with an educational victoriano from [employer]. Thrive Questionnaire Date Thrive assessed: 08/12/23 I am a: Patient What is your living situation today?: I have a steady place to live Within the past 12 months, did the food you bought not last and you didn't have the money to get more?: Never true Within the past 12 months, did you worry whether your food would run out before you got money to buy more?: Never true Do you have trouble paying for medicines?: No Do you have trouble getting transportation to medical appointments?: No Do you have trouble paying your heating and electricity bill?: No Do you have trouble taking care of your child, family member or friend?: No Do you have trouble with day-to-day activities such as bathing, preparing meals, shopping, managing finances, etc.?: No Are you currently unemployed and looking for a job?: No Are you interested in more education?: No Please select the resources that you would like help with: None Currently or been in a relationship where the following occur: no concerns reported THRIVE Score: 0 AUDIT C Alcohol Use Questionnaire (AUDIT-C) 1. How often do you have a drink containing alcohol?: Never Total Score: 0 NANCY-7 AMB Questionnaire NANCY-7 Date NANCY - 7 assessed: 08/12/23 Feeling nervous, anxious, or on edge: 3 = Nearly every day Not being able to stop or control worryin = Not at all Worrying too much about different things: 1 = Several days Trouble relaxin = Not at all Being so restless that it is hard to sit still: 0 = Not at all Becoming easily annoyed or irritable: 1 = Several days Feeling afraid as if something awful might happen: 0 = Not at all Total NANCY-7 score (0-4 normal; 5-9 mild; 10-14 moderate; 15-21 severe): 5 Source: Developed by Drs. Fady Bustos, Minerva Laws, Marquis Matute and colleagues, with an educational victoriano from [employer]. NANCY-7 Assessment Billing NANCY-7 Assessment Tool: NANCY-7 Assessment 76559 Review of Systems Const All systems reviewed & are unremarkable except as noted in HPI and below and Unobtainable due to mental condition Eyes Reports no additional complaints, Denies change in vision and Denies other visual disturbances Card Denies chest pain at rest, Denies chest pain with activity, Denies edema, Denies irregular heart rhythm, Denies claudication, Denies dyspnea, Denies dyspnea on exertion, Denies orthopnea, Denies paroxysmal nocturnal dyspnea and Denies slow heart rate Resp Denies cough, Denies dyspnea and Denies dyspnea on exertion GI Denies abdominal pain, Denies change in bowel habits, Denies excessive flatus, Denies nausea and Denies vomiting Denies urinary incontinence, Denies urinary hesitancy and Denies urinary urgency Physical exam (Primary Care) Vital Signs: Last Vital Signs BP 126/86 08/12/23 13:06 BMI result Body Mass Index 39.6 Tobacco/Smoking Status: Tobacco use Status Tobacco use date assessed 08/12/23 08/12/23 13:13 Patient Tobacco Use Status Never used Tobacco 08/12/23 13:07 e-Cigarette/Vaping Use Never Used 08/12/23 13:07 PHQ-9: PHQ-9 Score PHQ-9: Total score 3 08/12/23 13:13 Depression Screening Interpretation: Negative Thrive Assessment: Date of Thrive Assessment Date Thrive assessed 08/12/23 08/12/23 13:13 Currently or been in a relationship where the following occur: no concerns reported Resp Effort & Inspection: normal respiratory effort Auscultation: clear to auscultation bilaterally Cardio Jugular venous distension: no JVD Rate: regular rate Rhythm: regular rhythm Heart sounds: S1 normal heart sound present and S2 normal heart sound present Extrem General: Yes full ROM Psych Appearance: grossly normal Assessment and Plan Assessment & Plan (1) Mild recurrent major depression: Code(s): F33.0 - Major depressive disorder, recurrent, mild Plan: Continue paroxetine. Follow-up with psychiatry. (2) Hypothyroidism: Code(s): E03.9 - Hypothyroidism, unspecified Qualifiers: Hypothyroidism type: acquired Qualified Code(s): E03.9 - Hypothyroidism, unspecified Plan: Continue levothyroxine. Monitor TSH. (3) Dyslipidemia: Code(s): E78.5 - Hyperlipidemia, unspecified Plan: Continue statins. Repeat lipid panel. (4) Idiopathic hypotension: Code(s): I95.0 - Idiopathic hypotension Plan: Continue midodrine. Keep blood pressure over 90/60. Orders: Orders Lipid Panel 4 Months E78.5 - Hyperlipidemia, unspecified Thyroid Stimulating Hormone 4 Months E03.9 - Hypothyroidism, unspecified Comprehensive [place]. Panel Fast 4 Months K59.04 - Chronic idiopathic constipation Coding Level of Care Code Est Pt Level 4 (81227) Diagnoses Mild recurrent major depression F33.0 Acquired hypothyroidism E03.9 Hypothyroidism type: acquired Dyslipidemia E78.5 Idiopathic hypotension I95.0 Additional Codes NANCY-7 Assessment Billing - NANCY-7 Assessment Tool: NANCY-7 Assessment 79326 ([id number]) Time Spent (min) 22
== END 2023-08-12 13:32 | disposition home or self-care (01) ==
PROVIDERS: PCP Nurse Practitioner Family; Visit Provider Internal Medicine
DX: E03.9 Hypothyroidism, unspecified (principal); F33.0 Major depressive disorder, recurrent, mild; E78.5 Hyperlipidemia, unspecified; I95.0 Idiopathic hypotension
CPT/HCPCS: 99214

== ENCOUNTER 2023-09-10 10:00 | Outpatient (REF) | payer OTHER, SELFPAY ==
--- NOTE | ~2023-09-10 | MR_ITS ---
EXAMINATION: MR ABDOMEN WITHOUT AND WITH CONTRAST CLINICAL INFORMATION: Renal cyst. COMPARISON: CT abdomen/pelvis 07/16/2023 TECHNIQUE: MRI of the abdomen was obtained using limited sequences. Patient refused intravenous contrast. Patient prematurely terminated the exam. FINDINGS: LUNG BASES: No pleural or pericardial effusion. LIVER AND BILIARY TREE: Loss of signal on opposed phase imaging compatible with hepatic steatosis. No suspicious liver lesion. No intra or extrahepatic biliary duct dilatation. GALLBLADDER: Not visualized. PANCREAS: No ductal dilatation SPLEEN: Not enlarged. 9 mm T2 hyperintense focus superior aspect of the spleen. ADRENAL GLANDS: No adrenal mass. KIDNEYS AND URETERS: T2 hyperintense T1 hypointense lesion at the lower pole of the left kidney measures 7.9 x 7.7 cm. T2 hyperintense T1 hypointense lesion at the upper pole of the left kidney measures 7.0 x 6.8 cm. No thick septations or mural nodules. No hydronephrosis. Cortical scarring at the upper pole of the right kidney. T2 hyperintense T1 hypointense lesion at the lateral midpole of the right kidney measures 1.2 x 1.5 cm. T2 hyperintense T1 hypointense lesion at the anterior midpole of the right kidney measures 1.2 x 1.3 cm. No thick septations or mural nodules. No hydronephrosis. LYMPH NODES: No bulky lymphadenopathy. VASCULAR: Normal caliber abdominal aorta. MR/MR kidney wo con IMPRESSION: Limited study. Patient unable to complete the exam and refused intravenous contrast. Bilateral renal lesions demonstrating T2 hyperintensity and T1 hypointensity without suspicious features. These lesions are benign appearing likely representing Bosniak I/II cysts.
== END 2023-09-10 10:01 | disposition home or self-care (01) ==
LOC: HO.MRI 10:00
PROVIDERS: PCP Internal Medicine; Visit Provider Nurse Practitioner Family
DX: N28.1 Cyst of kidney, acquired (principal)
CPT/HCPCS: 74181

== ENCOUNTER 2023-09-10 11:40 | Emergency (ER) | payer OTHER, SELFPAY ==
--- NOTE | ~2023-09-10 | XR_ITS ---
EXAMINATION: XR RIGHT FOOT XR RIGHT ANKLE XR RIGHT TIBIA/FIBULA CLINICAL INFORMATION: Atraumatic right lower extremity pain. COMPARISON: 08/14/2021 TECHNIQUE: AP, lateral and oblique views of the right foot were obtained. AP and oblique views of the right ankle were obtained. AP and lateral views of the right tibia and fibula were obtained. FINDINGS: Decreased bone mineralization. Mild joint space narrowing of the first MTP joint. Postamputation changes involving the PIP joint of the fifth digit. Diffuse interphalangeal joint space narrowing. Large plantar and posterior calcaneal spurs. Ankle mortise is maintained. Talar dome is intact. Degenerative changes of the tibiotalar joint. Patellar tendon and quadriceps tendon enthesophytes. No acute displaced fracture. XR/XR ankle RT min 3V IMPRESSION: No acute bony abnormality.
--- NOTE | ~2023-09-10 | XR_ITS ---
EXAMINATION: XR RIGHT FOOT XR RIGHT ANKLE XR RIGHT TIBIA/FIBULA CLINICAL INFORMATION: Atraumatic right lower extremity pain. COMPARISON: 08/14/2021 TECHNIQUE: AP, lateral and oblique views of the right foot were obtained. AP and oblique views of the right ankle were obtained. AP and lateral views of the right tibia and fibula were obtained. FINDINGS: Decreased bone mineralization. Mild joint space narrowing of the first MTP joint. Postamputation changes involving the PIP joint of the fifth digit. Diffuse interphalangeal joint space narrowing. Large plantar and posterior calcaneal spurs. Ankle mortise is maintained. Talar dome is intact. Degenerative changes of the tibiotalar joint. Patellar tendon and quadriceps tendon enthesophytes. No acute displaced fracture. XR/XR foot RT min 3V IMPRESSION: No acute bony abnormality.
--- NOTE | ~2023-09-10 | XR_ITS ---
EXAMINATION: XR RIGHT FOOT XR RIGHT ANKLE XR RIGHT TIBIA/FIBULA CLINICAL INFORMATION: Atraumatic right lower extremity pain. COMPARISON: 08/14/2021 TECHNIQUE: AP, lateral and oblique views of the right foot were obtained. AP and oblique views of the right ankle were obtained. AP and lateral views of the right tibia and fibula were obtained. FINDINGS: Decreased bone mineralization. Mild joint space narrowing of the first MTP joint. Postamputation changes involving the PIP joint of the fifth digit. Diffuse interphalangeal joint space narrowing. Large plantar and posterior calcaneal spurs. Ankle mortise is maintained. Talar dome is intact. Degenerative changes of the tibiotalar joint. Patellar tendon and quadriceps tendon enthesophytes. No acute displaced fracture. XR/XR tibia fibula RT 2V IMPRESSION: No acute bony abnormality.
--- NOTE | ~2023-09-10 | XR_ITS ---
EXAMINATION: XR CHEST CLINICAL INFORMATION: Chest pain. COMPARISON: Chest radiograph 06/02/2023. TECHNIQUE: 2 views of the chest were obtained. FINDINGS: No focal airspace opacities, pleural effusion or pneumothorax. Normal appearance of the cardiac mediastinal silhouette. Thoracic spondylosis. No acute osseous findings. Visualized upper abdomen is within normal limits. XR/XR chest 2V IMPRESSION: No acute cardiopulmonary findings.
[2023-09-10 12:35] VITALS: BP 130/66; PULSE 70; RESP 16; TEMP 36.6; O2SAT 100; BMI 40.3
--- NOTE | 2023-09-10 12:43 | ED.LOWEXIN ---
HPI - Extremity Injury (Lower) General Chief Complaint: Extremity Injury, Lower Stated Complaint: Foot Pain Time Seen by Provider: 09/10/23 15:41 Source: patient and casework supervisor (all interactions with this patient were facilitated by an [facility] biomass plant manager) Mode of arrival: ambulatory Limitations: language barrier (all interactions with this patient were facilitated by an [facility] biomass plant manager) History of Present Illness HPI Narrative: Patient is a 63 year old assigned female]at with a history of GERD presenting to the emergency department today with right foot pain and chest pain. Patient states that she has been having right foot pain that goes up her calf and into her toes. Patient states that she is also having chest pain that is worse with inspiration and movement. Patient denies any dizziness, lightheadedness, abdominal pain, nausea, vomiting, fever, chills, blurry vision, double vision, loss of vision, difficulty breathing, shortness of breath, back pain, night sweats, pain with urination, increased urinary frequency, increased urinary urgency, blood in her urine or stool, syncope or a near syncopal episode, recent trauma or falls, bowel incontinence, bladder incontinence, bowel retention, bladder retention, or any other complaints at this time. Relieving factors: nothing Exacerbating factors: weight bearing Other symptoms: chest pain Treatments prior to arrival: other (tylenol) Related Data Home Medications ?Medication ?Instructions ?Recorded ?Confirmed lorazepam 0.5 mg tablet 0.5 mg PO BID PRN Anxiety 02/23/20 08/12/23 paroxetine HCl 40 mg tablet 40 mg PO DAILY 02/23/20 08/12/23 quetiapine 200 mg tablet 200 mg PO BEDTIME 02/23/20 08/12/23 trazodone 150 mg tablet 150 mg PO BEDTIME 02/23/20 08/12/23 ascorbic acid (vitamin C) 500 mg 500 mg PO DAILY 02/09/23 08/12/23 tablet (Vitamin C) vitamin E 268 mg (400 unit) capsule 268 mg PO DAILY 02/09/23 08/12/23 nystatin 100,000 unit/gram topical 1 appl topical BID 03/04/23 08/12/23 cream Previous Rx's ?Medication ?Instructions ?Recorded blood pressure test kit-large #1 ea 06/06/20 (Advocate Blood Pressure Monitor kit) cane #1 ea 06/09/21 toilet seat #1 ea 01/16/21 toilet seat elevator #1 ea 08/19/22 raised toilet seat #1 ea 08/21/22 acetaminophen 500 mg tablet 500 mg PO Q6H PRN pain #14 tabs 01/27/23 ibuprofen 600 mg tablet 600 mg PO TID PRN pain #14 tabs 01/27/23 ondansetron 4 mg disintegrating 4 mg PO Q8H PRN nausea and 02/09/23 tablet vomiting #20 tabs multivitamin-ferrous 1 tab PO DAILY 30 days #30 tabs 03/07/23 fumarate-folic acid 18 mg-400 mcg tablet (Certavite-Antioxidant) atorvastatin 10 mg tablet 10 mg PO DAILY #90 tabs 05/20/23 humidifiers #1 ea 06/07/23 prochlorperazine maleate 10 mg 10 mg PO BID PRN nausea and 07/16/23 tablet (Compazine) vomiting #10 tabs docusate sodium 100 mg capsule 100 mg PO .DAILY WITH FOOD 30 days 07/23/23 (Colace) #60 caps lactulose 10 gram/15 mL (15 mL) 20 g (30 mL) PO TID #600 mL 07/23/23 oral solution metoclopramide HCl 5 mg tablet 5 mg PO QIDACHS #120 tabs 07/23/23 (Reglan) dicyclomine 20 mg tablet 40 mg (2 x 20 mg) PO TID #270 tabs 08/04/23 midodrine 5 mg tablet 5 mg PO TID 30 days #90 tabs 08/10/23 calcium carbonate 600 mg PO BID #180 tabs 08/17/23 levothyroxine 150 mcg tablet 150 mcg PO DAILY 90 days #90 tabs 09/07/23 famotidine 40 mg tablet 40 mg PO BEDTIME #30 tabs 09/08/23 pantoprazole 40 mg tablet,delayed 40 mg PO QAM #30 tabs 09/08/23 release prednisone 20 mg tablet 20 mg PO DAILY 7 days #7 tabs 09/10/23 Allergies Allergy/AdvReac Type Severity Reaction Status Date / Time egg Allergy Intermediate Rash Verified 09/10/23 12:39 seafood Allergy Intermediate Rash Verified 09/10/23 12:39 shellfish derived Allergy Intermediate RASH Verified 09/10/23 12:39 zolpidem [ZOLPIDEM] Allergy Intermediate HEART Verified 09/10/23 12:39 PALPITATIONS morphine AdvReac Intermediate Vomiting Verified 09/10/23 12:39 Review of Systems Constitutional: Constitutional: Reports no additional constitutional complaints, Denies chills, Denies fever(s) and Denies night sweats Eyes: Eyes: Reports no additional eye complaints, Denies blurry vision, Denies change in vision, Denies diplopia, Denies eye discharge, Denies loss of vision and Denies eye pain ENT: Denies dizziness Cardiovascular: Cardiovascular: Reports no additional cardiovascular complaints, Reports chest pain, Denies lightheadedness, Denies Loss of Consciousness and Denies dyspnea Respiratory: Respiratory: Reports no additional respiratory complaints and Denies dyspnea Gastrointestinal: Gastrointestinal: Reports no additional gastrointestinal complaints, Denies abdominal pain, Denies melena, Denies hematochezia, Denies change in bowel habits and Denies change in stool character Genitourinary: Genitourinary: Denies hematuria, Denies urinary frequency, Denies dysuria, Denies urinary incontinence, Denies urinary hesitancy and Denies urinary urgency Musculoskeletal: Musculoskeletal: Reports no additional musculoskeletal complaints, Denies numbness and Denies tingling Comments: right foot pain Neurologic: Denies dizziness, Denies loss of vision, Denies numbness and Denies tingling Psychiatric: Psychiatric: Reports no additional psychiatric complaints Endocrine: Endocrine: Reports no additional endocrine complaints Hematologic/Lymphatic: Hematologic/Lymphatic: Reports no additional hematologic/lymphatic complaints Allergic/Immunologic: Allergic/Immunologic: Reports no additional allergic/immunologic complaints [facility] Past Medical History Attestation statement: The following information was validated with the patient. Source: old records reviewed and nursing notes reviewed Medical History PUD (peptic ulcer disease) Complex renal cyst Dyspepsia Physical exam Obesity (BMI 35.0-39.9 without comorbidity) Renal cyst Urinary tract infection Lower back pain Cough Constipation Morbid obesity Lumbar pain Right knee pain Left knee pain Pre-op exam Low back pain Screening examination for infectious disease Abdominal pain Onychomycosis Dyslipidemia Mild recurrent major depression Skin lesion Tubular adenoma of colon Idiopathic chronic hypotension Unsteady gait Hypothyroidism Takes daily multivitamins GERD (gastroesophageal reflux disease) Surgical History H/O elbow surgery History of varicose vein ligation H/O knee surgery H/O hand surgery History of foot surgery History of section History of hysterectomy History of removal of cyst History of cholecystectomy Family History Family History Father Diabetes Mother Thyroid disease Chronic mental illness Hypertension Hypercholesterolemia Maternal Aunt Breast cancer Brother In good health Daughter In good health Daughter In good health Sister No problems noted. Social History Social History Household Members: None Housing: Apartment Alcohol intake: never Patient Tobacco Use Status: Never used Tobacco Smoked in Last 30 Days: No e-Cigarette/Vaping Use: Never Used Second Hand Smoke Exposure: No Use of substances other than those prescribed or required for medical reasons: No Advance Directives: No Advance Directives Information Provided: No service: No Current occupational status: disabled Sexual orientation: Straight/Heterosexual Gender identity: Female Cognitive needs: No Hearing needs: No Vision needs: Yes Physical Exam Vital Signs: Vital Signs: Last Vital Signs Temp 0 F L 09/10/23 19:02 Pulse 61 09/10/23 19:02 Resp 14 09/10/23 19:02 BP 148/55 H 09/10/23 19:02 Pulse Ox 100 09/10/23 12:35 O2 Del Method Room Air 09/10/23 12:35 BMI result Body Mass Index 40.3 Const: General: cooperative, no acute distress, alert and awake Nutritional Appearance: well nourished Orientation/consciousness: patient oriented x3 Limitations: no limitations HEENT: Head: Yes normal to inspection and Yes atraumatic Ears: hearing grossly normal bilaterally and external ears normal General nose exam: Normal external nose present, no nasal discharge noted and no epistaxis Face and sinus: Yes normal facial exam, No abrasion and No laceration Mouth: Normal oral and palatal mucosa present, no drooling and no muffled voice Eyes: General: appearance normal, both eyes and all related structures Periorbital: periorbital findings normal Eyelids: Yes eyelids normal Conjunctivae: conjunctivae normal Pupils: Equal, round and reactive pupils present EOM: EOMs intact bilaterally Neck: Neck: Yes normal visual inspection, Yes full ROM and Yes no lymphadenopathy Chest: Chest palpation & inspection: normal inspection of the chest Resp: Effort & Inspection: normal respiratory effort and able to speak in complete sentences GI: Inspection: Yes normal to inspection Neuro: General: patient oriented x3 and moves all extremities Cranial nerves: Yes Equal, round and reactive pupils present Cognition (Neuro): normal cognition Motor exam (neuro): 5/5 motor strength present throughout Sensory Exam: Normal double simultaneous stimulation for sensation Coordination: [id number] test normal Extrem: General: Yes normal to inspection, Yes full ROM and Yes capillary refill normal Psych: Appearance: grossly normal Mental Status: mental status grossly normal Affect: normal affect Attitude: cooperative Thought process: Normal thought process present Thought content: Normal thought content present Insight: Good insight present (Psych) Course Course Course Narrative: This is a Rapid Medical Examination (RME) performed by Ronald Mcnulty PA-C in triage. Full HPI, ROS, assessment and treatment plan per primary provider in the Main ED. 63 yo female here w/ right foot pain x4 days. endorses pain to plantar aspect of right foot, right great toe with radiation into right calf. denies injury/ trauma. recent travel from [place] 1 month ago. taking tylenol at home without relief. no clear exacerbating factors. now noticing swelling to toes. does not wear heels. denies fever, chills. no recent tick or insect bites. right calf tenderness. Plan: labs, coags, xrs ordered. Medications Administered Discontinued Medications Generic Name Dose Route Start Last Admin Trade Name Freq PRN Reason Stop Dose Admin Cyclobenzaprine HCl 5 mg 09/10/23 16:51 09/10/23 17:01 Cyclobenzaprine Hcl 5 Mg Tablet PO 09/10/23 16:52 5 mg ONCE ONE Administration Ketorolac Tromethamine 15 mg 09/10/23 16:51 09/10/23 17:01 Ketorolac Tromethamine 15 Mg/Ml Vial IM 09/10/23 16:52 15 mg ONCE ONE Administration Medical Decision Making Medical Decision Making [facility] Narrative: Patient is a 63 year old assigned female at with a history of GERD presenting to the emergency department today with right foot pain and chest pain. Patient's physical exam was unremarkable. Patient's blood work was unremarkable. Patient's EKG was unremarkable. Patient's chest, right tibia/fibula, right foot, and right ankle x-rays all showed no acute process. I explained my physical exam findings as well as all test results to the patient. I answered all questions asked by the patient. Patient received IM toradol and PO Prednisone which she stated helped her symptoms significantly. I stressed the importance of the patient taking her medication as prescribed. I stressed the importance of the patient following up with her primary care provider. I stressed the importance of the patient returning to the emergency department immediately if her symptoms were to worsen or if she were to develop any dizziness, shortness of breath, difficulty breathing, chest pain, blurry vision, loss of vision, nausea, vomiting, abdominal pain, fever, chills, back pain, or any other complaints. Patient verbalized agreement and understanding with this treatment plan and discharge. Differential Diagnosis Differential Diagnoses: The differential diagnosis associated with the presentation includes Chest pain STEMI NSTEMI Plantar fasciitis Foot pain Admission/Observation Consideration of admission/observation: Escalation of care including admission/observation considered Patient would have been admitted to the hospital had her work up had any findings where hospital admission was appropriate and her clinical presentation warranted hospital admission. Lab Data [facility] Lab Attestation statement: I reviewed the patient's lab results. My interpretation of these results are in the [facility] Rationale portion of this note. 09/10/23 13:24 09/10/23 13:24 Labs: Lab Results 09/10/23 Range/Units 13:24 WBC 6.2 (4.8-10.8) X10*3/uL RBC 5.26 (4.20-5.50) X10*6/uL Hgb 14.1 (12.0-16.0) g/dl Hct 46.2 (37.0-47.0) % MCV 87.8 (80.0-98.0) fL MCH 26.8 L (27.0-33.0) pg MCHC 30.5 L (31.0-35.0) g/dl RDW 13.0 (11.0-16.0) % Plt Count 179 (160-400) X10*3/uL MPV 12.7 H (9.4-12.3) fL Immature Gran % (Auto) 0.2 (0.0-0.4) % Neut % (Auto) 59.7 (45-73) % Lymph % (Auto) 28.8 (20-40) % [place] % (Auto) 8.3 (2-11) % Eos % (Auto) 2.3 (0-4) % Baso % (Auto) 0.7 (0-2) % Lymph # (Auto) 1.8 (1.2-4.9) X10*3/uL [place] # (Auto) 0.5 (0.1-1.2) X10*3/uL Eos # (Auto) 0.1 (0.0-0.4) X10*3/uL Baso # (Auto) 0.0 (0.0-0.2) X10*3/uL Abs Immat Gran (auto) 0.01 (0.00-0.03) X10*3/uL Absolute Neuts (auto) 3.7 (2.0-8.3) x10*3/uL Absolute Nucleated RBC 0.000 (0.0-0.012) X10*3/uL Nucleated RBC % (auto) 0.0 (0.0-0.2) /100WBC PT 11.9 (11.1-13.3) SEC INR 1.0 (0.9-1.1) Sodium 143 (135-145) mmol/L Potassium 3.8 (3.3-5.1) mmol/L Chloride 106 (96-108) mmol/L Carbon Dioxide 25 (22-29) mmol/L Anion Gap 16 (12-20) BUN 17 H (9-16) mg/dL Creatinine 0.65 (0.5-1.4) mg/dL Estim Creat Clear Calc 115.4 Estimated GFR > 60 Random Glucose 80 (60-115) mg/dL Calcium 10.2 (8.4-10.2) mg/dL Magnesium 2.1 (1.6-2.6) mg/dL Total Bilirubin 0.7 (0.0-1.0) mg/dL AST 26 (5-31) U/L ALT 26 (0-31) U/L Alkaline Phosphatase 101 (39-117) U/L Troponin I High Sens < 2.7 (<3.5-17.0) ng/L Total Protein 7.8 (6.5-8.0) g/dL Albumin 4.1 (3.5-5.0) g/dL Independent Interpretation I performed an independent interpretation of an: EKG and Plain X-Ray Interpretation: My interpretation is in agreement with the radiologist's impression of these imaging studies. EXAMINATION: XR CHEST CLINICAL INFORMATION: Chest pain. COMPARISON: Chest radiograph 06/02/2023. TECHNIQUE: 2 views of the chest were obtained. FINDINGS: No focal airspace opacities, pleural effusion or pneumothorax. Normal appearance of the cardiac mediastinal silhouette. Thoracic spondylosis. No acute osseous findings. Visualized upper abdomen is within normal limits. XR/XR chest 2V IMPRESSION: No acute cardiopulmonary findings. Dictated By: Mai Balderrama Signed By: Electronically signed by Mai Balderrama 09/10/23 1716 EXAMINATION: XR RIGHT FOOT XR RIGHT ANKLE XR RIGHT TIBIA/FIBULA CLINICAL INFORMATION: Atraumatic right lower extremity pain. COMPARISON: 08/14/2021 TECHNIQUE: AP, lateral and oblique views of the right foot were obtained. AP and oblique views of the right ankle were obtained. AP and lateral views of the right tibia and fibula were obtained. FINDINGS: Decreased bone mineralization. Mild joint space narrowing of the first MTP joint. Postamputation changes involving the PIP joint of the fifth digit. Diffuse interphalangeal joint space narrowing. Large plantar and posterior calcaneal spurs. Ankle mortise is maintained. Talar dome is intact. Degenerative changes of the tibiotalar joint. Patellar tendon and quadriceps tendon enthesophytes. No acute displaced fracture. XR/XR tibia fibula RT 2V IMPRESSION: No acute bony abnormality. Dictated By: Vick Hernandez MD Signed By: Electronically signed by Vick Hernandez MD 09/10/23 1414 Vent. Rate: 066 BPM Atrial Rate: 066 BPM P-R Int: 148 ms QRS Dur: 074 ms QT Int: 406 ms P-R-T Axes: 075 005 -15 degrees QTc Int: 425 ms Sinus rhythm with Premature atrial complexes Nonspecific T wave abnormality Abnormal ECG When compared with ECG of 15-JUL-2023 17:59, Premature atrial complexes are now Present DD/ 1625 Radiology Impression Discussion of test interpretation with radiology: I have reviewed the radiologist's reading. Discharge Plan Discharge Clinical Impression: Plantar fasciitis, Chest pain Patient Disposition: Home, Self-Care Instructions: Chest Pain (DC), Plantar Fasciitis (ED), Plantar Fasciitis Exercises (ED) Additional Instructions: Your test results today were reassuring. Your chest x-ray, blood work, and EKG were all normal. Follow up with your primary care provider and an orthopedic provider. Return to the emergency department immediately if your symptoms worsen or if you develop any dizziness, shortness of breath, difficulty breathing, chest pain, blurry vision, loss of vision, nausea, vomiting, abdominal pain, fever, chills, back pain, or any other complaints. Prescriptions: New prednisone 20 mg tablet 20 mg PO DAILY 7 Days Qty: 7 0RF No Action (DME) blood pressure test kit-large [Advocate Blood Pressure Monitr] Kit See Rx Instructions .ROUTE .MEDSUPPLY Qty: 1 0RF Rx Instructions: As directed (DME) cane Device See Rx Instructions .ROUTE .MEDSUPPLY Qty: 1 0RF Rx Instructions: As directed (DME) toilet seat See Rx Instructions .Route .MEDSUPPLY Qty: 1 0RF Rx Instructions: As directed (DME) toilet seat elevator See Rx Instructions .Route .MEDSUPPLY Qty: 1 0RF Rx Instructions: As directed (DME) raised toilet seat See Rx Instructions .Route .MEDSUPPLY Qty: 1 0RF Rx Instructions: As directed Certavite-Antioxidant 18-400 mg-mcg tablet 1 tab PO DAILY 30 Days Qty: 30 11RF atorvastatin 10 mg tablet 10 mg PO DAILY Qty: 90 3RF (DME) humidifiers Misc See Rx Instructions .Route Qty: 1 0RF Rx Instructions: As directed dicyclomine 20 mg tablet 40 mg PO TID Qty: 270 2RF midodrine 5 mg tablet 5 mg PO TID 30 Days Qty: 90 4RF Rx Instructions: do not give last dose of day after 6PM or within 4 hrs of bedtime calcium carbonate 600 mg calcium (1,500 mg) tablet 600 mg PO BID Qty: 180 3RF levothyroxine 150 mcg tablet 150 mcg PO DAILY 90 Days Qty: 90 1RF famotidine 40 mg tablet 40 mg PO BEDTIME Qty: 30 6RF pantoprazole 40 mg tablet,delayed release (DR/EC) 40 mg PO QAM Qty: 30 6RF ibuprofen 600 mg tablet 600 mg PO TID PRN (Reason: pain) Qty: 14 0RF acetaminophen 500 mg tablet 500 mg PO Q6H PRN (Reason: pain) Qty: 14 0RF ondansetron 4 mg tablet,disintegrating 4 mg PO Q8H PRN (Reason: nausea and vomiting) Qty: 20 0RF ascorbic acid (vitamin C) [Vitamin C] 500 mg Tablet 500 mg PO DAILY vitamin E 268 mg (400 unit) Capsule 268 mg PO DAILY prochlorperazine maleate [Compazine] 10 mg tablet 10 mg PO BID PRN (Reason: nausea and vomiting) Qty: 10 0RF paroxetine HCl 40 mg tablet 40 mg PO DAILY trazodone 150 mg tablet 150 mg PO BEDTIME lorazepam 0.5 mg tablet 0.5 mg PO BID PRN (Reason: Anxiety) quetiapine 200 mg tablet 200 mg PO BEDTIME nystatin 100,000 unit/gram cream 1 appl topical BID docusate sodium [Colace] 100 mg capsule 100 mg PO .DAILY WITH FOOD 30 Days Qty: 60 6RF metoclopramide HCl [Reglan] 5 mg tablet 5 mg PO QIDACHS Qty: 120 6RF Rx Instructions: Provider aware of potential interaction with prozac and is monitornig lactulose 10 gram/15 mL (15 mL) solution 20 g PO TID Qty: 600 6RF Referrals: [facility] [Provider Group] (Call to establish and follow up with an orthopedic provider.) Rae Nunez MD [Primary Care Provider] - Stand Alone Forms: Work/School Release Interventions: ED Discharge Assessment Last Done: 09/10/23 19:02 Discharge Date/Time: 09/10/23 19:03 Print Language: Slovak
[2023-09-10 13:27] LABS: MANUAL DIFF FLAG NO
[2023-09-10 13:30] LABS: Basophils Percent Auto 0.7 % (0-2); Eosinophils Absolute Auto 0.1 X10*3/uL (0.0-0.4); Eosinophils Percent Auto 2.3 % (0-4); Hematocrit 46.2 % (37.0-47.0); Hemoglobin 14.1 g/dl (12.0-16.0); Imm Gran Abs Auto 0.01 X10*3/uL (0.00-0.03); Imm Gran Pct Auto 0.2 % (0.0-0.4); Lymphocytes Absolute Auto 1.8 X10*3/uL (1.2-4.9); Lymphocytes Percent Auto 28.8 % (20-40); Mean Corpuscular HGB Conc 30.5 g/dl (31.0-35.0); Mean Corpuscular Hemoglobin 26.8 pg (27.0-33.0); Mean Corpuscular Volume 87.8 fL (80.0-98.0); Mean Platelet Volume 12.7 fL (9.4-12.3); Monocytes Absolute Auto 0.5 X10*3/uL (0.1-1.2); Monocytes Percent Auto 8.3 % (2-11); Neutrophils Absolute Auto 3.7 x10*3/uL (2.0-8.3); Neutrophils Percent Auto 59.7 % (45-73); Platelet Count 179 X10*3/uL (160-400); Red Blood Count 5.26 X10*6/uL (4.20-5.50); White Blood Count 6.2 X10*3/uL (4.8-10.8)
[2023-09-10 13:38] LABS: Prothrombin Time 11.9 SEC (11.1-13.3)
[2023-09-10 13:59] LABS: Alanine Aminotransferase 26 U/L (0-31); Albumin Level 4.1 g/dL (3.5-5.0); Alkaline Phosphatase 101 U/L (39-117); Anion Gap 16 (12-20); Aspartate Amino Transferase 26 U/L (5-31); Bilirubin Total 0.7 mg/dL (0.0-1.0); Blood Urea Nitrogen 17 mg/dL (9-16); Calcium 10.2 mg/dL (8.4-10.2); Carbon Dioxide 25 mmol/L (22-29); Chloride 106 mmol/L (96-108); Creatinine Clr Calc Pharmacy 115.4; Estimated Glomerular Filt Rate > 60; Glucose Random 80 mg/dL (60-115); Magnesium 2.1 mg/dL (1.6-2.6); Potassium 3.8 mmol/L (3.3-5.1); Sodium 143 mmol/L (135-145); Total Protein 7.8 g/dL (6.5-8.0)
--- NOTE | 2023-09-10 16:13 | ECG_ITS ---
Test Reason : CP Blood Pressure : / mmHG Vent. Rate : 066 BPM Atrial Rate : 066 BPM P-R Int : 148 ms QRS Dur : 074 ms QT Int : 406 ms P-R-T Axes : 075 005 -15 degrees QTc Int : 425 ms Sinus rhythm with Premature atrial complexes Nonspecific T wave abnormality Abnormal ECG When compared with ECG of 15-JUL-2023 17:59, Premature atrial complexes are now Present Referred By: Roxann Frey Electronically Signed By:Josh Lindsay
[2023-09-10 16:51] VITALS: BP 148/55; PULSE 61; RESP 14
[2023-09-10] MEDS: Ketorolac Tromethamine 15 MG/ML VIAL IM (17:01)
[2023-09-10] MEDS: Cyclobenzaprine HCl 5 MG TABLET PO (17:01)
[2023-09-10 18:14] LABS: Troponin-I High Sensitivity < 2.7 ng/L (<3.5-17.0)
[2023-09-10 19:02] VITALS: BP 148/55; PULSE 61; RESP 14; TEMP -17.7; TEMP 0
== END 2023-09-10 19:03 | disposition home or self-care (01) ==
PROVIDERS: Physician Assistant Medical; Emergency Provider Emergency Medicine; PCP Internal Medicine
DX: M72.2 Plantar fascial fibromatosis (principal); R07.89 Other chest pain; M79.604 Pain in right leg; M79.672 Pain in left foot; M79.671 Pain in right foot; Z79.899 Other long term (current) drug therapy
CPT/HCPCS: 36415; 71046; 73590; 73610; 73630; 80053; 83735; 84484; 85025; 85610; 93005; 96372; 99284; J1885

== ENCOUNTER → 2023-09-10 16:13 | Outpatient (BNV) | payer OTHER, SELFPAY | PROVIDERS: Emergency Provider Emergency Medicine; PCP Internal Medicine; Visit Provider Internal Medicine Cardiovascular Disease | DX: I49.1 Atrial premature depolarization (principal) | CPT/HCPCS: 93010 ==

== ENCOUNTER 2023-09-12 11:11 | Outpatient (AMB) | payer OTHER, SELFPAY ==
--- NOTE | 2023-09-12 11:23 | MHC.OFFVIS ---
Intake Visit Reasons: 6m/MRI(pending 09/09) Intake Note: Patient presents for follow up nephrolithiasis/MRI Imagin09/10/23 Urology Medications: none Blood Thinner: none Shoe Repairer Apprentice Required: Yes Shoe Repairer Apprentice Name: ELLIOT LEIJALETTY Accompanied by: Self / Same As Patient Allergies egg Allergy (Intermediate, Verified 09/12/23 11:46) Rash seafood Allergy (Intermediate, Verified 09/12/23 11:46) Rash shellfish derived Allergy (Intermediate, Verified 09/12/23 11:46) RASH zolpidem [ZOLPIDEM] Allergy (Intermediate, Verified 09/12/23 11:46) HEART PALPITATIONS morphine Adverse Reaction (Intermediate, Verified 09/12/23 11:46) Vomiting Medication List - Last Reconciled 09/12/23 by BECKY Tapia-CHRISTOPHER acetaminophen 500 mg PO Q6H PRN ascorbic acid (vitamin C) (Vitamin C) 500 mg PO DAILY atorvastatin 10 mg PO DAILY blood pressure test kit-large ([facility]ocate Blood Pressure Monitor kit) As directed calcium carbonate 600 mg PO BID cane As directed dicyclomine 40 mg (2 x 20 mg) PO TID docusate sodium (Colace) 100 mg PO .DAILY WITH FOOD 30 days famotidine 40 mg PO BEDTIME humidifiers As directed ibuprofen 600 mg PO TID PRN lactulose 20 grams (30 mL) PO TID levothyroxine 150 mcg PO DAILY 90 days lorazepam 0.5 mg PO BID PRN metoclopramide HCl (Reglan) 5 mg PO QIDACHS midodrine 5 mg PO TID 30 days oucmzrjkwyrs-biqh-lnvnd acid 18-400 mg-mcg (Certavite-Antioxidant) 1 tab PO DAILY 30 days nystatin 1 appl topical BID ondansetron 4 mg PO Q8H PRN pantoprazole 40 mg PO QAM paroxetine HCl 40 mg PO DAILY prednisone 20 mg PO DAILY 7 days prochlorperazine maleate (Compazine) 10 mg PO BID PRN quetiapine 200 mg PO BEDTIME [raised toilet seat As directed] [toilet seat As directed] [toilet seat elevator As directed] trazodone 150 mg PO BEDTIME vitamin E 268 mg PO DAILY HPI Comments Details: Genna is a 62-year-old Ednbbnp-rummjnrz-kruhap patient of Dr. Paige. She has a past medical history of dyslipidemia, GERD, hypothyroidism, low back pain, depression, obesity, peptic ulcer disease, and renal cysts. She presents to the office today for follow-up of her renal cyst. Recent kidney MRI results reviewed with the patient today. It appears although ordered with and without contrast this was unable to be performed as patient started experiencing claustrophobia therefore scan was only completed without contrast. Limited study. Patient unable to complete the exam and refused IV contrast. Bilateral renal lesions demonstrating T2 hyperintensity and T1 hypointensity without suspicious features. These lesions are benign-appearing likely representing Bosniak I/II cysts. Previous renal ultrasound noted right kidney with no calculi or hydronephrosis. At the upper pole, a 1.5 x 1.4 x 1.5 cm mildly complex cyst is seen, with fine septations. This shows no mural nodularity or associated color Doppler flow. On the ultrasound examination 01/02/2022, this measured 1.2 x 1.3 x 1.2 cm. Left kidney with no calculi or hydronephrosis. At the upper pole, a 7.5 cm in maximal diameter benign, simple cyst is seen. At the interpolar aspect, an 8.4 cm benign, simple cyst is seen. These require no imaging follow-up. Continued imaging follow-up is recommended per radiology report. She otherwise denies any bothersome urinary issues or concerns. She denies urinary urgency, urinary frequency, incontinence, nocturia, hematuria, foul smelling urine, changes to urinary stream, flank pain, fever, and or chills. She is happy with her current voiding parameters. In office urinalysis results reviewed with the patient today. She otherwise offers no issues or concerns at this time. [facility] Medical History (Updated 09/12/23 @ 11:50 by [facility] Renal cyst PUD (peptic ulcer disease) Complex renal cyst Dyspepsia Physical exam Obesity (BMI 35.0-39.9 without comorbidity) Urinary tract infection Lower back pain Cough Constipation Morbid obesity Lumbar pain Right knee pain Left knee pain Pre-op exam Low back pain Screening examination for infectious disease Abdominal pain Onychomycosis Dyslipidemia Mild recurrent major depression Skin lesion Tubular adenoma of colon Idiopathic chronic hypotension Unsteady gait Hypothyroidism Takes daily multivitamins GERD (gastroesophageal reflux disease) Surgical History H/O elbow surgery History of varicose vein ligation H/O knee surgery H/O hand surgery History of foot surgery History of section History of hysterectomy History of removal of cyst History of cholecystectomy Family History Father Diabetes Mother Thyroid disease Chronic mental illness Hypertension Hypercholesterolemia Maternal Aunt Breast cancer Brother In good health Daughter In good health Daughter In good health Sister No problems noted. Social History Household Members: None Housing: Apartment Alcohol intake: never Patient Tobacco Use Status: Never used Tobacco e-Cigarette/Vaping Use: Never Used Second Hand Smoke Exposure: No service: No Current occupational status: disabled Sexual orientation: Straight/Heterosexual Gender identity: Female Cognitive needs: No Hearing needs: No Vision needs: Yes Female Reproductive History Menstrual Age of Menarche: 9 Review of Systems Const Reports as per HPI Eyes Reports no additional complaints ENT Reports no additional complaints Card Reports as per HPI Resp Reports no additional complaints GI Reports as per HPI Reports as per HPI Musc Reports as per HPI Neuro Reports no additional complaints Psych Reports as per HPI Endo Reports no additional complaints Sebas/Lymph Reports no additional complaints Aller/Immun Reports no additional complaints Physical Exam Const General: cooperative, healthy appearing, comfortable, no acute distress, well developed, alert and awake Nutritional Appearance: overweight Orientation/consciousness: patient oriented x3 Limitations: no limitations HEENT Head: Yes normal to inspection, Yes normocephalic and Yes atraumatic Ears: hearing grossly normal bilaterally Eyes General: appearance normal, both eyes and all related structures Neck Neck: Yes normal visual inspection and Yes trachea midline Chest Chest palpation & inspection: normal inspection of the chest Resp Effort & Inspection: normal respiratory effort and able to speak in complete sentences Cardio Rate: regular rate GI Inspection: Yes normal to inspection General: Yes no CVA tenderness Back/Spine/Pelvis Back: no CVA tenderness Skin General skin exam: no rashes or lesions noted Neuro General: patient oriented x3 Extrem General: Yes normal to inspection Psych Appearance: grossly normal and well kempt Mental Status: mental status grossly normal Speech and movement: Normal speech and movement present and Clear speech present Affect: normal affect Attitude: cooperative Thought process: Normal thought process present Thought content: Normal thought content present Insight: Fair insight present (Psych) Judgement: Fair judgement present (Psych) Results AMB Urinalysis, Automated UA Leukoctes 125 Talha/uL Last Edit by Yolanda Mayfield on 09/12/23 11:33 UA Nitrite Negative Last Edit by Yolanda Mayfield on 09/12/23 11:33 UA Urobilinogen 0.2 mg/dL Last Edit by Yolanda Mayfield on 09/12/23 11:33 UA Protein 0 mg/dL Last Edit by [employer]Ce[employer] Holdingsmaggie Mayfield on 09/12/23 11:33 UA pH 6.0 Last Edit by [employer] Holdingsmaggie Mayfield on 09/12/23 11:33 UA Blood 25 Raghavendra/uL Last Edit by [employer]e [employer]-Drivesolomon on 09/12/23 11:33 UA Specific Franklin 1.025 Last Edit by [employer] Holdingsmaggie Mayfield on 09/12/23 11:33 UA Ketone Negative Last Edit by [employer]maggie Mayfield on 09/12/23 11:33 UA Bilirubin 0 mg/dL Last Edit by [employer]maggie Mayfield on 09/12/23 11:33 UA Glucose 0 mg/dL Last Edit by [employer]maggie [employer]olomon on 09/12/23 11:33 Results Reviewed Results Reviewed: Laboratory Last Values Urine pH (Auto) 6.0 09/12/23 11:25 Specific Franklin (Auto) 1.025 09/12/23 11:25 Urine Protein (Auto) 0 mg/dL 09/12/23 11:25 Glucose (UA)(Auto) 0 mg/dL 09/12/23 11:25 Urine Ketones (Auto) Negative 09/12/23 11:25 Urine Blood (Auto) 25 Raghavendra/uL 09/12/23 11:25 Urine Nitrite (Auto) Negative 09/12/23 11:25 Urine Bilirubin (Auto) 0 mg/dL 09/12/23 11:25 Urine Urobilinogen (Auto) 0.2 mg/dL 09/12/23 11:25 Leukocyte Esterase (Auto) 125 Talha/uL 09/12/23 11:25 Date of Service: 09/10/23 EXAMINATION: MR ABDOMEN WITHOUT AND WITH CONTRAST FINDINGS: LUNG BASES: No pleural or pericardial effusion. LIVER AND BILIARY TREE: Loss of signal on opposed phase imaging compatible with hepatic steatosis. No suspicious liver lesion. No intra or extrahepatic biliary duct dilatation. GALLBLADDER: Not visualized. PANCREAS: No ductal dilatation SPLEEN: Not enlarged. 9 mm T2 hyperintense focus superior aspect of the spleen. ADRENAL GLANDS: No adrenal mass. KIDNEYS AND URETERS: T2 hyperintense T1 hypointense lesion at the lower pole of the left kidney measures 7.9 x 7.7 cm. T2 hyperintense T1 hypointense lesion at the upper pole of the left kidney measures 7.0 x 6.8 cm. No thick septations or mural nodules. No hydronephrosis. Cortical scarring at the upper pole of the right kidney. T2 hyperintense T1 hypointense lesion at the lateral midpole of the right kidney measures 1.2 x 1.5 cm. T2 hyperintense T1 hypointense lesion at the anterior midpole of the right kidney measures 1.2 x 1.3 cm. No thick septations or mural nodules. No hydronephrosis. LYMPH NODES: No bulky lymphadenopathy. VASCULAR: Normal caliber abdominal aorta. IMPRESSION: Limited study. Patient unable to complete the exam and refused intravenous contrast. Bilateral renal lesions demonstrating T2 hyperintensity and T1 hypointensity without suspicious features. These lesions are benign appearing likely representing Bosniak I/II cysts. Assessment & Plan Assessment & Plan (1) Renal cyst: Code(s): N28.1 - Cyst of kidney, acquired Category: Medical Plan In office urinalysis results reviewed with the patient today; as noted above. Recent MRI results reviewed with the patient today; as noted above. Will continue with surveillance monitoring of renal cysts. Discussed at length potential causes of renal cysts. Patient otherwise denies any bothersome urinary issues or concerns. She reports be happy with current voiding parameters. Will obtain renal ultrasound in 1 year Follow-up in 1 year with imaging to be completed prior; or sooner with any issues, concerns, and or questions. Orders: Orders AMB Urinalysis Automated 09/12/23 Z13.9 - Encounter for screening, unspecified US renal BI 1 Year N28.1 - Cyst of kidney, acquired Patient Instructions: The patient had an opportunity to ask questions regarding the treatment plan. All questions were answered. Physical exam, labs, and imaging were discussed and reviewed in detail. As well as risks, benefits, and discussion of treatment choices. No major barriers to understanding were identified. The patient expressed understanding and agreement with the above treatment plan. The patient was made aware they should contact our office by phone for worsening of their current condition, the appearance of new symptoms, or with any questions or concerns. Compliance is encouraged with any medications and follow up testing that is ordered. It is a privilege to be allowed the opportunity to participate in? your urological care.? Again, if you have any questions or concerns If you have any questions or concerns please do not hesitate to contact me. The office is [phone]. This note is constructed using voice recognition software. While every effort has been made to ensure accuracy manager radiation errors may have been included. Yours sincerely, SY Tapia Coding Level of Care Code Est Pt Level 3 (06426) Diagnoses Renal cyst N28.1
== END 2023-09-12 11:42 | disposition home or self-care (01) ==
PROVIDERS: PCP Internal Medicine; Visit Provider Nurse Practitioner Family
DX: N28.1 Cyst of kidney, acquired (principal)
CPT/HCPCS: 99213

== ENCOUNTER → 2023-09-12 11:11 | Outpatient (BNVA) | payer OTHER, SELFPAY | PROVIDERS: PCP Internal Medicine; Visit Provider Nurse Practitioner Family | DX: N28.1 Cyst of kidney, acquired (principal) | CPT/HCPCS: 81003; 99212 ==

== ENCOUNTER 2023-09-24 12:22 | Outpatient (AMB) | payer OTHER, SELFPAY ==
--- NOTE | 2023-09-24 12:55 | A.OFFVIS_ITS ---
Vital Signs 09/24/23 12:59 Height 5 ft 7 in Weight 254 lb 13.67 oz BMI 39.9 BP 127/81 Blood Pressure Location Lt brachial Position Sitting Pulse 79 Intake Visit Reasons: 2 month follow up Intake Note: Genna returns to in office 2 month follow up of CIC and GERD. CC: Patient c/o constipation and reports that she recently saw blood and a clear mucous on her stool. Denies other GI symptoms today. Allergies egg Allergy (Intermediate, Verified 09/24/23 12:59) Rash seafood Allergy (Intermediate, Verified 09/24/23 12:59) Rash shellfish derived Allergy (Intermediate, Verified 09/24/23 12:59) RASH zolpidem [ZOLPIDEM] Allergy (Intermediate, Verified 09/24/23 12:59) HEART PALPITATIONS morphine Adverse Reaction (Intermediate, Verified 09/24/23 12:59) Vomiting HPI HPI 2 month follow up: Details: Assessment & Plan (1) Chronic idiopathic constipation: Code(s): K59.04 - Chronic idiopathic constipation (2) GERD (gastroesophageal reflux disease): Code(s): K21.9 - Gastro-esophageal reflux disease without esophagitis Qualifiers: Esophagitis presence: esophagitis presence not specified Qualified Code(s): K21.9 - Gastro-esophageal reflux disease without esophagitis (3) Tubulovillous adenoma: Comment: 2021=2TA's repeat 3-5 years, 2020=TVA repeat 1 year Code(s): D36.9 - Benign neoplasm, unspecified site (4) Nausea and vomiting: Code(s): R11.2 - Nausea with vomiting, unspecified Qualifiers: Vomiting type: unspecified Qualified Code(s): R11.2 - Nausea with vomiting, unspecified (5) Small bowel motility disorder: Code(s): K59.9 - Functional intestinal disorder, unspecified Plan Kiswahili #Carmen Live She has increased the frequency of the lactulose and this has improved her burning abd pain. She is taking it 2-3 times a day. Continuing on the metoclopramide 4 times a day. She also has pantoprazole and famotidine and dicyclomine for symptom control. She then tells me she was hospitalized for N/V, but has not been taking her reglan - this is likely the reason!! I emphasize she needs to take thie qid EVERY DAY to keep her small bowel moving and this will avert her N/V. Because she still has some hard BM's I will add bid colace. ROV 8 weeks Medications: New docusate sodium (Colace) 100 mg PO .DAILY WITH FOOD 30 days 60 caps 6RF Refilled metoclopramide HCl (Reglan) Provider aware of potential interaction with prozac and is monitornig 5 mg PO QIDACHS 120 tabs 6RF K59.9 - Functional intestinal disorder, unspecified lactulose 20 grams (30 mL) PO TID 600 mL 6RF dicyclomine 40 mg (2 x 20 mg) PO TID 270 tabs 2RF pantoprazole 40 mg PO DAILY@0630 30 tabs 6RF TODAY'S VISIT Kiswahili #[id number] She says she is doing well in general, but has occasional CIC with some mucus. I explain that the mucus is harmless. She continues to do well on lactulose, reglan 5mg qid, bentyl and pantoprazole and famotidine. She is also on colace She asks re: next scope and she is due between [id number]. ROV 6 mos. PFSH Medical History Renal cyst PUD (peptic ulcer disease) Complex renal cyst Dyspepsia Physical exam Obesity (BMI 35.0-39.9 without comorbidity) Urinary tract infection Lower back pain Cough Constipation Morbid obesity Lumbar pain Right knee pain Left knee pain Pre-op exam Low back pain Screening examination for infectious disease Abdominal pain Onychomycosis Dyslipidemia Mild recurrent major depression Skin lesion Tubular adenoma of colon Idiopathic chronic hypotension Unsteady gait Hypothyroidism Takes daily multivitamins GERD (gastroesophageal reflux disease) Surgical History H/O elbow surgery History of varicose vein ligation H/O knee surgery H/O hand surgery History of foot surgery History of section History of hysterectomy History of removal of cyst History of cholecystectomy Family History Father Diabetes Mother Thyroid disease Chronic mental illness Hypertension Hypercholesterolemia Maternal Aunt Breast cancer Brother In good health Daughter In good health Daughter In good health Sister No problems noted. Social History Household Members: None Housing: Apartment Alcohol intake: never Patient Tobacco Use Status: Never used Tobacco e-Cigarette/Vaping Use: Never Used Second Hand Smoke Exposure: No service: No Current occupational status: disabled Sexual orientation: Straight/Heterosexual Gender identity: Female Cognitive needs: No Hearing needs: No Vision needs: Yes Female Reproductive History Menstrual Age of Menarche: 9 Review of Systems Const Denies fatigue, Denies fever(s), Denies night sweats, Denies poor appetite and Denies weight loss Eyes Details: glasses Reports requires corrective lenses ENT Reports Normal hearing present, Denies dental pain, Denies dysphagia, Denies hearing loss, Denies mouth pain, Denies odynophagia, Denies throat swelling, Denies tongue swelling and Reports other (Dentition adequate) Card Reports no additional complaints Resp Reports no additional complaints GI Details: Denies abdominal pain, Denies melena, Denies bloating, Denies hematochezia, Reports constipation, Denies GI cramping, Denies dysphagia, Denies excessive flatus, Denies early satiety, Reports heartburn, Denies diarrhea, Reports nausea, Denies odynophagia, Reports vomiting and Denies hematemesis Skin/Breast Denies pruritus, Denies lesions, Denies rash and Denies jaundice Neuro Reports Normal hearing present and Denies Abnormal speech present Endo Denies fatigue Aller/Immun Denies throat swelling and Denies tongue swelling Physical Exam Vital Signs: Last Vital Signs Pulse 79 09/24/23 12:59 BP 127/81 09/24/23 12:59 BMI result Body Mass Index 39.9 Const General: cooperative, no acute distress, well developed and well groomed Nutritional Appearance: well nourished and obese morbidly obese Orientation/consciousness: oriented to person, oriented to place and oriented to time Limitations: language barrier HEENT Head: Yes normocephalic and Yes atraumatic Eyes General: appearance normal, both eyes and all related structures Pupils: Equal, round and reactive pupils present Neck Neck: Yes normal visual inspection and Yes no lymphadenopathy Thyroid: Thyroid normal Resp Effort & Inspection: normal respiratory effort and able to speak in complete sentences Auscultation: clear to auscultation bilaterally Cardio Rate: regular rate Rhythm: regular rhythm Heart sounds: Normal, physiologic split S2 sound present Peripheral pulses: radial pulses present and posterior tibial pulses present GI Inspection: No distended, Yes Abdominal panniculus present and Yes obesity Palpation (GI): Soft to palpation, nontender, no guarding, not rigid and No hepatosplenomegaly present Percussion: Yes normal to percussion Auscultation: normal bowel sounds Rectal Exam - Female: deferred Skin General skin exam: no rashes or lesions noted, turgor normal, skin not dry, no jaundice, No spider nevi and no striae Rashes: no rashes Nails: normal Neuro General: oriented to person, oriented to place and oriented to time Cranial nerves: Yes Equal, round and reactive pupils present and Yes Normal hearing present Speech: No Abnormal speech present Extrem General: Yes normal to inspection, No clubbing, No cyanosis and No edema Psych Appearance: grossly normal and well kempt Mental Status: mental status grossly normal Speech and movement: Normal speech and movement present Affect: normal affect Attitude: cooperative Thought process: Normal thought process present and not confabulating Thought content: Normal thought content present Insight: Limited insight present (Psych) Judgement: Limited judgement present (Psych) Assessment & Plan Assessment & Plan (1) Nausea and vomiting: Code(s): R11.2 - Nausea with vomiting, unspecified Category: Medical Qualifiers: Vomiting type: unspecified Qualified Code(s): R11.2 - Nausea with vomiting, unspecified (2) Chronic idiopathic constipation: Code(s): K59.04 - Chronic idiopathic constipation Category: Medical (3) GERD (gastroesophageal reflux disease): Code(s): K21.9 - Gastro-esophageal reflux disease without esophagitis Category: Medical Qualifiers: Esophagitis presence: esophagitis presence not specified Qualified Code(s): K21.9 - Gastro-esophageal reflux disease without esophagitis Plan Kiswahili #[id number] She says she is doing well in general, but has occasional CIC with some mucus. I explain that the mucus is harmless. She continues to do well on lactulose, reglan 5mg qid, bentyl and pantoprazole and famotidine. She is also on colace She asks re: next scope and she is due between [id number]. ROV 6 mos. Coding Level of Care Code Est Pt Level 3 (85222) Diagnoses Nausea and vomiting R11.2 Vomiting type: unspecified Chronic idiopathic constipation K59.04 Gastroesophageal reflux disease, unspecified whether esophagitis present K21.9 Esophagitis presence: esophagitis presence not specified
[2023-09-24 12:59] VITALS: BP 127/81; PULSE 79; BMI 39.9
== END 2023-09-24 13:21 | disposition home or self-care (01) ==
PROVIDERS: PCP Internal Medicine; Visit Provider Nurse Practitioner
DX: R11.2 Nausea with vomiting, unspecified (principal); K59.04 Chronic idiopathic constipation; K21.9 Gastro-esophageal reflux disease without esophagitis
CPT/HCPCS: 99213

== ENCOUNTER → 2023-09-24 12:22 | Outpatient (BNVA) | payer OTHER, SELFPAY | PROVIDERS: PCP Internal Medicine; Visit Provider Nurse Practitioner | DX: K21.9 Gastro-esophageal reflux disease without esophagitis (principal); K59.04 Chronic idiopathic constipation; R11.2 Nausea with vomiting, unspecified | CPT/HCPCS: 99212 ==

== ENCOUNTER 2023-10-09 10:55 | Outpatient (AMB) | payer OTHER, SELFPAY ==
--- NOTE | 2023-10-09 11:33 | MHC.OFFVIS ---
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 She reports right knee pain and right foot pain. The foot pain started in early September and she had a fall in her home on September 30, 2023 in her bathroom and reports that her knee has been hurting since then. [employer] Consultant Required: Yes Allergies egg Allergy (Intermediate, Verified 10/09/23 11:34) Rash seafood Allergy (Intermediate, Verified 10/09/23 11:34) Rash shellfish derived Allergy (Intermediate, Verified 10/09/23 11:34) RASH zolpidem [ZOLPIDEM] Allergy (Intermediate, Verified 10/09/23 11:34) HEART PALPITATIONS morphine Adverse Reaction (Intermediate, Verified 10/09/23 11:34) Vomiting Medication List - Last Reconciled 10/09/23 by Bibiana Chavez RN acetaminophen 500 mg PO Q6H PRN ascorbic acid (vitamin C) (Vitamin C) 500 mg PO DAILY atorvastatin 10 mg PO DAILY blood pressure test kit-large ([facility] Blood Pressure Monitor kit) As directed calcium carbonate 600 mg PO BID cane As directed dicyclomine 40 mg (2 x 20 mg) PO TID docusate sodium (Colace) 100 mg PO .DAILY WITH FOOD 30 days famotidine 40 mg PO BEDTIME humidifiers As directed ibuprofen 600 mg PO TID PRN lactulose 20 grams (30 mL) PO TID levothyroxine 150 mcg PO DAILY 90 days lorazepam 0.5 mg PO BID PRN metoclopramide HCl (Reglan) 5 mg PO QIDACHS midodrine 5 mg PO TID 30 days ooaaldkqyuhh-bwfe-mbjsy acid 18-400 mg-mcg (Certavite-Antioxidant) 1 tab PO DAILY 30 days nystatin 1 appl topical BID ondansetron 4 mg PO Q8H PRN pantoprazole 40 mg PO QAM paroxetine HCl 40 mg PO DAILY prednisone 20 mg PO DAILY 7 days prochlorperazine maleate (Compazine) 10 mg PO BID PRN quetiapine 200 mg PO BEDTIME [raised toilet seat As directed] [toilet seat As directed] [toilet seat elevator As directed] trazodone 150 mg PO BEDTIME vitamin E 268 mg PO DAILY HPI Comments Details: Presented to ER 09/10/23, woke up with pain on toes and legs, right side. No fracture on xray. Given oral prednisone which helped with the pain. She reports falling 1 week ago, slipped on bathroom floor that was wet. Says right knee felt swollen, which is improved now. Pain is on right knee. Worse with walking. Denies anymore pain on right foot. But one of her foot is bending down, chronic. Denies numbness. Denies weakness. [facility] Medical History (Updated 10/09/23 @ 13:11 by Magy Arce MD) Right knee DJD Renal cyst PUD (peptic ulcer disease) Complex renal cyst Dyspepsia Physical exam Obesity (BMI 35.0-39.9 without comorbidity) Urinary tract infection Lower back pain Cough Constipation Morbid obesity Lumbar pain Right knee pain Left knee pain Pre-op exam Low back pain Screening examination for infectious disease Abdominal pain Onychomycosis Dyslipidemia Mild recurrent major depression Skin lesion Tubular adenoma of colon Idiopathic chronic hypotension Unsteady gait Hypothyroidism Takes daily multivitamins GERD (gastroesophageal reflux disease) Surgical History H/O elbow surgery History of varicose vein ligation H/O knee surgery H/O hand surgery History of foot surgery History of section History of hysterectomy History of removal of cyst History of cholecystectomy Family History Father Diabetes Mother Thyroid disease Chronic mental illness Hypertension Hypercholesterolemia Maternal Aunt Breast cancer Brother In good health Daughter In good health Daughter In good health Sister No problems noted. Social History Household Members: None Housing: Apartment Alcohol intake: never Patient Tobacco Use Status: Never used Tobacco e-Cigarette/Vaping Use: Never Used Second Hand Smoke Exposure: No service: No Current occupational status: disabled Sexual orientation: Straight/Heterosexual Gender identity: Female Cognitive needs: No Hearing needs: No Vision needs: Yes Female Reproductive History Menstrual Age of Menarche: 9 Review of Systems Const All systems reviewed & are unremarkable except as noted in HPI and below Physical Exam Constitutional: Patient appears to be in no acute distress, well nourished and well developed. MSK: Bilateral hip, knee and ankle ROM WNL. No ligamentous laxity or crepitant. No increased effusion. Positive medial joint line tenderness, right knee. No tenderness over patella. Patellar grind test is negative. Anterior drawer test is negative. Castro test is negative. Posterior drawer test is negative. Valgus and varus stress tests are positive pain right medial knee. Anaya test is negative. No tenderness over right medial or lateral malleoli, Achillis tendon or plantar fascia. Strength is 5/5 in all muscle groups tested. No increased tone noted. Neurological: Neurologic examination of the upper and lower extremities was nonfocal with intact sensation, muscle stretch reflexes and without focal motor deficits . Jacobs?s negative bilaterally. Babinski was down going bilaterally. Clonus was negative. Gait is non-antalgic without loss of balance. Results Reviewed Results Reviewed: Independently reviewed tibia/fibula x-ray which showed slight narrowing of joint space on right knee. EXAMINATION: XR RIGHT FOOT XR RIGHT ANKLE XR RIGHT TIBIA/FIBULA CLINICAL INFORMATION: Atraumatic right lower extremity pain. COMPARISON: 08/14/2021 TECHNIQUE: AP, lateral and oblique views of the right foot were obtained. AP and oblique views of the right ankle were obtained. AP and lateral views of the right tibia and fibula were obtained. FINDINGS: Decreased bone mineralization. Mild joint space narrowing of the first MTP joint. Postamputation changes involving the PIP joint of the fifth digit. Diffuse interphalangeal joint space narrowing. Large plantar and posterior calcaneal spurs. Ankle mortise is maintained. Talar dome is intact. Degenerative changes of the tibiotalar joint. Patellar tendon and quadriceps tendon enthesophytes. No acute displaced fracture. XR/XR tibia fibula RT 2V IMPRESSION: No acute bony abnormality. Dictated By: Vick Hernandez MD Signed By: Electronically signed by Vick Hernandez MD 09/10/23 [id number] I reviewed records from the following: ER Assessment & Plan Assessment & Plan (1) Right knee DJD: Code(s): M17.11 - Unilateral primary osteoarthritis, right knee Category: Medical Qualifiers: Osteoarthritis type: primary Qualified Code(s): M17.11 - Unilateral primary osteoarthritis, right knee (2) Fall: Code(s): W19.XXXA - Unspecified fall, initial encounter Category: Medical Qualifiers: Encounter type: initial encounter Qualified Code(s): W19.XXXA - Unspecified fall, initial encounter Plan Patient complaining more of right knee pain, which I suspect is from arthritis. No signs of acute injury despite recent fall. Patient denies anymore right foot pain. Ordering a dedicated right knee x-ray to evaluate further for DJD. Discussed with patient option for steroid injection. We will schedule after I have reviewed x-ray results. Assessment and plan discussed with patient, and patient was agreeable. All questions were answered thoroughly. Magy Arce MD, DOC Board Certified, [place] [employer] and Rehabilitation (ABPMR) Board Certified, [place] Board of Electrodiagnostic Medicine (ABEM) Orders: Orders XR knee RT 3V Today M17.11 - Unilateral primary osteoarthritis, right knee, W19.XXXA - Unspecified fall, initial encounter Coding Level of Care Code New Pt Level 4 (83382) Diagnoses Primary osteoarthritis of right knee M17.11 Osteoarthritis type: primary Fall, initial encounter W19.XXXA Encounter type: initial encounter
== END 2023-10-09 13:32 | disposition home or self-care (01) ==
PROVIDERS: PCP Internal Medicine; Visit Provider Physical Medicine & Rehabilitation
DX: M17.11 Unilateral primary osteoarthritis, right knee (principal); W19.XXXA Unspecified fall, initial encounter
CPT/HCPCS: 99203

== ENCOUNTER 2023-10-09 10:55 | Outpatient (REF) | payer OTHER, SELFPAY ==
--- NOTE | ~2023-10-09 | XR_ITS ---
EXAMINATION: XR KNEE, RIGHT CLINICAL INFORMATION: Primary osteoarthritis right knee COMPARISON: September 10, 2023, September 05, 2022 TECHNIQUE: Three views of the right knee. FINDINGS: Mild narrowing of the medial compartment. Small tricompartmental osteophytes. Evaluation for joint effusion is difficult due to overlying soft tissue structures. XR/XR knee RT 3V IMPRESSION: Mild degenerative changes.
== END 2023-10-09 10:56 | disposition home or self-care (01) ==
LOC: HO.HOSX 10:55
PROVIDERS: PCP Internal Medicine; Visit Provider Physical Medicine & Rehabilitation
DX: M17.11 Unilateral primary osteoarthritis, right knee (principal); M72.2 Plantar fascial fibromatosis; Z91.81 History of falling
CPT/HCPCS: 73562; 99202

== ENCOUNTER 2023-10-29 08:58 | Outpatient (AMB) | payer OTHER, SELFPAY ==
--- NOTE | 2023-10-29 08:59 | A.OFFVIS_ITS ---
Vital Signs 10/29/23 09:04 Height 5 ft 7 in Weight 254 lb BMI 39.8 Intake Visit Reasons: OV, follow up of R knee x ray Intake Note: Genna is a 63 year old female who presents today for a follow up of her right knee pain. Patient reports having pain when she is walking long distances. Currently she is not having a lot of pain in her right knee. She would like to know the results of the x rays. 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 Allergies egg Allergy (Intermediate, Verified 10/29/23 09:03) Rash seafood Allergy (Intermediate, Verified 10/29/23 09:03) Rash shellfish derived Allergy (Intermediate, Verified 10/29/23 09:03) RASH zolpidem [ZOLPIDEM] Allergy (Intermediate, Verified 10/29/23 09:03) HEART PALPITATIONS morphine Adverse Reaction (Intermediate, Verified 10/29/23 09:03) Vomiting Medication List - Last Reconciled 10/29/23 by Magy Arce MD acetaminophen 500 mg PO Q6H PRN ascorbic acid (vitamin C) (Vitamin C) 500 mg PO DAILY atorvastatin 10 mg PO DAILY blood pressure test kit-large ([facility] Blood Pressure Monitor kit) As directed calcium carbonate 600 mg PO BID cane As directed dicyclomine 40 mg (2 x 20 mg) PO TID docusate sodium (Colace) 100 mg PO .DAILY WITH FOOD 30 days famotidine 40 mg PO BEDTIME humidifiers As directed ibuprofen 600 mg PO TID PRN lactulose 30 mL PO TID levothyroxine 150 mcg PO DAILY 90 days lorazepam 0.5 mg PO BID PRN metoclopramide HCl (Reglan) 5 mg PO QIDACHS midodrine 5 mg PO TID 30 days mwsdmtludefn-sgbp-qrbff acid 18-400 mg-mcg (Certavite-Antioxidant) 1 tab PO DAILY 30 days nystatin 1 appl topical BID ondansetron 4 mg PO Q8H PRN pantoprazole 40 mg PO QAM paroxetine HCl 40 mg PO DAILY prednisone 20 mg PO DAILY 7 days prochlorperazine maleate (Compazine) 10 mg PO BID PRN quetiapine 200 mg PO BEDTIME [raised toilet seat As directed] [toilet seat As directed] [toilet seat elevator As directed] trazodone 150 mg PO BEDTIME vitamin E 268 mg PO DAILY HPI Comments Details: Presented to ER 09/10/23, woke up with pain on toes and legs, right side. No fracture on xray. Given oral prednisone which helped with the pain. She reports falling 1 week ago, slipped on bathroom floor that was wet. Says right knee felt swollen, which is improved now. Pain is on right knee. Worse with walking. Denies anymore pain on right foot. But one of her foot is bending down, chronic. Denies numbness. Denies weakness. X-ray showed mild DJD. Patient says pain is during walking or any activity. No pain right now as she is only sitting. Noted effusion/swelling on right knee. [facility] Medical History (Updated 10/09/23 @ 13:11 by Magy Arce MD) Right knee DJD Renal cyst PUD (peptic ulcer disease) Complex renal cyst Dyspepsia Physical exam Obesity (BMI 35.0-39.9 without comorbidity) Urinary tract infection Lower back pain Cough Constipation Morbid obesity Lumbar pain Right knee pain Left knee pain Pre-op exam Low back pain Screening examination for infectious disease Abdominal pain Onychomycosis Dyslipidemia Mild recurrent major depression Skin lesion Tubular adenoma of colon Idiopathic chronic hypotension Unsteady gait Hypothyroidism Takes daily multivitamins GERD (gastroesophageal reflux disease) Surgical History H/O elbow surgery History of varicose vein ligation H/O knee surgery H/O hand surgery History of foot surgery History of section History of hysterectomy History of removal of cyst History of cholecystectomy Family History Father Diabetes Mother Thyroid disease Chronic mental illness Hypertension Hypercholesterolemia Maternal Aunt Breast cancer Brother In good health Daughter In good health Daughter In good health Sister No problems noted. Social History Household Members: None Housing: Apartment Alcohol intake: never Patient Tobacco Use Status: Never used Tobacco e-Cigarette/Vaping Use: Never Used Second Hand Smoke Exposure: No service: No Current occupational status: disabled Sexual orientation: Straight/Heterosexual Gender identity: Female Cognitive needs: No Hearing needs: No Vision needs: Yes Female Reproductive History Menstrual Age of Menarche: 9 Physical Exam Vital Signs: BMI result Body Mass Index 39.8 Constitutional: Patient appears to be in no acute distress, well nourished and well developed. MSK: Bilateral hip, knee and ankle ROM WNL. No ligamentous laxity or crepitant. Noted right knee increased effusion. Positive medial joint line tenderness, right knee. No tenderness over patella. Patellar grind test is negative. Strength is 5/5 in all muscle groups tested. No increased tone noted. Neurological: Neurologic examination of the upper and lower extremities was nonfocal with intact sensation, muscle stretch reflexes and without focal motor deficits . Babinski was down going bilaterally. Clonus was negative. Gait is non-antalgic without loss of balance. Office Procedures Joint Injection/Drain Joint Injection/Drain Details: Consent obtained. Patient sits with [right] knee flexed. Medial edge of patella is identified and marked. Area is cleansed with betadine solution. A 27 gauge needle is injected at an angle laterally and slightly upwards under the patella. Solution containing [40 mg] Kenalog and [3m] of 2% Lidocaine is instilled. Patient tolerated procedure well without complications. Post-injection instructions given. Primary Site: right knee Injected: 40 mg of, Kenalog and with 3 mL of (2% lidocaine) Coding 46998 - Large joint Procedure code (CPT) selection complete Office Meds Synvisc-One 48 mg/6 mL intra-articular syringe Performing Provider: Magy Arce MD Performing Location: [facility] [place] Documented (not given) by: Magy Arce MD on 10/29/23 09:34 Reason Not Given: Not Medically Necessary Results Reviewed Results Reviewed: Ordering Physician: Magy Costello Date of Service: 10/09/23 Procedure(s): XR knee RT 3V Accession Number(s): [id number] cc: Rae Nunez MD; Magy Costello~ EXAMINATION: XR KNEE, RIGHT CLINICAL INFORMATION: Primary osteoarthritis right knee COMPARISON: September 10, 2023, September 05, 2022 TECHNIQUE: Three views of the right knee. FINDINGS: Mild narrowing of the medial compartment. Small tricompartmental osteophytes. Evaluation for joint effusion is difficult due to overlying soft tissue structures. XR/XR knee RT 3V IMPRESSION: Mild degenerative changes. Assessment & Plan Assessment & Plan (1) Right knee DJD: Code(s): M17.11 - Unilateral primary osteoarthritis, right knee Category: Medical Qualifiers: Osteoarthritis type: primary Qualified Code(s): M17.11 - Unilateral primary osteoarthritis, right knee Plan Discussed the xray results which shows mild DJD. Discussed option for injeciton, steroid vs gel. Patient opts to try steroid injection today. Tolerated procedure well. Assessment and plan discussed with patient, and patient was agreeable. All que stions were answered thoroughly. Follow up 3 months. If did not help, we would try gel injections in the future. Magy Arce MD, DOC Board Certified, [place] [employer] and [employer] (ABPMR) Board Certified, [place] [employer] Electrodiagnostic [employer] (ABEM) Orders: Orders AMB Joint Injection/Aspiration Today M17.11 - Unilateral primary osteoarthritis, right knee Injection-Corticosteroid Today M17.11 - Unilateral primary osteoarthritis, right knee Medications: Discontinued prednisone Discontinued Reason: Patient Completed Course 20 mg PO DAILY 7 days 7 tabs 0RF Coding Level of Care Code Est Pt Level 3 (85465) Diagnoses Primary osteoarthritis of right knee M17.11 Osteoarthritis type: primary CPT Codes Coding - 63949 Large joint: 04001 - Large joint ([id number])
[2023-10-29 09:04] VITALS: BMI 39.8
== END 2023-10-29 09:29 | disposition home or self-care (01) ==
PROVIDERS: PCP Internal Medicine; Visit Provider Physical Medicine & Rehabilitation
DX: M17.11 Unilateral primary osteoarthritis, right knee (principal)
CPT/HCPCS: 20610; 99213

== ENCOUNTER → 2023-10-29 08:58 | Outpatient (BNVA) | payer OTHER, SELFPAY | PROVIDERS: PCP Internal Medicine; Visit Provider Physical Medicine & Rehabilitation | DX: M17.11 Unilateral primary osteoarthritis, right knee (principal) | CPT/HCPCS: 20610; 99212; J1100; J3301 ==

== ENCOUNTER 2023-11-23 18:46 | Emergency (ER) | payer OTHER, SELFPAY ==
--- NOTE | 2023-11-23 | ECG_ITS ---
Test Reason : EPIGASTRIC PAIN Blood Pressure : / mmHG Vent. Rate : 068 BPM Atrial Rate : 068 BPM P-R Int : 160 ms QRS Dur : 076 ms QT Int : 416 ms P-R-T Axes : 068 002 -16 degrees QTc Int : 442 ms Artifact in tracing Normal sinus rhythm Minimal voltage criteria for LVH, may be normal variant ( R in aVL ) Nonspecific T wave abnormality Abnormal ECG When compared with ECG of 10-SEP-2023 16:25, Premature atrial complexes are no longer Present Referred By: Generic ED Physician Electronically Signed By:BELINDA VARGAS
--- NOTE | ~2023-11-23 | CT_ITS ---
EXAMINATION: CT HEAD WITHOUT CONTRAST CLINICAL INFORMATION: Dizziness COMPARISON: 09/05/2022 TECHNIQUE: Multidetector volumetric imaging of the head was performed without intravenous contrast material. This CT examination was performed using dose optimization techniques as appropriate, variously including the following: *Automated exposure control *Adjustment of mA and/or kV according to patient size (this includes techniques or standardized protocols for targeted exams where dose is matched to indication/reason for exam; i.e. extremities or head) *Use of iterative reconstruction technique Dose: 1710 mGy-cm FINDINGS: There is no evidence of acute intracranial hemorrhage or territorial infarction. No abnormal mass-effect or midline shift is seen. Fisher to white matter differentiation is well preserved. No extra axial fluid collections. The ventricles are normal in size and configuration. There is no abnormal attenuation within the brain parenchyma. Calcific atherosclerosis is present within the cavernous segments of the internal carotid arteries. The soft tissues and osseous structures are normal. The sinuses and mastoid air cells are clear. CT/CT head/brain wo IV con IMPRESSION: No acute intracranial pathology.
--- NOTE | ~2023-11-23 | CT_ITS ---
EXAMINATION: CT ABDOMEN AND PELVIS WITH CONTRAST CLINICAL INFORMATION: Epigastric pain. COMPARISON: 07/16/2023 and MRI dated 09/10/2023 TECHNIQUE: Multidetector volumetric images were obtained from the superior aspect of the liver through the pubic symphysis following administration 85 mL of Omnipaque 350 intravenous contrast. Sagittal and coronal reformatted images were obtained on the technologist's workstation. Oral contrast: No This CT examination was performed using dose optimization techniques as appropriate, variously including the following: *Automated exposure control *Adjustment of mA and/or kV according to patient size (this includes techniques or standardized protocols for targeted exams where dose is matched to indication/reason for exam; i.e. extremities or head) *Use of iterative reconstruction technique DLP: 1710 mGy-cm FINDINGS: LUNG BASES: The visualized lung bases are unremarkable. LIVER, GALLBLADDER, AND BILIARY TREE: The liver is normal in size, shape, and attenuation. No focal hepatic lesion or biliary ductal dilatation is present. The gallbladder is unremarkable with no evidence of radiopaque gallstones, gallbladder wall thickening, or obvious pericholecystic inflammatory changes. PANCREAS: Unremarkable. SPLEEN: Unremarkable. ADRENAL GLANDS: Unremarkable. KIDNEYS AND URETERS: 2 large left renal cyst measures 6.8-7.2 cm in diameter. Smaller right renal cysts are noted. No suspicious renal lesions are identified. No recommend imaging follow-up. Focal cortical scarring is present at the right upper pole. No nephrolithiasis or hydronephrosis. BLADDER: Unremarkable. GASTROINTESTINAL TRACT: Stomach, small bowel, and colon are normal in caliber. No bowel wall thickening or surrounding inflammatory changes. Appendix is normal. No intraperitoneal free fluid or free air. ABDOMINAL WALL: No significant hernia is appreciated. LYMPH NODES: Normal. VASCULAR: Atherosclerotic calcifications are present in the abdominal aorta and iliac arteries. No aneurysmal dilatation PELVIC VISCERA: Unremarkable. OSSEOUS STRUCTURES: Diffuse skeletal hyperostosis is evident in the upper thoracic spine. Marked facet arthropathy in the lower lumbar spine with mild to moderate multilevel disc disease. No fracture or malalignment. Mild osteoarthritis in the hips CT/CT abdomen pelvis w IV con IMPRESSION: No acute intra-abdominal or intrapelvic abnormalities.
[2023-11-23 18:50] VITALS: BP 188/108; PULSE 76; O2SAT 98
[2023-11-23 19:04] VITALS: BP 151/71; PULSE 69; RESP 18; TEMP 36.4; O2SAT 98; BMI 41.1
[2023-11-23 19:27] LABS: MANUAL DIFF FLAG NO
[2023-11-23 19:40] LABS: Basophils Percent Auto 0.4 % (0-2); Eosinophils Absolute Auto 0.1 X10*3/uL (0.0-0.4); Eosinophils Percent Auto 1.4 % (0-4); Hematocrit 46.4 % (37.0-47.0); Hemoglobin 14.2 g/dl (12.0-16.0); Imm Gran Abs Auto 0.02 X10*3/uL (0.00-0.03); Imm Gran Pct Auto 0.3 % (0.0-0.4); Lymphocytes Absolute Auto 1.5 X10*3/uL (1.2-4.9); Mean Corpuscular HGB Conc 30.6 g/dl (31.0-35.0); Mean Corpuscular Hemoglobin 26.6 pg (27.0-33.0); Mean Corpuscular Volume 87.1 fL (80.0-98.0); Mean Platelet Volume 11.8 fL (9.4-12.3); Monocytes Absolute Auto 0.5 X10*3/uL (0.1-1.2); Monocytes Percent Auto 6.5 % (2-11); Neutrophils Absolute Auto 4.8 x10*3/uL (2.0-8.3); Neutrophils Percent Auto 69.4 % (45-73); Platelet Count 179 X10*3/uL (160-400); Red Blood Count 5.33 X10*6/uL (4.20-5.50); Red Cell Distribution Width 13.4 % (11.0-16.0); White Blood Count 6.9 X10*3/uL (4.8-10.8)
--- NOTE | 2023-11-23 19:42 | ED.GENADULT ---
HPI - General Adult General Chief complaint: Abdominal Pain Stated complaint: abd pain Time Seen by Provider: 11/23/23 19:15 Source: patient Mode of arrival: ambulatory Limitations: no limitations History of Present Illness ED Provider: Pedro Luis Abernathy PA-C HPI narrative: 63 yold female with pmh of Gastritis, obstructive sleep panea, GERD, depression, or cholecystectomy presents to ED for episodes of epigastric discomfort, nausea, and diaphoresis after eating spicy Salman and salad. Patient states after eating salmon salad she made patient went to the bathroom felt diaphoretic and vomiting multiple times. Patient states also acid burning sensation epigastric area. It is pain, shortness of breath, diarrhea, blood in stool, fever, or chills. Related Data Home Medications ?Medication ?Instructions ?Recorded ?Confirmed lorazepam 0.5 mg tablet 0.5 mg PO BID PRN Anxiety 02/23/20 10/29/23 paroxetine HCl 40 mg tablet 40 mg PO DAILY 02/23/20 10/29/23 quetiapine 200 mg tablet 200 mg PO BEDTIME 02/23/20 10/29/23 trazodone 150 mg tablet 150 mg PO BEDTIME 02/23/20 10/29/23 ascorbic acid (vitamin C) 500 mg 500 mg PO DAILY 02/09/23 10/29/23 tablet (Vitamin C) vitamin E 268 mg (400 unit) capsule 268 mg PO DAILY 02/09/23 10/29/23 nystatin 100,000 unit/gram topical 1 appl topical BID 03/04/23 10/29/23 cream Previous Rx's ?Medication ?Instructions ?Recorded blood pressure test kit-large #1 ea 06/06/20 ([facility] Blood Pressure Monitor kit) cane #1 ea 10/11/20 toilet seat #1 ea 01/16/21 toilet seat elevator #1 ea 08/19/22 raised toilet seat #1 ea 08/21/22 acetaminophen 500 mg tablet 500 mg PO Q6H PRN pain #14 tabs 01/27/23 ibuprofen 600 mg tablet 600 mg PO TID PRN pain #14 tabs 01/27/23 ondansetron 4 mg disintegrating 4 mg PO Q8H PRN nausea and 02/09/23 tablet vomiting #20 tabs multivitamin-ferrous 1 tab PO DAILY 30 days #30 tabs 03/07/23 fumarate-folic acid 18 mg-400 mcg tablet (Certavite-Antioxidant) atorvastatin 10 mg tablet 10 mg PO DAILY #90 tabs 05/20/23 humidifiers #1 ea 06/07/23 prochlorperazine maleate 10 mg 10 mg PO BID PRN nausea and 07/16/23 tablet (Compazine) vomiting #10 tabs docusate sodium 100 mg capsule 100 mg PO .DAILY WITH FOOD 30 days 07/23/23 (Colace) #60 caps midodrine 5 mg tablet 5 mg PO TID 30 days #90 tabs 08/10/23 calcium carbonate 600 mg PO BID #180 tabs 08/17/23 levothyroxine 150 mcg tablet 150 mcg PO DAILY 90 days #90 tabs 09/07/23 famotidine 40 mg tablet 40 mg PO BEDTIME #30 tabs 09/08/23 pantoprazole 40 mg tablet,delayed 40 mg PO QAM #30 tabs 09/08/23 release lactulose 10 gram/15 mL oral 30 ml PO TID #600 mL 10/20/23 solution metoclopramide HCl 5 mg tablet 5 mg PO QID #120 tabs 11/10/23 dicyclomine 20 mg tablet 40 mg (2 x 20 mg) PO TID #270 tabs 11/18/23 famotidine 20 mg tablet (Pepcid) 20 mg PO BID 10 days #20 tabs 11/24/23 ondansetron 4 mg disintegrating 4 mg PO Q6H PRN nausea and 11/24/23 tablet vomiting 2 days #8 tabs Allergies Allergy/AdvReac Type Severity Reaction Status Date / Time egg Allergy Intermediate Rash Verified 11/23/23 19:10 seafood Allergy Intermediate Rash Verified 11/23/23 19:10 shellfish derived Allergy Intermediate RASH Verified 11/23/23 19:10 zolpidem [ZOLPIDEM] Allergy Intermediate HEART Verified 11/23/23 19:10 PALPITATIONS morphine AdvReac Intermediate Vomiting Verified 11/23/23 19:10 Review of Systems Review of Systems: Resolved diaphoresis and nausea. Epigastric acid burning sensation and vomiting. Yes all other systems are reviewed and are negative PMFSH Past Medical History Medical History (Updated 11/25/23 @ 00:01 by Nikia Johnson) Right knee DJD Renal cyst PUD (peptic ulcer disease) Complex renal cyst Dyspepsia Physical exam Obesity (BMI 35.0-39.9 without comorbidity) Urinary tract infection Lower back pain Cough Constipation Morbid obesity Lumbar pain Right knee pain Left knee pain Pre-op exam Low back pain Screening examination for infectious disease Abdominal pain Onychomycosis Dyslipidemia Mild recurrent major depression Skin lesion Tubular adenoma of colon Idiopathic chronic hypotension Unsteady gait Hypothyroidism Takes daily multivitamins GERD (gastroesophageal reflux disease) Surgical History H/O elbow surgery History of varicose vein ligation H/O knee surgery H/O hand surgery History of foot surgery History of section History of hysterectomy History of removal of cyst History of cholecystectomy Family History Family History Father Diabetes Mother Thyroid disease Chronic mental illness Hypertension Hypercholesterolemia Maternal Aunt Breast cancer Brother In good health Daughter In good health Daughter In good health Sister No problems noted. Social History Social History Household Members: None Housing: Apartment Alcohol intake: never Patient Tobacco Use Status: Never used Tobacco Smoked in Last 30 Days: No e-Cigarette/Vaping Use: Never Used Second Hand Smoke Exposure: No Use of substances other than those prescribed or required for medical reasons: No Advance Directives: No Advance Directives Information Provided: No service: No Current occupational status: disabled Sexual orientation: Straight/Heterosexual Gender identity: Female Cognitive needs: No Hearing needs: No Vision needs: Yes Physical Exam ED Vital Signs: Vital Signs - 24 hr 11/23/23 19:04 11/23/23 22:52 11/23/23 22:55 Temperature 97.6 F Pulse Rate 69 79 78 Respiratory Rate 18 Blood Pressure 151/71 H 162/72 H 153/77 H Pulse Oximetry 98 Oxygen Delivery Method Room Air 11/23/23 22:56 11/23/23 22:58 11/24/23 00:17 Temperature 98.0 F 97.9 F Pulse Rate 80 80 66 Respiratory Rate 14 16 Blood Pressure 143/84 H 143/84 H 156/88 H Pulse Oximetry 100 100 Oxygen Delivery Method Room Air Room Air 11/24/23 01:54 11/24/23 01:54 11/24/23 01:56 Temperature Pulse Rate 74 77 68 Respiratory Rate Blood Pressure 146/77 H 163/88 H 152/88 H Pulse Oximetry Oxygen Delivery Method BMI result Body Mass Index 41.1 Const General: cooperative, healthy appearing, comfortable, no acute distress, well developed, alert and awake Orientation/consciousness: oriented to time and patient oriented x3 [facility] Head: Yes normal to inspection, Yes No palpable skull fracture present, Yes normocephalic, Yes atraumatic and No abrasion Eyes General: appearance normal, both eyes and all related structures Neck Neck: Yes normal visual inspection, Yes full ROM, Yes no lymphadenopathy, Yes no meningeal signs, Yes trachea midline, Yes supple, No anterior neck swelling and No tender Chest Chest palpation & inspection: normal inspection of the chest and normal palpation of entire chest wall Resp Effort & Inspection: normal respiratory effort and able to speak in complete sentences Auscultation: clear to auscultation bilaterally Cardio Jugular venous distension: no JVD Heart sounds: S1 normal heart sound present and S2 normal heart sound present GI Inspection: Yes normal to inspection Palpation (GI): Tenderness to palpation present (GI) in the epigastrum (mild); not in the LLQ, not in the RLQ, not in the LUQ, not in the RUQ, not at McBurney's point, not periumbilically, not suprapubicly, Johnson's sign negative, obturator sign negative, psoas sign negative, with no rebound tenderness and Rovsing's sign negative, no guarding and not rigid General: No CVA tenderness and Yes no CVA tenderness Back/Spine/Pelvis Back: no CVA tenderness, No CVA tenderness and No back tenderness Skin General skin exam: no rashes or lesions noted, elasticity normal and turgor normal Neuro General: oriented to time, patient oriented x3, gait normal, tone normal, moves all extremities, Normal light touch and pain sensation, no meningeal signs, no focal motor deficits, CN's II-XI intact bilaterally and normal sensation to monofilament Extrem Other: Bilateral lower extremity negative for swelling, pitting edema, or calf tenderness General: Yes normal to inspection, Yes full ROM and Yes capillary refill normal Psych Appearance: grossly normal, well kempt and not disheveled Medications Administered Discontinued Medications Generic Name Dose Route Start Last Admin Trade Name Freq PRN Reason Stop Dose Admin Al Hydroxide/Mg Hydroxide 30 ml 11/23/23 19:57 11/23/23 20:19 Magnesium Hydrox/Alum Hydrox 30 Ml Oral.Susp PO 11/23/23 19:58 30 ml ONCE ONE Administration Belladonna Alkaloids/Phenobarbital 10 ml 11/24/23 02:11 11/24/23 02:23 Phenobarb/Hyoscy/Atropine/Scop 10 Ml Elixir PO 11/24/23 02:12 10 ml ONCE ONE Administration Famotidine 20 mg 11/23/23 19:57 11/23/23 20:19 Famotidine/Pf 20 Mg/2 Ml Vial IVPUSH 11/23/23 19:58 20 mg ONCE ONE Administration Sodium Chloride 1,000 mls @ 999 mls/hr 11/23/23 23:45 11/24/23 01:36 Ns IV 11/24/23 00:45 Infused .Q1H1M STA Infusion Sodium Chloride 1,000 mls @ 999 mls/hr 11/23/23 23:45 11/24/23 01:36 Ns IV 11/24/23 00:45 Infused .Q1H1M STA Infusion Iohexol 100 ml 11/23/23 22:46 11/23/23 22:46 Iohexol 350 Mg/Ml 100 Ml Infus..Btl IV 11/23/23 22:47 85 ml ONCE ONE Administration Lidocaine HCl 15 ml 11/23/23 19:57 11/23/23 20:19 Lidocaine Hcl Viscous 2 % 15 Ml Solution MUCOUS MEM 11/23/23 19:58 15 ml ONCE ONE Administration Meclizine HCl 50 mg 11/23/23 22:10 11/23/23 22:15 Meclizine Hcl 25 Mg Tablet PO 11/23/23 22:11 50 mg ONCE ONE Administration Metoclopramide HCl 10 mg 11/24/23 02:11 11/24/23 02:23 Metoclopramide Hcl 10 Mg/2 Ml Vial IVPUSH 11/24/23 02:12 10 mg ONCE STA Administration Ondansetron HCl 4 mg 11/23/23 19:57 11/23/23 20:19 Ondansetron Hcl 4 Mg/2 Ml Vial IVPUSH 11/23/23 19:58 4 mg ONCE ONE Administration Ondansetron HCl 4 mg 11/24/23 01:02 11/24/23 01:18 Ondansetron Hcl 4 Mg/2 Ml Vial IVPUSH 11/24/23 01:03 4 mg ONCE ONE Administration Sucralfate 1 gm 11/24/23 02:11 11/24/23 02:23 Sucralfate Oral Suspension 1 Gm/10 Ml Oral.Susp PO 11/24/23 02:12 1 gm ONCE ONE Administration Medical Decision Making Medical Decision Making [facility] Narrative: 63-year-old female history of GERD presents to ED for resolved diaphoresis and nausea. Patient states slight epigastric burning sensation on palpation. Patient denies any slurred speech, facial droop, paralysis of extremities, loss of vision. NIH score is 0. Will treat as GERD exacerbation. Due to age with a EKG and troponin. 11:55pm: Patient stated she was spinning. Patient states she had dizziness at home before coming to the ED. patient positive for horizontal nystagmus. NIH score is 0- for any neuro deficits. Negative Romberg sign. Meclizine head CT scan ordered abdominal CT scan for epigastric pain ordered. Orthostatics was performed and was positive. Two bags of normal saline ordered. 2:10am: Patient's orthostatic resolved. Patient no longer feels dizzy. Horizontal nystagmus is gone. Patient's main complaint is still having acid burning sensation and some nausea. Abdomen soft benign and nontender on palpation. Not suspecting posterior cerebellar infarct. Not suspecting stroke. Not suspecting aortic dissection. Not suspecting CHF. Abdominal pain is not out of proportion. Not suspecting any cerebral/vetebral artery dissection or occlusion. Not suspecting carotid stenosis not suspecting mesenteric ischemia. NOt suspecting carotid dissection Differential Diagnosis Differential Diagnoses: The differential diagnosis associated with the presentation includes (Myocardial infarction, pancreatitis, GERD, vertigo, stroke, cholecystitis.) Admission/Observation Consideration of admission/observation: Escalation of care including admission/observation considered Lab Data [facility] Lab Attestation statement: I reviewed the patient's lab results. 11/23/23 19:24 11/23/23 19:24 Labs: Lab Results 11/23/23 11/23/23 11/23/23 Range/Units 19:24 20:14 22:13 WBC 6.9 (4.8-10.8) X10*3/uL RBC 5.33 (4.20-5.50) X10*6/uL Hgb 14.2 (12.0-16.0) g/dl Hct 46.4 (37.0-47.0) % MCV 87.1 (80.0-98.0) fL MCH 26.6 L (27.0-33.0) pg MCHC 30.6 L (31.0-35.0) g/dl RDW 13.4 (11.0-16.0) % Plt Count 179 (160-400) X10*3/uL MPV 11.8 (9.4-12.3) fL Immature Gran % (Auto) 0.3 (0.0-0.4) % Neut % (Auto) 69.4 (45-73) % Lymph % (Auto) 22.0 (20-40) % [place] % (Auto) 6.5 (2-11) % Eos % (Auto) 1.4 (0-4) % Baso % (Auto) 0.4 (0-2) % Lymph # (Auto) 1.5 (1.2-4.9) X10*3/uL [place] # (Auto) 0.5 (0.1-1.2) X10*3/uL Eos # (Auto) 0.1 (0.0-0.4) X10*3/uL Baso # (Auto) 0.0 (0.0-0.2) X10*3/uL Abs Immat Gran (auto) 0.02 (0.00-0.03) X10*3/uL Absolute Neuts (auto) 4.8 (2.0-8.3) x10*3/uL Absolute Nucleated RBC 0.000 (0.0-0.012) X10*3/uL Nucleated RBC % (auto) 0.0 (0.0-0.2) /100WBC PT 11.8 (11.1-13.3) SEC INR 1.0 (0.9-1.1) APTT 32.9 D (26.0-36.8) SEC Sodium 143 (135-145) mmol/L Potassium 3.8 (3.3-5.1) mmol/L Chloride 105 (96-108) mmol/L Carbon Dioxide 28 (22-29) mmol/L Anion Gap 14 (12-20) BUN 19 H (9-16) mg/dL Creatinine 0.75 (0.5-1.4) mg/dL Estim Creat Clear Calc 101.2 Estimated GFR > 60 Random Glucose 103 (60-115) mg/dL Calcium 10.0 (8.4-10.2) mg/dL Total Bilirubin 0.5 (0.0-1.0) mg/dL Direct Bilirubin 0.1 (0.0-0.5) mg/dL AST 20 (5-31) U/L ALT 23 (0-31) U/L Alkaline Phosphatase 95 (39-117) U/L Troponin I High Sens < 2.7 < 2.7 (<3.5-17.0) ng/L Total Protein 7.1 (6.5-8.0) g/dL Albumin 3.9 (3.5-5.0) g/dL Lipase 28 (8-78) U/L Urine Color Yellow Urine Appearance Clear Urine pH 8.0 (5.0-9.0) Ur Specific [place] 1.010 (1.005-1.025) Urine Protein Negative (Neg-Trace) mg/dL Urine Glucose (UA) Negative (Negative) mg/dL Urine Ketones Negative (Negative) mg/dL Urine Blood Negative (Negative) Urine Nitrite Negative (Negative) Ur Leukocyte Esterase Small (1+) H (Negative) Urine RBC 0-2 (0-2) /HPF Urine WBC 0-5 (0-5) /HPF Ur Squamous Epith Cells 0-2 (0-2) /HPF Urine Bacteria None Seen (None Seen) Hyaline Casts 0-2 (0-2) /LPF Independent Interpretation I performed an independent interpretation of an: EKG (Normal sinus. Negative STEMI) and CT Scan Radiology Impression Discussion of test interpretation with radiology: I have reviewed the radiologist's reading. Independent Historian Clinical information obtained from an independent historian. History obtained from or confirmed by: Other (Patient) External Record Review External record reviewed: Other (Prior visits.) Prescription Management I considered prescription management with: Other (Absent, Zofran) Discharge Plan Discharge Clinical Impression: Orthostatic hypotension, Vertigo, Dizziness GERD (gastroesophageal reflux disease) Qualifiers: Esophagitis presence: esophagitis presence not specified Qualified Code(s): K21.9 - Gastro-esophageal reflux disease without esophagitis Patient Disposition: Home, Self-Care Instructions: Vertigo (ED), Gastroesophageal Reflux Disease (ED), Dizziness (ED) Additional Instructions: Recommend follow up with PCP and gastroenterologists. Return to the immediately for any abdominal pain, neck pain, fever, chills, slurred speech, facial droop, paralysis of extremites, loss of vision, shortness of breath, chest pain, headache, dizziness, or any other concerning symptoms. Prescriptions: New famotidine [Pepcid] 20 mg tablet 20 mg PO BID 10 Days Qty: 20 0RF ondansetron 4 mg tablet,disintegrating 4 mg PO Q6H PRN (Reason: nausea and vomiting) 2 Days Qty: 8 0RF No Action (DME) blood pressure test kit-large [[facility] Blood Pressure Monitr] Kit See Rx Instructions .ROUTE .MEDSUPPLY Qty: 1 0RF Rx Instructions: As directed (DME) cane Device See Rx Instructions .ROUTE .MEDSUPPLY Qty: 1 0RF Rx Instructions: As directed (DME) toilet seat See Rx Instructions .Route .MEDSUPPLY Qty: 1 0RF Rx Instructions: As directed (DME) toilet seat elevator See Rx Instructions .Route .MEDSUPPLY Qty: 1 0RF Rx Instructions: As directed (DME) raised toilet seat See Rx Instructions .Route .MEDSUPPLY Qty: 1 0RF Rx Instructions: As directed Certavite-Antioxidant 18-400 mg-mcg tablet 1 tab PO DAILY 30 Days Qty: 30 11RF atorvastatin 10 mg tablet 10 mg PO DAILY Qty: 90 3RF (DME) humidifiers Misc See Rx Instructions .Route Qty: 1 0RF Rx Instructions: As directed midodrine 5 mg tablet 5 mg PO TID 30 Days Qty: 90 4RF Rx Instructions: do not give last dose of day after 6PM or within 4 hrs of bedtime calcium carbonate 600 mg calcium (1,500 mg) tablet 600 mg PO BID Qty: 180 3RF levothyroxine 150 mcg tablet 150 mcg PO DAILY 90 Days Qty: 90 1RF famotidine 40 mg tablet 40 mg PO BEDTIME Qty: 30 6RF pantoprazole 40 mg tablet,delayed release (DR/EC) 40 mg PO QAM Qty: 30 6RF lactulose 10 gram/15 mL solution 30 ml PO TID Qty: 600 6RF metoclopramide HCl 5 mg tablet 5 mg PO QID Qty: 120 6RF dicyclomine 20 mg tablet 40 mg PO TID Qty: 270 2RF ibuprofen 600 mg tablet 600 mg PO TID PRN (Reason: pain) Qty: 14 0RF acetaminophen 500 mg tablet 500 mg PO Q6H PRN (Reason: pain) Qty: 14 0RF ondansetron 4 mg tablet,disintegrating 4 mg PO Q8H PRN (Reason: nausea and vomiting) Qty: 20 0RF ascorbic acid (vitamin C) [Vitamin C] 500 mg Tablet 500 mg PO DAILY vitamin E 268 mg (400 unit) Capsule 268 mg PO DAILY prochlorperazine maleate [Compazine] 10 mg tablet 10 mg PO BID PRN (Reason: nausea and vomiting) Qty: 10 0RF paroxetine HCl 40 mg tablet 40 mg PO DAILY trazodone 150 mg tablet 150 mg PO BEDTIME lorazepam 0.5 mg tablet 0.5 mg PO BID PRN (Reason: Anxiety) quetiapine 200 mg tablet 200 mg PO BEDTIME nystatin 100,000 unit/gram cream 1 appl topical BID docusate sodium [Colace] 100 mg capsule 100 mg PO .DAILY WITH FOOD 30 Days Qty: 60 6RF Referrals: [facility] [place] [facility] [place] [facility] [Provider Group] (GERD. Will need endoscopic) Stand Alone Forms: Work/School Release Interventions: ED Discharge Assessment Last Done: 11/24/23 03:10 Discharge Date/Time: 11/24/23 03:11 Print Language: Kinyarwanda
[2023-11-23 19:44] LABS: Alanine Aminotransferase 23 U/L (0-31); Albumin Level 3.9 g/dL (3.5-5.0); Alkaline Phosphatase 95 U/L (39-117); Anion Gap 14 (12-20); Aspartate Amino Transferase 20 U/L (5-31); Bilirubin Direct 0.1 mg/dL (0.0-0.5); Bilirubin Total 0.5 mg/dL (0.0-1.0); Blood Urea Nitrogen 19 mg/dL (9-16); Carbon Dioxide 28 mmol/L (22-29); Chloride 105 mmol/L (96-108); Creatinine Clr Calc Pharmacy 101.2; Estimated Glomerular Filt Rate > 60; Glucose Random 103 mg/dL (60-115); Lipase 28 U/L (8-78); Potassium 3.8 mmol/L (3.3-5.1); Sodium 143 mmol/L (135-145); Total Protein 7.1 g/dL (6.5-8.0)
[2023-11-23] MEDS: Famotidine/PF 20 MG/2 ML VIAL IVPUSH (20:19)
[2023-11-23] MEDS: ondansetron HCL 4 MG/2 ML VIAL IVPUSH (20:19)
[2023-11-23] MEDS: Magnesium Hydrox/Alum Hydrox 30 ML ORAL.SUSP PO (20:19)
[2023-11-23] MEDS: Lidocaine HCl Viscous 2 % 15 ML SOLUTION MUCOUS MEM (20:19)
[2023-11-23 20:20] LABS: Appearance Urine Clear; Color Urine Yellow; Glucose Urine UA Negative (Negative); Leukocyte Esterase Urine Small (1+) (Negative); Nitrite Urine Negative (Negative); UMIC TRIGGER UACC YES; Urine Blood Negative (Negative); Urine Ketones Negative (Negative); Urine Protein Negative (Neg-Trace)
[2023-11-23 20:24] LABS: Prothrombin Time 11.8 SEC (11.1-13.3)
[2023-11-23 20:27] LABS: Partial Thromboplastin Time 32.9 SEC (26.0-36.8)
[2023-11-23 20:28] LABS: Bacteria Urine None Seen (None Seen); Hyaline Casts Urine 0-2 /LPF (0-2); RBC Urine 0-2 /HPF (0-2); Squamous Epithelial Cell Urine 0-2 /HPF (0-2); UACC Culture Trigger YES; WBC Urine 0-5 /HPF (0-5)
[2023-11-23 20:42] LABS: Troponin-I High Sensitivity < 2.7 ng/L (<3.5-17.0)
[2023-11-23] MEDS: Meclizine HCl 25 MG TABLET 50 MG PO (22:15)
[2023-11-23 22:38] LABS: Troponin-I High Sensitivity < 2.7 ng/L (<3.5-17.0)
[2023-11-23] MEDS: iohexoL 350 MG/ML 100 ML INFUS..BTL IV (22:46)
[2023-11-23 22:52] VITALS: BP 162/72; PULSE 79
[2023-11-23 22:55] VITALS: BP 153/77; PULSE 78
[2023-11-23 22:56] VITALS: BP 143/84; PULSE 80
[2023-11-23 22:58] VITALS: BP 143/84; PULSE 80; RESP 14; TEMP 36.7; O2SAT 100
[2023-11-23] MEDS: 0.9 % Sodium Chloride 1,000 ML 999 ML IV ×2 (23:58→23:59)
[2023-11-24 00:17] VITALS: BP 156/88; PULSE 66; RESP 16; TEMP 36.6; O2SAT 100
[2023-11-24] MEDS: ondansetron HCL 4 MG/2 ML VIAL IVPUSH (01:18)
[2023-11-24 01:54] VITALS: BP 146/77; BP 163/88; PULSE 74; PULSE 77
[2023-11-24 01:56] VITALS: BP 152/88; PULSE 68
[2023-11-24] MEDS: Sucralfate Oral Suspension 1 GM/10 ML ORAL.SUSP PO (02:23)
[2023-11-24] MEDS: PHENobarb/Hyoscy/Atropine/Scop 10 ML ELIXIR PO (02:23)
[2023-11-24] MEDS: Metoclopramide HCl 10 MG/2 ML VIAL IVPUSH (02:23)
[2023-11-24 02:51] VITALS: BP 146/69; PULSE 75; RESP 16; TEMP 36.6; O2SAT 99
[2023-11-24 03:10] VITALS: BP 146/69; PULSE 75; RESP 16; TEMP 36.6; O2SAT 99
== END 2023-11-24 03:11 | disposition home or self-care (01) ==
PROVIDERS: Physician Assistant; Emergency Provider Emergency Medicine; PCP Internal Medicine
DX: K21.9 Gastro-esophageal reflux disease without esophagitis (principal); R10.13 Epigastric pain; R94.31 Abnormal electrocardiogram [ECG] [EKG]; R11.0 Nausea; I95.1 Orthostatic hypotension; R42 Dizziness and giddiness; Z79.899 Other long term (current) drug therapy
CPT/HCPCS: 36415; 70450; 74177; 80048; 80076; 81001; 83690; 84484; 85025; 85610; 85730; 87086; 93005; 96360; 96361; 96374; 96375; 99284; 99285; J2405; J2765; Q9967

== ENCOUNTER → 2023-11-23 19:29 | Outpatient (BNV) | payer OTHER, SELFPAY | PROVIDERS: Emergency Provider Emergency Medicine; PCP Internal Medicine; Visit Provider Internal Medicine | DX: R94.31 Abnormal electrocardiogram [ECG] [EKG] (principal) | CPT/HCPCS: 93010 ==

== ENCOUNTER 2023-12-10 09:59 | Outpatient (REF) | payer OTHER, SELFPAY ==
[2023-12-10 11:05] LABS: Alanine Aminotransferase 26 U/L (0-31); Albumin Level 4.1 g/dL (3.5-5.0); Alkaline Phosphatase 94 U/L (39-117); Anion Gap 13 (12-20); Aspartate Amino Transferase 26 U/L (5-31); Bilirubin Total 0.7 mg/dL (0.0-1.0); Blood Urea Nitrogen 16 mg/dL (9-16); Carbon Dioxide 28 mmol/L (22-29); Chloride 107 mmol/L (96-108); Cholesterol 160 mg/dL (<200); Estimated Glomerular Filt Rate > 60; Glucose Fasting 93 mg/dL (60-99); HDL Cholesterol 50 mg/dL (>40); LDL Cholesterol Calculated 97 mg/dL (<100); Potassium 4.7 mmol/L (3.3-5.1); Sodium 143 mmol/L (135-145); Total Protein 7.5 g/dL (6.5-8.0); Triglycerides 68 mg/dL (<150)
[2023-12-10 11:22] LABS: Thyroid Stimulating Hormone 0.21 uIU/mL (0.32-4.0); Vitamin D 25-OH Total 62.5 ng/mL (>30)
== END 2023-12-10 10:00 | disposition home or self-care (01) ==
LOC: HO.LAB 09:59
PROVIDERS: PCP Internal Medicine; Visit Provider Internal Medicine
DX: E03.9 Hypothyroidism, unspecified (principal); E78.5 Hyperlipidemia, unspecified; E55.9 Vitamin D deficiency, unspecified; G89.29 Other chronic pain; K59.04 Chronic idiopathic constipation; M54.50 Low back pain, unspecified
CPT/HCPCS: 36415; 80053; 80061; 82306; 84443

== ENCOUNTER 2023-12-15 13:06 | Outpatient (AMB) | payer OTHER, SELFPAY ==
--- NOTE | 2023-12-15 13:36 | MHC.PC.OV ---
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 Accompanied by: Self / Same As Patient Allergies egg Allergy (Intermediate, Verified 12/15/23 14:06) Rash seafood Allergy (Intermediate, Verified 12/15/23 14:06) Rash shellfish derived Allergy (Intermediate, Verified 12/15/23 14:06) RASH zolpidem [ZOLPIDEM] Allergy (Intermediate, Verified 12/15/23 14:06) HEART PALPITATIONS morphine Adverse Reaction (Intermediate, Verified 12/15/23 14:06) Vomiting Medication List - Last Reconciled 12/15/23 by Rae Landis MD acetaminophen 500 mg PO Q6H PRN ascorbic acid (vitamin C) (Vitamin C) 500 mg PO DAILY atorvastatin 10 mg PO DAILY blood pressure test kit-large ([facility] Blood Pressure Monitor kit) As directed calcium carbonate 600 mg PO BID cane As directed dicyclomine 40 mg (2 x 20 mg) PO TID docusate sodium (Colace) 100 mg PO .DAILY WITH FOOD 30 days famotidine (Pepcid) 20 mg PO BID 10 days famotidine 40 mg PO BEDTIME humidifiers As directed ibuprofen 600 mg PO TID PRN lactulose 30 mL PO TID levothyroxine 150 mcg PO DAILY 90 days lorazepam 0.5 mg PO BID PRN metoclopramide HCl 5 mg PO QID midodrine 5 mg PO TID 30 days ehhxogerhueh-anta-rudaf acid 18-400 mg-mcg (Certavite-Antioxidant) 1 tab PO DAILY 30 days nystatin 1 appl topical BID ondansetron 4 mg PO Q8H PRN ondansetron 4 mg PO Q6H PRN 2 days pantoprazole 40 mg PO QAM paroxetine HCl 40 mg PO DAILY prochlorperazine maleate (Compazine) 10 mg PO BID PRN quetiapine 200 mg PO BEDTIME [raised toilet seat As directed] [toilet seat As directed] [toilet seat elevator As directed] trazodone 150 mg PO BEDTIME vitamin E 268 mg PO DAILY Tobacco use date assessed: 08/12/23 Dental Screening Dental Screen Date: 08/12/23 HPI HPI Comments History of Present Illness Details This is a 63-year-old female with mild recurrent major depression, idiopathic hypotension, and hypothyroidism that complains of right knee pain and lumbar pain that has been present for few weeks. She does not use any assistive device to walk. Has full active range of motion. No previous trauma. Depression follow by Psychiatry and has been stable with medications. Blood pressure well controlled with midodrine. Last TSH was low and I will decrease levothyroxine from 150 mcg to 137 mcg. TSH will be repeated in 6 weeks and patient is aware. She is obese with a BMI of 39.6 and was advised to do diet and exercise to reach BMI goal less than 30. [facility] Medical History Lumbar pain Right knee DJD Renal cyst PUD (peptic ulcer disease) Complex renal cyst Dyspepsia Physical exam Obesity (BMI 35.0-39.9 without comorbidity) Urinary tract infection Lower back pain Cough Constipation Morbid obesity Right knee pain Left knee pain Pre-op exam Low back pain Screening examination for infectious disease Abdominal pain Onychomycosis Dyslipidemia Mild recurrent major depression Skin lesion Tubular adenoma of colon Idiopathic chronic hypotension Unsteady gait Hypothyroidism Takes daily multivitamins GERD (gastroesophageal reflux disease) Surgical History H/O elbow surgery History of varicose vein ligation H/O knee surgery H/O hand surgery History of foot surgery History of section History of hysterectomy History of removal of cyst History of cholecystectomy Family History Father Diabetes Mother Thyroid disease Chronic mental illness Hypertension Hypercholesterolemia Maternal Aunt Breast cancer Brother In good health Daughter In good health Daughter In good health Sister No problems noted. Social History Household Members: None Housing: Apartment Alcohol intake: never Patient Tobacco Use Status: Never used Tobacco e-Cigarette/Vaping Use: Never Used Second Hand Smoke Exposure: No service: No Current occupational status: disabled Sexual orientation: Straight/Heterosexual Gender identity: Female Cognitive needs: No Hearing needs: No Vision needs: Yes Female Reproductive History Menstrual Age of Menarche: 9 Questionnaire Thrive Questionnaire Date Thrive assessed: 08/12/23 NANCY-7 AMB Questionnaire NANCY-7 Date NANCY - 7 assessed: 08/12/23 Source: Developed by Drs. Fady Bustos, Minerva Laws, Marquis Matute and colleagues, with an educational victoriaon from [employer]. Review of Systems Const All systems reviewed & are unremarkable except as noted in HPI and below Card Denies chest pain at rest, Denies chest pain with activity, Denies edema, Denies irregular heart rhythm, Denies claudication, Denies dyspnea, Denies dyspnea on exertion, Denies orthopnea, Denies paroxysmal nocturnal dyspnea and Denies slow heart rate Resp Denies cough, Denies dyspnea and Denies dyspnea on exertion GI Denies abdominal pain, Denies change in bowel habits, Denies excessive flatus, Denies nausea and Denies vomiting Denies urinary incontinence, Denies urinary hesitancy and Denies urinary urgency Physical exam (Primary Care) Vital Signs: Last Vital Signs BP 126/84 12/15/23 13:38 BMI result Body Mass Index 39.6 BMI Assessment/Plan discussion: High BMI High, discussed plan: lifestyle, weight reduction, dietary and physical activity Tobacco/Smoking Status: Tobacco use Status Tobacco use date assessed 08/12/23 12/15/23 13:37 Patient Tobacco Use Status Never used Tobacco 12/15/23 13:37 e-Cigarette/Vaping Use Never Used 12/15/23 13:37 Thrive Assessment: Date of Thrive Assessment Date Thrive assessed 08/12/23 12/15/23 13:37 Resp Effort & Inspection: normal respiratory effort Auscultation: clear to auscultation bilaterally Cardio Jugular venous distension: no JVD Rate: regular rate Rhythm: regular rhythm Heart sounds: S1 normal heart sound present and S2 normal heart sound present Extrem General: Yes full ROM Assessment and Plan Assessment & Plan (1) Lumbar pain: Code(s): M54.50 - Low back pain, unspecified Plan: X-ray ordered. (2) Right knee DJD: Code(s): M17.11 - Unilateral primary osteoarthritis, right knee Qualifiers: Osteoarthritis type: primary Qualified Code(s): M17.11 - Unilateral primary osteoarthritis, right knee Plan: X-ray ordered. Referred to Ortho. (3) Mild recurrent major depression: Code(s): F33.0 - Major depressive disorder, recurrent, mild Plan: Continue paroxetine. Follow-up with psychiatry. (4) Hypothyroidism: Code(s): E03.9 - Hypothyroidism, unspecified Qualifiers: Hypothyroidism type: acquired Qualified Code(s): E03.9 - Hypothyroidism, unspecified Plan: Decrease levothyroxine to 137. Repeat TSH in 6 weeks. (5) Idiopathic hypotension: Code(s): I95.0 - Idiopathic hypotension Plan: Continue midodrine. Orders: Orders Thyroid Stimulating Hormone 6 Weeks E03.9 - Hypothyroidism, unspecified XR lumbar spine 2-3V Today M54.50 - Low back pain, unspecified XR knee RT 2V Today M17.11 - Unilateral primary osteoarthritis, right knee Referrals Orthopedics Referral M17.11 - Unilateral primary osteoarthritis, right knee Medications: New levothyroxine 137 mcg PO DAILY 90 days 90 tabs 0RF Discontinued levothyroxine Discontinued Reason: Patient Completed Course 150 mcg PO DAILY 90 days 90 tabs 1RF Coding Level of Care Code Est Pt Level 4 (38740) Complex EM visit Add On G2211 Diagnoses Lumbar pain M54.50 Primary osteoarthritis of right knee M17.11 Osteoarthritis type: primary Mild recurrent major depression F33.0 Acquired hypothyroidism E03.9 Hypothyroidism type: acquired Idiopathic hypotension I95.0 Time Spent (min) 24
[2023-12-15 13:38] VITALS: BP 126/84; BMI 39.6
== END 2023-12-15 14:14 | disposition home or self-care (01) ==
PROVIDERS: PCP Internal Medicine; Visit Provider Internal Medicine
DX: M54.50 Low back pain, unspecified (principal); M17.11 Unilateral primary osteoarthritis, right knee; F33.0 Major depressive disorder, recurrent, mild; E03.9 Hypothyroidism, unspecified; I95.0 Idiopathic hypotension
CPT/HCPCS: 99214; G2211

== ENCOUNTER 2023-12-15 14:20 | Outpatient (REF) | payer OTHER, SELFPAY ==
--- NOTE | ~2023-12-15 | XR_ITS ---
EXAMINATION: XR KNEE, RIGHT CLINICAL INFORMATION: Unilateral primary osteoarthritis. COMPARISON: Radiographs dated 10/09/2023. TECHNIQUE: AP and lateral views of the right knee. FINDINGS: There is bony demineralization. The lateral, medial and patellofemoral joint spaces are well-maintained. There is mild tricompartment peripheral osteophyte formation, most pronounced of the patellofemoral compartment. No fracture, dislocation or joint effusion is seen. There is no foreign body. XR/XR knee RT 2V IMPRESSION: 1. There is mild tricompartment osteoarthritic change of the right knee, most pronounced of the patellofemoral compartment. 2. No right knee fracture, dislocation or effusion is seen. Electronically signed by: Jhonny Stewart MD 01/13/2024 05:21 PM EDT
--- NOTE | ~2023-12-15 | XR_ITS ---
EXAMINATION: XR lumbar spine 2-3V CLINICAL INFORMATION: M54.50 - Low back pain, unspecified COMPARISON: Lumbar spine radiographs 09/05/2022 TECHNIQUE: 3 views of the lumbar spine FINDINGS: 5 nonrib-bearing lumbar-type vertebral bodies. Vertebral body heights are maintained. Alignment is maintained. Mild multilevel degenerative disc disease with loss of disc space height, facet arthropathy and disc osteophyte complexes. This is worst at L5/S1 and L3/L4. Atherosclerotic calcifications of the abdominal aorta. XR/XR lumbar spine 2-3V IMPRESSION: Mild spondylosis of the lumbar spine, as above detailed. Electronically signed by: Meera Neely MD 01/13/2024 06:32 PM EDT
== END 2023-12-15 14:21 | disposition home or self-care (01) ==
LOC: HO.XRAY 14:20
PROVIDERS: PCP Internal Medicine; Visit Provider Internal Medicine
DX: M54.50 Low back pain, unspecified (principal); M17.11 Unilateral primary osteoarthritis, right knee
CPT/HCPCS: 72100; 73560

== ENCOUNTER 2023-12-24 12:09 | Outpatient (AMB) | payer OTHER, SELFPAY ==
--- NOTE | 2023-12-24 12:25 | A.OFFVIS_ITS ---
Vital Signs 12/24/23 12:30 Height 5 ft 7 in Weight 252 lb BMI 39.5 BP 144/78 H Blood Pressure Location Lt brachial Position Sitting Intake Visit Reasons: Abd pain Intake Note: Patient follow up for abdominal pain Patient deniies any GI issues. 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[place] [facility] [place] Accompanied by: Self / Same As Patient Allergies egg Allergy (Intermediate, Verified 12/24/23 12:22) Rash seafood Allergy (Intermediate, Verified 12/24/23 12:22) Rash shellfish derived Allergy (Intermediate, Verified 12/24/23 12:22) RASH zolpidem [ZOLPIDEM] Allergy (Intermediate, Verified 12/24/23 12:22) HEART PALPITATIONS morphine Adverse Reaction (Intermediate, Verified 12/24/23 12:22) Vomiting HPI HPI Abd pain: Details: Assessment & Plan (1) Nausea and vomiting: Code(s): R11.2 - Nausea with vomiting, unspecified Category: Medical Qualifiers: Vomiting type: unspecified Qualified Code(s): R11.2 - Nausea with vomiting, unspecified (2) Chronic idiopathic constipation: Code(s): K59.04 - Chronic idiopathic constipation Category: Medical (3) GERD (gastroesophageal reflux disease): Code(s): K21.9 - Gastro-esophageal reflux disease without esophagitis Category: Medical Qualifiers: Esophagitis presence: esophagitis presence not specified Qualified Code(s): K21.9 - Gastro-esophageal reflux disease without esophagitis Plan Thai #[id number] She says she is doing well in general, but has occasional CIC with some mucus. I explain that the mucus is harmless. She continues to do well on lactulose, reglan 5mg qid, bentyl and pantoprazole and famotidine. She is also on colace She asks re: next scope and she is due between [id number]. ROV 6 mos. REVIEW OF ER NOTE Medical Decision Making MDM Narrative: 63-year-old female history of GERD presents to ED for resolved diaphoresis and nausea. Patient states slight epigastric burning sensation on palpation. Patient denies any slurred speech, facial droop, paralysis of extremities, loss of vision. NIH score is 0. Will treat as GERD exacerbation. Due to age with a EKG and troponin. 11:55pm: Patient stated she was spinning. Patient states she had dizziness at home before coming to the ED. patient positive for horizontal nystagmus. NIH score is 0- for any neuro deficits. Negative Romberg sign. Meclizine head CT scan ordered abdominal CT scan for epigastric pain ordered. Orthostatics was performed and was positive. Two bags of normal saline ordered. 2:10am: Patient's orthostatic resolved. Patient no longer feels dizzy. Horizontal nystagmus is gone. Patient's main complaint is still having acid burning sensation and some nausea. Abdomen soft benign and nontender on palpation. Not suspecting posterior cerebellar infarct. Not suspecting stroke. Not suspecting aortic dissection. Not suspecting CHF. Abdominal pain is not out of proportion. Not suspecting any cerebral/vetebral artery dissection or occlusion. Not suspecting carotid stenosis not suspecting mesenteric ischemia. NOt suspecting carotid dissection Differential Diagnosis Differential Diagnoses: The differential diagnosis associated with the presentation includes (Myocardial infarction, pancreatitis, GERD, vertigo, stroke, cholecystitis.) Discharge Clinical Impression: Orthostatic hypotension, Vertigo, Dizziness GERD (gastroesophageal reflux disease) Qualifiers: Esophagitis presence: esophagitis presence not specified Qualified Code(s): K21.9 - Gastro-esophageal reflux disease without esophagitis Patient Disposition: Home, Self-Care Instructions: Vertigo (ED), Gastroesophageal Reflux Disease (ED), Dizziness (ED) Additional Instructions: Recommend follow up with PCP and gastroenterologists. Return to the immediately for any abdominal pain, neck pain, fever, chills, slurred speech, facial droop, paralysis of extremites, loss of vision, shortness of breath, chest pain, headache, dizziness, or any other concerning symptoms. Prescriptions: New famotidine [Pepcid] 20 mg tablet 20 mg PO BID 10 Days Qty: 20 0RF ondansetron 4 mg tablet,disintegrating 4 mg PO Q6H PRN (Reason: nausea and vomiting) 2 Days Qty: 8 0RF CORRESPONDENCE On 12/22/23 @ 12:40 Dot Bobo Wrote To Add on 12/24/23. On 12/22/23 @ 11:43 Berenice Tian Wrote To Dot Bobo Scheduled for 12/24/23 On 11/27/23 @ 14:02 Mey Plummer Wrote To Pj AllenBerenice J pt needs a followup appt [place] [facility] [place] call her TODAY'S VISIT Thai #[id number] She was seen in the ER but is feeling well now. It seems that with her report of room spinning and nystagmus this was likely N/V secondary to vertigo and not of GI origin. The ER told her she needed to see me urgently for an EGD, which is really no warranted. She continues to do well on lactulose, colace, reglan 5mg qid, bentyl and pantoprazole and famotidine. In general her medications are working well. She will have occasional days when nothing settles well and she avoids eating, but this is not frequent. The only new problem is that her knees are bad. She has had injections that did not last and now she is waiting the results of xrays. She asks re: next scope and she is due between [id number]. ROV keep March appt. [facility] Medical History Lumbar pain Right knee DJD Renal cyst PUD (peptic ulcer disease) Complex renal cyst Dyspepsia Physical exam Obesity (BMI 35.0-39.9 without comorbidity) Urinary tract infection Lower back pain Cough Constipation Morbid obesity Right knee pain Left knee pain Pre-op exam Low back pain Screening examination for infectious disease Abdominal pain Onychomycosis Dyslipidemia Mild recurrent major depression Skin lesion Tubular adenoma of colon Idiopathic chronic hypotension Unsteady gait Hypothyroidism Takes daily multivitamins GERD (gastroesophageal reflux disease) Surgical History H/O elbow surgery History of varicose vein ligation H/O knee surgery H/O hand surgery History of foot surgery History of section History of hysterectomy History of removal of cyst History of cholecystectomy Family History Father Diabetes Mother Thyroid disease Chronic mental illness Hypertension Hypercholesterolemia Maternal Aunt Breast cancer Brother In good health Daughter In good health Daughter In good health Sister No problems noted. Social History Household Members: None Housing: Apartment Alcohol intake: never Patient Tobacco Use Status: Never used Tobacco e-Cigarette/Vaping Use: Never Used Second Hand Smoke Exposure: No service: No Current occupational status: disabled Sexual orientation: Straight/Heterosexual Gender identity: Female Cognitive needs: No Hearing needs: No Vision needs: Yes Female Reproductive History Menstrual Age of Menarche: 9 Review of Systems Const Denies fatigue, Denies fever(s), Denies night sweats, Denies poor appetite and Denies weight loss Eyes Details: glasses Reports requires corrective lenses ENT Reports Normal hearing present, Denies dental pain, Denies dysphagia, Reports vertigo, Denies hearing loss, Denies mouth pain, Denies odynophagia, Denies throat swelling, Denies tongue swelling and Reports other (Dentition adequate) Card Reports lightheadedness Resp Reports no additional complaints GI Details: Denies abdominal pain, Denies melena, Denies bloating, Denies hematochezia, Reports constipation, Denies GI cramping, Denies dysphagia, Denies excessive flatus, Denies early satiety, Reports heartburn, Denies diarrhea, Reports nausea, Denies odynophagia, Denies vomiting and Denies hematemesis Skin/Breast Denies pruritus, Denies lesions, Denies rash and Denies jaundice Neuro Reports Normal hearing present, Denies Abnormal speech present and Reports vertigo Endo Denies fatigue Aller/Immun Denies throat swelling and Denies tongue swelling Physical Exam Vital Signs: Last Vital Signs BP 144/78 H 12/24/23 12:30 BMI result Body Mass Index 39.5 Const General: cooperative, no acute distress, well developed and well groomed Nutritional Appearance: well nourished and obese Orientation/consciousness: oriented to person, oriented to place and oriented to time Limitations: language barrier and other limitations HEENT Head: Yes normocephalic and Yes atraumatic Eyes General: appearance normal, both eyes and all related structures Pupils: Equal, round and reactive pupils present Neck Neck: Yes normal visual inspection and Yes no lymphadenopathy Thyroid: Thyroid normal Resp Effort & Inspection: normal respiratory effort and able to speak in complete sentences Auscultation: clear to auscultation bilaterally Cardio Rate: regular rate Rhythm: regular rhythm Heart sounds: Normal, physiologic split S2 sound present Peripheral pulses: radial pulses present and posterior tibial pulses present GI Inspection: No distended, Yes Abdominal panniculus present and Yes obesity Palpation (GI): Soft to palpation, nontender, no guarding, not rigid, No hepatosplenomegaly present and Hepatosplenomegaly present Percussion: Yes normal to percussion Auscultation: normal bowel sounds Rectal Exam - Female: deferred Skin General skin exam: no rashes or lesions noted, turgor normal, skin not dry, no jaundice, No spider nevi and no striae Rashes: no rashes Nails: normal Neuro General: oriented to person, oriented to place and oriented to time Cranial nerves: Yes Equal, round and reactive pupils present and Yes Normal hearing present Speech: No Abnormal speech present Extrem General: Yes normal to inspection, No clubbing, No cyanosis and No edema Psych Appearance: grossly normal and well kempt Mental Status: mental status grossly normal Speech and movement: Normal speech and movement present Affect: normal affect Attitude: cooperative Thought process: not confabulating and Impoverished thought process present Thought content: Normal thought content present Insight: Limited insight present (Psych) Judgement: Limited judgement present (Psych) Assessment & Plan Assessment & Plan (1) Nausea and vomiting: Code(s): R11.2 - Nausea with vomiting, unspecified Category: Medical Qualifiers: Vomiting type: unspecified Qualified Code(s): R11.2 - Nausea with vomiting, unspecified (2) Chronic idiopathic constipation: Code(s): K59.04 - Chronic idiopathic constipation Category: Medical (3) GERD (gastroesophageal reflux disease): Code(s): K21.9 - Gastro-esophageal reflux disease without esophagitis Category: Medical Qualifiers: Esophagitis presence: esophagitis presence not specified Qualified Code(s): K21.9 - Gastro-esophageal reflux disease without esophagitis Plan Thai #[id number] She was seen in the ER but is feeling well now. It seems that with her report of room spinning and nystagmus this was likely N/V secondary to vertigo and not of GI origin. The ER told her she needed to see me urgently for an EGD, which is really no warranted. She continues to do well on lactulose, colace, reglan 5mg qid, bentyl and pantoprazole and famotidine. In general her medications are working well. She will have occasional days when nothing settles well and she avoids eating, but this is not frequent. The only new problem is that her knees are bad. She has had injections that did not last and now she is waiting the results of xrays. She asks re: next scope and she is due between [id number]. ROV keep March appt. Medications: Refilled docusate sodium (Colace) 100 mg PO .DAILY WITH FOOD 60 caps 6RF 30 days dicyclomine 40 mg (2 x 20 mg) PO TID 270 tabs 2RF famotidine 40 mg PO BEDTIME 30 tabs 6RF K27.9 - Peptic ulcer, site unspecified, unspecified as acute or chronic, without hemorrhage or perforation metoclopramide HCl 5 mg PO QID 120 tabs 6RF K59.9 - Functional intestinal disorder, unspecified pantoprazole 40 mg PO QAM 30 tabs 6RF Discontinued ondansetron Discontinued Reason: Doctor's Order 4 mg PO Q8H PRN 20 tabs 0RF nausea and vomiting famotidine (Pepcid) Discontinued Reason: Duplicate 20 mg PO BID 10 days 20 tabs 0RF Coding Level of Care Code Est Pt Level 3 (35047) Diagnoses Nausea and vomiting R11.2 Vomiting type: unspecified Chronic idiopathic constipation K59.04 Gastroesophageal reflux disease, unspecified whether esophagitis present K21.9 Esophagitis presence: esophagitis presence not specified
[2023-12-24 12:30] VITALS: BP 144/78; BMI 39.5
== END 2023-12-24 13:04 | disposition home or self-care (01) ==
PROVIDERS: PCP Internal Medicine; Visit Provider Nurse Practitioner
DX: R11.2 Nausea with vomiting, unspecified (principal); K59.04 Chronic idiopathic constipation; K21.9 Gastro-esophageal reflux disease without esophagitis
CPT/HCPCS: 99213

== ENCOUNTER → 2023-12-24 12:09 | Outpatient (BNVA) | payer OTHER, SELFPAY | PROVIDERS: PCP Internal Medicine; Visit Provider Nurse Practitioner | DX: K59.04 Chronic idiopathic constipation (principal); K21.9 Gastro-esophageal reflux disease without esophagitis; K27.9 Peptic ulcer, site unspecified, unspecified as acute or chronic, without hemorrhage or perforation; K59.9 Functional intestinal disorder, unspecified; R10.9 Unspecified abdominal pain; R11.2 Nausea with vomiting, unspecified | CPT/HCPCS: 99212 ==

== ENCOUNTER 2023-12-31 10:57 | Emergency (ER) | payer OTHER, SELFPAY ==
[2023-12-31 11:05] VITALS: BP 121/69; PULSE 88; RESP 18; TEMP 36.6; O2SAT 99; BMI 39.4
--- NOTE | 2023-12-31 11:05 | ED.GENADULT ---
HPI - General Adult General Chief complaint: Extremity Injury, Lower Stated complaint: R foot pain Time Seen by Provider: 12/31/23 11:23 Source: patient and translator interpreter (all interactions with this patient were facilitated with an [facility] language interpreter) Mode of arrival: ambulatory Limitations: language barrier (all interactions with this patient were facilitated with an [facility] language interpreter) History of Present Illness ED Provider: Roxann Frey PA-C HPI narrative: Patient is a 63 year old assigned female at with a history of MDD and GERD presenting to the emergency department today with right knee pain. Patient states that over the last 3 weeks she has had right knee pain. Patient states that in 6 days she has an appointment with the orthopedic office but the pain is too much. Patient denies any dizziness, lightheadedness, abdominal pain, nausea, vomiting, fever, chills, blurry vision, double vision, loss of vision, chest pain, difficulty breathing, shortness of breath, back pain, night sweats, pain with urination, increased urinary frequency, increased urinary urgency, blood in her urine or stool, syncope or a near syncopal episode, recent trauma or falls, bowel incontinence, bladder incontinence, or any other complaints at this time. Onset (ago): week(s) (3) Location: right and lower extremity Severity: mild Severity scale (1-10): 4 Quality: aching Pain Consistency: constant Relieving factors: none Exacerbating factors: movement Associated symptoms: denies other symptoms Treatments prior to arrival: none Related Data Home Medications ?Medication ?Instructions ?Recorded ?Confirmed lorazepam 0.5 mg tablet 0.5 mg PO BID PRN Anxiety 02/23/20 12/15/23 paroxetine HCl 40 mg tablet 40 mg PO DAILY 02/23/20 12/15/23 quetiapine 200 mg tablet 200 mg PO BEDTIME 02/23/20 12/15/23 trazodone 150 mg tablet 150 mg PO BEDTIME 02/23/20 12/15/23 ascorbic acid (vitamin C) 500 mg 500 mg PO DAILY 02/09/23 12/15/23 tablet (Vitamin C) vitamin E 268 mg (400 unit) capsule 268 mg PO DAILY 02/09/23 12/15/23 nystatin 100,000 unit/gram topical 1 appl topical BID 03/04/23 12/15/23 cream Previous Rx's ?Medication ?Instructions ?Recorded blood pressure test kit-large #1 ea 06/06/20 ([facility] Blood Pressure Monitor kit) cane #1 ea 10/11/20 toilet seat #1 ea 01/16/21 toilet seat elevator #1 ea 08/19/22 raised toilet seat #1 ea 08/21/22 acetaminophen 500 mg tablet 500 mg PO Q6H PRN pain #14 tabs 01/27/23 ibuprofen 600 mg tablet 600 mg PO TID PRN pain #14 tabs 01/27/23 multivitamin-ferrous 1 tab PO DAILY 30 days #30 tabs 03/07/23 fumarate-folic acid 18 mg-400 mcg tablet (Certavite-Antioxidant) atorvastatin 10 mg tablet 10 mg PO DAILY #90 tabs 05/20/23 humidifiers #1 ea 06/07/23 prochlorperazine maleate 10 mg 10 mg PO BID PRN nausea and 07/16/23 tablet (Compazine) vomiting #10 tabs midodrine 5 mg tablet 5 mg PO TID 30 days #90 tabs 08/10/23 calcium carbonate 600 mg PO BID #180 tabs 08/17/23 lactulose 10 gram/15 mL oral 30 ml PO TID #600 mL 10/20/23 solution ondansetron 4 mg disintegrating 4 mg PO Q6H PRN nausea and 11/24/23 tablet vomiting 2 days #8 tabs levothyroxine 137 mcg tablet 137 mcg PO DAILY 90 days #90 tabs 12/15/23 dicyclomine 20 mg tablet 40 mg (2 x 20 mg) PO TID #270 tabs 12/24/23 docusate sodium 100 mg capsule 100 mg PO .DAILY WITH FOOD 30 days 12/24/23 (Colace) #60 caps famotidine 40 mg tablet 40 mg PO BEDTIME #30 tabs 12/24/23 metoclopramide HCl 5 mg tablet 5 mg PO QID #120 tabs 12/24/23 pantoprazole 40 mg tablet,delayed 40 mg PO QAM #30 tabs 12/24/23 release Allergies Allergy/AdvReac Type Severity Reaction Status Date / Time egg Allergy Intermediate Rash Verified 12/31/23 11:06 seafood Allergy Intermediate Rash Verified 12/31/23 11:06 shellfish derived Allergy Intermediate RASH Verified 12/31/23 11:06 zolpidem [ZOLPIDEM] Allergy Intermediate HEART Verified 12/31/23 11:06 PALPITATIONS morphine AdvReac Intermediate Vomiting Verified 12/31/23 11:06 Review of Systems Constitutional: Constitutional: Reports no additional constitutional complaints, Denies chills, Denies fever(s) and Denies night sweats Eyes: Eyes: Reports no additional eye complaints, Denies blurry vision, Denies change in vision, Denies diplopia, Denies eye discharge, Denies loss of vision and Denies eye pain ENT: Denies dizziness Cardiovascular: Cardiovascular: Reports no additional cardiovascular complaints, Denies chest pain, Denies lightheadedness, Denies Loss of Consciousness and Denies dyspnea Respiratory: Respiratory: Reports no additional respiratory complaints and Denies dyspnea Gastrointestinal: Gastrointestinal: Reports no additional gastrointestinal complaints, Denies abdominal pain, Denies melena, Denies hematochezia, Denies change in bowel habits and Denies change in stool character Genitourinary: Genitourinary: Denies hematuria, Denies urinary frequency, Denies dysuria, Denies urinary incontinence, Denies urinary hesitancy and Denies urinary urgency Musculoskeletal: Musculoskeletal: Reports no additional musculoskeletal complaints, Denies numbness and Denies tingling Comments: right knee pain Neurologic: Denies dizziness, Denies loss of vision, Denies numbness and Denies tingling Psychiatric: Psychiatric: Reports no additional psychiatric complaints Endocrine: Endocrine: Reports no additional endocrine complaints Hematologic/Lymphatic: Hematologic/Lymphatic: Reports no additional hematologic/lymphatic complaints Allergic/Immunologic: Allergic/Immunologic: Reports no additional allergic/immunologic complaints [facility] Past Medical History Attestation statement: The following information was validated with the patient. Source: old records reviewed and nursing notes reviewed Medical History Lumbar pain Right knee DJD Renal cyst PUD (peptic ulcer disease) Complex renal cyst Dyspepsia Physical exam Obesity (BMI 35.0-39.9 without comorbidity) Urinary tract infection Lower back pain Cough Constipation Morbid obesity Right knee pain Left knee pain Pre-op exam Low back pain Screening examination for infectious disease Abdominal pain Onychomycosis Dyslipidemia Mild recurrent major depression Skin lesion Tubular adenoma of colon Idiopathic chronic hypotension Unsteady gait Hypothyroidism Takes daily multivitamins GERD (gastroesophageal reflux disease) Surgical History H/O elbow surgery History of varicose vein ligation H/O knee surgery H/O hand surgery History of foot surgery History of section History of hysterectomy History of removal of cyst History of cholecystectomy Family History Family History Father Diabetes Mother Thyroid disease Chronic mental illness Hypertension Hypercholesterolemia Maternal Aunt Breast cancer Brother In good health Daughter In good health Daughter In good health Sister No problems noted. Social History Social History Household Members: None Housing: Apartment Alcohol intake: never Patient Tobacco Use Status: Never used Tobacco e-Cigarette/Vaping Use: Never Used Second Hand Smoke Exposure: No Advance Directives: No Advance Directives Information Provided: No Do you have a plan to hurt others: No Plan service: No Current occupational status: disabled Sexual orientation: Straight/Heterosexual Gender identity: Female Cognitive needs: No Hearing needs: No Vision needs: Yes Physical Exam ED Vital Signs: Vital Signs - 24 hr 12/31/23 11:05 12/31/23 11:52 12/31/23 12:00 Temperature 98 F 97.6 F 97.6 F Pulse Rate 88 70 70 Respiratory Rate 18 20 20 Blood Pressure 121/69 124/74 124/74 Pulse Oximetry 99 98 98 Oxygen Delivery Method Room Air Room Air Room Air BMI result Body Mass Index 39.4 Const General: cooperative, no acute distress, alert and awake Nutritional Appearance: well nourished Orientation/consciousness: patient oriented x3 Limitations: no limitations [facility] Head: Yes normal to inspection and Yes atraumatic Ears: hearing grossly normal bilaterally and external ears normal General nose exam: Normal external nose present, no nasal discharge noted and no epistaxis Face and sinus: Yes normal facial exam, No abrasion and No laceration Mouth: Normal oral and palatal mucosa present, no drooling and no muffled voice Eyes General: appearance normal, both eyes and all related structures Periorbital: periorbital findings normal Eyelids: Yes eyelids normal Conjunctivae: conjunctivae normal Pupils: Equal, round and reactive pupils present EOM: EOMs intact bilaterally Neck Neck: Yes normal visual inspection, Yes full ROM and Yes no lymphadenopathy Chest Chest palpation & inspection: normal inspection of the chest Resp Effort & Inspection: normal respiratory effort and able to speak in complete sentences GI Inspection: Yes normal to inspection Neuro General: patient oriented x3 and moves all extremities Cranial nerves: Yes Equal, round and reactive pupils present Cognition (Neuro): normal cognition Extrem General: Yes normal to inspection, Yes full ROM and Yes capillary refill normal Psych Appearance: grossly normal Mental Status: mental status grossly normal Affect: normal affect Attitude: cooperative Thought process: Normal thought process present Thought content: Normal thought content present Insight: Good insight present (Psych) Course Course Course Narrative: This is an RME done by AMRITA Reynoso: Additional HPI, ROS, PE not included below will be deferred to primary provider. 63 year old female with concerns of R foot pain (02/11) x 3 weeks. She previously got xrays of her foot with no acute findings found. Appearance: Alert.? Oriented X3.? No acute cardiopulmonary distress distress.? Head: Normocephalic, atraumatic, no step-offs or deformities Neck: Normal inspection.? Neck supple.? CVS: Pulses normal.? Respiratory: No respiratory distress.? Abdomen: Soft and nontender.? Skin: ? Normal skin color. Extremities: 5/5 strength to bilateral upper and lower extremities Neuro: Oriented X 3.? No motor deficit.? No sensory deficit. Medications Administered Discontinued Medications Generic Name Dose Route Start Last Admin Trade Name Valdezq PRN Reason Stop Dose Admin Ketorolac Tromethamine 15 mg 12/31/23 11:37 12/31/23 11:59 Ketorolac Tromethamine 15 Mg/Ml Vial IM 12/31/23 11:38 15 mg ONCE ONE Administration Methylprednisolone Sodium Succinate 60 mg 12/31/23 11:37 12/31/23 11:59 Methylprednisolone Sod Succ 125 Mg/2 Ml Vial IM 12/31/23 11:38 60 mg ONCE ONE Administration Medical Decision Making Medical Decision Making [facility] Narrative: Patient is a 63 year old assigned female at with a history of MDD and GERD presenting to the emergency department today with right knee pain. Patient's physical exam was unremarkable. I explained my physical exam findings to the patient. I answered all questions asked by the patient. I stressed the importance of the patient taking her medication as directed (either prescribed or as the over the counter packaging recommends). I stressed the importance of the patient following up with her primary care provider and an orthopedic provider. I stressed the importance of the patient returning to the emergency department immediately if her symptoms were to worsen or if she were to develop any dizziness, shortness of breath, difficulty breathing, chest pain, blurry vision, loss of vision, nausea, vomiting, abdominal pain, fever, chills, back pain, or any other complaints. Patient verbalized agreement and understanding with this treatment plan and discharge. Differential Diagnosis Differential Diagnoses: The differential diagnosis associated with the presentation includes Right knee pain Osteoarthritis Admission/Observation Consideration of admission/observation: Escalation of care including admission/observation considered Patient would have been admitted to the hospital had her clinical presentation warranted hospital admission. Tests considered The following testing was considered but not selected: I considered obtaining a right knee x-ray however, the patient's current clinical presentation and lack of trauma did not warrant this. I discussed this with the patient who verbalized understanding and agreement. Discharge Plan Discharge Clinical Impression: Osteoarthritis, Acute knee pain Patient Disposition: Home, Self-Care Instructions: Osteoarthritis (DC), Knee Pain (ED) Additional Instructions: Follow up with your primary care provider and the orthopedic provider as scheduled. Return to the emergency department immediately if your symptoms worsen or if you develop any dizziness, shortness of breath, difficulty breathing, chest pain, blurry vision, loss of vision, nausea, vomiting, abdominal pain, fever, chills, back pain, or any other complaints. Karel un seguimiento con leal m?dico de cabecera y con el traumat?logo seg?n lo programado. Vuelva inmediatamente al servicio de urgencias si melly s?ntomas empeoran o si presenta mareos, falta de aliento, dificultad para respirar, dolor tor?cico, visi?n borrosa, p?rdida de visi?n, n?useas, v?mitos, dolor abdominal, fiebre, escalofr?os, dolor de espalda o cualquier otra molestia. Prescriptions: No Action (DME) blood pressure test kit-large [[facility] Blood Pressure Monitr] Kit See Rx Instructions .ROUTE .MEDSUPPLY Qty: 1 0RF Rx Instructions: As directed (DME) cane Device See Rx Instructions .ROUTE .MEDSUPPLY Qty: 1 0RF Rx Instructions: As directed (DME) toilet seat See Rx Instructions .Route .MEDSUPPLY Qty: 1 0RF Rx Instructions: As directed (DME) toilet seat elevator See Rx Instructions .Route .MEDSUPPLY Qty: 1 0RF Rx Instructions: As directed (DME) raised toilet seat See Rx Instructions .Route .MEDSUPPLY Qty: 1 0RF Rx Instructions: As directed Certavite-Antioxidant 18-400 mg-mcg tablet 1 tab PO DAILY 30 Days Qty: 30 11RF atorvastatin 10 mg tablet 10 mg PO DAILY Qty: 90 3RF (DME) humidifiers Misc See Rx Instructions .Route Qty: 1 0RF Rx Instructions: As directed midodrine 5 mg tablet 5 mg PO TID 30 Days Qty: 90 4RF Rx Instructions: do not give last dose of day after 6PM or within 4 hrs of bedtime calcium carbonate 600 mg calcium (1,500 mg) tablet 600 mg PO BID Qty: 180 3RF lactulose 10 gram/15 mL solution 30 ml PO TID Qty: 600 6RF ibuprofen 600 mg tablet 600 mg PO TID PRN (Reason: pain) Qty: 14 0RF acetaminophen 500 mg tablet 500 mg PO Q6H PRN (Reason: pain) Qty: 14 0RF ascorbic acid (vitamin C) [Vitamin C] 500 mg Tablet 500 mg PO DAILY vitamin E 268 mg (400 unit) Capsule 268 mg PO DAILY ondansetron 4 mg tablet,disintegrating 4 mg PO Q6H PRN (Reason: nausea and vomiting) 2 Days Qty: 8 0RF prochlorperazine maleate [Compazine] 10 mg tablet 10 mg PO BID PRN (Reason: nausea and vomiting) Qty: 10 0RF levothyroxine 137 mcg tablet 137 mcg PO DAILY 90 Days Qty: 90 0RF paroxetine HCl 40 mg tablet 40 mg PO DAILY trazodone 150 mg tablet 150 mg PO BEDTIME lorazepam 0.5 mg tablet 0.5 mg PO BID PRN (Reason: Anxiety) quetiapine 200 mg tablet 200 mg PO BEDTIME nystatin 100,000 unit/gram cream 1 appl topical BID dicyclomine 20 mg tablet 40 mg PO TID Qty: 270 2RF docusate sodium [Colace] 100 mg capsule 100 mg PO .DAILY WITH FOOD 30 Days Qty: 60 6RF famotidine 40 mg tablet 40 mg PO BEDTIME Qty: 30 6RF metoclopramide HCl 5 mg tablet 5 mg PO QID Qty: 120 6RF pantoprazole 40 mg tablet,delayed release (DR/EC) 40 mg PO QAM Qty: 30 6RF Referrals: Rae Nunez MD [Primary Care Provider] - Interventions: ED Discharge Assessment Last Done: 12/31/23 12:00 Discharge Date/Time: 12/31/23 12:01 Print Language: [place] Citizen
[2023-12-31 11:52] VITALS: BP 124/74; PULSE 70; RESP 20; TEMP 36.4; O2SAT 98
[2023-12-31] MEDS: methylPREDNISolone Sod Succ 125 MG/2 ML VIAL 60 MG IM (11:59)
[2023-12-31] MEDS: Ketorolac Tromethamine 15 MG/ML VIAL IM (11:59)
[2023-12-31 12:00] VITALS: BP 124/74; PULSE 70; RESP 20; TEMP 36.4; O2SAT 98
== END 2023-12-31 12:01 | disposition home or self-care (01) ==
PROVIDERS: Emergency Provider Emergency Medicine Emergency Medical Services; PCP Internal Medicine
DX: M25.561 Pain in right knee (principal); M17.11 Unilateral primary osteoarthritis, right knee
CPT/HCPCS: 96372; 99283; 99284; J1885; J2919

== ENCOUNTER 2024-01-06 13:00 | Outpatient (AMB) | payer OTHER, SELFPAY ==
--- NOTE | 2024-01-06 13:00 | A.OFFVIS_ITS ---
Intake Visit Reasons: OV, RT knee pain 3 month f/u Intake Note: Genna is a 63 year old female who presents to the office today for a right knee pain follow up. Pt states she is still having pain in her right leg. Pt states the injection did help but now the pain is back. Senior Controls Engineer Required: Yes Senior Controls Engineer Language: Oracle Application Architect Name: Rae([id number]) Allergies egg Allergy (Intermediate, Verified 01/06/24 13:01) Rash seafood Allergy (Intermediate, Verified 01/06/24 13:01) Rash shellfish derived Allergy (Intermediate, Verified 01/06/24 13:01) RASH zolpidem [ZOLPIDEM] Allergy (Intermediate, Verified 01/06/24 13:01) HEART PALPITATIONS morphine Adverse Reaction (Intermediate, Verified 01/06/24 13:01) Vomiting Medication List - Last Reconciled 01/06/24 by Magy Arce MD acetaminophen 500 mg PO Q6H PRN ascorbic acid (vitamin C) (Vitamin C) 500 mg PO DAILY atorvastatin 10 mg PO DAILY blood pressure test kit-large ([facility] Blood Pressure Monitor kit) As directed calcium carbonate 600 mg PO BID cane As directed dicyclomine 40 mg (2 x 20 mg) PO TID docusate sodium (Colace) 100 mg PO .DAILY WITH FOOD 30 days famotidine 40 mg PO BEDTIME humidifiers As directed ibuprofen 600 mg PO TID PRN lactulose 30 mL PO TID levothyroxine 137 mcg PO DAILY 90 days lorazepam 0.5 mg PO BID PRN metoclopramide HCl 5 mg PO QID midodrine 5 mg PO TID 30 days [id number] acid 18-400 mg-mcg (Certavite-Antioxidant) 1 tab PO DAILY 30 days nystatin 1 appl topical BID ondansetron 4 mg PO Q6H PRN 2 days pantoprazole 40 mg PO QAM paroxetine HCl 40 mg PO DAILY prochlorperazine maleate (Compazine) 10 mg PO BID PRN quetiapine 200 mg PO BEDTIME [raised toilet seat As directed] [toilet seat As directed] [toilet seat elevator As directed] trazodone 150 mg PO BEDTIME vitamin E 268 mg PO DAILY HPI Comments Details: Presented to ER 09/10/23, woke up with pain on toes and legs, right side. No fracture on xray. Given oral prednisone which helped with the pain. She reports falling 1 week ago, slipped on bathroom floor that was wet. Says right knee felt swollen, which is improved now. Pain is on right knee. Worse with walking. Denies anymore pain on right foot. But one of her foot is bending down, chronic. Denies numbness. Denies weakness. X-ray showed mild DJD. Last visit 10/29/23 and injection performed. She says injection worked for only week. Had gone to PCP and then to ED 12/31/23 because of the knee pain. Knee right swollen than left. No new falls or accidents. [facility] Medical History Lumbar pain Right knee DJD Renal cyst PUD (peptic ulcer disease) Complex renal cyst Dyspepsia Physical exam Obesity (BMI 35.0-39.9 without comorbidity) Urinary tract infection Lower back pain Cough Constipation Morbid obesity Right knee pain Left knee pain Pre-op exam Low back pain Screening examination for infectious disease Abdominal pain Onychomycosis Dyslipidemia Mild recurrent major depression Skin lesion Tubular adenoma of colon Idiopathic chronic hypotension Unsteady gait Hypothyroidism Takes daily multivitamins GERD (gastroesophageal reflux disease) Surgical History H/O elbow surgery History of varicose vein ligation H/O knee surgery H/O hand surgery History of foot surgery History of section History of hysterectomy History of removal of cyst History of cholecystectomy Family History Father Diabetes Mother Thyroid disease Chronic mental illness Hypertension Hypercholesterolemia Maternal Aunt Breast cancer Brother In good health Daughter In good health Daughter In good health Sister No problems noted. Social History Household Members: None Housing: Apartment Alcohol intake: never Patient Tobacco Use Status: Never used Tobacco e-Cigarette/Vaping Use: Never Used Second Hand Smoke Exposure: No service: No Current occupational status: disabled Sexual orientation: Straight/Heterosexual Gender identity: Female Cognitive needs: No Hearing needs: No Vision needs: Yes Female Reproductive History Menstrual Age of Menarche: 9 Physical Exam Constitutional: Patient appears to be in no acute distress, well nourished and well developed. MSK: Right knee is not warm, red. Patient indicated that it is swollen but could not palpate any effusion. Tenderness is more on the right lateral aspect. Denied tenderness over medial aspect. No tenderness over patella. Patellar grind test is negative. Positive increased pain with valgus stress. Neurological: Neurologic examination of the upper and lower extremities was nonfocal with intact sensation, muscle stretch reflexes and without focal motor deficits . Babinski was down going bilaterally. Clonus was negative. Gait is antalgic without loss of balance. Results Reviewed Results Reviewed: Knee x-ray images most recently done, ordered by PCP, did not show any significant joint space narrowing. Assessment & Plan Assessment & Plan (1) Injury of meniscus of right knee: Code(s): S83.8X1A - Sprain of other specified parts of right knee, initial encounter Category: Medical Qualifiers: Encounter type: initial encounter Qualified Code(s): S83.8X1A - Sprain of other specified parts of right knee, initial encounter (2) Chronic pain of right knee: Code(s): M25.561 - Pain in right knee; G89.29 - Other chronic pain Category: Medical Plan Right knee pain since a fall in September. X-rays are not impressive in terms of dege nerative changes. Steroid injection only worked for 1 week, most likely just from the anesthetic. Patient had undergone adequate conservative management including PT without improvement of condition. It would be reasonable to obtain further imaging such as MRI. An MRI would help rule out any serious condition, guide treatment and assess prognosis for recovery. Specifically ruling out meniscal tear. Prescribing diclofenac gel up to q.i.d. p.r.n.. Instructions given. Assessment and plan discussed with patient, and patient was agreeable. All questions were answered thoroughly. Follow up after MRI. Magy Arce MD, DOC Board Certified, [place] [employer] and [employer] (ABPMR) Board Certified, [place] [employer] Electrodiagnostic [employer] (ABEM) Orders: Orders MR knee RT wo con Today G89.29 - Other chronic pain, M25.561 - Pain in right knee, S83.8X1A - Sprain of other specified parts of right knee, initial encounter Medications: New diclofenac sodium 1% apply to right knee, up to 4 times a day 4 grams topical QID 100 grams 0RF Coding Level of Care Code Est Pt Level 4 (00868) Diagnoses Injury of meniscus of right knee, initial encounter S83.8X1A Encounter type: initial encounter Chronic pain of right knee M25.561; G89.29
== END 2024-01-06 13:33 | disposition home or self-care (01) ==
PROVIDERS: PCP Internal Medicine; Visit Provider Physical Medicine & Rehabilitation
DX: S83.8X1A Sprain of other specified parts of right knee, initial encounter (principal); M25.561 Pain in right knee; G89.29 Other chronic pain
CPT/HCPCS: 99213

== ENCOUNTER → 2024-01-06 13:00 | Outpatient (BNVA) | payer OTHER, SELFPAY | PROVIDERS: PCP Internal Medicine; Visit Provider Physical Medicine & Rehabilitation | DX: S83.8X1D Sprain of other specified parts of right knee, subsequent encounter (principal); M25.561 Pain in right knee; G89.29 Other chronic pain | CPT/HCPCS: 99212 ==

== ENCOUNTER 2024-02-19 13:16 | Outpatient (REF) | payer MEDICARE, MEDICAID, SELFPAY ==
--- NOTE | ~2024-02-19 | MR_ITS ---
EXAMINATION: MR KNEE WITHOUT CONTRAST, RIGHT CLINICAL INFORMATION: Right knee pain and swelling. Evaluate for a meniscal tear. COMPARISON: Most recent right knee radiographs dated 12/15/2023. TECHNIQUE: MRI of the knee without contrast was performed using routine sequences on a high-field scanner. FINDINGS: MENISCI: Medial Meniscus: Degenerative intrasubstance signal within the meniscal body and posterior horn without definite articular surface tearing. Lateral Meniscus: Degenerative intrasubstance signal within the anterior horn and root with fraying extending to the femoral articular surface of the anterior root. LIGAMENTS: Cruciate: Intact Collateral: Intact EXTENSOR MECHANISM: Superior and inferior patellar enthesophytes. Intact quadriceps and patellar tendons. Normal patellofemoral alignment. ARTICULAR CARTILAGE/BONE: Patellofemoral Compartment: Patellar median ridge and central trochlear articular cartilage signal heterogeneity and surface irregularity. Tiny marginal osteophytes. Medial Compartment: Diffuse articular cartilage thinning with anterior weightbearing full-thickness articular cartilage loss and marginal osteophytes. Marrow edema within the medial femoral condyle, consistent with an osseous contusion. Along the medial aspect of the medial tibial plateau, there is a small focus of cortical depression with underlying marrow edema measuring 1.0 x 0.5 cm, consistent with a subchondral fracture. Lateral Compartment: Mild articular cartilage signal heterogeneity with small marginal osteophytes. Marrow edema and a somewhat linear orientation within the proximal tibial plateau which could represent an osseous contusion/trabecular microfracture. No discrete fracture line. JOINT FLUID AND BURSAE: Small joint effusion and trace Rodríguez's cyst. Fluid and edema extends inferiorly into the pes anserine bursa which could represent mild bursitis. MUSCLES/TENDONS: Edema within the visualized proximal aspect of the peroneal muscle bellies, consistent with acute strain/partial tears. MR/MR knee RT wo con IMPRESSION: 1. Degenerative intrasubstance signal within the medial meniscal body and posterior horn without definite articular surface tearing. 2. Degenerative intrasubstance signal within the lateral meniscus anterior horn and root with fraying extending to the femoral articular surface of the anterior root. 3. Marrow edema within the medial femoral condyle, consistent with an osseous contusion. Small subchondral fracture at the medial aspect of the medial tibial plateau measuring up to 1.0 cm. Additional osseous contusion/trabecular microfracture within the proximal tibial plateau without a discrete fracture line. 4. Moderate medial as well as mild patellofemoral and lateral compartment osteoarthritis. Small joint effusion and trace Rodríguez's cyst. 5. Fluid and edema extending inferiorly into the pes anserine bursa which could represent mild bursitis. 6. Acute strain/partial tears of the proximal peroneal muscle bellies. Electronically signed by: Phil Contreras MD 02/29/2024 12:51 PM EDT
[2024-02-19 15:37] LABS: Alanine Aminotransferase 28 U/L (0-31); Alkaline Phosphatase 105 U/L (39-117); Anion Gap 13 (12-20); Aspartate Amino Transferase 27 U/L (5-31); Bilirubin Total 0.4 mg/dL (0.0-1.0); Blood Urea Nitrogen 17 mg/dL (9-16); Calcium 9.7 mg/dL (8.4-10.2); Carbon Dioxide 28 mmol/L (22-29); Chloride 105 mmol/L (96-108); Cholesterol 160 mg/dL (<200); Estimated Glomerular Filt Rate > 60; Glucose Fasting 78 mg/dL (60-99); HDL Cholesterol 51 mg/dL (>40); LDL Cholesterol Calculated 92 mg/dL (<100); Potassium 4.5 mmol/L (3.3-5.1); Sodium 141 mmol/L (135-145); Total Protein 7.3 g/dL (6.5-8.0); Triglycerides 85 mg/dL (<150)
[2024-02-19 15:53] LABS: Thyroid Stimulating Hormone 1.67 uIU/mL (0.32-4.0)
== END 2024-02-19 13:17 | disposition home or self-care (01) ==
LOC: HO.MRI 13:16
PROVIDERS: Absent Provider Internal Medicine; PCP Internal Medicine; Visit Provider Physical Medicine & Rehabilitation
DX: S83.8X1A Sprain of other specified parts of right knee, initial encounter (principal); M25.561 Pain in right knee; G89.29 Other chronic pain; E78.5 Hyperlipidemia, unspecified; K59.04 Chronic idiopathic constipation; E03.9 Hypothyroidism, unspecified
CPT/HCPCS: 36415; 73721; 80053; 80061; 84443

== ENCOUNTER 2024-02-25 12:47 | Outpatient (AMB) | payer MEDICARE, MEDICAID, SELFPAY ==
--- NOTE | 2024-02-25 12:57 | AM.OFFVISNUR ---
Intake Visit Reasons: flu-shot Allergies egg Allergy (Intermediate, Verified 01/06/24 13:01) Rash seafood Allergy (Intermediate, Verified 01/06/24 13:01) Rash shellfish derived Allergy (Intermediate, Verified 01/06/24 13:01) RASH zolpidem [ZOLPIDEM] Allergy (Intermediate, Verified 01/06/24 13:01) HEART PALPITATIONS morphine Adverse Reaction (Intermediate, Verified 01/06/24 13:01) Vomiting Office Procedures Flu Questionnaire Does the patient have a severe egg allergy?: No Does the patient have severe life threatening allergies?: No Does the patient have a fever or illness today?: No Has the patient ever had Guillain-[place] Syndrome?: No Has the patient ever had any past reaction to a flu shot?: No Assessment & Plan Assessment & Plan Orders: Orders Influenza [id number] Immunization Today Z23 - Encounter for immunization Medications: New Fluarix Triv [id number] (PF) (flu vacc [id number] 6mos up(PF)) 0.5 mL IM ONCE 0.5 mL 0RF NS Z23 - Encounter for immunization
== END 2024-02-25 12:59 | disposition home or self-care (01) ==
PROVIDERS: PCP Internal Medicine; Visit Provider Internal Medicine
DX: Z23 Encounter for immunization (principal)

== ENCOUNTER → 2024-02-25 12:47 | Outpatient (BNVA) | payer MEDICARE, MEDICAID, SELFPAY | PROVIDERS: PCP Internal Medicine; Visit Provider Internal Medicine | DX: Z23 Encounter for immunization (principal) | CPT/HCPCS: 90471; 90656 ==

== ENCOUNTER 2024-03-25 12:57 | Outpatient (REF) | payer MEDICARE, MEDICAID, SELFPAY ==
--- NOTE | ~2024-03-25 | MM_ITS ---
EXAMINATION: MM SCREENING DIGITAL BREAST TOMOSYNTHESIS, BILATERAL CLINICAL INFORMATION: Screening. Asymptomatic. COMPARISON: Mammography: Comparison is made with available priors TECHNIQUE: Digital breast mammography with tomosynthesis is performed in both the craniocaudal and mediolateral oblique views along with computer-aided detection (CAD). FINDINGS: There are scattered areas of fibroglandular density (ACR BI-RADS breast composition Category b). There are no significant masses, abnormal calcifications, or other abnormalities. MM/MM tomosynthesis screening BI IMPRESSION: No mammographic evidence of malignancy. ASSESSMENT: BI-RADS BI-RADS 1 - Negative RECOMMENDATION: Routine annual mammography screening. 1 year F/U This examination should not preclude the clinical evaluation of a suspicious palpable abnormality. This patient's information was entered into a reminder system with a target due date for their next mammogram. Electronically signed by: Sarina Donnelly DO 04/05/2024 09:14 AM JUAN
== END 2024-03-25 12:58 | disposition home or self-care (01) ==
LOC: HO.MAMMO 12:57
PROVIDERS: PCP Internal Medicine; Visit Provider Internal Medicine
DX: Z12.31 Encounter for screening mammogram for malignant neoplasm of breast (principal)
CPT/HCPCS: 77063; 77067

== ENCOUNTER → 2024-03-25 13:30 | Outpatient (BNV) | payer MEDICARE, MEDICAID, SELFPAY | PROVIDERS: PCP Internal Medicine; Visit Provider Internal Medicine | DX: Z12.31 Encounter for screening mammogram for malignant neoplasm of breast (principal) | CPT/HCPCS: 77063; 77067 ==

== ENCOUNTER 2024-03-31 08:53 | Outpatient (REF) | payer MEDICARE, MEDICAID, SELFPAY ==
--- NOTE | ~2024-03-31 | XR_ITS ---
EXAMINATION: Right knee 3 views. Single view left knee. CLINICAL INFORMATION: Pain in both knees COMPARISON: X-ray of the right knee December 2023. X-ray left knee September 2022. MRI of the right knee February 2024 TECHNIQUE: 3 views of the right knee including AP upright. Single upright view of the left knee FINDINGS: Right knee: Medial compartment joint space narrowing marginal osteophytes indicative of moderate to severe osteoarthritis. Lateral compartment unremarkable. Patellofemoral compartment marginal osteophytes indicative of mild osteoarthritis. No effusion. Left knee Limited: There are marginal osteophytes about the lateral compartment indicative of mild osteoarthritis. Medial compartment unremarkable. Cannot assess patellofemoral compartment. Surrounding bone and soft tissues unremarkable. XR/XR knee RT 3V IMPRESSION: Right knee: Osteoarthritis with degenerative changes most prominent and moderate to severe involving the medial compartment. Left knee limited: Mild osteoarthritis Electronically signed by: Aaron Stephens MD 04/04/2024 01:38 PM EST
--- NOTE | ~2024-03-31 | XR_ITS ---
EXAMINATION: Right knee 3 views. Single view left knee. CLINICAL INFORMATION: Pain in both knees COMPARISON: X-ray of the right knee December 2023. X-ray left knee September 2022. MRI of the right knee February 2024 TECHNIQUE: 3 views of the right knee including AP upright. Single upright view of the left knee FINDINGS: Right knee: Medial compartment joint space narrowing marginal osteophytes indicative of moderate to severe osteoarthritis. Lateral compartment unremarkable. Patellofemoral compartment marginal osteophytes indicative of mild osteoarthritis. No effusion. Left knee Limited: There are marginal osteophytes about the lateral compartment indicative of mild osteoarthritis. Medial compartment unremarkable. Cannot assess patellofemoral compartment. Surrounding bone and soft tissues unremarkable. XR/XR knee LT 1V IMPRESSION: Right knee: Osteoarthritis with degenerative changes most prominent and moderate to severe involving the medial compartment. Left knee limited: Mild osteoarthritis Electronically signed by: Aaron Stephens MD 04/04/2024 01:38 PM JUAN
== END 2024-03-31 08:54 | disposition home or self-care (01) ==
LOC: HO.HOSX 08:53
PROVIDERS: Visit Provider Physician Assistant
DX: M25.561 Pain in right knee (principal); M25.562 Pain in left knee; M17.12 Unilateral primary osteoarthritis, left knee
CPT/HCPCS: 73560; 73562; 99202

== ENCOUNTER 2024-03-31 09:59 | Outpatient (AMB) | payer MEDICARE, MEDICAID, SELFPAY ==
--- NOTE | 2024-03-31 10:10 | MHC.OFFVIS ---
Intake Visit Reasons: [employer]GER- right knee pain, DOI 09/30/23 Intake Note: Genna a 64 year old female who presents today for a new patient evaluation of right knee pain, DOI 09/30/23. Patient was recently seen by physiatry, Dr. Costello for her knee pain s/p a fall at home. An MRI was done. Patient reports she is feeling some relief from the topical gel that Dr. Briseno prescribed. 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 The patient has been following up with Physiatry for right knee pain status post a fall in her bathroom which occurred on 09/30/23. She was seen recently by Dr. Costello on 01/06/24 when an MRI of the right knee was ordered. She was prescribed topical 1% diclofenac sodium QID for pain. She has tried and failed steroid injection that provided relief for only one week and conservative management, including physical therapy, with no improvement. Dr. Costello referred the patient to the [facility] for further evaluation and treatment of the right knee pain. While in the office today, the patient reports experiencing right knee pain. she mentions mild pain relief from the topical 1% diclofenac sodium, which was prescribed by Dr. Costello. [facility] Medical History Lumbar pain Right knee DJD Renal cyst PUD (peptic ulcer disease) Complex renal cyst Dyspepsia Physical exam Obesity (BMI 35.0-39.9 without comorbidity) Urinary tract infection Lower back pain Cough Constipation Morbid obesity Right knee pain Left knee pain Pre-op exam Low back pain Screening examination for infectious disease Abdominal pain Onychomycosis Dyslipidemia Mild recurrent major depression Skin lesion Tubular adenoma of colon Idiopathic chronic hypotension Unsteady gait Hypothyroidism Takes daily multivitamins GERD (gastroesophageal reflux disease) Surgical History H/O elbow surgery History of varicose vein ligation H/O knee surgery H/O hand surgery History of foot surgery History of section History of hysterectomy History of removal of cyst History of cholecystectomy Family History Father Diabetes Mother Thyroid disease Chronic mental illness Hypertension Hypercholesterolemia Maternal Aunt Breast cancer Brother In good health Daughter In good health Daughter In good health Sister No problems noted. Social History Household Members: None Housing: Apartment Alcohol intake: never Patient Tobacco Use Status: Never used Tobacco e-Cigarette/Vaping Use: Never Used Second Hand Smoke Exposure: No service: No Current occupational status: disabled Sexual orientation: Straight/Heterosexual Gender identity: Female Cognitive needs: No Hearing needs: No Vision needs: Yes Female Reproductive History Menstrual Age of Menarche: 9 Review of Systems Const All systems reviewed & are unremarkable except as noted in HPI and below Physical Exam Const General: cooperative and no acute distress Orientation/consciousness: patient oriented x3 Resp Effort & Inspection: normal respiratory effort and able to speak in complete sentences Cardio Peripheral pulses: Peripheral pulses 2+ throughout Skin General skin exam: no rashes or lesions noted Neuro General: patient oriented x3 Extrem Other: Right knee: Normal to inspection. No ecchymosis, erythema, or joint effusion. No tenderness to palpation along the medial or lateral joint lines. Full knee extension and flexion. Negative Tavo?s. NVI. Assessment & Plan Assessment & Plan (1) Osteoarthritis of left knee: Code(s): M17.12 - Unilateral primary osteoarthritis, left knee Category: Medical Plan Ms. Chang is a 64-year-old female, who is Lao speaking, presents in the office today, as a new patient, for an evaluation of right knee pain. The patient has been following up with Physiatry for right knee pain status post a fall in her bathroom which occurred on 09/30/23. She was seen recently by Dr. Costello on 01/06/24 when an MRI of the right knee was ordered. She was prescribed topical 1% diclofenac sodium QID for pain. She has tried and failed steroid injection that provided relief for only one week and conservative management, including physical therapy, with no improvement. Dr. Costello referred the patient to the [facility] for further evaluation and treatment of the right knee pain. While in the office today, the patient reports mild relief from the topical 1% diclofenac sodium, which was prescribed by Dr. Costello. The case and the imagings were reviewed by Dr. Cade, who was available to speak with me and recommended a cortisone injection and gel injections for the treatment. I discussed the plan with the patient and she reported that she had a cortisone injection in the past with mild relief. The patient is seeking a more permanent solution at this time. We discussed the role of gel injection and the patient was interested; however, she deferred it due to not experiencing any knee pain at this time. Follow-up will be PRN, or sooner if needed. X-rays of the right knee, which were obtained while in the office today and were reviewed by me, Solange Puri PA-C, revealed: Osteoarthritis. MRI of the right knee, obtained on 02/19/24, revealed: 1. Degenerative intrasubstance signal within the medial meniscal body and posterior horn without definite articular surface tearing. 2. Degenerative intrasubstance signal within the lateral meniscus anterior horn and root with fraying extending to the femoral articular surface of the anterior root. 3. Marrow edema within the medial femoral condyle, consistent with an osseous contusion. Small subchondral fracture at the medial aspect of the medial tibial plateau measuring up to 1.0 cm. Additional osseous contusion/trabecular microfracture within the proximal tibial plateau without a discrete fracture line. 4. Moderate medial as well as mild patellofemoral and lateral compartment osteoarthritis. Small joint effusion and trace Rodríguez's cyst. 5. Fluid and edema extending inferiorly into the pes anserine bursa which could represent mild bursitis. 6. Acute strain/partial tears of the proximal peroneal muscle bellies. Orders: Orders XR knee RT 3V Today M25.569 - Pain in unspecified knee XR knee LT 1V Today M25.569 - Pain in unspecified knee Patient Instructions: Scribed by Zoë Perez, medical education manager, for Solange Puri PA-C on 03/31/24 at 10:40 am EST. Coding Level of Care Code New Pt Level 4 (03866) Diagnoses Osteoarthritis of left knee M17.12
== END 2024-03-31 10:42 | disposition home or self-care (01) ==
PROVIDERS: PCP Internal Medicine; Visit Provider Physician Assistant
DX: M17.12 Unilateral primary osteoarthritis, left knee (principal)
CPT/HCPCS: 99204

== ENCOUNTER 2024-04-14 13:58 | Outpatient (AMB) | payer MEDICARE, MEDICAID, SELFPAY ==
--- NOTE | 2024-04-14 14:04 | MHC.PC.OV ---
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 Accompanied by: Self / Same As Patient Allergies egg Allergy (Intermediate, Verified 04/14/24 14:34) Rash seafood Allergy (Intermediate, Verified 04/14/24 14:34) Rash shellfish derived Allergy (Intermediate, Verified 04/14/24 14:34) RASH zolpidem [ZOLPIDEM] Allergy (Intermediate, Verified 04/14/24 14:34) HEART PALPITATIONS morphine Adverse Reaction (Intermediate, Verified 04/14/24 14:34) Vomiting Medication List - Last Reconciled 04/14/24 by Rae Landis MD acetaminophen 500 mg PO Q6H PRN ascorbic acid (vitamin C) (Vitamin C) 500 mg PO DAILY atorvastatin 10 mg PO DAILY blood pressure test kit-large ([facility] Blood Pressure Monitor kit) As directed calcium carbonate 600 mg PO BID cane As directed diclofenac sodium 1% 4 grams topical QID dicyclomine 40 mg (2 x 20 mg) PO TID docusate sodium (Colace) 100 mg PO .DAILY WITH FOOD 30 days famotidine 40 mg PO BEDTIME humidifiers As directed ibuprofen 600 mg PO TID PRN lactulose 30 mL PO TID levothyroxine 137 mcg PO DAILY 90 days lorazepam 0.5 mg PO BID PRN metoclopramide HCl 5 mg PO QID midodrine 5 mg PO TID 30 days xmrpwzfjwprp-fvzk-vcuke acid 18-400 mg-mcg (Certavite-Antioxidant) 1 tab PO DAILY 30 days nystatin 1 appl topical BID ondansetron 4 mg PO Q6H PRN 2 days pantoprazole 40 mg PO QAM paroxetine HCl 40 mg PO DAILY prochlorperazine maleate (Compazine) 10 mg PO BID PRN quetiapine 200 mg PO BEDTIME [raised toilet seat As directed] [toilet seat As directed] [toilet seat elevator As directed] trazodone 150 mg PO BEDTIME vitamin E 268 mg PO DAILY Tobacco use date assessed: 08/12/23 Fall risk assessment: No Falls in past year Last assessed Fall Risk: 04/14/24 Dental Screening Dental Screen Date: 04/14/24 Did you have a dental visit in the last 12 months?: Yes Did you have a dental problem in the last 6 months where you did not have access to dental care?: No Was dental information given to patient?: Patient has dentist HPI HPI Comments History of Present Illness Details The patient is a 64-year-old female presenting for her physical exam. She has idiopathic hypotension and midodrine and blood pressure is elevated today and this is why I will decrease midodrine and will be re-evaluated in 3 weeks by nurse navigator. The patient's significant allergy history includes reactions to eggs, shellfish, morphine, and cephalosporins. She consistently manages allergic rhinitis and dyspepsia with medications. Recently, the patient experienced an onset of cold-like symptoms, characterized by sore throat, nasal and oral discharge, and excessive coughing, which developed after exposure to cold weather conditions following a dental appointment. The symptoms persisted for several days, severely impacting her sleep. No testing has been conducted yet to rule out COVID-19. In addition, the patient has a significant history of obesity, suggested to be morbid in context, which she attributes not to dietary habits but seeks possible surgical intervention for weight management. She denies use of certain carbohydrates but remains concerned about BMI and weight control issues. The patient also discusses her challenges with anxiety and sleep, both previously addressed with lorazepam as needed and trazodone. - Pneumonia vaccination discussed and administered - Influenza vaccination administered in January - Mammogram performed and results normal; due in March - Colonoscopy done in 2021 with tubular adenoma; suggests repeat in 3-5 years - COVID-19, influenza, and RSV testing recommended - Encouraged continued management with cholesterol and thyroid medications [facility] Medical History (Updated 04/14/24 @ 14:57 by Rae Landis MD) Physical exam Lumbar pain Right knee DJD Renal cyst PUD (peptic ulcer disease) Complex renal cyst Dyspepsia Obesity (BMI 35.0-39.9 without comorbidity) Urinary tract infection Lower back pain Cough Constipation Morbid obesity Right knee pain Left knee pain Pre-op exam Low back pain Screening examination for infectious disease Abdominal pain Onychomycosis Dyslipidemia Mild recurrent major depression Skin lesion Tubular adenoma of colon Idiopathic chronic hypotension Unsteady gait Hypothyroidism Takes daily multivitamins GERD (gastroesophageal reflux disease) Surgical History H/O elbow surgery History of varicose vein ligation H/O knee surgery H/O hand surgery History of foot surgery History of section History of hysterectomy History of removal of cyst History of cholecystectomy Family History Father Diabetes Mother Thyroid disease Chronic mental illness Hypertension Hypercholesterolemia Dementia Maternal Aunt Breast cancer Brother In good health Daughter In good health Daughter In good health Sister No problems noted. Social History Household Members: None Housing: Apartment Alcohol intake: never Patient Tobacco Use Status: Never used Tobacco e-Cigarette/Vaping Use: Never Used Second Hand Smoke Exposure: No service: No Current occupational status: disabled Sexual orientation: Straight/Heterosexual Gender identity: Female Cognitive needs: No Hearing needs: No Vision needs: Yes Female Reproductive History Menstrual Age of Menarche: 9 Questionnaire Thrive Questionnaire Date Thrive assessed: 08/12/23 I am a: Patient What is your living situation today?: I choose not to answer this question Within the past 12 months, did the food you bought not last and you didn't have the money to get more?: Never true Within the past 12 months, did you worry whether your food would run out before you got money to buy more?: Never true Do you have trouble paying for medicines?: No Do you have trouble getting transportation to medical appointments?: No Do you have trouble paying your heating and electricity bill?: No Do you have trouble taking care of your child, family member or friend?: No Do you have trouble with day-to-day activities such as bathing, preparing meals, shopping, managing finances, etc.?: No Are you currently unemployed and looking for a job?: Yes Are you interested in more education?: No Please select the resources that you would like help with: None Currently or been in a relationship where the following occur: I choose not to answer THRIVE Score: 0 AUDIT C Alcohol Use Questionnaire (AUDIT-C) 1. How often do you have a drink containing alcohol?: Never Total Score: 0 NANCY-7 AMB Questionnaire NANCY-7 Date NANCY - 7 assessed: 08/12/23 Feeling nervous, anxious, or on edge: 0 = Not at all Not being able to stop or control worryin = Not at all Worrying too much about different things: 0 = Not at all Trouble relaxin = Not at all Being so restless that it is hard to sit still: 0 = Not at all Becoming easily annoyed or irritable: 0 = Not at all Feeling afraid as if something awful might happen: 0 = Not at all Total NANCY-7 score (0-4 normal; 5-9 mild; 10-14 moderate; 15-21 severe): 0 Source: Developed by Drs. Fady Bustos, Minerva Laws, Marquis Matute and colleagues, with an educational victoriano from [employer]. NANCY-7 Assessment Billing NANCY-7 Assessment Tool: NANCY-7 Assessment 64043 Review of Systems Const All systems reviewed & are unremarkable except as noted in HPI and below ENT Denies change in voice, Reports hearing loss, Denies nasal discharge and Denies sinus pain Card Denies chest pain at rest, Denies chest pain with activity, Denies edema, Denies irregular heart rhythm, Denies claudication, Denies dyspnea, Denies dyspnea on exertion, Denies orthopnea, Denies paroxysmal nocturnal dyspnea and Denies slow heart rate Resp Reports cough, Reports excessive phlegm production, Denies dyspnea and Denies dyspnea on exertion GI Denies abdominal pain, Denies change in bowel habits, Denies excessive flatus, Denies nausea and Denies vomiting Denies urinary incontinence, Denies urinary hesitancy and Denies urinary urgency Musc Denies abnormal gait, Denies atrophy, Denies deformity and Denies limited range of motion Skin/Breast Denies bleeding lesions, Denies changing lesions and Denies rash Neuro Denies abnormal gait, Denies behavioral changes and Denies lack of coordination Psych Denies behavioral changes Physical exam (Primary Care) Vital Signs: Last Vital Signs BP 140/70 H 04/14/24 14:05 BMI result Body Mass Index 40.1 BMI Assessment/Plan discussion: High BMI High, discussed plan: lifestyle, weight reduction, dietary and physical activity Tobacco/Smoking Status: Tobacco use Status Tobacco use date assessed 08/12/23 04/14/24 14:22 Patient Tobacco Use Status Never used Tobacco 04/14/24 14:22 e-Cigarette/Vaping Use Never Used 04/14/24 14:22 Thrive Assessment: Date of Thrive Assessment Date Thrive assessed 08/12/23 04/14/24 14:22 Currently or been in a relationship where the following occur: I choose not to answer HENMT Other: coughing Head: Yes normal to inspection, Yes normocephalic and Yes atraumatic Ears: external ears normal Eyes General: appearance normal, both eyes and all related structures Eyelids: Yes eyelids normal Conjunctivae: conjunctivae normal Neck Neck: Yes normal visual inspection and Yes supple Resp Effort & Inspection: normal respiratory effort Auscultation: clear to auscultation bilaterally Cardio Jugular venous distension: no JVD Rate: regular rate Rhythm: regular rhythm Heart sounds: S1 normal heart sound present and S2 normal heart sound present GI Inspection: Yes normal to inspection Palpation (GI): Soft to palpation and nontender Auscultation: normal bowel sounds Skin General skin exam: no rashes or lesions noted Neuro General: no focal motor deficits Extrem General: Yes full ROM Psych Appearance: grossly normal Immunizations pneumoc 20-kassandra conj-dip cr(PF) 0.5 mL IM syringe Performing Provider: Rae Landis MD [facility] Administered by: LUIS E Momin on 04/14/24 14:58 Dose Route Admin Location Dispensed Lot Number Expiration Date [facility] Viscosity Inspector 0.5 mL IM Left Deltoid 0.5 mL [id number] 07/03/25 [employer] VIS Given Date VIS Provided VIS Publication Date 04/14/24 Single Vaccine 21 Eligibility Eligibility Date Funding Source Not [facility] Eligible 04/14/24 Private Coding Level of Care Code Est Pt Level 3 (85501) Est Pt Prev Care >65y(05197) Diagnoses Physical exam Z00.00 Hearing loss H91.90 Morbid obesity with BMI of 40.0-44.9, adult E66.01; Z68.41 Mild recurrent major depression F33.0 URI (upper respiratory infection) J06.9 Additional Codes NANCY-7 Assessment Billing - NANCY-7 Assessment Tool: NANCY-7 Assessment 79889 ([id number]) Time Spent (min) 35 Assessment & Plan Assessment & Plan (1) Physical exam: Code(s): Z00.00 - Encounter for general adult medical examination without abnormal findings Category: Medical (2) Hearing loss: Code(s): H91.90 - Unspecified hearing loss, unspecified ear Category: Medical (3) Morbid obesity with BMI of 40.0-44.9, adult: Code(s): E66.01 - Morbid (severe) obesity due to excess calories; Z68.41 - Body mass index [BMI] 40.0-44.9, adult Category: Medical (4) Mild recurrent major depression: Code(s): F33.0 - Major depressive disorder, recurrent, mild Category: Medical (5) URI (upper respiratory infection): Code(s): J06.9 - Acute upper respiratory infection, unspecified Category: Medical Plan - Hypotension Adjust midodrine dosage and re-evaluate blood pressure in three weeks. Consultation for telemetry monitoring suggested. - Allergic Rhinitis: Confirm current medication control; recommend follow-up if symptoms persist. - Morbid Obesity: Discuss potential bariatric surgery; coordinate with weight management program. - Upper Respiratory Infection: Conduct flu, COVID-19, and RSV swabs. Advise on supportive care and symptom monitoring. - Sleep Disorder and Anxiety: Consider psychiatry follow-up for medication efficacy and explore behavioral therapies. - Immunizations: Administer pneumonia vaccine and ensure updated flu vaccination. Patient was informed and verbally consented to the use of an ambient scribe for clinic note documentation during this visit. I discussed the patient's conditions, emphasizing the management of hypertension with plans to monitor and adjust medication as needed. We addressed lifestyle changes to counter obesity, emphasizing the importance of potentially exploring bariatric surgery. I explained the procedure for the flu, COVID-19, and RSV testing, its necessity, and the expected response time for the results. I advised on the importance of medication adherence for her thyroid and cholesterol conditions and continued engagement with mental health professionals to manage anxiety and sleep disorder. We reviewed the immunization plan, highlighting its relevance given her upcoming travel plans. Orders: Orders SARS-CoV2/FLU/RSV Today R09.89 - Other specified symptoms and signs involving the circulatory and respiratory systems Lipid Panel Today E78.5 - Hyperlipidemia, unspecified Vitamin D 25-OH Total Today E55.9 - Vitamin D deficiency, unspecified Vitamin B12 and Folate Today E53.8 - Deficiency of other specified B group vitamins Thyroid Stimulating Hormone Today E03.9 - Hypothyroidism, unspecified Comprehensive [place]. Panel Fast Today E66.01 - Morbid (severe) obesity due to excess calories, Z68.41 - Body mass index [BMI] 40.0-44.9, adult Pneumococcal 20 Immunization Today Z23 - Encounter for immunization Referrals Medical Weight Management Referral E66.01 - Morbid (severe) obesity due to excess calories, Z68.41 - Body mass index [BMI] 40.0-44.9, adult Speech and Hearing Referral H91.90 - Unspecified hearing loss, unspecified ear Medications: New midodrine do not give last dose of day after 6PM or within 4 hrs of bedtime 2.5 mg PO BID 60 tabs 6RF 30 days guaifenesin ER (Mucinex) 600 mg PO BID 10 tabs 0RF 5 days Discontinued midodrine do not give last dose of day after 6PM or within 4 hrs of bedtime Discontinued Reason: Patient Completed Course 5 mg PO TID 30 days 90 tabs 4RF
[2024-04-14 14:05] VITALS: BP 140/70; BMI 40.1
== END 2024-04-14 14:59 | disposition home or self-care (01) ==
PROVIDERS: PCP Internal Medicine; Visit Provider Internal Medicine
DX: Z00.00 Encounter for general adult medical examination without abnormal findings (principal); J06.9 Acute upper respiratory infection, unspecified; E66.01 Morbid (severe) obesity due to excess calories; Z68.41 Body mass index [BMI] 40.0-44.9, adult; F33.0 Major depressive disorder, recurrent, mild; Z23 Encounter for immunization

== ENCOUNTER 2024-04-14 13:58 | Outpatient (REF) | payer MEDICARE, MEDICAID, SELFPAY ==
[2024-04-14 16:26] LABS: Influenza A PCR NEGATIVE (Negative); Influenza B PCR NEGATIVE (Negative); Resp Syncy Virus RNA Qual PCR NEGATIVE (Negative); SARS COV2 PCR INHOUSE POSITIVE (Negative)
[2024-04-14 17:02] LABS: Anion Gap 15 (12-20); Aspartate Amino Transferase 36 U/L (5-31); Bilirubin Total 0.3 mg/dL (0.0-1.0); Blood Urea Nitrogen 19 mg/dL (9-16); Calcium 9.6 mg/dL (8.4-10.2); Carbon Dioxide 26 mmol/L (22-29); Chloride 107 mmol/L (96-108); Cholesterol 143 mg/dL (<200); Estimated Glomerular Filt Rate > 60; Glucose Fasting 93 mg/dL (60-99); HDL Cholesterol 46 mg/dL (>40); LDL Cholesterol Calculated 76 mg/dL (<100); Potassium 4.6 mmol/L (3.3-5.1); Sodium 143 mmol/L (135-145); Total Protein 7.4 g/dL (6.5-8.0); Triglycerides 109 mg/dL (<150)
[2024-04-14 17:20] LABS: Thyroid Stimulating Hormone 0.49 uIU/mL (0.32-4.0); Vitamin D 25-OH Total 48.7 ng/mL (>30)
[2024-04-14 17:31] LABS: Folate 15.5 ng/mL (> or = 4.0); Vitamin B12 > 2000 pg/mL (200-900)
[2024-04-14 18:13] LABS: Alanine Aminotransferase 36 U/L (0-31); Alkaline Phosphatase 99 U/L (39-117)
== END 2024-04-14 13:59 | disposition home or self-care (01) ==
LOC: HO.LAB 13:58
PROVIDERS: PCP Internal Medicine; Visit Provider Internal Medicine
DX: Z00.01 Encounter for general adult medical examination with abnormal findings (principal); Z23 Encounter for immunization; I95.0 Idiopathic hypotension; H91.90 Unspecified hearing loss, unspecified ear; E66.01 Morbid (severe) obesity due to excess calories; Z68.41 Body mass index [BMI] 40.0-44.9, adult; F33.0 Major depressive disorder, recurrent, mild; J06.9 Acute upper respiratory infection, unspecified; J30.9 Allergic rhinitis, unspecified; G47.9 Sleep disorder, unspecified; F41.9 Anxiety disorder, unspecified; R09.89 Other specified symptoms and signs involving the circulatory and respiratory systems; E78.5 Hyperlipidemia, unspecified; E55.9 Vitamin D deficiency, unspecified; E03.9 Hypothyroidism, unspecified; E53.8 Deficiency of other specified B group vitamins
CPT/HCPCS: 0241U; 80053; 80061; 82306; 82607; 82746; 84443; 90471; 90677; 96127; 99212; 99397

== ENCOUNTER 2024-07-22 13:00 | Outpatient (REF) | payer MEDICARE, SELFPAY ==
[2024-07-22 16:44] LABS: Bacterial Vaginosis PCR NEGATIVE (Negative); Candida Group PCR NOT DETECTED (Not Detect); Candida glab krusei PCR NOT DETECTED (Not Detect); Trichomonas vaginalis PCR NOT DETECTED (Not Detect)
== END 2024-07-22 13:01 | disposition home or self-care (01) ==
LOC: HO.LAB 13:00
PROVIDERS: PCP Internal Medicine; Visit Provider Advanced Practice Midwife
DX: Z01.419 Encounter for gynecological examination (general) (routine) without abnormal findings (principal); N89.8 Other specified noninflammatory disorders of vagina
CPT/HCPCS: 81515; 99397; 99459

== ENCOUNTER 2024-07-22 13:00 | Outpatient (AMB) | payer MEDICARE, SELFPAY ==
--- NOTE | 2024-07-22 13:04 | A.OFFVIS_ITS ---
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 She is doing well with no weigher packing concerns. Currently not sexually active. Denies any vaginal dryness or irritation, reports slight vaginal odor. Attempting to eat a healthy diet with calcium and vitamin D and stays active with exercise-walks. History of hysterectomy due to heavy menstrual bleeding and fibroid. Last mammogram; 2023. Colonoscopy is UTD. Denies any family history of ovarian or colon cancer. Family history of breast cancer-maternal aunt. [facility] Medical History (Updated 07/22/24 @ 13:27 by Rafaela Young CNM) Physical exam Lumbar pain Right knee DJD Renal cyst PUD (peptic ulcer disease) Complex renal cyst Dyspepsia Obesity (BMI 35.0-39.9 without comorbidity) Urinary tract infection Lower back pain Cough Constipation Morbid obesity Right knee pain Left knee pain Pre-op exam Low back pain Screening examination for infectious disease Abdominal pain Onychomycosis Dyslipidemia Mild recurrent major depression Skin lesion Tubular adenoma of colon Idiopathic chronic hypotension Unsteady gait Hypothyroidism Takes daily multivitamins GERD (gastroesophageal reflux disease) Surgical History H/O elbow surgery History of varicose vein ligation H/O knee surgery H/O hand surgery History of foot surgery History of section History of hysterectomy History of removal of cyst History of cholecystectomy Family History (Updated 07/22/24 @ 13:31 by LUIS E Vega) Father Diabetes Mother Thyroid disease Chronic mental illness Hypertension Hypercholesterolemia Dementia Brother In good health Daughter In good health Daughter In good health Sister No problems noted. Family/Other Breast cancer Social History Household Members: None Housing: Apartment Alcohol intake: never Patient Tobacco Use Status: Never used Tobacco e-Cigarette/Vaping Use: Never Used Second Hand Smoke Exposure: No service: No Current occupational status: disabled Sexual orientation: Straight/Heterosexual Gender identity: Female Cognitive needs: No Hearing needs: No Vision needs: Yes Female Reproductive History Menstrual Age of Menarche: 9 Menopause type: surgical Total pregnancies: 3 Full term: 2 Number of Living Children: 2 Date of Mammogram: 03/25/24 (Birad 1) Review of Systems Const All systems reviewed & are unremarkable except as noted in HPI and below Reports as per HPI Eyes Reports no additional complaints ENT Reports no additional complaints Card Reports no additional complaints Resp Reports no additional complaints GI Reports as per HPI and Reports no additional complaints Reports as per HPI Musc Reports no additional complaints Skin/Breast Reports as per HPI Neuro Reports no additional complaints Psych Reports no additional complaints Endo Reports no additional complaints Sebas/Lymph Reports no additional complaints Aller/Immun Reports no additional complaints Physical Exam Vital Signs: Last Vital Signs BP 122/78 07/22/24 13:06 BMI result Body Mass Index 40.4 Const General: cooperative, healthy appearing, no acute distress, well developed and alert Orientation/consciousness: patient oriented x3 HEENT Head: Yes normal to inspection Eyes General: appearance normal, both eyes and all related structures Neck Neck: Yes normal visual inspection Thyroid: Thyroid normal Chest Chest palpation & inspection: normal inspection of the chest and other (no puckering, dimpling, peau de orange, retraction, discharge, masses) Breast/axilla inspection: normal inspection of the breasts Breast/axilla palpation: normal palpation of the breasts Resp Effort & Inspection: normal respiratory effort GI Inspection: Yes normal to inspection Palpation (GI): Soft to palpation Rectal Exam - Female: deferred General: Yes bladder normal to palpation External Female Exam: normal external appearance and normal appearance of the urethra Speculum Exam - Vagina: normal appearance of the vagina, normal palpation, normal vaginal discharge and vagina atrophic Speculum Exam - Cervix: Cervix absent (Vaginal cuff no lesions or nodules) Bimanual exam- vagina & uterus: normal bimanual exam, normal palpation, bladder normal to palpation and uterus absent Bimanual Exam- Adnexa, other: no masses Skin General skin exam: no rashes or lesions noted Rashes: no rashes Neuro General: patient oriented x3 Cognition (Neuro): normal cognition Extrem General: Yes normal to inspection Psych Attitude: cooperative Thought process: Normal thought process present Assessment & Plan Assessment & Plan (1) Encounter for well woman exam with routine gynecological exam: Code(s): Z01.419 - Encounter for gynecological examination (general) (routine) without abnormal findings Category: Medical Plan: Discussed: Current recommendations for pap smears per ASCCP guidelines. BV panel obtained we had results for plan of care. Breast awareness, periodic self breast exams and yearly mammogram. Maintain a healthy lifestyle, well balanced diet including Calcium 1,200 mg and Vitamin D 600 IU daily, and routine exercise. Patient verbalizes understanding and agrees to the plan of care. She was given opportunity to ask questions and all questions were answered to the best of my ability. RTO in 1 year for annual weigher packing exam. This note is constructed using voice recognition software. While every effort has been made to ensure accuracy, marketing operations analyst errors may have been included. (2) Vaginal odor: Code(s): N89.8 - Other specified noninflammatory disorders of vagina Category: Medical Plan: BV panel obtained await results for plan of care. Coding Level of Care Code Est Pt Prev Care >65y(53576) Diagnoses Encounter for well woman exam with routine gynecological exam Z01.419 Vaginal odor N89.8
[2024-07-22 13:06] VITALS: BP 122/78; BMI 40.4
== END 2024-07-22 13:30 | disposition home or self-care (01) ==
LOC: HO.HWS 13:00
PROVIDERS: PCP Internal Medicine; Visit Provider Advanced Practice Midwife
DX: Z01.419 Encounter for gynecological examination (general) (routine) without abnormal findings (principal); N89.8 Other specified noninflammatory disorders of vagina
CPT/HCPCS: 99397; 99459

== ENCOUNTER 2024-07-23 12:02 | Outpatient (REF) | payer MEDICARE, SELFPAY ==
--- OUTSIDE RECORDS SUMMARY | 2024-07-23 14:38 | XMS_ITS | Clinical Summary ---
Author Organization [facility] Address [address] [facility] [address] [place] [address] Phone Care Team Providers Care Russian Language Professor Name Role Phone Rae Nunez MD Primary Care Provider [phone] Allergies Active Allergy Reactions Criticality Noted Date Comments Morphine Vomiting Medium 09/27/2020 Other reaction(s): Vomiting Other reaction(s): Vomiting Shellfish Allergy Other (see comments) 10/04/19 21 Shellfish-Derived Products Rash Low 09/26/2017 Medications atorvastatin (LIPITOR) 10 MG tablet Take 1 tablet by mouth at bed time Active LORazepam (ATIVAN) 0.5 MG tablet Take 1 tablet by mouth 2 (two) times a day Active PARoxetine (PAXIL) 40 MG tablet Take 1 tablet by mouth 1 (one) time each day Active QUEtiapine (SEROquel) 200 MG tablet Take 1 tablet by mouth 1 (one) time each day Active traZODone (DESYREL) 150 MG tablet Take 1 tablet by mouth at bed time Active calcium carbonate (OS-MORELIA) 600 MG tablet TAKE 1 TABLET BY MOUTH TWICE DAILY 08/02/2020 Active sucralfate (CARAFATE) 1 g tablet Take 1 g by mouth 2 (two) times a day 09/01/2020 Active famotidine (PEPCID) 40 MG tablet Take 40 mg by mouth at bed time 12/23/2022 Active linaCLOtide (Linzess) 290 MCG capsule Take 1 capsule by mouth 1 (one) time each day Active metoclopramide (REGLAN) 5 MG tablet Take 5 mg by mouth in the morning and 5 mg at noon and 5 mg in the evening and 5 mg before bedtime. Active dicyclomine (BENTYL) 20 MG tablet Take 20 mg by mouth every 6 (six) hours Active Active Problems Problem Noted Date Diagnosed Date Dental calculus 10/15/2022 04/09/2023 Gingival recession, localized 04/10/2022 Acquired renal cystic disease 10/03/2020 Anxiety 10/03/2020 Constipation 10/03/2020 Depressive disorder 10/03/2020 Dyslipidemia 10/03/2020 Gastroesophageal reflux disease 10/03/2020 Hypertensive disorder 10/03/2020 Hypothyroidism 10/03/2020 Back problem 01/08/2013 04/09/2023 Disorder of kidney 01/08/2013 04/09/2023 Dizzy spells 01/08/2013 04/09/2023 Mental health problem 01/08/2013 04/09/2023 Seasonal allergic rhinitis 01/08/201304/09 Stomach problem 01/08/2013 04/09/2023 Family History Medical History Relation Comments Hypertension Mother Heart disease Sibling 1 sister Hypertension Sibling 2 brother & sister Relation Status Comments Father Unknown Mother Unknown Sibling 1 Sibling 2 Social History Tobacco Use Types Packs/Day Years Used Date Smoking Tobacco: Never Smokeless Tobacco: Never Tobacco Cessation:Counseling Given: Not Answered Alcohol Use Standard Drinks/Week Comments No 0 (1 standard drink = 0.6 oz pur e alcohol) Comments Unknown Sex and Gender Information Value Date Recorded Sex Assigned at Not on file Legal Sex Female 4:45 PM EST Gender Identity Not on file Sexual Orientation Not on file Last Filed Vital Signs Vital Sign Reading Time Taken Comments Blood Pressure 120/60 11/27/2023 3:23 PM EDT Pulse 60 11/27/2023 3:23 PM EDT Temperature - - Respiratory Rate - - Oxygen Saturation 99% 12/20/2021 3:05 PM EDT Inhaled Oxygen Concentration - - Weight 115 kg (254 lb) 11/27/2023 3:23 PM EDT Height 170.2 cm (5' 7 ) 10/05/2018 12:00 PM EDT Body Mass Index 39.78 10/05/2018 12:00 PM EDT Plan of Treatment Upcoming Encounters Date Type Department Care Team (Late st Contact Info) Description 01/31/2025 2:45 PM EDT Office Visit [facility] [address] [place] [address] Adiel Ames MD [address] [address] Health Maintenance Due Date Last Done Comments Breast Cancer Screening 1960 Pneumococcal Vaccine: 65+ Ye ars (1 of 2 - PCV) 1965 Pneumococcal Vaccine: Pediat rics (0 to 5 Years) and At-Risk Patients (6 to 64 Years) (1 of 2 - PCV) 1965 Colorectal Cancer Screening: Annual FOBT 01/18/2008 Colorectal Cancer Screening: Colonoscopy 01/18/2008 Colorectal Cancer Screening: Sigmoidoscopy 01/18/2008 Influenza Vaccine (#1) 2024 Hepatitis B Vaccine Aged Out No longe r eligible based on patient's age to complete this topic Insurance [facility] Care Teams Russian Language Professor Relationship Specialty Start Date End Date Rae Nunez MD [address] [place] [address] PCP - General 05/15/20
== END 2024-07-23 12:03 | disposition home or self-care (01) ==
LOC: HO.SH 12:02
PROVIDERS: Visit Provider Internal Medicine
DX: Z01.118 Encounter for examination of ears and hearing with other abnormal findings (principal); H90.3 Sensorineural hearing loss, bilateral
CPT/HCPCS: 92557; 92567

== ENCOUNTER 2024-08-04 13:54 | Outpatient (AMB) | payer MEDICARE, MEDICAID, SELFPAY ==
--- NOTE | 2024-08-04 14:02 | A.OFFVIS_ITS ---
Vital Signs 08/04/24 14:20 Height 5 ft 7 in Weight 259 lb BMI 40.6 BP 122/74 Blood Pressure Location Lt brachial Position Sitting Intake Visit Reasons: f/u [facility] Intake Note: Genna presents in follow up of [facility]. CC: Patient c/o constipation. Denies other GI symptoms today. 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 Forest Fire Fighter Language: Jordanian Accompanied by: Self / Same As Patient Allergies egg Allergy (Intermediate, Verified 08/04/24 14:33) Rash seafood Allergy (Intermediate, Verified 08/04/24 14:33) Rash shellfish derived Allergy (Intermediate, Verified 08/04/24 14:33) RASH zolpidem [ZOLPIDEM] Allergy (Intermediate, Verified 08/04/24 14:33) HEART PALPITATIONS morphine Adverse Reaction (Intermediate, Verified 08/04/24 14:33) Vomiting HPI HPI f/u [facility]: Details: Assessment & Plan (1) Nausea and vomiting: Code(s): R11.2 - Nausea with vomiting, unspecified Category: Medical Qualifiers: Vomiting type: unspecified Qualified Code(s): R11.2 - Nausea with vomiting, unspecified (2) Chronic idiopathic constipation: Code(s): K59.04 - Chronic idiopathic constipation Category: Medical (3) GERD (gastroesophageal reflux disease): Code(s): K21.9 - Gastro-esophageal reflux disease without esophagitis Category: Medical Qualifiers: Esophagitis presence: esophagitis presence not specified Qualified Code(s): K21.9 - Gastro-esophageal reflux disease without esophagitis Plan Jordanian #[id number] She was seen in the ER but is feeling well now. It seems that with her report of room spinning and nystagmus this was likely N/V secondary to vertigo and not of GI origin. The ER told her she needed to see me urgently for an EGD, which is really no warranted. She continues to do well on lactulose, colace, reglan 5mg qid, bentyl and pantoprazole and famotidine. In general her medications are working well. She will have occasional days when nothing settles well and she avoids eating, but this is not frequent. The only new problem is that her knees are bad. She has had injections that did not last and now she is waiting the results of xrays. She asks re: next scope and she is due between 1146-1830. ROV keep March appt. Medications: Refilled docusate sodium (Colace) 100 mg PO .DAILY WITH FOOD 60 caps 6RF 30 days dicyclomine 40 mg (2 x 20 mg) PO TID 270 tabs 2RF famotidine 40 mg PO BEDTIME 30 tabs 6RF K27.9 - Peptic ulcer, site unspecified, unspecified as acute or chronic, without hemorrhage or perforation metoclopramide HCl 5 mg PO QID 120 tabs 6RF K59.9 - Functional intestinal disorder, unspecified pantoprazole 40 mg PO QAM 30 tabs 6RF Discontinued ondansetron Discontinued Reason: Doctor's Order 4 mg PO Q8H PRN 20 tabs 0RF nausea and vomiting famotidine (Pepcid) Discontinued Reason: Duplicate 20 mg PO BID 10 days 20 tabs 0RF CORRESPONDENCE On 12/22/23 @ 12:40 Dot Bobo Wrote To ,August Add on 12/24/23. On 12/22/23 @ 11:43 Berenice Tian Wrote To Dot Bobo Scheduled for 12/24/23 On 11/27/23 @ 14:02 Mey Plummer Wrote To Berenice Tian pt needs a followup appt after being at [facility] friday through friday please call her TODAY'S VISIT Jordanian #V Live She continues to do well lactulose, colace, reglan 5mg qid, bentyl and pantoprazole and famotidine. She prefers to wait until 2025 for her next scope [facility] Medical History Physical exam Lumbar pain Right knee DJD Renal cyst PUD (peptic ulcer disease) Complex renal cyst Dyspepsia Obesity (BMI 35.0-39.9 without comorbidity) Urinary tract infection Lower back pain Cough Constipation Morbid obesity Right knee pain Left knee pain Pre-op exam Low back pain Screening examination for infectious disease Abdominal pain Onychomycosis Dyslipidemia Mild recurrent major depression Skin lesion Tubular adenoma of colon Idiopathic chronic hypotension Unsteady gait Hypothyroidism Takes daily multivitamins GERD (gastroesophageal reflux disease) Surgical History H/O elbow surgery History of varicose vein ligation H/O knee surgery H/O hand surgery History of foot surgery History of section History of hysterectomy History of removal of cyst History of cholecystectomy Family History Father Diabetes Mother Thyroid disease Chronic mental illness Hypertension Hypercholesterolemia Dementia Brother In good health Daughter In good health Daughter In good health Sister No problems noted. Family/Other Breast cancer Social History Household Members: None Housing: Apartment Alcohol intake: never Patient Tobacco Use Status: Never used Tobacco e-Cigarette/Vaping Use: Never Used Second Hand Smoke Exposure: No service: No Current occupational status: disabled Sexual orientation: Straight/Heterosexual Gender identity: Female Cognitive needs: No Hearing needs: No Vision needs: Yes Female Reproductive History Menstrual Age of Menarche: 9 Review of Systems Const Denies fatigue, Denies fever(s), Denies night sweats, Denies poor appetite and Denies weight loss Eyes Details: glasses Reports requires corrective lenses ENT Reports Normal hearing present, Denies dental pain, Denies dysphagia, Denies hearing loss, Denies mouth pain, Denies odynophagia, Denies throat swelling, Denies tongue swelling and Reports other (Dentition adequate) Card Reports no additional complaints Resp Reports no additional complaints GI Details: Denies abdominal pain, Denies melena, Denies bloating, Denies hematochezia, Reports constipation, Denies GI cramping, Denies dysphagia, Denies excessive flatus, Denies early satiety, Reports heartburn, Denies diarrhea, Denies nausea, Denies odynophagia, Denies vomiting and Denies hematemesis Skin/Breast Denies pruritus, Denies lesions, Denies rash and Denies jaundice Neuro Reports Normal hearing present and Denies Abnormal speech present Endo Denies fatigue Aller/Immun Denies throat swelling and Denies tongue swelling Physical Exam Vital Signs: Last Vital Signs BP 122/74 04/02/25 14:20 BMI result Body Mass Index 40.6 Const General: cooperative, no acute distress, well developed and well groomed Nutritional Appearance: well nourished and obese Orientation/consciousness: oriented to person, oriented to place and oriented to time Limitations: language barrier HEENT Head: Yes normocephalic and Yes atraumatic Eyes General: appearance normal, both eyes and all related structures Pupils: Equal, round and reactive pupils present Neck Neck: Yes normal visual inspection and Yes no lymphadenopathy Thyroid: Thyroid normal Resp Effort & Inspection: normal respiratory effort and able to speak in complete sentences Auscultation: clear to auscultation bilaterally Cardio Rate: regular rate Rhythm: regular rhythm Heart sounds: Normal, physiologic split S2 sound present Peripheral pulses: radial pulses present and posterior tibial pulses present GI Inspection: No distended, No Abdominal panniculus present and Yes obesity Palpation (GI): Soft to palpation, nontender, no guarding, not rigid and No hepatosplenomegaly present Percussion: Yes normal to percussion Auscultation: normal bowel sounds Rectal Exam - Female: deferred Skin General skin exam: no rashes or lesions noted, turgor normal, skin not dry, no jaundice, No spider nevi and no striae Rashes: no rashes Nails: normal Neuro General: oriented to person, oriented to place and oriented to time Cranial nerves: Yes Equal, round and reactive pupils present and Yes Normal hearing present Speech: No Abnormal speech present Extrem General: Yes normal to inspection, No clubbing, No cyanosis and No edema Psych Appearance: grossly normal and well kempt Mental Status: mental status grossly normal Speech and movement: Normal speech and movement present Affect: normal affect Attitude: cooperative Thought process: Normal thought process present and not confabulating Thought content: Normal thought content present Insight: Fair insight present (Psych) Judgement: Fair judgement present (Psych) Assessment & Plan Assessment & Plan (1) Nausea and vomiting: Code(s): R11.2 - Nausea with vomiting, unspecified Category: Medical Qualifiers: Vomiting type: unspecified Qualified Code(s): R11.2 - Nausea with vomiting, unspecified (2) Small bowel motility disorder: Code(s): K59.9 - Functional intestinal disorder, unspecified Category: Medical (3) Chronic idiopathic constipation: Code(s): K59.04 - Chronic idiopathic constipation Category: Medical (4) GERD (gastroesophageal reflux disease): Code(s): K21.9 - Gastro-esophageal reflux disease without esophagitis Category: Medical Qualifiers: Esophagitis presence: esophagitis presence not specified Qualified Code(s): K21.9 - Gastro-esophageal reflux disease without esophagitis Plan Jordanian #V Live She continues to do well lactulose, colace, reglan 5mg qid, bentyl and pa ntoprazole and famotidine. She prefers to wait until 2025 for her next scope ROV 6 mos. Medications: Refilled dicyclomine 40 mg (2 x 20 mg) PO TID 270 tabs 2RF docusate sodium (Colace) 100 mg PO .DAILY WITH FOOD 60 caps 6RF 30 days lactulose 30 mL PO TID 600 mL 6RF famotidine 40 mg PO BEDTIME 30 tabs 6RF K27.9 - Peptic ulcer, site unspecified, unspecified as acute or chronic, without hemorrhage or perforation metoclopramide HCl 5 mg PO QID 120 tabs 6RF K59.9 - Functional intestinal disorder, unspecified pantoprazole 40 mg PO QAM 30 tabs 6RF Coding Level of Care Code Est Pt Level 3 (60332) Diagnoses Nausea and vomiting R11.2 Vomiting type: unspecified Small bowel motility disorder K59.9 Chronic idiopathic constipation K59.04 Gastroesophageal reflux disease, unspecified whether esophagitis present K21.9 Esophagitis presence: esophagitis presence not specified
[2024-08-04 14:20] VITALS: BP 122/74; BMI 40.6
--- OUTSIDE RECORDS SUMMARY | 2024-08-04 16:39 | XMS_ITS | Clinical Summary ---
Author Organization [facility] Address [address] [facility] [address] [place] [address] Phone Care Team Providers Care Corporate Receptionist Name Role Phone Rae Nunez MD Primary Care Provider [phone] Allergies Active Allergy Reactions Criticality Noted Date [...] Visit [facility] [address] [place] [address] Adiel Ames MD [address] [address] Health Maintenance Due Date Last Done Comments [...] patient's age to complete [place] [address] [facility] [place] [address] Care Teams Corporate Receptionist Relationship Specialty Start Date End Date Rae Nunez MD [address] [facility] [address] [address] [place] [address] PCP - General 05/15/20
--- OUTSIDE RECORDS SUMMARY | 2024-08-04 16:39 | XMS_ITS | Encounter Summary ---
Author Organization [employer] [facility] Address [address] [place] [address] [address] [place] [address] Care Team Providers Care Entry Level Software Engineer Name Role Phone Unavailable Primary Care Provider Unavailabl e Encounter Details Date Type Department Care Team (Late st Contact Info) Description 04/01/2022 Abstract [facility]ULT [facility] [address] [place] [address] Dental, Provider, DDS Social History Tobacco Use Types Packs/Day Years Used Date Smoking Tobacco: Never Assessed Comments Unknown Sex and Gender Information Value Date Recorded Sex Assigned at Female 03/04/2022 10:22 AM EDT Legal Sex Female 10:22 AM EDT Gender Identity Female 03/04/2022 10:22 AM EDT Sexual Orientation Choose not to disclose 2021 10:22 AM EDT documented as of this encounter Plan of Treatment Upcoming Encounters Date Type Department Care Team (Late st Contact Info) Description 08/11/2024 1:30 PM EDT Office Visit [facility] [address] [place] [address] Tj Wagoner DDS [address] [place] [address] 09/07/2024 1:00 PM EDT Office Visit [facility] [address] [place] [address] Katie Acosta [address] [place] [address] documented as of this encounter Procedures Procedure Name Priority Date/Time Associated Diagnosis Comments 29 DOL COMPOSITE FILLING Routine 12:00 AM EST 30 DOL COMPOSITE FILLING Routine 12:00 AM EST 28 B(V) COMPOSITE FILLING Routine 04/01/2022 12:00 AM EST 21 B(V) COMPOSITE FILLING Routine 04/01/2022 12:00 AM EST 14 MOL COMPOSITE FILLING Routine 022 12:00 AM EST 13 MODB(V) COMPOSITE FILLING Routine 04/01/2022 12:00 AM EST 9 I COMPOSITE FILLING Routine 04/01/2022 12:00 AM EST 5 MODB(V) COMPOSITE FILLING Routine 04/01/2022 12:00 AM EST 4 MODB(V) COMPOSITE FILLING Routine 04/01/2022 12:00 AM EST 28 O AMALGAM FILLING Routine 04/01/2022 12:00 AM EST 31 MO AMALGAM FILLING Routine 04/01/2022 12:00 AM EST 21 MOD AMALGAM FILLING Routine 12:00 AM EST 20 MOD AMALGAM FILLING Routine 12:00 AM EST 19 MO AMALGAM FILLING Routine 04/01/2022 12:00 AM EST 18 O AMALGAM FILLING Routine 04/01/2022 12:00 AM EST 15 MOD AMALGAM FILLING Routine 12:00 AM EST 3 MOL AMALGAM FILLING Routine 04/01/2022 12:00 AM EST 2 O AMALGAM FILLING Routine 04/01/2022 1 2:00 AM EST 12 DO AMALGAM FILLING Routine 04/01/2022 12:00 AM EST 32 EXTRACTION Routine 04/01/2022 12:00 AM EST 17 EXTRACTION Routine 04/01/2022 12:00 AM EST 16 EXTRACTION Routine 04/01/2022 12:00 AM EST 1 EXTRACTION Routine 04/01/2022 12:00 AM EST documented in this encounter Visit Diagnoses Not on filedocumented in this encounter
--- OUTSIDE RECORDS SUMMARY | 2024-08-04 16:39 | XMS_ITS | Encounter Summary ---
Author Organization [employer] [facility] Address [address] [facility] [address] [place] [address] Care Team Providers Care Farm Rancher Name Role Phone Unavailable Primary Care Provider Unavailabl e Encounter Details Date Type Department Care Team (Latest Contact Info) Description 09/27/2020 Abstract [facility] CONVERSIONS Dental, Provider, DDS Social History Tobacco Use [...] Description 08/11/2024 1:30 PM EDT Office Visit [facility] ADULT DENTAL [address] [place] [address] Tj Wagoner DDS [address] [place] [address] 09/07/2024 1:00 PM EDT Office Visit [facility] ADULT [facility] [address] [place] [address] Michael Acostaaris [address] [place] [address] documented as of this encounter Visit Diagnoses Not on filedocumented in this encounter
--- OUTSIDE RECORDS SUMMARY | 2024-08-04 16:39 | XMS_ITS | Encounter Summary ---
Author Organization [employer] [facility] Address [address] [facility] [address] [place] [address] Care Team Providers Care Paint Factory Worker Name Role Phone Unavailable Primary Care Provider Unavailabl e Encounter Details Date Type Department Care Team (Latest Contact Info) Description 09/27/2020 Abstract [facility] CONVERSIONS Dental, Provider, DDS Social History Tobacco [...] Description 08/11/2024 1:30 PM EDT Office Visit [facility] ADULT DENTAL [address] [place] [address] Tj Wagoner DDS [address] [place] [address] 09/07/2024 1:00 PM EDT Office Visit [facility] ADULT D[facility] [address] [place] [address] Michael Acostaaris [address] [place] [address] documented as of this encounter Visit Diagnoses Not on filedocumented in this encounter
--- OUTSIDE RECORDS SUMMARY | 2024-08-04 16:39 | XMS_ITS | Encounter Summary ---
Author Organization [employer] [facility] Address [address] [facility] [address] [place] [address] Care Team Providers Care Reinforcement Maker Name Role Phone Unavailable Primary Care Provider Unavailabl e Encounter Details Date Type Department Care Team (Latest Contact Info) Description 03/09/2019 Abstract [facility] CONVERSION[facility] Dental, Provider, DDS Social History [...] Description 08/11/2024 1:30 PM EDT Office Visit [facility] ADULT D[facility] [address] [place] [address] Tj Wagoner DDS [address] [place] [address] 09/07/2024 1:00 PM EDT Office Visit [facility] ADULT [facility] [address] [place] [address] Michael Acostaaris [address] [place] [address] documented as of this encounter Visit Diagnoses Not on filedocumented in this encounter
--- OUTSIDE RECORDS SUMMARY | 2024-08-04 16:39 | XMS_ITS | Clinical Summary ---
Author Organization [employer] Address [address] [facility] [address] 7t [place] [address] Care Team Providers Care Egg Separator Name Role Phone Unavailable Primary Care Provider Unavailabl e Allergies Active Allergy Reactions Criticality Noted Date Comments Morphine Medium 09/27/2020 Other reaction(s): Vomiting Other reaction(s): Vomiting Shellfish Allergy Rash Low 10/03/2020 Shellfish-Derived Products 8 Medications acetaminophen (Tylenol) 325 MG tablet Take 1 tablet by mouth every 4 (four) hours. 3 Active atorvastatin (Lipitor) 10 MG tablet Take 1 tablet by mouth at bed time. 8 Active darifenacin (Enablex) 15 MG 24 hr tablet Take 1 tablet by mouth in the morning. Active ibuprofen 800 MG tablet Take 1 tablet by mouth every 8 (eight) hours. Active clotrimazole-be tamethasone (Lotrisone) cream APPLY TO AFFECTED AREA(S) TOPICALLY TWICE DAILY FOR FOURTEEN DAYS 2 Active calcium carbonate 1500 (600 Ca) MG tablet Take 1,500 mg by mouth in the morning and at bedtime. 2 Active cyclobenzaprine (Flexeril) 10 MG tablet Take 10 mg by mouth if needed in the morning, at noon, and at bedtime. 2 Active famotidine (Pepcid) 40 MG tablet Take 40 mg by mouth at bedtime. 2 Active hydrocortisone 2.5 % cream APPLY TO DARK SPOTS ON RIGHT CHEEK TWICE A DAY NEEDED FOR ITCH. DECREASE SYMPTOMS IMPROVE 2 Active lactulose (Kristalose) 10 g packet Take by mouth. Activ e levothyroxine (Synthroid, Levoxyl) 200 MCG tablet Take 200 mcg by mouth in the morning. 2 Active lidocaine (Lidoderm) 5 % patch APPLY 1 PATCH TOPICALLY TO SKIN, LEAVE ON FOR 12 HOURS AND OFF FOR 12 HOURS DIRECTED 2 Active Linzess 290 MCG capsule Take 290 mcg by mouth in the morning. 2 Active LORazepam (Ativan) 0.5 MG tablet Take 0.5 mg by mouth if needed in the morning and at bedtime. 2 Active lubiprostone (Amitiza) 24 MCG capsule Take 24 mcg by mouth in the morning and at bedtime. 2 Active metoclopramide (Reglan) 5 MG tablet TAKE 1 TABLET BY MOUTH FOUR TIMES DAILY BEFORE MEALS AND AT BEDTIME 2 Active midodrine (Proamatine) 5 MG tablet TAKE 1 TABLET BY MOUTH THREE TIMES DAILY DO NOT TAKE AFTER 600pm OR WITHIN 4 HOURS OF BEDTIME 2 Active Multiple Vitamins-Minera ls (CertaVite/Anti oxidants) tablet Take 1 tablet by mouth in the morning. 2 Active nystatin (Mycostatin) cream APPLY TO THE AFFECTED AREA(S) EVERY DAY 2 Active omeprazole OTC (PriLOSEC OTC) 20 MG EC tablet Acti ve pantoprazole (ProtoNix) 40 MG EC tablet Take 40 mg by mouth in the morning. 2 Active PARoxetine (Paxil) 40 MG tablet Take 40 mg by mouth in the morning. 2 Active QUEtiapine (SEROquel) 200 MG tablet Take 200 mg by mouth at bedtime. 2 Active traZODone (Desyrel) 150 MG tablet Take 150 mg by mouth if needed at bedtime. 3 Active terbinafine (LamISIL) 250 MG tablet Take 250 mg by mouth in the morning. 3 Active sucralfate (Carafate) 1 g tablet Take 1 g by mouth 2 times daily. 3 Active levothyroxine (Synthroid, Levoxyl) 175 MCG tablet Take 175 mcg by mouth in the morning. 3 Active dicyclomine (Bentyl) 20 MG tablet Take 20 mg by mouth 3 times daily. Active Active Problems Problem Noted Date Diagnosed Date Excessive attrition of teeth, limited to enamel 04/08/2024 Dental plaque 03/09/2024 Crowded teeth 03/09/2024 Dental calculus 10/15/2022 Gingival recession, localized 04/10/2022 Back problem 01/08/2013 Dizzy spells 01/08/2013 High blood pressure 01/08/2013 Kidney disease 01/08/2013 Mental health problem 01/08/2013 Seasonal allergic rhinitis 01/08/2013 Stomach problems 01/08/2013 Social History Tobacco Use Types Packs/Day Years Used Date Smoking Tobacco: Never Smokeless Tobacco: Never Tobacco Cessation:Counseling Given: No Alcohol Use Standard Drinks/Week Comments Never 0 (1 standard drink = 0.6 oz pur e alcohol) Comments Unknown Sex and Gender Information Value Date Recorded Sex Assigned at Female 03/04/2022 10:22 AM EDT Legal Sex Female 10:22 AM EDT Gender Identity Female 03/04/2022 10:22 AM EDT Sexual Orientation Choose not to disclose 2021 10:22 AM EDT Last Filed Vital Signs Vital Sign Reading Time Taken Comments Blood Pressure 130/78 04/08/2024 2:32 PM EST Pulse 74 06/09/2023 11:06 AM EST Temperature - - Respiratory Rate - - Oxygen Saturation - - Inhaled Oxygen Concentration - - Weight 117 kg (258 lb 3.2 oz) 06/14/2021 12:02 A M EST Height 170.2 cm (5' 7 ) 06/14/2021 12:02 AM EST Body Mass Index 40.44 06/14/2021 12:02 AM EST Plan of Treatment Upcoming Encounters Date Type Department Care Team (Late st Contact Info) Description 08/11/2024 1:30 PM EDT Office Visit [facility] ADULT DENTAL [address] [place] [address] Tj Wagoner DDS [address] [place] [address] 09/07/2024 1:00 PM EDT Office Visit [facility] ADULT DENTAL [address] [place] [address] [place] [address] Health Maintenance Due Date Last Done Comments CT Colonography 1959 Colonoscopy 1959 Colorectal Cancer Screening 1959 Depression Screening 1959 FIT DNA/Cologuard 1959 FIT 1959 FOBT 1959 Lipid Panel 1959 SDOH Screening 1959 Sigmoidoscopy 1959 Alcohol/Substance Use Screening 1971 Hepatitis C Screening 1977 Pap Smear 01/18/1980 Cervical Cancer Screening 1989 HPV/Cotest 1989 Mammogram 1999 Zoster Vaccines (2 of 2) 03/19/2021 01/22/2021 COVID-19 Vaccine ( season) 2024 11/16/2021, 10/18/2020, 09/20/2020 Dental Oral Exam 09/07/2024 03/09/2024, 10/15/2022 Dental Prophylaxis 09/07/2024 03/09/2024, 0 06/09/2023, 10/15/2022, Additional history exists Dental X-Ray: Bitewings 03/10/2025 03/09/2024, 10/15 Tobacco Screening 04/08/2025 04/08/2024 Dental X-Ray: Full Mouth 03/10/2027 03/09/2024, 09/03 DTaP/Tdap/Td Vaccines (2 - Td or Tdap) 04/12/2029 04/12/2019 RSV Patients and Patients Aged 60 years or older (1 - 1-dose 75+ series) 2034 Influenza Vaccine Completed 02/25/2024, , 04/03/2022, Additional history exists Pneumococcal Vaccine: 50+ Years Completed 04/14/2024 HIB Vaccines Aged Out No longer eligi ble based on patient's age to complete this topic HPV Vaccines Aged Out No longer eligi ble based on patient's age to complete this topic Hepatitis A Vaccines Aged Out No long er eligible based on patient's age to complete this topic Hepatitis B Vaccines Aged Out No long er eligible based on patient's age to complete this topic IPV Vaccines Aged Out No longer eligi ble based on patient's age to complete this topic Meningococcal Vaccine Aged Out No anup cassi eligible based on patient's age to complete this topic RSV under 20 months Aged Out No longe r eligible based on patient's age to complete this topic Rotavirus Vaccines Aged Out No longer eligible based on patient's age to complete this topic Procedures Procedure Name Priority Date/Time Associated Diagnosis Comments PROPHYLAXIS - ADULT Routine 03/09/2024 1 :00 PM EST Dental plaque Crowded teeth INTRAORAL - COMPLETE SERIES OF RADIOGRAPHIC IMAGES Routine 03/09/2024 1:00 PM EST Dental plaque Crowded teeth PERIODIC ORAL EVALUATION - ESTABLISHED PATIENT Routine 03/09/2024 1:00 PM EST from Last 3 Months or Most Recently Relevant to Health Maintenance Insurance [facility] ST[place] ADULT
== END 2024-08-04 14:59 | disposition home or self-care (01) ==
LOC: HO.HGI 13:55
PROVIDERS: PCP Internal Medicine; Visit Provider Nurse Practitioner
DX: R11.2 Nausea with vomiting, unspecified (principal); K59.9 Functional intestinal disorder, unspecified; K59.04 Chronic idiopathic constipation; K21.9 Gastro-esophageal reflux disease without esophagitis
CPT/HCPCS: 99213

== ENCOUNTER → 2024-08-04 13:54 | Outpatient (BNVA) | payer MEDICARE, MEDICAID, SELFPAY | PROVIDERS: PCP Internal Medicine; Visit Provider Nurse Practitioner | DX: K59.9 Functional intestinal disorder, unspecified (principal); K59.04 Chronic idiopathic constipation; K21.9 Gastro-esophageal reflux disease without esophagitis; R11.2 Nausea with vomiting, unspecified | CPT/HCPCS: 99212 ==

== ENCOUNTER 2024-09-06 11:57 | Outpatient (REF) | payer MEDICARE, MEDICAID, SELFPAY ==
--- NOTE | ~2024-09-06 | US_ITS ---
EXAMINATION: US KIDNEY BILATERAL HISTORY: N28.1 - Cyst of kidney, acquired TECHNIQUE: Real-time grayscale ultrasound imaging of the kidneys was performed and images were reviewed. COMPARISON: Comparison is made with the prior examination dated 12/27/2022. FINDINGS: Right kidney: The right kidney measures 12.0 x 3.8 x 3.6 cm. Renal parenchymal echotexture and thickness are normal. There is a 1.4 x 1.1 x 1.1 cm septated cyst in the interpolar region (previously 1.5 x 1.4 x 1.5 cm). There is no hydronephrosis or renal calculi. Left Kidney: The left kidney measures 15.2 x 5.1 x 7.7 cm. Renal parenchymal echotexture and thickness are normal. There is an upper pole cyst measuring 3.4 x 3.5 x 6.1 cm (previously 7.5 x 6.3 x 7.1 cm) and a lower pole cyst measuring 8.7 x 6.9 x 8.0 cm (previously 8.4 x 6.7 x 8.0 cm). There is no hydronephrosis or renal calculi. US/US renal BI IMPRESSION: Bilateral renal cysts as described above, all of which appears smaller than on the prior study. Electronically signed by: Fady Valadez MD 09/06/2024 01:13 PM EDT
--- OUTSIDE RECORDS SUMMARY | 2024-09-06 13:36 | XMS_ITS | Encounter Summary ---
Author Organization [employer] [facility] Address [address] [facility] 7t [place] [address] Care Team Providers Care Loaders Name Role Phone Unavailable Primary Care Provider Unavailabl e Encounter Details Date Type Department Care Team (Latest Contact Info) Description 03/09/[address] [facility] CONVERSIONS Dental, Provider, DDS Social History [...] Care Team (Late st Contact Info) Description 09/07/2024 1:00 PM EDT Office Visit [facility] ADULT DENTAL [address] [place] [address] Karla Katie [address] [place] [address] documented as of this encounter Visit Diagnoses Not on filedocumented in this encounter
--- OUTSIDE RECORDS SUMMARY | 2024-09-06 13:36 | XMS_ITS | Encounter Summary ---
Author Organization [employer] [facility] Address [address] [facility] 7[address] [place] [address] Care Team Providers Care Cooperative Manager Name Role Phone Unavailable Primary Care Provider Unavailabl e Encounter Details Date Type Department Care Team (Late Contact Info) Description 04/01/2022 Abstract [facility] ADULT DENTAL [address] [place] [address] Dental, Provider, DDS Social History Tobacco Use [...] Encounters Date Type Department Care Team (Late Contact Info) Description 09/07/2024 1:00 PM EDT Office Visit [facility] ADULT DENTAL [address] [place] [address] Katie Acosta [address] [place] [address] documented as of this encounter Procedures Procedure Name Priority Date/Time Associated Diagnosis Comments 29 DOL COMPOSITE FILLING Routine 12:00 AM EST 30 DOL COMPOSITE FILLING Routine 12:00 AM EST 28 B(V) COMPOSITE FILLING Routine 04/01/2022 12:00 AM EST 21 B(V) COMPOSITE FILLING Routine 04/01/2022 12:00 AM EST 14 MOL COMPOSITE FILLING Routine 12:00 AM EST 13 MODB(V) COMPOSITE FILLING [...]
--- OUTSIDE RECORDS SUMMARY | 2024-09-06 13:36 | XMS_ITS | Encounter Summary ---
Author Organization [employer] [facility] Address [address] [facility] 7t [place] [address] Care Team Providers Care Information Systems Security Developer Name Role Phone Unavailable Primary Care Provider Unavailabl e Encounter Details Date Type Department Care Team (Latest Contact Info) Description 09/27/2020 Abstract [facility] CONVERSIONS Dental, Provider, DDS Social History Tobacco [...] Description 09/07/2024 1:00 PM EDT Office Visit [facility] ADULT DENTAL [address] [place] [address] Karla Katie [address] [place] [address] documented as of this encounter Visit Diagnoses Not on filedocumented in this encounter
--- OUTSIDE RECORDS SUMMARY | 2024-09-06 13:36 | XMS_ITS | Encounter Summary ---
Author Organization [employer] [facility] Address [address] [facility] 7t [place] [address] Care Team Providers Care Construction Helper Name Role Phone Unavailable Primary Care Provider Unavailabl e Encounter Details Date Type Department Care Team (Latest Contact Info) Description 09/27/2020 Abstract [facility] CONVERSIONS Dental, Provider, DDS Social History Tobacco [...] Description 09/07/2024 1:00 PM EDT Office Visit [facility] ADULT DENTAL [address] [place] [address] Karla Katie [address] [place] [address] documented as of this encounter Visit Diagnoses Not on filedocumented in this encounter
--- OUTSIDE RECORDS SUMMARY | 2024-09-06 13:36 | XMS_ITS | Clinical Summary ---
Author Organization [facility] Address [address] [facility] [address] [place] [address] Phone Care Team Providers Care Business Machine Operator Name Role Phone Rae Nunez MD Primary Care Provider [phone] Allergies Active Allergy Reactions Criticality Noted Date [...] Visit [facility] [address] [place] [address] Adiel Ames MD [address] [phone] Health Maintenance Due Date Last Done Comments Breast Cancer Screening 1959 Pneumococcal Vaccine: 50+ Ye ars (1 of 2 - PCV) 1978 Colorectal Cancer Screening: Annual FOBT 01/18/2008 Colorectal Cancer Screening: Colonoscopy 01/18/2008 Colorectal Cancer Screening: Sigmoidoscopy 01/18/2008 Influenza Vaccine (Season Ended) 2025 Hepatitis B Vaccine Aged Out No longe r eligible based on patient's age to complete this topic Insurance Care Teams Business Machine Operator Relationship Specialty Start Date End Date Rae Nunez MD [address] [place], [place] PCP - General 05/15/20
--- OUTSIDE RECORDS SUMMARY | 2024-09-06 13:37 | XMS_ITS | Clinical Summary ---
Author Organization [employer] Address [address] 7[address] [place] [address] Care Team Providers Care Stone Product Fabricator Name Role Phone Unavailable Primary Care Provider Unavailabl e Allergies Active Allergy Reactions Criticality Noted Date Comments Morphine Vomiting Medium 09/27/2020 Other reaction(s): Vomiting Other reaction(s): Vomiting Other reaction(s): Vomiting Shellfish Allergy Rash Low 10/03/2020 Shellfish-Derived Products Rash Low 8 Medications acetaminophen (Tylenol) 325 MG tablet [...] 20 mg by mouth 3 times daily. 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 Excessive attrition of teeth, limited to enamel 04/08/2024 Dental plaque 03/09/2024 Crowded teeth 03/09/2024 Dental calculus 10/15/2022 Gingival recession, localized 04/10/2022 Back problem 01/08/2013 Dizzy spells 01/08/2013 High blood pressure 01/08/2013 Kidney disease 01/08/2013 Mental health problem 01/08/2013 Seasonal allergic rhinitis 01/08/2013 Stomach problems 01/08/2013 Encounters Date Type Department Care Team Description 08/11/2024 1:30 PM EDT Office Visit [facility] ADULT DENTAL [address] [place] [address] Tj Wagoner DDS Abrasion of teeth, localized (Primary Dx); Abfraction from Last 3 Months Social History Tobacco Use Types Packs/Day Years [...] Sign Reading Time Taken Comments Blood Pressure 118/76 08/11/2024 1:07 PM EDT Pulse 80 08/11/2024 1:07 PM EDT Temperature - - Respiratory Rate [...] Description 09/07/2024 1:00 PM EDT Office Visit [facility] ADULT DENTAL [address] [place] [address] Katie Acosta [address] [place] [address] Health Maintenance Due Date Last Done Comments [...] X-Ray: Bitewings 03/10/2025 03/09/2024, 10/15 Tobacco Screening 08/11/2025 08/11/2024 Dental X-Ray: Full Mouth 03/10/2027 03/09/2024, 09/03 [...] Procedure Name Priority Date/Time Associated Diagnosis Comments 30 B(V) RESIN-BASED COMPOSITE - 1 SURF, POSTERIOR Routine 08/11/2024 1:30 PM EDT 3 B(V) RESIN-BASED COMPOSITE - 1 SURF, POSTERIOR Routine 08/11/2024 1:30 PM EDT PROPHYLAXIS - ADULT Routine 03/09/2024 1 :00 PM EST Dental plaque Crowded teeth INTRAORAL - COMPLETE SERIES OF RADIOGRAPHIC IMAGES Routine 03/09/2024 1:00 PM EST Dental plaque Crowded teeth PERIODIC ORAL EVALUATION - ESTABLISHED PATIENT Routine 03/09/2024 1:00 PM EST from Last 3 Months or Most Recently Relevant to Health Maintenance Insurance DENTAL - [facility]
== END 2024-09-06 11:58 | disposition home or self-care (01) ==
LOC: HO.US 11:57
PROVIDERS: PCP Internal Medicine; Visit Provider Nurse Practitioner Family
DX: N28.1 Cyst of kidney, acquired (principal)
CPT/HCPCS: 76775

== ENCOUNTER → 2024-09-06 12:00 | Outpatient (BNV) | payer MEDICARE, MEDICAID, SELFPAY | PROVIDERS: PCP Internal Medicine; Visit Provider Radiology Diagnostic Radiology | DX: N28.1 Cyst of kidney, acquired (principal) | CPT/HCPCS: 76775 ==

== ENCOUNTER 2024-09-13 12:58 | Outpatient (REF) | payer OTHER, SELFPAY ==
--- OUTSIDE RECORDS SUMMARY | 2024-09-13 14:26 | XMS_ITS | Encounter Summary ---
Author Organization [employer] Address [address] [facility] [address] [place] [address] Care Team Providers Care Lab Clerk Name Role Phone Unavailable Primary Care Provider Unavailabl e Encounter Details Date Type Department Care Team (Latest Contact Info) Description 09/27/2020 Abstract [facility] CONVERSIONS Dental, Provider, DDS Social History [...] Description 03/24/2025 1:00 PM EST Office Visit [facility] ADULT DENTAL [address] [place] [address] Karla Katie [address] [place] [address] documented as of this encounter Visit Diagnoses Not on filedocumented in this encounter
--- OUTSIDE RECORDS SUMMARY | 2024-09-13 14:26 | XMS_ITS | Clinical Summary ---
Author Organization [facility] Address [address] [facility] [address] [place] [address] Phone Care Team Providers Care Insurance Counsel Name Role Phone Rae Nunez MD Primary Care Provider [phone] Allergies Active Allergy Reactions Criticality Noted Date [...] [facility] [address] [place] [address] Adiel Ames MD [address] [id number] Health Maintenance Due Date Last Done Comments Breast Cancer Screening 1960 Pneumococcal Vaccine: 50+ Ye ars (1 of 2 - PCV) 1978 Colorectal Cancer Screening: Annual FOBT 01/18/2008 Colorectal Cancer Screening: Colonoscopy 01/18/2008 Colorectal Cancer Screening: Sigmoidoscopy 01/18/2008 Influenza Vaccine (Season Ended) 2025 Hepatitis B Vaccine Aged Out No longe r eligible based on patient's age to complete this topic Insurance Care Teams Insurance Counsel Relationship Specialty Start Date End Date Rae Nunez MD [address] [place], [place] PCP - General 05/15/20
--- OUTSIDE RECORDS SUMMARY | 2024-09-13 14:26 | XMS_ITS | Encounter Summary ---
Author Organization [employer] Address [address] [facility] [address] [place] [address] Care Team Providers Care Fly Frame Tender Name Role Phone Unavailable Primary Care Provider Unavailabl e Encounter Details Date Type Department Care Team (Late st Contact Info) Description 04/01/2022 Abstract [facility] ADULT D[facility]AL [address] [place] [address] Dental, Provider, DDS Social History Tobacco Use [...] Description 03/24/2025 1:00 PM EST Office Visit [facility]ULT [facility] [address] [place] [address] Katie Acosta [address] [place] [address] documented as of this encounter Procedures Procedure [...]
--- OUTSIDE RECORDS SUMMARY | 2024-09-13 14:26 | XMS_ITS | Clinical Summary ---
Author Organization [employer] Address [address] [facility] [address] [place] [address] Care Team Providers Care Newspaper Illustrator Name Role Phone Unavailable Primary Care Provider [...] 1:00 PM EDT Office Visit [facility] ADULT DENTAL [address] [place] [address] Katie Acosta Dental calculus (Primary Dx); Crowded teeth; Dental plaque; Gingival recession, localized 08/11/2024 1:30 PM EDT Office Visit [facility] ADULT DENTAL [address] [place] [address] Tj Wagoner DDS Abrasion of teeth, localized [...] Description 03/24/2025 1:00 PM EST Office Visit [facility] ADULT DENTAL [address] [place] [address] Michael Acostaaris [address] [place] [address] Health Maintenance Due Date Last Done Comments [...] to Health Maintenance Insurance DENTAL - [place] [address] , [place] [address]
--- OUTSIDE RECORDS SUMMARY | 2024-09-13 14:26 | XMS_ITS | Encounter Summary ---
Author Organization [employer] Address [address] [facility] [address] [place] [address] Care Team Providers Care Adjunct Faculty Instructor Name Role Phone Unavailable Primary Care Provider Unavailabl e Encounter Details Date Type Department Care Team (Latest Contact Info) Description 09/27/2020 Abstract [facility] CONVERSIONS Dental, Provider, DDS Social [...] Description 03/24/2025 1:00 PM EST Office Visit [facility] ADULT DENTAL [address] [place] [address] Karla Katie [address] [place] [address] documented as of this encounter Visit Diagnoses Not on filedocumented in this encounter
--- OUTSIDE RECORDS SUMMARY | 2024-09-13 14:26 | XMS_ITS | Encounter Summary ---
Author Organization [employer] Address [address] [facility] [address] [place] [address] Care Team Providers Care Terra Cotta Mold Maker Name Role Phone Unavailable Primary Care Provider Unavailabl e Encounter Details Date Type Department Care Team (Latest Contact Info) Description 03/09/2019 Abstract [facility] CONVERSIONS Dental, Provider, DDS Social History Tobacco [...] Description 03/24/2025 1:00 PM EST Office Visit [facility] ADULT DENTAL [address] [place] [address] Karla Katie [address] [place] [address] documented as of this encounter Visit Diagnoses Not on filedocumented in this encounter
[2024-09-13 16:32] LABS: Urine Cytology See Pathology rpt
== END 2024-09-13 12:59 | disposition home or self-care (01) ==
LOC: HO.LAB 12:58
PROVIDERS: PCP Internal Medicine; Visit Provider Nurse Practitioner Family
DX: R31.29 Other microscopic hematuria (principal); N39.0 Urinary tract infection, site not specified
CPT/HCPCS: 81003; 88112; 99212

== ENCOUNTER 2024-09-13 12:58 | Outpatient (AMB) | payer OTHER, SELFPAY ==
--- OUTSIDE RECORDS SUMMARY | 2024-09-13 13:19 | XMS_ITS | Encounter Summary ---
Author Organization [employer] Address [address] [facility] 7t [place] [address] Care Team Providers Care Lens Grinder Apprentice Name Role Phone Unavailable Primary Care Provider Unavailabl e Encounter Details Date Type Department Care Team (Latest Contact Info) Description 03/09/2019 Abstract [facility] CONVERSIONS Dental, Provider, DDS Social History [...] Care Team (Late st Contact Info) Description 03/24/2025 1:00 PM EST Office Visit [facility] ADULT DENTAL [address] [place] [address] Karla Katie [address] [place] [address] documented as of this encounter Visit Diagnoses Not on filedocumented in this encounter
--- OUTSIDE RECORDS SUMMARY | 2024-09-13 13:19 | XMS_ITS | Encounter Summary ---
Author Organization [employer] Address [address] [facility] 7t [place] [address] Care Team Providers Care Tin Tie Machine Operator Automatic Name Role Phone Unavailable Primary Care Provider Unavailabl e Encounter Details Date Type Department Care Team (Latest Contact Info) Description 09/27/2020 Abstract [facility] CONVERSIONS Dental, Provider, DDS Social History Tobacco [...] Description 03/24/2025 1:00 PM EST Office Visit [facility] ADULT DENTAL [address] [place] [address] Karla Katie [address] [place] [address] documented as of this encounter Visit Diagnoses Not on filedocumented in this encounter
--- OUTSIDE RECORDS SUMMARY | 2024-09-13 13:19 | XMS_ITS | Encounter Summary ---
Author Organization [employer] Address [address] [facility] 7t [place] [address] Care Team Providers Care Thermite Bomb Loader Name Role Phone Unavailable Primary Care Provider Unavailabl e Encounter Details Date Type Department Care Team (Late st Contact Info) Description 04/01/2022 Abstract [facility] ADULT DENTAL [address] [place] [address] Dental, Provider, DDS Social History Tobacco Use [...] Description 03/24/2025 1:00 PM EST Office Visit [facility] ADULT DENTAL [address] [place] [address] Katie Acosta [address] [place] [address] documented as of this encounter Procedures Procedure [...]
--- OUTSIDE RECORDS SUMMARY | 2024-09-13 13:19 | XMS_ITS | Encounter Summary ---
Author Organization [employer] Address [address] [facility] 7t [place] [address] Care Team Providers Care Car Washer Name Role Phone Unavailable Primary Care Provider Unavailabl e Encounter Details Date Type Department Care Team (Latest Contact Info) Description 09/27/2020 Abstract [facility] CONVERSIONS Dental, Provider, DDS Social History [...] Description 03/24/2025 1:00 PM EST Office Visit [facility] ADULT DENTAL [address] [place] [address] Karla Katie [address] [place] [address] documented as of this encounter Visit Diagnoses Not on filedocumented in this encounter
--- OUTSIDE RECORDS SUMMARY | 2024-09-13 13:19 | XMS_ITS | Clinical Summary ---
Author Organization [facility] Address [address] [facility] [address] [place] [address] Phone Care Team Providers Care Safety Equipment Testing Specialist Name Role Phone Rae Nunez MD Primary Care Provider [phone] Allergies Active Allergy Reactions Criticality Noted Date [...] Visit [facility] [address] [place] [address] Adiel Ames MD [address] [phone] Health Maintenance Due Date Last Done Comments Breast Cancer Screening 1959 Pneumococcal Vaccine: 50+ Ye ars (1 of 2 - PCV) 1978 Colorectal Cancer Screening: Annual FOBT 01/18/2008 Colorectal Cancer Screening: Colonoscopy 01/18/2008 Colorectal Cancer Screening: Sigmoidoscopy 01/18/2008 Influenza Vaccine (Season Ended) 2025 Hepatitis B Vaccine Aged Out No longe r eligible based on patient's age to complete this topic Insurance Care Teams Safety Equipment Testing Specialist Relationship Specialty Start Date End Date Rae Nunez MD [address] [place], [place] PCP - General 05/15/20
--- OUTSIDE RECORDS SUMMARY | 2024-09-13 13:19 | XMS_ITS | Clinical Summary ---
Author Organization [email or web address] Address [address] [facility] 7t [place] [address] Care Team Providers Care Production Operator Name Role Phone Unavailable Primary Care Provider [...] Encounters Date Type Department Care Team Description 09/07/2024 1:00 PM EDT Office Visit [facility] ADULT DENTAL [address] [place] [address] Katie Acosta Dental calculus (Primary Dx); Crowded teeth; Dental plaque; Gingival recession, localized 08/11/2024 1:30 PM EDT Office Visit [facility] ADULT DENTAL [address] [place] [address] Tj Wagoner DDS Abrasion of teeth, localized [...] Sign Reading Time Taken Comments Blood Pressure 128/76 09/07/2024 1:04 PM EDT Pulse 80 08/11/2024 1:07 PM [...] Description 03/24/2025 1:00 PM EST Office Visit [facility] ADULT DENTAL [address] [place] [address] Michael Acostaaris [address] [place] [address] Health Maintenance Due Date Last Done Comments [...] Dental Oral Exam 09/07/2024 03/09/2024, 10/15/2022 Dental X-Ray: Bitewings 03/10/2025 03/09/2024, 10/15 Dental Prophylaxis 03/11/2025 09/07/2024, 1 05/09/2023, 06/09/2023, Additional history exists Tobacco Screening 09/07/2025 09/07/2024 Dental X-Ray: Full Mouth 03/10/2027 03/09/2024, 09/03 [...] Procedure Name Priority Date/Time Associated Diagnosis Comments ORAL HYGIENE INSTRUCTIONS Routine 09/07/2024 1:00 PM EDT Dental calculus Crowded teeth Dental plaque Gingival recession, localized PROPHYLAXIS - ADULT Routine 09/07/2024 1 :00 PM EDT Dental calculus Dental plaque 30 B(V) RESIN-BASED COMPOSITE - 1 SURF, POSTERIOR Routine 08/11/2024 1:30 PM EDT 3 B(V) RESIN-BASED COMPOSITE - 1 SURF, POSTERIOR Routine 08/11/2024 1:30 PM EDT INTRAORAL - COMPLETE SERIES OF RADIOGRAPHIC IMAGES Routine 03/09/2024 1:00 PM EST Dental plaque Crowded teeth PERIODIC ORAL EVALUATION - ESTABLISHED PATIENT Routine 03/09/2024 1:00 PM EST from Last 3 Months or Most Recently Relevant to Health Maintenance Insurance DENTAL - [facility] [place] [address] , [place] [address]
--- NOTE | 2024-09-13 13:42 | MHC.OFFVIS ---
Intake Visit Reasons: 1y/US(set) Manager Managing Required: Yes Manager Managing Services: Manager Managing Present Manager Managing Name: Ivonne lOiveira Allergies egg Allergy (Intermediate, Verified 09/13/24 14:14) Rash seafood Allergy (Intermediate, Verified 09/13/24 14:14) Rash shellfish derived Allergy (Intermediate, Verified 09/13/24 14:14) RASH zolpidem [ZOLPIDEM] Allergy (Intermediate, Verified 09/13/24 14:14) HEART PALPITATIONS morphine Adverse Reaction (Intermediate, Verified 09/13/24 14:14) Vomiting Medication List - Last Reconciled 09/13/24 by BECKY Tapia-CHRISTOPHER acetaminophen 500 mg PO Q6H PRN ascorbic acid (vitamin C) (Vitamin C) 500 mg PO DAILY atorvastatin 10 mg PO DAILY blood pressure test kit-large ([facility]ocate Blood Pressure Monitor kit) As directed calcium carbonate 600 mg PO BID cane As directed diclofenac sodium 1% 4 grams topical QID dicyclomine 40 mg (2 x 20 mg) PO TID docusate sodium (Colace) 100 mg PO .DAILY WITH FOOD 30 days famotidine 40 mg PO BEDTIME guaifenesin ER (Mucinex) 600 mg PO BID 5 days humidifiers As directed ibuprofen 600 mg PO TID PRN lactulose 30 mL PO TID levothyroxine 137 mcg PO DAILY 90 days lorazepam 0.5 mg PO BID PRN metoclopramide HCl 5 mg PO QID midodrine 2.5 mg PO BID 30 days eaurztcvhsxi-qrgp-bpjkz acid 18-400 mg-mcg (Certavite-Antioxidant) 1 tab PO DAILY 30 days nystatin 1 appl topical BID ondansetron 4 mg PO Q6H PRN 2 days pantoprazole 40 mg PO QAM paroxetine HCl 40 mg PO DAILY prochlorperazine maleate (Compazine) 10 mg PO BID PRN quetiapine 200 mg PO BEDTIME [raised toilet seat As directed] [toilet seat As directed] [toilet seat elevator As directed] trazodone 150 mg PO BEDTIME vitamin E 268 mg PO DAILY HPI Comments Details: Genna is a 62-year-old Yufqemr-wyzqlkpd-slkozn patient of Dr. Paige. She has a past medical history of dyslipidemia, GERD, hypothyroidism, low back pain, depression, obesity, peptic ulcer disease, and renal cysts. She presents to the office today for follow-up of her renal cyst. Recent renal imaging results reviewed with the patient today bilateral renal cyst, all of which appears smaller than previous study. Right renal cysts measuring a proximally 1.4 cm. Left kidney upper pole cysts measuring 6.1 cm in lower pole cysts measuring 8.7 cm. There is no hydronephrosis or renal calculi noted bilaterally. Patient with previous kidney MRI without contrast due to claustrophobia and refusal like the contrast 09/25 noting bilateral renal lesions demonstrating T2 hyperintensity and T1 hypointensity without suspicious features. These lesions are benign-appearing likely representing Bosniak I/II cysts. Previous renal ultrasound noted right kidney with no calculi or hydronephrosis. At the upper pole, a 1.5 x 1.4 x 1.5 cm mildly complex cyst is seen, with fine septations. This shows no mural nodularity or associated color Doppler flow. On the ultrasound examination 01/02/2022, this measured 1.2 x 1.3 x 1.2 cm. Left kidney with no calculi or hydronephrosis. At the upper pole, a 7.5 cm in maximal diameter benign, simple cyst is seen. At the interpolar aspect, an 8.4 cm benign, simple cyst is seen. Continued imaging follow-up is recommended per radiology report. She otherwise denies any bothersome urinary issues or concerns. She denies urinary urgency, urinary frequency, incontinence, nocturia, hematuria, foul smelling urine, changes to urinary stream, flank pain, fever, and or chills. She is happy with her current voiding parameters. In office urinalysis results reviewed with the patient today microscopic hematuria noted. We did discussed potential causes of microscopic hematuria as well as further workup to include imaging and cystoscopy. When asked she denies any previous history of workplace chemical exposure and or nicotine dependence. I discussed reasons for blood in the urine may include but are not limited to kidney stones, cancer in the urinary tract, kidney stone disease or inflammatory conditions of the urinary tract. I have discussed workup to include cystoscopy evaluation. Will continue with surveillance monitoring at this time. She otherwise offers no other issues or concerns at this time. [facility] Medical History Physical exam Lumbar pain Right knee DJD Renal cyst PUD (peptic ulcer disease) Complex renal cyst Dyspepsia Obesity (BMI 35.0-39.9 without comorbidity) Urinary tract infection Lower back pain Cough Constipation Morbid obesity Right knee pain Left knee pain Pre-op exam Low back pain Screening examination for infectious disease Abdominal pain Onychomycosis Dyslipidemia Mild recurrent major depression Skin lesion Tubular adenoma of colon Idiopathic chronic hypotension Unsteady gait Hypothyroidism Takes daily multivitamins GERD (gastroesophageal reflux disease) Surgical History H/O elbow surgery History of varicose vein ligation H/O knee surgery H/O hand surgery History of foot surgery History of section History of hysterectomy History of removal of cyst History of cholecystectomy Family History Father Diabetes Mother Thyroid disease Chronic mental illness Hypertension Hypercholesterolemia Dementia Brother In good health Daughter In good health Daughter In good health Sister No problems noted. Family/Other Breast cancer Social History Household Members: None Housing: Apartment Alcohol intake: never Patient Tobacco Use Status: Never used Tobacco e-Cigarette/Vaping Use: Never Used Second Hand Smoke Exposure: No service: No Current occupational status: disabled Sexual orientation: Straight/Heterosexual Gender identity: Female Cognitive needs: No Hearing needs: No Vision needs: Yes Female Reproductive History Menstrual Age of Menarche: 9 Review of Systems Const Reports as per HPI Eyes Reports no additional complaints ENT Reports no additional complaints Card Reports as per HPI Resp Reports no additional complaints GI Reports as per HPI Reports as per HPI Musc Reports as per HPI Neuro Reports no additional complaints Psych Reports as per HPI Endo Reports no additional complaints Sebas/Lymph Reports no additional complaints Aller/Immun Reports no additional complaints Physical Exam Const General: cooperative, healthy appearing, comfortable, no acute distress, well developed, alert and awake Nutritional Appearance: overweight Orientation/consciousness: patient oriented x3 Limitations: language barrier HEENT Head: Yes normal to inspection, Yes normocephalic and Yes atraumatic Ears: hearing grossly normal bilaterally Eyes General: appearance normal, both eyes and all related structures Neck Neck: Yes normal visual inspection and Yes trachea midline Chest Chest palpation & inspection: normal inspection of the chest Resp Effort & Inspection: normal respiratory effort and able to speak in complete sentences Cardio Rate: regular rate GI Inspection: Yes normal to inspection General: Yes no CVA tenderness Back/Spine/Pelvis Back: no CVA tenderness Skin General skin exam: no rashes or lesions noted Neuro General: patient oriented x3 Extrem General: Yes normal to inspection Psych Appearance: grossly normal and well kempt Mental Status: mental status grossly normal Speech and movement: Normal speech and movement present and Clear speech present Affect: normal affect Attitude: cooperative Thought process: Normal thought process present Thought content: Normal thought content present Insight: Fair insight present (Psych) Judgement: Fair judgement present (Psych) Results AMB Urinalysis, Automated UA Leukoctes 125 Talha/uL Last Edit by Haley Greene CMA on 09/13/24 13:47 UA Nitrite Negative Last Edit by Haley Greene CMA on 09/13/24 13:47 UA Urobilinogen 0.2 mg/dL Last Edit by Haley Greene CMA on 09/13/24 13:47 UA Protein 15 mg/dL Last Edit by Haley Greene CMA on 09/13/24 13:47 UA pH 6.0 Last Edit by Haley Greene CMA on 09/13/24 13:47 UA Blood 2 Raghavendra/uL Last Edit by Haley Greene CMA on 09/13/24 13:47 UA Specific [place] 1.020 Last Edit by Haley Greene CMA on 09/13/24 13:47 UA Ketone Negative Last Edit by Haley Greene CMA on 09/13/24 13:47 UA Bilirubin 0 mg/dL Last Edit by Haley Greene CMA on 09/13/24 13:47 UA Glucose 0 mg/dL Last Edit by Haley Greene CMA on 09/13/24 13:47 Results Reviewed Results Reviewed: Laboratory Last Values Urine pH (Auto) 6.0 09/13/24 13:42 Specific [place] (Auto) 1.020 09/13/24 13:42 Urine Protein (Auto) 15 mg/dL 09/13/24 13:42 Glucose (UA)(Auto) 0 mg/dL 09/13/24 13:42 Urine Ketones (Auto) Negative 09/13/24 13:42 Urine Blood (Auto) 2 Raghavendra/uL 09/13/24 13:42 Urine Nitrite (Auto) Negative 09/13/24 13:42 Urine Bilirubin (Auto) 0 mg/dL 09/13/24 13:42 Urine Urobilinogen (Auto) 0.2 mg/dL 09/13/24 13:42 Leukocyte Esterase (Auto) 125 Talha/uL 09/13/24 13:42 Date of Service: 09/06/24 Procedure(s): US renal BI FINDINGS: Right kidney: The right kidney measures 12.0 x 3.8 x 3.6 cm. Renal parenchymal echotexture and thickness are normal. There is a 1.4 x 1.1 x 1.1 cm septated cyst in the interpolar region (previously 1.5 x 1.4 x 1.5 cm). There is no hydronephrosis or renal calculi. Left Kidney: The left kidney measures 15.2 x 5.1 x 7.7 cm. Renal parenchymal echotexture and thickness are normal. There is an upper pole cyst measuring 3.4 x 3.5 x 6.1 cm (previously 7.5 x 6.3 x 7.1 cm) and a lower pole cyst measuring 8.7 x 6.9 x 8.0 cm (previously 8.4 x 6.7 x 8.0 cm). There is no hydronephrosis or renal calculi. IMPRESSION: Bilateral renal cysts as described above, all of which appears smaller than on the prior study. Assessment & Plan Assessment & Plan (1) Renal cyst: Code(s): N28.1 - Cyst of kidney, acquired Category: Medical (2) Microscopic hematuria: Code(s): R31.29 - Other microscopic hematuria Category: Medical Plan In office urinalysis results reviewed with the patient today; will send for urine cytology. Recent renal imaging results reviewed with the patient today; as noted above. We discussed potential causes of microscopic hematuria as well as further workup in risks and benefits of this workup. Will continue with surveillance monitoring at this time. She currently denies any bothersome urinary issues. She reports be happy with current voiding parameters. Will obtain retroperitoneal ultrasound in 1 year. Follow-up in 1 year with imaging to be completed prior; or sooner with any issues, concerns, and or questions. Orders: Orders AMB Urinalysis Automated Today Z13.9 - Encounter for screening, unspecified Urine Cytology Today N39.0 - Urinary tract infection, site not specified US retroperitoneal comp 1 Year N28.1 - Cyst of kidney, acquired, R31.29 - Other microscopic hematuria Patient Instructions: The patient had an opportunity to ask questions regarding the treatment plan. All questions were answered. Physical exam, labs, and imaging were discussed and reviewed in detail. As well as risks, benefits, and discussion of treatment choices. No major barriers to understanding were identified. The patient expressed understanding and agreement with the above treatment plan. The patient was made aware they should contact our office by phone for worsening of their current condition, the appearance of new symptoms, or with any questions or concerns. Compliance is encouraged with any medications and follow up testing that is ordered. It is a privilege to be allowed the opportunity to participate in? your urological care.? Again, if you have any questions or concerns If you have any questions or concerns please do not hesitate to contact me. The office is [phone]. This note is constructed using voice recognition software. While every effort has been made to ensure accuracy gut dropper errors may have been included. Yours sincerely, SY Tapia Coding Level of Care Code Est Pt Level 4 (14721) Diagnoses Renal cyst N28.1 Microscopic hematuria R31.29 Time Spent (min) 25
== END 2024-09-13 14:14 | disposition home or self-care (01) ==
LOC: HO.HUSH 12:59
PROVIDERS: PCP Internal Medicine; Visit Provider Nurse Practitioner Family
DX: N28.1 Cyst of kidney, acquired (principal); R31.29 Other microscopic hematuria; Z13.9 Encounter for screening, unspecified
CPT/HCPCS: 99214

== ENCOUNTER 2024-10-13 13:08 | Outpatient (AMB) | payer OTHER, SELFPAY ==
--- NOTE | 2024-10-13 13:47 | A.OFFPC_ITS ---
Vital Signs 10/13/24 13:49 Height 5 ft 7 in Weight 253 lb BMI 39.6 BP 130/72 Blood Pressure Location Lt brachial Position Sitting Intake Visit Reasons: hypotension,thyroid Intake Note: Patient here for a follow up Hypotension, Thyroid Director Of Testing Required: No Accompanied by: Self / Same As Patient Allergies egg Allergy (Intermediate, Verified 10/13/24 14:23) Rash seafood Allergy (Intermediate, Verified 10/13/24 14:23) Rash shellfish derived Allergy (Intermediate, Verified 10/13/24 14:23) RASH zolpidem [ZOLPIDEM] Allergy (Intermediate, Verified 10/13/24 14:23) HEART PALPITATIONS morphine Adverse Reaction (Intermediate, Verified 10/13/24 14:23) Vomiting Medication List - Last Reconciled 10/13/24 by Rae Landis MD acetaminophen 500 mg PO Q6H PRN ascorbic acid (vitamin C) (Vitamin C) 500 mg PO DAILY atorvastatin 10 mg PO DAILY blood pressure test kit-large (Advocate Blood Pressure Monitor kit) As directed calcium carbonate 600 mg PO BID cane As directed diclofenac sodium 1% 4 grams topical QID dicyclomine 40 mg (2 x 20 mg) PO TID docusate sodium (Colace) 100 mg PO .DAILY WITH FOOD 30 days famotidine 40 mg PO BEDTIME guaifenesin ER (Mucinex) 600 mg PO BID 5 days humidifiers As directed ibuprofen 600 mg PO TID PRN lactulose 30 mL PO TID levothyroxine 137 mcg PO DAILY 90 days lorazepam 0.5 mg PO BID PRN metoclopramide HCl 5 mg PO QID midodrine 2.5 mg PO BID 30 days ovhebspdzara-lidc-wvoiq acid 18-400 mg-mcg (Certavite-Antioxidant) 1 tab PO DAILY 30 days nystatin 1 appl topical BID ondansetron 4 mg PO Q6H PRN 2 days pantoprazole 40 mg PO QAM paroxetine HCl 40 mg PO DAILY prochlorperazine maleate (Compazine) 10 mg PO BID PRN quetiapine 200 mg PO BEDTIME [raised toilet seat As directed] [toilet seat As directed] [toilet seat elevator As directed] trazodone 150 mg PO BEDTIME vitamin E 268 mg PO DAILY Tobacco use date assessed: 10/13/24 Fall risk assessment: No Falls in past year Last assessed Fall Risk: 10/13/24 Dental Screening Dental Screen Date: 10/13/24 Did you have a dental visit in the last 12 months?: Yes Did you have a dental problem in the last 6 months where you did not have access to dental care?: No Was dental information given to patient?: Patient has dentist HPI HPI Comments History of Present Illness Details The patient is a 64-year-old female presenting for a routine wellness visit and management of chronic conditions. Hypotension is well-controlled, with no recent changes in medication or symptoms reported. The patient has a history of osteopenia, and there was a discussion about the need for a bone densitometry test, although the last test date was not available. She reports allergies to eggs and seafood, which cause a rash, zolpidem causing palpitations, and morphine causing vomiting. Gastrointestinal discomfort is managed with famotidine, which she takes with meals. Constipation is managed with daily use of docusate, which the patient finds effective. Depression is managed with paroxetine, and the patient is adherent to this medication. Preventative care includes a pneumonia vaccination at age 64 and a colonoscopy in 2021, with a follow-up scheduled for 2026. [facility] Medical History (Updated 10/13/24 @ 21:07 by Rae Landis MD) Morbid obesity with BMI of 40.0-44.9, adult Physical exam Lumbar pain Right knee DJD Renal cyst PUD (peptic ulcer disease) Complex renal cyst Dyspepsia Obesity (BMI 35.0-39.9 without comorbidity) Urinary tract infection Lower back pain Cough Constipation Morbid obesity Right knee pain Left knee pain Pre-op exam Low back pain Screening examination for infectious disease Abdominal pain Onychomycosis Dyslipidemia Mild recurrent major depression Skin lesion Tubular adenoma of colon Idiopathic chronic hypotension Unsteady gait Hypothyroidism Takes daily multivitamins GERD (gastroesophageal reflux disease) Surgical History H/O elbow surgery History of varicose vein ligation H/O knee surgery H/O hand surgery History of foot surgery History of section History of hysterectomy History of removal of cyst History of cholecystectomy Family History Father Diabetes Mother Thyroid disease Chronic mental illness Hypertension Hypercholesterolemia Dementia Brother In good health Daughter In good health Daughter In good health Sister No problems noted. Family/Other Breast cancer Social History Household Members: None Housing: Apartment Alcohol intake: never Patient Tobacco Use Status: Never used Tobacco e-Cigarette/Vaping Use: Never Used Second Hand Smoke Exposure: No service: No Current occupational status: disabled Sexual orientation: Straight/Heterosexual Gender identity: Female Cognitive needs: No Hearing needs: No Vision needs: Yes Female Reproductive History Menstrual Age of Menarche: 9 Questionnaire PHQ-9 Over the last 2 weeks, how often have you been bothered by any of the following problems? 1. Little interest or pleasure in doing things: nearly every day 2. Feeling down, depressed, or hopeless: nearly every day 3. Trouble falling or staying asleep, or sleeping too much: nearly every day 4. Feeling tired or having little energy: nearly every day 5. Poor appetite or overeating: several days 6. Feeling bad about yourself - or that you are a failure or have let yourself or your family down: not at all 7. Trouble concentrating on things, such as reading the newspaper or watching television: several days 8. Moving or speaking so slowly that other people could have noticed. Or the opposite - being so fidgety or restless that you have been moving around a lot more than usual: several days 9. Thoughts that you would be better off or of hurting yourself in some way: not at all Total score: 15 Depression Screening Interpretation: Positive (no suicidal thoughts) Depression Screening Follow-up: Existing condition, In treatment, Community Mental Health Worker F/U and Follow-up Visit Requested Depression Screening Done: Yes 31788 - PHQ-9 Billing: Yes Source: Developed by Drs. Fady Bustos, Minerva Laws, Marquis Matute and colleagues, with an educational victoriano from [employer]. Thrive Questionnaire Date Thrive assessed: 10/13/24 I am a: Patient What is your living situation today?: I have a steady place to live Within the past 12 months, did the food you bought not last and you didn't have the money to get more?: Never true Within the past 12 months, did you worry whether your food would run out before you got money to buy more?: Never true Do you have trouble paying for medicines?: No Do you have trouble getting transportation to medical appointments?: No Do you have trouble paying your heating and electricity bill?: No Do you have trouble taking care of your child, family member or friend?: No Do you have trouble with day-to-day activities such as bathing, preparing meals, shopping, managing finances, etc.?: No Are you currently unemployed and looking for a job?: Yes Are you interested in more education?: No Please select the resources that you would like help with: None Currently or been in a relationship where the following occur: No concerns reported THRIVE Score: 0 AUDIT C Alcohol Use Questionnaire (AUDIT-C) 1. How often do you have a drink containing alcohol?: Never Total Score: 0 Score Reviewed/Action Taken: No NANCY-7 AMB Questionnaire NANCY-7 Date NANCY - 7 assessed: 10/13/24 Feeling nervous, anxious, or on edge: 1 = Several days Not being able to stop or control worryin = Several days Worrying too much about different things: 1 = Several days Trouble relaxin = Several days Being so restless that it is hard to sit still: 1 = Several days Becoming easily annoyed or irritable: 0 = Not at all Feeling afraid as if something awful might happen: 1 = Several days Total NANCY-7 score (0-4 normal; 5-9 mild; 10-14 moderate; 15-21 severe): 6 Source: Developed by Drs. Fady Bustos, Minerva Laws, Marquis Matute and colleagues, with an educational victoriano from [employer]. NANCY-7 Assessment Billing NANCY-7 Assessment Tool: NANCY-7 Assessment 67071 Review of Systems Const All systems reviewed & are unremarkable except as noted in HPI and below Card Denies chest pain at rest, Denies chest pain with activity, Denies edema, Denies irregular heart rhythm, Denies claudication, Denies dyspnea, Denies dyspnea on exertion, Denies orthopnea, Denies paroxysmal nocturnal dyspnea and Denies slow heart rate Resp Denies cough, Denies dyspnea and Denies dyspnea on exertion Musc Denies abnormal gait, Denies atrophy, Denies deformity and Denies limited range of motion Skin/Breast Denies bleeding lesions, Denies changing lesions and Denies rash Neuro Denies abnormal gait and Denies lack of coordination Physical exam (Primary Care) Vital Signs: Last Vital Signs BP 130/72 10/13/24 13:49 BMI result Body Mass Index 39.6 Tobacco/Smoking Status: Tobacco use Status Tobacco use date assessed 10/13/24 10/13/24 13:57 Patient Tobacco Use Status Never used Tobacco 10/13/24 13:53 e-Cigarette/Vaping Use Never Used 10/13/24 13:53 PHQ-9: PHQ-9 Score PHQ-9: Total score 15 10/13/24 14:26 Depression Screening Interpretation: Positive (no suicidal thoughts) Depression Screening Follow-up: Existing condition, In treatment, Community Mental Health Worker F/U and Follow-up Visit Requested Thrive Assessment: Date of Thrive Assessment Date Thrive assessed 10/13/24 10/13/24 13:53 Currently or been in a relationship where the following occur: No concerns reported Resp Effort & Inspection: normal respiratory effort Auscultation: clear to auscultation bilaterally Cardio Jugular venous distension: no JVD Rate: regular rate Rhythm: regular rhythm Heart sounds: S1 normal heart sound present and S2 normal heart sound present Extrem General: Yes full ROM Coding Level of Care Code Est Pt Level 4 (61876) Complex EM visit Add On G2211 Diagnoses Idiopathic hypotension I95.0 Mild recurrent major depression F33.0 Chronic idiopathic constipation K59.04 Acquired hypothyroidism E03.9 Hypothyroidism type: acquired Gastroesophageal reflux disease, unspecified whether esophagitis present K21.9 Esophagitis presence: esophagitis presence not specified Additional Codes NANCY-7 Assessment Billing - NANCY-7 Assessment Tool: NANCY-7 Assessment 36356 ([id number]) PHQ-9 - 57679 - PHQ-9 Billing: Yes ([id number]) Time Spent (min) 23 Assessment & Plan Assessment & Plan (1) Idiopathic hypotension: Code(s): I95.0 - Idiopathic hypotension Category: Medical (2) Mild recurrent major depression: Code(s): F33.0 - Major depressive disorder, recurrent, mild Category: Medical (3) Chronic idiopathic constipation: Code(s): K59.04 - Chronic idiopathic constipation Category: Medical (4) Hypothyroidism: Code(s): E03.9 - Hypothyroidism, unspecified Category: Medical Qualifiers: Hypothyroidism type: acquired Qualified Code(s): E03.9 - Hypothyroidism, unspecified (5) GERD (gastroesophageal reflux disease): Code(s): K21.9 - Gastro-esophageal reflux disease without esophagitis Category: Medical Qualifiers: Esophagitis presence: esophagitis presence not specified Qualified Code(s): K21.9 - Gastro-esophageal reflux disease without esophagitis Plan The patient's hypotension is well-controlled, and no changes to her current management plan are necessary at this time. For osteopenia, a bone densitometry test is recommended to assess current bone health status. The patient should continue to avoid allergens such as eggs and seafood, and be cautious with medications like zolpidem and morphine due to adverse reactions. Gastrointestinal discomfort should be managed with bicalutamide and famotidine, taken with meals as needed. Constipation management with daily docusate is effective and should be continued. Depression management with paroxetine should continue, with monitoring for efficacy and side effects. Preventative care measures, including pneumonia vaccination and colonoscopy follow-up in 2026, should be maintained. Patient was informed and verbally consented to the use of an ambient scribe for clinic note documentation during this visit. Orders: Orders Lipid Panel 6 Months E78.5 - Hyperlipidemia, unspecified XR DEXA axial skeleton Today Z78.0 - Asymptomatic menopausal state Thyroid Stimulating Hormone 6 Months E03.9 - Hypothyroidism, unspecified Comprehensive [place]. Panel Fast 6 Months M17.12 - Unilateral primary osteoarthritis, left knee Medications: Refilled pantoprazole 40 mg PO QAM 30 tabs 6RF
[2024-10-13 13:49] VITALS: BP 130/72; BMI 39.6
--- OUTSIDE RECORDS SUMMARY | 2024-10-13 14:46 | XMS_ITS | Encounter Summary ---
Author Organization [employer] Address [address] [facility] [address] [place] [address] Care Team Providers Care Bearingizer Name Role Phone Unavailable Primary Care Provider Unavailabl e Encounter Details Date Type Department Care Team (Latest Contact Info) Description 09/27/2020 Abstract [facility] CONVERSIONS Dental, Provider, DDS Social History [...] Description 03/24/2025 1:00 PM EST Office Visit [facility] ADULT DENTAL [address] [place] [address] Karla Katie [address] [place] [address] documented as of this encounter Visit Diagnoses Not on filedocumented in this encounter
== END 2024-10-13 14:36 | disposition home or self-care (01) ==
LOC: HO.HMCH 13:08
PROVIDERS: PCP Internal Medicine; Visit Provider Internal Medicine
DX: I95.0 Idiopathic hypotension (principal); F33.0 Major depressive disorder, recurrent, mild; K59.04 Chronic idiopathic constipation; E03.9 Hypothyroidism, unspecified; K21.9 Gastro-esophageal reflux disease without esophagitis

== ENCOUNTER → 2024-10-13 13:08 | Outpatient (BNVA) | payer OTHER, SELFPAY | PROVIDERS: PCP Internal Medicine; Visit Provider Internal Medicine | DX: K21.9 Gastro-esophageal reflux disease without esophagitis (principal); E03.9 Hypothyroidism, unspecified; I95.9 Hypotension, unspecified; M85.80 Other specified disorders of bone density and structure, unspecified site; I95.0 Idiopathic hypotension; F33.0 Major depressive disorder, recurrent, mild; K59.04 Chronic idiopathic constipation; E78.5 Hyperlipidemia, unspecified; M17.12 Unilateral primary osteoarthritis, left knee; Z78.0 Asymptomatic menopausal state | CPT/HCPCS: 96127; 99212 ==

== ENCOUNTER 2024-11-12 12:58 | Outpatient (REF) | payer OTHER, SELFPAY ==
--- NOTE | ~2024-11-12 | MM_ITS ---
EXAMINATION: DXA BONE DENSITY AXIAL HISTORY: Z78.0 - Asymptomatic menopausal state TECHNIQUE: [employer] Dual energy absorptiometry (DEXA) of the lumbar spine, total left hip, and femoral neck was performed. COMPARISON: There are no prior studies for comparison. FINDINGS: The bone mineral density of the lumbar spine is 1.171 g/cm2, corresponding to a T-score of -0.1, and a Z-score of 0.4. This is indicative of normal bone mineral density. The bone mineral density of the left total hip is 0.972 g/cm2, corresponding to a T-score of -0.3, and a Z-score of 0.1. This is indicative of normal bone mineral density. The bone mineral density of the left femoral neck is 0.874 g/cm2, corresponding to a T-score of -1.2, and a Z-score of -0.4. This is indicative of osteopenia. FRACTURE RISK: The FRAX index suggests a risk of major osteoporotic fracture of 4.2%, and of hip fracture 0.3%. MM/XR DEXA axial skeleton IMPRESSION: Based on bone mineral density, and according to World Health Organization (WHO) criteria, the diagnosis is consistent with osteopenia. Statistically, 68% of repeat scans fall within 1 SD (+/- 0.010 g/cm2 for AP spine L1-L4) and 1 SD (+/- 0.012 g/cm2 for femur total) FRAX is a trademark of the [employer] Metabolic Bone Disease, a World Health Organization (WHO) Collaborating Center. Electronically signed by: Fady Valadez MD 11/12/2024 02:32 PM EDT
--- OUTSIDE RECORDS SUMMARY | 2024-11-12 13:02 | XMS_ITS | Clinical Summary ---
Author Organization [facility] Address [address] [facility] [address] [place] [address] Phone Care Team Providers Care Planning Associate Name Role Phone Rae Nunez MD Primary Care Provider [phone] Allergies Active Allergy Reactions Criticality Noted Date [...] Visit [facility] [address] [place] [address] Adiel Ames MD [address] [id number] Health Maintenance Due Date Last Done Comments Breast Cancer Screening 1960 Pneumococcal Vaccine: 50+ Ye ars (1 of 2 - PCV) 1978 Colorectal Cancer Screening: Annual FOBT 01/18/2008 Colorectal Cancer Screening: Colonoscopy 01/18/2008 Colorectal Cancer Screening: Sigmoidoscopy 01/18/2008 Influenza Vaccine (#1) 2025 Hepatitis B Vaccine Aged Out No longe r eligible based on patient's age to complete this topic Insurance Care Teams Planning Associate Relationship Specialty Start Date End Date Rae Nunez MD [address] [place], [place] PCP - General 05/15/20
--- OUTSIDE RECORDS SUMMARY | 2024-11-12 13:02 | XMS_ITS | Encounter Summary ---
Author Organization [employer] Address [address] [facility] 7[address] [place] [address] Care Team Providers Care Clinical Staff Educator Name Role Phone Unavailable Primary Care Provider Unavailabl e Encounter Details Date Type Department Care Team (Latest Contact Info) Description 09/27/2020 Abstract [facility] CONVERSIONS Dental, Provider, DDS Social History Tobacco [...] Description 03/24/2025 1:00 PM EST Office Visit [facility] ADULT DENTAL [address] [place] [address] Karla Katie [address] [place] [address] documented as of this encounter Visit Diagnoses Not on filedocumented in this encounter
--- OUTSIDE RECORDS SUMMARY | 2024-11-12 13:02 | XMS_ITS | Patient Health Record ---
Author Organization [facility] Address [address] [place] [address] Care Team Providers Care Cleaning Technician Name Role Phone Rae Nunez Primary Care Provider Theo Worthy Jr Unavailable Allergies Allergen (clinical drug ingredient) Drug/Non Drug Allergy documented on EMR Reaction Allergy Type Onset Date Status Seafood seafood (uncoded) Unknown Allergy Ac tive Reason For Referral No Information Medications Medication SIG (Take, Route, Frequency, Duration) Notes Start Date End Date Status Levothyroxine Sodium 112 MCG 1 tablet on an empty stomach in the morning Orally Once a day Active Toviaz 8 MG 1 tablet Orally Once a day for 30 day(s) Active Omeprazole 20 MG 1 capsule Orally Once a day Active Citalopram Hydrobromide 40 MG 0.5 tablet Orally Once a day for 30 day(s) Active MiraLax - 1 packet mixed with 8 ounces of fluid Orally Once a day/as needed Active Biotin 5000 5 MG 1 capsule Orally Once a day for 30 day(s) Active Ibuprofen 800 MG 1 tablet Orally Three times a day Active Konsyl Fiber 625 MG 2 tablets as needed Orally Three times a day Active Enablex 15 MG 1 tablet with liquid Orally Once a day Active oxyBUTYnin Chloride 5mg Not-Taking QUEtiapine Fumarate 200 MG 1 tablet Oral ly Once a day Active Naproxen Sodium 550mg Not-Taking Midodrine HCl 5 MG 2 tablet Orally Three times a day Active hydroCHLOROthiazide 25mg Not-Taking Cerovite Advanced Formula - as directed Orally once a day Active Naproxen 500mg Not-T aking Aspirin Adult Low Dose 81 MG 1 tablet Or ally Once a day for 30 day(s) Active Cipro 250 MG/5ML (5%) 5 ml Orally every 12 hrs for 3 day(s) Active Cephalexin 500 MG 1 capsule Orally every 12 hrs Active LORazepam 0.5 MG 1 tablet as needed Orally at bedtime Active traZODone HCl 100 MG 1 tablet at bedtime Orally Once a day Active Loratadine 10 MG 1 tablet Orally Once a day Active Lactulose 10 GM/15ML 15 ml Orally Once a day Active Promethazine HCl 25 MG 1 tablet as neede d Orally every 12 hrs Active Protonix 40 MG 1 tablet Orally Once a day Active PARoxetine HCl 40 MG 1 tablet in the morning Orally Once a day/PRN Active Myrbetriq 25 MG 1 tablet Orally Once a day for 30 day(s) Active Linzess 290 MCG 1 capsule Orally Once a day for 30 day(s) Active Senna Lax 8.6 MG 2 tablets at bedtime as needed Orally Once a day for 30 day(s) Active Centrum - as directed Orally once a day Active risperiDONE 2 MG 1 tablet Orally Once a day Active Atorvastatin Calcium 10 MG 1 tablet Oral ly Once a day Active Immunizations Vaccine Route Administration Date Status Comme nts Influenza Unknown 02/02/2018 Administered Problems Problem Type SNOMED Code ICD Code Onset Dates Problem Status W/U Status Risk Notes Problem [id number] Gastroesophageal reflux disease without esophagitis (K21.9) Active confirmed Problem 99694857 Gastric polyp (K31.7) Active confirmed Problem [id number] 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 Plan Of Treatment Future Test Test Name Order Date UPPER GI ENDOSCOPY 12/06/2011 UPPER GI ENDOSCOPY 11/28/2016 UPPER GI ENDOSCOPY 07/02/2018 Insurance Providers Payer Name Payer Address Payer Phone Subscriber Number Group Number Insured Name Patient Relationship to Insured Coverage Start Date Coverage End Date [facility] [address] [address] [place], [place] [id number] PIYUSH WHATLEY Self - patient is the insured MEDICAID OF [facility] [address] [place] [address] [id number] PIYUSH WHATLEY Self - patient is the insured Medical (General) History Medical History History ICD Code kidney disease Hypertension colonoscopy 06/01/15, tubular adenoma x1, followup due 05/25 depression/anxiety anxiety GERD hypercholesterolemia Hypothyroidism constipation incontinence Surgical History Surgery Date(Month/Year) section cholecystectomy kidney cysts varicose vein stripping elbow surgery foot surgery knee surgery
== END 2024-11-12 12:59 | disposition home or self-care (01) ==
LOC: HO.MAMMO 12:58
PROVIDERS: PCP Internal Medicine; Visit Provider Internal Medicine
DX: Z13.820 Encounter for screening for osteoporosis (principal); Z78.0 Asymptomatic menopausal state
CPT/HCPCS: 77080

== ENCOUNTER → 2024-11-12 14:00 | Outpatient (BNV) | payer OTHER, SELFPAY | PROVIDERS: PCP Internal Medicine; Visit Provider Radiology Diagnostic Radiology | DX: E28.39 Other primary ovarian failure (principal) | CPT/HCPCS: 77080 ==

== ENCOUNTER 2024-12-30 07:09 | Outpatient (AMB) | payer OTHER, SELFPAY ==
--- OUTSIDE RECORDS SUMMARY | 2024-12-30 07:13 | XMS_ITS | Encounter Summary ---
Author Organization [employer] Address [address] [facility] [address] [place] [address] Care Team Providers Care Shear Grinder Operator Helper Name Role Phone Unavailable Primary Care Provider Unavailabl e Encounter Details Date Type Department Care Team (Latest Contact Info) Description 09/27/[address] [facility] CONVERSIONS Dental, Provider, DDS Social History [...] 1:00 PM EST Office Visit [facility] ADULT DENTAL [address] [place] [address] Karla Katie [address] [place] [address] documented as of this encounter Visit Diagnoses Not on filedocumented in this encounter
--- OUTSIDE RECORDS SUMMARY | 2024-12-30 07:13 | XMS_ITS | Encounter Summary ---
Author Organization [employer] Address [address] [facility] [address] [place] [address] Care Team Providers Care Crusher Loader Equipment Operator Name Role Phone Unavailable Primary Care Provider Unavailabl e Encounter Details Date Type Department Care Team (Latest Contact Info) Description 09/27/2020 Abstract [facility] CONVERSIONS Dental, Provider, DDS Social History [...] Description 03/24/2025 1:00 PM EST Office Visit [facility] ADULT DENTAL [address] [place] [address] Karla Katie [address] [place] [address] documented as of this encounter Visit Diagnoses Not on filedocumented in this encounter
--- OUTSIDE RECORDS SUMMARY | 2024-12-30 07:13 | XMS_ITS | Encounter Summary ---
Author Organization [employer] [facility] Address [address] [place] [address] [address]t [place] [address] Care Team Providers Care Marine Water Tender Name Role Phone Unavailable Primary Care Provider Unavailabl e Encounter Details Date Type Department Care Team (Late st Contact Info) Description 04/01/2022 Abstract [facility] ADULT DENTAL [address] [place] [address] Dental, Provider, DDS Social History Tobacco Use [...] 1:00 PM EST Office Visit [facility] ADULT DENTAL [address] [place] [address] Katie Acosta [address] [place] [address] documented as of this encounter Procedures Procedure [...]
--- OUTSIDE RECORDS SUMMARY | 2024-12-30 07:13 | XMS_ITS | Clinical Summary ---
Author Organization [facility] Address [address] [facility] [address] [place] [address] Phone Care Team Providers Care Potato Grader Name Role Phone Rae Nunez MD Primary Care Provider [phone] Allergies Active Allergy Reactions Criticality Noted Date [...] Visit [facility] [address] [place] [address] Adiel Ames MD [address] [id number] Health Maintenance Due Date Last Done Comments Breast Cancer Screening 1960 Pneumococcal Vaccine: 50+ Ye ars (1 of 2 - PCV) 1978 Colorectal Cancer Screening: Annual FOBT 01/18/2008 Colorectal Cancer Screening: Colonoscopy 01/18/2008 Colorectal Cancer Screening: Sigmoidoscopy 01/18/2008 Influenza Vaccine (#1) 2025 Hepatitis B Vaccine Aged Out No longe r eligible based on patient's age to complete this topic Insurance Care Teams Potato Grader Relationship Specialty Start Date End Date Rae Nunez MD [address] [place], [place] PCP - General 05/15/20
--- OUTSIDE RECORDS SUMMARY | 2024-12-30 07:13 | XMS_ITS | Clinical Summary ---
Author Organization [employer] Address [address] [facility] [address] [place] [address] Care Team Providers Care Door Builder Name Role Phone Unavailable Primary Care Provider [...] Description 03/24/2025 1:00 PM EST Office Visit [facility] [address] [place] [address] Karla, Katie [address] [place] [address] Health Maintenance Due Date Last Done Comments [...] 09/20/2020 Dental Oral Exam 09/07/2024 03/09/2024, 10/15/2022 Influenza Vaccine (#1) 2025 , 02/26/2023, 04/03/2022, Additional history exists Dental X-Ray: Bitewings 03/10/2025 03/09/2024, 10/15 Dental Prophylaxis 03/11/2025 09/07/2024, 1 05/09/2023, 06/09/2023, Additional history exists Tobacco Screening 09/07/2025 09/07/2024 Dental X-Ray: Full Mouth 03/10/2027 03/09/2024, 09/03 DTaP/Tdap/Td Vaccines (2 - Td or Tdap) 04/12/2029 04/12/2019 RSV Patients and Patients Aged 60 years or older (1 - 1-dose 75+ series) 2034 Pneumococcal Vaccine: 50+ Years Completed 04/14/2024 HIB [...] patient's age to complete this topic Meningococcal B Vaccine Aged Out No l onger eligible based on patient's age to complete [...] Associated Diagnosis Comments PROPHYLAXIS - ADULT Routine 09/07/2024 1 :00 PM EDT Dental calculus Dental plaque INTRAORAL - COMPLETE SERIES OF RADIOGRAPHIC IMAGES Routine 03/09/2024 1:00 PM EST Dental plaque Crowded teeth PERIODIC ORAL EVALUATION - ESTABLISHED PATIENT Routine 03/09/2024 1:00 PM EST from Last 3 Months or Most Recently Relevant to Health Maintenance Insurance [facility] [place] [id number] [place] [id number]
--- OUTSIDE RECORDS SUMMARY | 2024-12-30 07:13 | XMS_ITS | Encounter Summary ---
Author Organization [employer] Address [address] [facility] [address] [place] [address] Care Team Providers Care Awning Maker And Installer Name Role Phone Unavailable Primary Care Provider Unavailabl e Encounter Details Date Type Department Care Team (Latest Contact Info) Description 03/09/2019 Abstract [facility] CONVERSIONS Dental, Provider, DDS Social History Tobacco [...] Description 03/24/2025 1:00 PM EST Office Visit [facility] ADULT DENTAL [address] [place] [address] Karla Katie [address] [place] [address] documented as of this encounter Visit Diagnoses Not on filedocumented in this encounter
[2024-12-30 07:23] VITALS: BP 124/82; PULSE 78; O2SAT 98; BMI 40.2
--- NOTE | 2024-12-30 07:23 | A.OFFPC_ITS ---
Vital Signs 12/30/24 07:23 Height 5 ft 7 in Weight 257 lb BMI 40.2 BP 124/82 Blood Pressure Location Lt brachial Position Sitting Pulse 78 Pulse Source Pulse Oximeter Pulse Oximetry (%) 98 Oxygen Delivery Method Room Air Intake Visit Reasons: rash and spots on her face Roller Checker Required: No Accompanied by: Self / Same As Patient Allergies egg Allergy (Intermediate, Verified 12/30/24 07:37) Rash seafood Allergy (Intermediate, Verified 12/30/24 07:37) Rash shellfish derived Allergy (Intermediate, Verified 12/30/24 07:37) RASH zolpidem (ZOLPIDEM) Allergy (Intermediate, Verified 12/30/24 07:37) HEART PALPITATIONS morphine Adverse Reaction (Intermediate, Verified 12/30/24 07:37) Vomiting Medication List - Last Reconciled 12/30/24 by Rae Landis MD acetaminophen 500 mg PO Q6H PRN ascorbic acid (vitamin C) (Vitamin C) 500 mg PO DAILY atorvastatin 10 mg PO DAILY blood pressure test kit-large (Advocate Blood Pressure Monitor kit) As directed calcium carbonate 600 mg PO BID cane As directed diclofenac sodium 1% 4 grams topical QID dicyclomine 40 mg (2 x 20 mg) PO TID docusate sodium (Colace) 100 mg PO .DAILY WITH FOOD 30 days famotidine 40 mg PO BEDTIME [grab bar As directed] humidifiers As directed ibuprofen 600 mg PO TID PRN lactulose 30 mL PO TID levothyroxine 137 mcg PO DAILY 90 days lorazepam 0.5 mg PO BID PRN metoclopramide HCl 5 mg PO QID midodrine 2.5 mg PO BID 30 days ucxqsumiwger-skdc-gvdfo acid 18-400 mg-mcg (Certavite-Antioxidant) 1 tab PO DAILY 30 days nystatin 1 appl topical BID ondansetron 4 mg PO Q6H PRN 2 days pantoprazole 40 mg PO QAM paroxetine HCl 40 mg PO DAILY prochlorperazine maleate (Compazine) 10 mg PO BID PRN quetiapine 200 mg PO BEDTIME [raised toilet seat As directed] [recliner As directed] [toilet seat As directed] [toilet seat elevator As directed] trazodone 150 mg PO BEDTIME vitamin E 268 mg PO DAILY Tobacco use date assessed: 10/13/24 Fall risk assessment: No Falls in past year Last assessed Fall Risk: 12/30/24 Dental Screening Dental Screen Date: 10/13/24 HPI HPI Comments History of Present Illness Details The patient is a 64-year-old female presenting with management of depression, evaluation of a rash, and follow-up on osteopenia. She also has idiopathic hypotension well controlled with midodrine. She is morbidly obese with a BMI of 40.3 and was advised to do diet and exercise. She also has hypothyroidism on levothyroxine and TSH will be checked. Complains of bilateral knee pain and would like a referral for ortho. The patient has a history of moderate depression, with a PHQ-9 score of 15, and is currently under psychiatric care and counseling. She reports an unexplained weight gain despite no changes in her diet. The patient experienced a rash previously treated with a cream prescribed in [place], which resolved but has since recurred. The patient is advised to contact the dermatology clinic for further management. The patient has been diagnosed with osteopenia, identified through a bone density scan, and is currently managed with calcium and vitamin D supplementation. The next bone density scan is scheduled for 2026. [facility] Medical History (Updated 12/30/24 @ 07:59 by Rae Landis MD) Morbid obesity with BMI of 40.0-44.9, adult Right knee pain Left knee pain Physical exam Lumbar pain Right knee DJD Renal cyst PUD (peptic ulcer disease) Complex renal cyst Dyspepsia Obesity (BMI 35.0-39.9 without comorbidity) Urinary tract infection Lower back pain Cough Constipation Morbid obesity Pre-op exam Low back pain Screening examination for infectious disease Abdominal pain Onychomycosis Dyslipidemia Mild recurrent major depression Skin lesion Tubular adenoma of colon Idiopathic chronic hypotension Unsteady gait Hypothyroidism Takes daily multivitamins GERD (gastroesophageal reflux disease) Surgical History H/O elbow surgery History of varicose vein ligation H/O knee surgery H/O hand surgery History of foot surgery History of section History of hysterectomy History of removal of cyst History of cholecystectomy Family History Father Diabetes Mother Thyroid disease Chronic mental illness Hypertension Hypercholesterolemia Dementia Brother In good health Daughter In good health Daughter In good health Sister No problems noted. Family/Other Breast cancer Social History Household Members: None Housing: Apartment Alcohol intake: never Patient Tobacco Use Status: Never used Tobacco Tobacco use type: Cigarette e-Cigarette/Vaping Use: Never Used Second Hand Smoke Exposure: No service: No Current occupational status: disabled Sexual orientation: Straight/Heterosexual Gender identity: Female Cognitive needs: No Hearing needs: No Vision needs: Yes Female Reproductive History Menstrual Age of Menarche: 9 Questionnaire PHQ-9 Over the last 2 weeks, how often have you been bothered by any of the following problems? 1. Little interest or pleasure in doing things: nearly every day 2. Feeling down, depressed, or hopeless: nearly every day 3. Trouble falling or staying asleep, or sleeping too much: nearly every day 4. Feeling tired or having little energy: nearly every day 5. Poor appetite or overeating: several days 6. Feeling bad about yourself - or that you are a failure or have let yourself or your family down: not at all 7. Trouble concentrating on things, such as reading the newspaper or watching television: several days 8. Moving or speaking so slowly that other people could have noticed. Or the opposite - being so fidgety or restless that you have been moving around a lot more than usual: several days 9. Thoughts that you would be better off or of hurting yourself in some way : not at all Total score: 15 Depression Screening Interpretation: Positive (no suicidal thoughts) Depression Screening Follow-up: Existing condition, In treatment, Community Mental Health Worker F/U and Follow-up Visit Requested Depression Screening Done: Yes 70007 - PHQ-9 Billing: Yes Source: Developed by Drs. Fady Bustos, Minerva Laws, Marquis Matute and colleagues, with an educational victoriano from [employer]. Thrive Questionnaire Date Thrive assessed: 10/13/24 I am a: Patient What is your living situation today?: I have a steady place to live Within the past 12 months, did the food you bought not last and you didn't have the money to get more?: Never true Within the past 12 months, did you worry whether your food would run out before you got money to buy more?: Never true Do you have trouble paying for medicines?: No Do you have trouble getting transportation to medical appointments?: No Do you have trouble paying your heating and electricity bill?: No Do you have trouble taking care of your child, family member or friend?: No Do you have trouble with day-to-day activities such as bathing, preparing meals, shopping, managing finances, etc.?: No Are you currently unemployed and looking for a job?: Yes Are you interested in more education?: No Please select the resources that you would like help with: None Currently or been in a relationship where the following occur: No concerns reported THRIVE Score: 0 AUDIT C Alcohol Use Questionnaire (AUDIT-C) 1. How often do you have a drink containing alcohol?: Never 3. How often do you have six or more drinks on one occasion?: Never Total Score: 0 Score Reviewed/Action Taken: No NANCY-7 AMB Questionnaire NANCY-7 Date NANCY - 7 assessed: 10/13/24 Source: Developed by Drs. Fady Bustos, Minerva Laws, Marquis Matute and colleagues, with an educational victoriano from [employer]. Review of Systems Const All systems reviewed & are unremarkable except as noted in HPI and below Card Denies chest pain at rest, Denies chest pain with activity, Denies edema, Denies irregular heart rhythm, Denies claudication, Denies dyspnea, Denies dyspnea on exertion, Denies orthopnea, Denies paroxysmal nocturnal dyspnea and Denies slow heart rate Resp Denies cough, Denies dyspnea and Denies dyspnea on exertion GI Denies abdominal pain, Denies change in bowel habits, Denies excessive flatus, Denies nausea and Denies vomiting Physical exam (Primary Care) Vital Signs: Last Vital Signs Pulse 78 12/30/24 07:23 BP 124/82 12/30/24 07:23 Pulse Ox 98 12/30/24 07:23 Oxygen Delivery Method Room Air 12/30/24 07:23 BMI result Body Mass Index 40.2 Tobacco/Smoking Status: Tobacco use Status Tobacco use date assessed 10/13/24 12/30/24 07:31 Patient Tobacco Use Status Never used Tobacco 12/30/24 07:31 Tobacco use type Cigarette 12/30/24 07:31 e-Cigarette/Vaping Use Never Used 12/30/24 07:31 PHQ-9: PHQ-9 Score PHQ-9: Total score 15 12/30/24 07:31 Depression Screening Interpretation: Positive (no suicidal thoughts) Depression Screening Follow-up: Existing condition, In treatment, Community Mental Health Worker F/U and Follow-up Visit Requested Thrive Assessment: Date of Thrive Assessment Date Thrive assessed 10/13/24 12/30/24 07:31 Currently or been in a relationship where the following occur: No concerns reported Resp Effort & Inspection: normal respiratory effort Auscultation: clear to auscultation bilaterally Cardio Jugular venous distension: no JVD Rate: regular rate Rhythm: regular rhythm Heart sounds: S1 normal heart sound present and S2 normal heart sound present Extrem General: Yes full ROM Coding Level of Care Code Est Pt Level 4 (62577) Complex EM visit Add On G2211 Diagnoses Moderate recurrent major depression F33.1 Idiopathic hypotension I95.0 Dyslipidemia E78.5 Acquired hypothyroidism E03.9 Hypothyroidism type: acquired Chronic pain of right knee M25.561; G89.29 Osteoarthritis of left knee M17.12 Rash R21 Morbid obesity with BMI of 40.0-44.9, adult E66.01; Z68.41 Osteopenia M85.80 Additional Codes PHQ-9 - 73141 - PHQ-9 Billing: Yes ([id number]) Time Spent (min) 24 Assessment & Plan Assessment & Plan (1) Moderate recurrent major depression: Code(s): F33.1 - Major depressive disorder, recurrent, moderate Category: Medical (2) Idiopathic hypotension: Code(s): I95.0 - Idiopathic hypotension Category: Medical (3) Dyslipidemia: Code(s): E78.5 - Hyperlipidemia, unspecified Category: Medical (4) Hypothyroidism: Code(s): E03.9 - Hypothyroidism, unspecified Category: Medical Qualifiers: Hypothyroidism type: acquired Qualified Code(s): E03.9 - Hypothyroidism, unspecified (5) Chronic pain of right knee: Code(s): M25.561 - Pain in right knee; G89.29 - Other chronic pain Category: Medical (6) Osteoarthritis of left knee: Code(s): M17.12 - Unilateral primary osteoarthritis, left knee Category: Medical (7) Rash: Code(s): R21 - Rash and other nonspecific skin eruption Category: Medical (8) Morbid obesity with BMI of 40.0-44.9, adult: Code(s): E66.01 - Morbid (severe) obesity due to excess calories; Z68.41 - Body mass in dex [BMI] 40.0-44.9, adult Category: Medical (9) Osteopenia: Code(s): M85.80 - Other specified disorders of bone density and structure, unspecified site Category: Medical Plan Plan Patient was informed and verbally consented to the use of an ambient scribe for clinic note documentation during this visit. 1. Major depressive disorder, recurrent, moderate F33.1 HCC 59 The patient continues with psychiatric care and counseling for moderate depression, with a PHQ-9 score of 15. Medication adherence and regular follow-up with psychiatry are emphasized. 2. Rash and other nonspecific skin eruption R21 The patient is advised to contact the dermatology clinic for further evaluation and management of the recurrent rash. 3. Other specified disorders of bone density and structure, unspecified site M85.80 The patient is managed with calcium and vitamin D supplementation for osteopenia. The next bone density scan is scheduled for 2026 to monitor progression. 4. Hypothyroidism, unspecified E03.9 TSH will be done today. Continue levothyroxine. 5. Idiopathic hypotension I95.0 Continue midodrine. Keep blood pressure over 90/60. 6. Morbid (severe) obesity due to excess calories E66.01 HCC 22 Start diet and exercise. BMI goal is less than 30. 7. Unilateral primary osteoarthritis, left knee M17.12 X-ray was ordered. She was referred to Ortho. 8. Pain in right knee M25.561 X-ray was ordered. She was referred to Ortho. 9. Dyslipidemia-continue statins. Repeat lipid panel. Orders: Orders Lipid Panel Today E78.5 - Hyperlipidemia, unspecified Vitamin B12 and Folate Today E53.8 - Deficiency of other specified B group vitamins Thyroid Stimulating Hormone Today E03.9 - Hypothyroidism, unspecified XR knee LT 2V Today M25.562 - Pain in left knee XR knee RT 2V Today M17.11 - Unilateral primary osteoarthritis, right knee Vitamin D 25-OH Total Today E55.9 - Vitamin D deficiency, unspecified Referrals Orthopedics Referral G89.29 - Other chronic pain, M17.12 - Unilateral primary osteoarthritis, left knee, M25.561 - Pain in right knee Medications: New triamcinolone acetonide 0.025% 1 appl topical DAILY 15 grams 1RF 2 weeks
== END 2024-12-30 07:49 | disposition home or self-care (01) ==
LOC: HO.HMCH 07:11
PROVIDERS: PCP Internal Medicine; Visit Provider Internal Medicine
DX: F33.1 Major depressive disorder, recurrent, moderate (principal); E66.01 Morbid (severe) obesity due to excess calories; Z68.41 Body mass index [BMI] 40.0-44.9, adult; I95.0 Idiopathic hypotension; E78.5 Hyperlipidemia, unspecified; E03.9 Hypothyroidism, unspecified; M25.561 Pain in right knee; G89.29 Other chronic pain; M17.12 Unilateral primary osteoarthritis, left knee; R21 Rash and other nonspecific skin eruption; M85.80 Other specified disorders of bone density and structure, unspecified site

== ENCOUNTER 2024-12-30 07:09 | Outpatient (REF) | payer OTHER, SELFPAY ==
--- NOTE | ~2024-12-30 | XR_ITS ---
EXAMINATION: XR KNEE 1-2 VIEWS BILATERAL HISTORY: M17.11 - Unilateral primary osteoarthritis, right knee COMPARISON: Comparison is made with the prior examination dated 03/31/2024 FINDINGS: Standing AP views of both knees and additional lateral views of the bilateral knees are submitted. Osseous mineralization is normal. There is no fracture or dislocation. On the right, there is moderate to severe narrowing of the medial compartment and mild narrowing of the patellofemoral compartment. On the left, there is mild narrowing of the medial and patellofemoral compartments. The soft tissues are unremarkable. There is no joint effusion. XR/XR Knee Nathaniel 1or 2V IMPRESSION: Degenerative changes of the bilateral knees as described. Electronically signed by: Fady Valadez MD 12/30/2024 08:51 AM EDT
[2024-12-30 09:38] LABS: Cholesterol 169 mg/dL (<200); HDL Cholesterol 44 mg/dL (>40); Triglycerides 73 mg/dL (<150)
[2024-12-30 09:55] LABS: Thyroid Stimulating Hormone 2.25 uIU/mL (0.32-4.0)
[2024-12-30 10:01] LABS: Folate 13.7 ng/mL (> or = 4.0); Vitamin B12 1852 pg/mL (200-900)
== END 2024-12-30 07:10 | disposition home or self-care (01) ==
LOC: HO.XRAY 07:09
PROVIDERS: PCP Internal Medicine; Visit Provider Internal Medicine
DX: E53.8 Deficiency of other specified B group vitamins (principal); E03.9 Hypothyroidism, unspecified; E55.9 Vitamin D deficiency, unspecified; E78.5 Hyperlipidemia, unspecified; M25.562 Pain in left knee; F33.1 Major depressive disorder, recurrent, moderate; I95.0 Idiopathic hypotension; M25.561 Pain in right knee; M17.0 Bilateral primary osteoarthritis of knee; R21 Rash and other nonspecific skin eruption; E66.01 Morbid (severe) obesity due to excess calories; M85.80 Other specified disorders of bone density and structure, unspecified site; Z79.890 Hormone replacement therapy; Z79.899 Other long term (current) drug therapy; Z68.41 Body mass index [BMI] 40.0-44.9, adult
CPT/HCPCS: 36415; 73560; 80061; 82306; 82607; 82746; 84443; 96127; 99212

== ENCOUNTER → 2024-12-30 08:14 | Outpatient (BNV) | payer OTHER, SELFPAY | PROVIDERS: PCP Internal Medicine; Visit Provider Radiology Diagnostic Radiology | DX: M17.0 Bilateral primary osteoarthritis of knee (principal) | CPT/HCPCS: 73560 ==

== ENCOUNTER 2025-02-01 13:03 | Outpatient (AMB) | payer OTHER, SELFPAY ==
--- OUTSIDE RECORDS SUMMARY | 2025-01-31 14:45 | XMS_ITS | Encounter Summary ---
Author Organization [facility] Address [address] [address] Phone Care Team Providers Care Front Of House Manager Name Role Phone Rae Nunez MD Primary Care Provider [phone] Encounter Details Date Type Department Care Team (Late st Contact Info) Description 01/31/2025 2:45 PM EDT Office Visit [facility] [address] [place] [phone] Adiel Ames MD [address] [address] Hypertensive disorder (Primary Dx) Social History Tobacco Use Types Packs/Day Years Used Date Smoking Tobacco: Never Smokeless Tobacco: Never Alcohol Use Standard Drinks/Week Comments No 0 (1 standard drink = 0.6 oz pur e alcohol) Comments Unknown Sex and Gender Information Value Date Recorded Sex Assigned at Not on file Legal Sex Female 4:45 PM EST Gender Identity Not on file Sexual Orientation Not on file documented as of this encounter Last Filed Vital Signs Vital Sign Reading Time Taken Comments Blood Pressure 128/80 01/31/2025 2:52 PM EDT Pulse - - Temperature - - Respiratory Rate - - Oxygen Saturation - - Inhaled Oxygen Concentration - - Weight 115 kg (252 lb 9.6 oz) 01/31/2025 2:52 PM EDT Height - - Body Mass Index 39.56 10/05/2018 12:00 PM EDT documented in this encounter Progress Notes * Adiel Ames MD - 01/31/2025 2:45 PM EDT Images from the original note were not included. Patient Name: Genna Chang, Female Date of : 1960, 65 y.o. Date: 01/31/25 History of Present Illness Genna Chang is a 65 y.o. female with renal cyst No family h/o cysts, kidney dz, dialysis. Mother with htn, dad with dm. She was on midodrine for low bp - not on her med list now Overall doing well except chronic back pain The following portions of the patient's chart were reviewed in this encounter and updated as appropriate: Allergies Meds Problems Med Hx Surg Hx Fam Hx Past Medical History: Diagnosis Date Acquired complex renal cyst Anxiety disorder Back problem Constipation Crowding of teeth Depressive disorder Disorder of kidney Dizzy spells Dyslipidemia Gastroesophageal reflux disease Hyperlipidemia Hypothyroidism Mental health problem Seasonal allergic rhinitis Stomach problem Review of Systems Constitutional: Negative for chills and fever. Respiratory: Negative for shortness of breath. Cardiovascular: Negative for chest pain and leg swelling. Genitourinary: Negative for dysuria and urgency. Medication List Current Outpatient Medications Medication Sig Dispense Refill atorvastatin (LIPITOR) 10 MG tablet Take 1 tablet by mouth at bed time calcium carbonate (OS-MORELIA) 600 MG tablet TAKE 1 TABLET BY MOUTH TWICE DAILY dicyclomine (BENTYL) 20 MG tablet Take 20 mg by mouth every 6 (six) hours famotidine (PEPCID) 40 MG tablet Take 40 mg by mouth at bed time linaCLOtide (Linzess) 290 MCG capsule Take 1 capsule by mouth 1 (one) time each day LORazepam (ATIVAN) 0.5 MG tablet Take 1 tablet by mouth 2 (two) times a day metoclopramide (REGLAN) 5 MG tablet Take 5 mg by mouth in the morning and 5 mg at noon and 5 mg in the evening and 5 mg before bedtime. PARoxetine (PAXIL) 40 MG tablet Take 1 tablet by mouth 1 (one) time each day QUEtiapine (SEROquel) 200 MG tablet Take 1 tablet by mouth 1 (one) time each day sucralfate (CARAFATE) 1 g tablet Take 1 g by mouth 2 (two) times a day traZODone (DESYREL) 150 MG tablet Take 1 tablet by mouth at bed time No current facility-administered medications for this visit. Allergy List Allergies Allergen Reactions Morphine Vomiting Other reaction(s): Vomiting Other reaction(s): Vomiting Shellfish Allergy Other (see comments) Shellfish-Derived Products Rash Physical Exam BP 128/80 Wt 252 lb 9.6 oz (115 kg) BMI 39.56 kg/m?? 118/64 Vitals reviewed. Constitutional: She is oriented to person, place, and time. HEENT: Nose: Nose normal. Mouth/Throat: Oropharynx is clear and moist. Eyes: EOM are normal. Pupils are equal, round, and reactive to light. Cardiovascular: Normal rate and regular rhythm. Pulmonary/Chest: Effort normal and breath sounds normal. Neurological: She is alert and oriented to person, place, and time. Labs Chemistry Lab Units 04/19/24 0000 07/15/23 0000 03/20/23 0000 SODIUM 143 143 144 POTASSIUM 4.6 4.5 3.9 CO2 mmol/L -- 31 28 BUN mg/dL 19 18 21 CREATININE mg/dL 0.78 0.68 0.70 CHLORIDE 107.0 106.0 110.0* ALBUMIN g/dL 4.0 3.8 -- Bone Mineral Lab Units 04/19/24 0000 07/15/23 0000 03/20/23 0000 CALCIUM mg/dL 9.6 9.7 9.7 Assessment & Plan 1. Hypertensive disorder Nathaniel simple renal cyst with the R renal cyst demo internal septae on recent U/S - renasight gene panel negative No echogenic mass reported. Renal function wnl . No significant proteinuria MRI - - Bilateral renal lesions demonstrating T2 hyperintensity and T1 hypointensity without suspicious features. Repeat renal U/S 09/2024 as noted above show Plan: refer to urol to have them comment on R renal cyst with interk=nal seeptae as they can determine if it needs routine f/u with repeat imaging studies Also we will request radiologist to comment on whethtre they feel repet imaging studies to track R rneal cyst is needed No orders of the defined types were placed in this encounter. Return if symptoms worsen or fail to improve. Adiel Ames MD documented in this encounter Plan of Treatment Upcoming Encounters Date Type Department Care Team (Late st Contact Info) Description 07/14/2025 1:15 PM EDT Office Visit [facility] [address] [place] [phone] Arden Topete MD [address] [facility] [address] [place] [phone] documented as of this encounter Procedures Procedure Name Priority Date/Time Associated Diagnosis Comments ALT EXT LABS Routine 04/19/2024 documented in this encounter Results * ALT EXT LABS (04/19/2024) BUN 19 4 - 21 mg/dL Creatinine 0.78 0.50 - 1.10 mg/dL Albumin 4.0 3.5 - 5.0 g/dL Calcium 9.6 8.7 - 10.7 mg/dL Sodium 143 137 - 147 Potassium 4.6 3.4 - 5.5 Chloride 107.0 99.0 - 108.0 04/19/2024 us Historical Provider LAB BLOOD ORDERABLES Kareen l Result documented in this encounter Visit Diagnoses Diagnosis Hypertensive disorder- Primary documented in this encounter Care Teams Front Of House Manager Relationship Specialty Start Date End Date Rae Nunez MD [address] [place] PCP - General 05/15/20 documented as of this encounter
--- NOTE | 2025-02-01 13:09 | MHC.OFFVIS ---
Vital Signs 02/01/25 13:37 Height 5 ft 7 in Weight 257 lb 0.944 oz BMI 40.3 BP 136/82 Blood Pressure Location Lt brachial Position Sitting Intake Visit Reasons: IBS , GERD Intake Note: Patient in office today in follow up of GERD and IBS. CC: Patient reports doing well and denies having any GI symptoms. Hearing Aid Specialist Required: Yes Hearing Aid Specialist Language: Services Tech Name: Dot LM Allergies egg Allergy (Intermediate, Verified 02/01/25 13:41) Rash seafood Allergy (Intermediate, Verified 02/01/25 13:41) Rash shellfish derived Allergy (Intermediate, Verified 02/01/25 13:41) RASH zolpidem (ZOLPIDEM) Allergy (Intermediate, Verified 02/01/25 13:41) HEART PALPITATIONS morphine Adverse Reaction (Intermediate, Verified 02/01/25 13:41) Vomiting HPI HPI IBS , GERD: Details: Assessment & Plan (1) Nausea and vomiting: Code(s): R11.2 - Nausea with vomiting, unspecified Category: Medical Qualifiers: Vomiting type: unspecified Qualified Code(s): R11.2 - Nausea with vomiting, unspecified (2) Small bowel motility disorder: Code(s): K59.9 - Functional intestinal disorder, unspecified Category: Medical (3) Chronic idiopathic constipation: Code(s): K59.04 - Chronic idiopathic constipation Category: Medical (4) GERD (gastroesophageal reflux disease): Code(s): K21.9 - Gastro-esophageal reflux disease without esophagitis Category: Medical Qualifiers: Esophagitis presence: esophagitis presence not specified Qualified Code(s): K21.9 - Gastro-esophageal reflux disease without esophagitis Plan Indonesian #V Live She continues to do well lactulose, colace, reglan 5mg qid, bentyl and pantoprazole and famotidine. She prefers to wait until 2025 for her next scope ROV 6 mos. Medications: Refilled dicyclomine 40 mg (2 x 20 mg) PO TID 270 tabs 2RF docusate sodium (Colace) 100 mg PO .DAILY WITH FOOD 60 caps 6RF 30 days lactulose 30 mL PO TID 600 mL 6RF famotidine 40 mg PO BEDTIME 30 tabs 6RF K27.9 - Peptic ulcer, site unspecified, unspecified as acute or chronic, without hemorrhage or perforation metoclopramide HCl 5 mg PO QID 120 tabs 6RF K59.9 - Functional intestinal disorder, unspecified pantoprazole 40 mg PO QAM 30 tabs 6RF TODAY'S VISIT Indonesian #V live [facility] Medical History (Updated 12/30/24 @ 07:59 by Rae Landis MD) Morbid obesity with BMI of 40.0-44.9, adult Right knee pain Left knee pain Physical exam Lumbar pain Right knee DJD Renal cyst PUD (peptic ulcer disease) Complex renal cyst Dyspepsia Obesity (BMI 35.0-39.9 without comorbidity) Urinary tract infection Lower back pain Cough Constipation Morbid obesity Pre-op exam Low back pain Screening examination for infectious disease Abdominal pain Onychomycosis Dyslipidemia Mild recurrent major depression Skin lesion Tubular adenoma of colon Idiopathic chronic hypotension Unsteady gait Hypothyroidism Takes daily multivitamins GERD (gastroesophageal reflux disease) Surgical History H/O elbow surgery History of varicose vein ligation H/O knee surgery H/O hand surgery History of foot surgery History of section History of hysterectomy History of removal of cyst History of cholecystectomy Family History Father Diabetes Mother Thyroid disease Chronic mental illness Hypertension Hypercholesterolemia Dementia Brother In good health Daughter In good health Daughter In good health Sister No problems noted. Family/Other Breast cancer Social History Household Members: None Housing: Apartment Alcohol intake: never Patient Tobacco Use Status: Never used Tobacco Tobacco use type: Cigarette e-Cigarette/Vaping Use: Never Used Second Hand Smoke Exposure: No service: No Current occupational status: disabled Sexual orientation: Straight/Heterosexual Gender identity: Female Cognitive needs: No Hearing needs: No Vision needs: Yes Female Reproductive History Menstrual Age of Menarche: 9 Review of Systems Const Denies fatigue, Denies fever(s), Denies night sweats, Denies poor appetite and Denies weight loss Eyes Details: glasses Reports requires corrective lenses ENT Reports Normal hearing present, Denies dental pain, Denies dysphagia, Denies hearing loss, Denies mouth pain, Denies odynophagia, Denies throat swelling, Denies tongue swelling and Reports other (Dentition adequate) Card Reports no additional complaints Resp Reports no additional complaints GI Details: Denies abdominal pain, Denies melena, Denies bloating, Denies hematochezia, Reports constipation, Denies GI cramping, Denies dysphagia, Denies excessive flatus, Reports early satiety, Reports heartburn, Denies diarrhea, Denies nausea, Denies odynophagia, Denies vomiting and Denies hematemesis Skin/Breast Denies pruritus, Denies lesions, Denies rash and Denies jaundice Neuro Reports Normal hearing present and Denies Abnormal speech present Endo Denies fatigue Aller/Immun Denies throat swelling and Denies tongue swelling Physical Exam Vital Signs: Last Vital Signs BP 136/82 02/01/25 13:37 BMI result Body Mass Index 40.3 Const General: cooperative, no acute distress, well developed and well groomed Nutritional Appearance: well nourished and obese Orientation/consciousness: oriented to person, oriented to place and oriented to time Limitations: language barrier HEENT Head: Yes normocephalic and Yes atraumatic Eyes General: appearance normal, both eyes and all related structures Pupils: Equal, round and reactive pupils present Neck Neck: Yes normal visual inspection and Yes no lymphadenopathy Thyroid: Thyroid normal Resp Effort & Inspection: normal respiratory effort and able to speak in complete sentences Auscultation: clear to auscultation bilaterally Cardio Rate: regular rate Rhythm: regular rhythm Heart sounds: Normal, physiologic split S2 sound present Peripheral pulses: radial pulses present and posterior tibial pulses present GI Inspection: No distended, Yes Abdominal panniculus present and Yes obesity Palpation (GI): Soft to palpation, nontender, no guarding, not rigid and No hepatosplenomegaly present Percussion: Yes normal to percussion Auscultation: normal bowel sounds Rectal Exam - Female: deferred Skin General skin exam: no rashes or lesions noted, turgor normal, skin not dry, no jaundice, No spider nevi and no striae Rashes: no rashes Nails: normal Neuro General: oriented to person, oriented to place and oriented to time Cranial nerves: Yes Equal, round and reactive pupils present and Yes Normal hearing present Speech: No Abnormal speech present Extrem General: Yes normal to inspection, No clubbing, No cyanosis and No edema Psych Appearance: grossly normal and well kempt Mental Status: mental status grossly normal Speech and movement: Normal speech and movement present Affect: normal affect Attitude: cooperative Thought process: Normal thought process present and not confabulating Thought content: Normal thought content present Insight: Fair insight present (Psych) Judgement: Fair judgement present (Psych) Assessment & Plan Assessment & Plan (1) Nausea and vomiting: Code(s): R11.2 - Nausea with vomiting, unspecified Category: Medical Qualifiers: Vomiting type: unspecified Qualified Code(s): R11.2 - Nausea with vomiting, unspecified (2) Chronic idiopathic constipation: Code(s): K59.04 - Chronic idiopathic constipation Category: Medical (3) GERD (gastroesophageal reflux disease): Code(s): K21.9 - Gastro-esophageal reflux disease without esophagitis Category: Medical Qualifiers: Esophagitis presence: esophagitis presence not specified Qualified Code(s): K21.9 - Gastro-esophageal reflux disease without esophagitis (4) Small bowel motility disorder: Code(s): K59.9 - Functional intestinal disorder, unspecified Category: Medical Plan Indonesian #V live She continues on her pantoprazole and famotidine, reglan, lactulose, colace, bentyl. She feels he is her controlling her symptoms well and she remains satisfied with her GI regimen. She prefers to wait until 2025 for her next scope Return office visit in 6 months Medications: Refilled dicyclomine 40 mg (2 x 20 mg) PO TID 270 tabs 2RF lactulose 30 mL PO TID 600 mL 6RF docusate sodium (Colace) 100 mg PO .DAILY WITH FOOD 60 caps 6RF 30 days famotidine 40 mg PO BEDTIME 30 tabs 6RF K27.9 - Peptic ulcer, site unspecified, unspecified as acute or chronic, without hemorrhage or perforation metoclopramide HCl 5 mg PO QID 120 tabs 6RF K59.9 - Functional intestinal disorder, unspecified pantoprazole 40 mg PO QAM 30 tabs 6RF Coding Level of Care Code Est Pt Level 3 (83723) Diagnoses Nausea and vomiting R11.2 Vomiting type: unspecified Chronic idiopathic constipation K59.04 Gastroesophageal reflux disease, unspecified whether esophagitis present K21.9 Esophagitis presence: esophagitis presence not specified Small bowel motility disorder K59.9
[2025-02-01 13:37] VITALS: BP 136/82; BMI 40.3
--- OUTSIDE RECORDS SUMMARY | 2025-02-01 14:14 | XMS_ITS | Clinical Summary ---
Author Organization [facility] Address [address] [place] [address] [address] [place]SE [address] Phone Care Team Providers Care Mail List Librarian Name Role Phone Rae Nunez MD Primary Care Provider [phone] Allergies Active Allergy Reactions Criticality Noted Date [...] Noted Date Diagnosed Date Abfraction 08/11/2024 Excessive dental attrition, limited to enamel Dental calculus 10/15/2022 04/09/2023 Gingival recession, localized 04/10/2022 Hypertensive disorder 10/03/2020 Encounters Date Type Department Care Team Description 02/01/2025 Office Communication [facility] [address] [place] [address] [address] [place] [address] Adiel Ames MD 01/31/2025 2:45 PM EDT Office Visit [facility] [address] [place] [address] Adiel Ames MD Hypertensive disorder (Primary Dx) from Last 3 Months Family History Medical History Relation Comments Hypertension [...] Pressure 128/80 01/31/2025 2:52 PM EDT Pulse 60 11/27/2023 3:23 PM EDT Temperature - - Respiratory Rate - - Oxygen Saturation 99% 12/20/2021 3:05 PM EDT Inhaled Oxygen Concentration - - Weight 115 kg (252 lb 9.6 oz) 01/31/2025 2:52 PM EDT Height 170.2 cm (5' 7 ) 10/05/2018 12:00 PM EDT Body Mass Index 39.56 10/05/2018 12:00 PM EDT Plan of Treatment Upcoming Encounters Date Type Department Care Team (Late st Contact Info) Description 07/14/2025 1:15 PM EDT Office Visit [facility] [address] [place] [address] Arden Topete MD [address] [facility] [address] [place] [phone] Health Maintenance Due Date Last Done Comments Breast Cancer Screening 1959 Pneumococcal Vaccine: 50+ Ye ars (1 of 2 - PCV) 1978 Colorectal Cancer Screening: Annual FOBT 01/18/2008 Colorectal Cancer Screening: Colonoscopy 01/18/2008 Colorectal Cancer Screening: Sigmoidoscopy 01/18/2008 Influenza Vaccine (#1) 2025 Hepatitis B Vaccine Aged Out No longe r eligible based on patient's age to complete this topic Insurance [facility] ([id number]) [place]AS[place] [id number] Care Teams Mail List Librarian Relationship Specialty Start Date End Date Rae Nunez MD [address] [place], [place] PCP - General 05/15/20
--- OUTSIDE RECORDS SUMMARY | 2025-02-01 14:14 | XMS_ITS | Clinical Summary ---
Author Organization [employer] Address [address] [facility] 7[address] [place] [address] Care Team Providers Care Business Systems Manager Name Role Phone Unavailable Primary Care [...] Team (Late st Contact Info) Description 03/24/2025 12:45 PM EST Office Visit [facility]ULT [facility] [address] [place] [address] Karla, Katie [address] [place] [address] Health Maintenance Due Date Last Done Comments CT Colonography 1959 Colonoscopy 1959 Colorectal Cancer Screening 1959 Depression Screening 1959 FIT DNA/Cologuard 1959 FIT 1959 FOBT 1959 Lipid Panel 1959 SDOH Screening 1959 Sigmoidoscopy 1959 Alcohol/Substance Use Screening 1971 Hepatitis C Screening 1977 Mammogram 1999 Zoster Vaccines (2 of 2) 03/19/2021 01/22/2021 Dental Oral Exam 09/07/2024 03/09/2024, 10/15/2022 COVID-19 Vaccine ( season) 2025 11/16/2021, 10/18/2020, 09/20/2020 Influenza Vaccine (#1) 2025 , 02/26/2023, 04/03/2022, [...] Relevant to Health Maintenance Insurance DENTAL - [facility] [place] [id number] [place] [id number]
--- OUTSIDE RECORDS SUMMARY | 2025-02-01 14:14 | XMS_ITS | Encounter Summary ---
Author Organization [employer] Address [address] [facility] [address] [place] [address] Care Team Providers Care Mineral Engineer Name Role Phone Unavailable Primary Care Provider Unavailabl e Encounter Details Date Type Department Care Team (Latest Contact Info) Description 09/27/2020 Abstract [facility] CONVERSIONS Dental, Provider, DDS Social History [...] Description 03/24/2025 12:45 PM EST Office Visit [facility] ADULT DENTAL [address] [place] [address] Karla Katie [address] [place] [address] documented as of this encounter Visit Diagnoses Not on filedocumented in this encounter
--- OUTSIDE RECORDS SUMMARY | 2025-02-01 14:14 | XMS_ITS | Encounter Summary ---
Author Organization [employer] Address [address] [facility] 7t [place] [address] Care Team Providers Care Black Top Roller Name Role Phone Unavailable Primary Care Provider Unavailabl e Encounter Details Date Type Department Care Team (Latest Contact Info) Description 09/27/2020 Abstract [facility] CONVERSIONS Dental, Provider, DDS Social History [...] Description 03/24/2025 12:45 PM EST Office Visit [facility] ADULT DENTAL [address] [place] [address] Karla Ktaie [address] [place] [address] documented as of this encounter Visit Diagnoses Not on filedocumented in this encounter
--- OUTSIDE RECORDS SUMMARY | 2025-02-01 14:14 | XMS_ITS | Encounter Summary ---
Author Organization [facility] Address [address] [address] Phone Care Team Providers Care Facilities Manager Name Role Phone Rae Nunez MD Primary Care Provider [phone] Encounter Details Date Type Department Care Team (Late st Contact Info) Description 02/01/2025 Office Communication [facility]. [address] [address] Adiel Ames MD [address] [phone] Social History Tobacco Use Types Packs/Day Years [...] on file documented as of this encounter Miscellaneous Notes * Telephone Encounter - Adiel Ames MD - 02/01/2025 3:43 AM EDT Please send the U/S done by [email or web address] 09/2024 with the following note-- To Dr Valadez: please review the U/S done on this patient and comapsre tiwht prior U.S and MRI andlet us kinwo if the R renal cyst needs to be followed Also refer this patient to [facility] at [facility] to eval the renal cuyst Schedule f/u of this pt with our Dr Red in 6 monthhs thx documented in this encounter Plan of Treatment Upcoming Encounters Date Type Department Care Team (Late st Contact Info) Description 07/14/2025 1:15 PM EDT Office Visit [facility] [address] [place] [phone] Arden Topete MD [address] [facility] [address] [place] [address] documented as of this encounter Visit Diagnoses Not on filedocumented in this encounter Care Teams Facilities Manager Relationship Specialty Start Date End Date Rae Nunez MD [address] [place], [place] PCP - General 05/15/20 documented as of this encounter
--- OUTSIDE RECORDS SUMMARY | 2025-02-01 14:14 | XMS_ITS | Encounter Summary ---
Author Organization [employer] Address [address] [facility] [address] [place] [address] Care Team Providers Care Dairy Equipment Installer Name Role Phone Unavailable Primary Care Provider Unavailabl e Encounter Details Date Type Department Care Team (Latest Contact Info) Description 03/09/2019 Abstract [facility] CONVERSIONS Dental, Provider, DDS Social History Tobacco [...] Description 03/24/2025 12:45 PM EST Office Visit [facility] ADULT DENTAL [address] [place] [address] Karla Katie [address] [place] [address] documented as of this encounter Visit Diagnoses Not on filedocumented in this encounter
--- OUTSIDE RECORDS SUMMARY | 2025-02-01 14:14 | XMS_ITS | Encounter Summary ---
Author Organization [facility] Address [address] [place] [address] 7[address] [place] [address] Care Team Providers Care Door Captain Name Role Phone Unavailable Primary Care Provider Unavailabl e Encounter Details Date Type Department Care Team (Late st Contact Info) Description 04/01/2022 Abstract [facility] ADULT DENTAL [address] [place] [address] Dental, Provider, DDS Social History Tobacco Use [...] Description 03/24/2025 12:45 PM EST Office Visit [facility] ADULT DENTAL [address] [place] [address] Katie Acosta [address] [place] [address] documented as of this encounter Procedures Procedure [...]
== END 2025-02-01 14:13 | disposition home or self-care (01) ==
LOC: HO.HGI 13:03
PROVIDERS: PCP Internal Medicine; Visit Provider Nurse Practitioner
DX: R11.2 Nausea with vomiting, unspecified (principal); K59.04 Chronic idiopathic constipation; K21.9 Gastro-esophageal reflux disease without esophagitis; K59.9 Functional intestinal disorder, unspecified
CPT/HCPCS: 99213

== ENCOUNTER → 2025-02-01 13:03 | Outpatient (BNVA) | payer OTHER, SELFPAY | PROVIDERS: PCP Internal Medicine; Visit Provider Nurse Practitioner | DX: K21.9 Gastro-esophageal reflux disease without esophagitis (principal); K59.04 Chronic idiopathic constipation; R11.2 Nausea with vomiting, unspecified; K59.9 Functional intestinal disorder, unspecified | CPT/HCPCS: 99212 ==

== ENCOUNTER 2025-03-25 09:15 | Outpatient (REF) | payer OTHER, SELFPAY ==
--- OUTSIDE RECORDS SUMMARY | 2025-03-24 12:45 | XMS_ITS | Encounter Summary ---
Author Organization [employer] Address [address] [place] [address] [address] [place] [address] Care Team Providers Care Manager Area Name Role Phone Unavailable Primary Care Provider Unavailabl e Reason for Visit * Reason Comments x-rays Perio chart Routine Cleaning Dental Exam Encounter Details Date Type Department Care Team ([facility] st Contact Info) Description 03/24/2025 12:45 PM EST Office Visit [facility] ADULT DENTAL [address] [place] [address] Katie Acosta [address] [place] [address] Abfraction (Primary Dx); Dental plaque; Crowded teeth; [...] x-rays, P. exam with Dr. Wagoner) Location: [facility] Tooth: Maxilla and Mandible Procedure: Exam, X-rays, Prophylaxis, and Perio chart Verified the above with patient, educational program assistant, and provider. Confirmed via patient's chart, intraorally and by radiographs. Panama Hat Smearer: not applicable Medical Hx: Vitals: Blood pressure [...] patient including brushing technique and flossing. Recommendations: [place] two times daily, modified marc technique, Floss daily, Electric toothbrush, Soft bristle toothbrush, [place] Tongue, Anti-sensitivity toothpaste with out whitening due [...] x-rays, P. exam with Dr. Wagoner) Location: [facility] Tooth: Maxilla and Mandible Procedure: Exam, X-rays, and Prophylaxis Verified the above with patient, educational program assistant, and provider. Confirmed via patient's chart, intraorally and by radiographs. [place] Smearer: not applicable Chief Complaint Patient presents with [...] Risk family cancer history Oral Hygiene Instructions: [place] two times daily, modified marc technique, Floss daily, Electric toothbrush, Soft bristle toothbrush, [place] Tongue Caries Risk Assessment: Low- no risk factor Assessment/Plan LEONOR X rays Prophy Buddhism Recall Patient tolerated procedure well, all questions answered and expressed understanding. Dismissed in good condition. NV: Tay Bpm Analyst: Katie Acosta RDH Dentist: Tj Wagoner DDS [...] Description 05/20/2025 1:30 PM EST Office Visit [facility] ADULT DENT[facility] [address] [place] [address] Tj Wagoner DDS [address] [place] [address] 09/22/2025 2:15 PM EDT Office Visit [facility] ADULT DENT[facility] [address] [place] [address] Katie Acosta [address] [place] [address] Scheduled Orders Name Type Priority Associated Diagnoses [...]
--- NOTE | ~2025-03-25 | XR_ITS ---
EXAMINATION: X-ray bilateral knees CLINICAL INFORMATION: Pain COMPARISON: X-ray 12/30/2024 TECHNIQUE: AP bilateral knees one view. Right knee 2 views. Left knee 2 views. FINDINGS: Right knee: Severe medial compartment arthritis. Mild lateral and patellofemoral compartment arthritis. No acute fracture or dislocation. No significant effusion. Patellar enthesopathy. No suspicious bony lesion. Left knee: Mild lateral and patellofemoral compartment arthritis. No acute fracture or dislocation. No significant effusion. Patellar and tibial tubercle insertional enthesopathy. XR/XR knee LT 3V IMPRESSION: Right knee: Tricompartment osteoarthritis. Severe medial compartment arthritis. Left knee: Mild osteoarthritis. Electronically signed by: Baron Cartwright MD 03/25/2025 04:51 PM JUAN
--- NOTE | ~2025-03-25 | XR_ITS ---
EXAMINATION: X-ray bilateral knees CLINICAL INFORMATION: Pain COMPARISON: X-ray 12/30/2024 TECHNIQUE: AP bilateral knees one view. Right knee 2 views. Left knee 2 views. FINDINGS: Right knee: Severe medial compartment arthritis. Mild lateral and patellofemoral compartment arthritis. No acute fracture or dislocation. No significant effusion. Patellar enthesopathy. No suspicious bony lesion. Left knee: Mild lateral and patellofemoral compartment arthritis. No acute fracture or dislocation. No significant effusion. Patellar and tibial tubercle insertional enthesopathy. XR/XR knee RT 3V IMPRESSION: Right knee: Tricompartment osteoarthritis. Severe medial compartment arthritis. Left knee: Mild osteoarthritis. Electronically signed by: Baron Cartwright MD 03/25/2025 04:51 PM JUAN
--- OUTSIDE RECORDS SUMMARY | 2025-03-28 10:20 | XMS_ITS | Clinical Summary ---
Author Organization [facility] Address [address] [place] [address] [address] K[address] ROSE [address] Phone Care Team Providers Care Candy Maker Name Role Phone Rae Nunez MD Primary Care Provider [phone] Allergies Active Allergy Reactions Criticality Noted Date [...] 02/10/2025 Orders Only [facility] [address] [facility] [address] [place] [address] Afshan Nolen [place] 01/31/2025 2:45 PM EDT Office Visit [facility] [address] [facility] [place] [address] Adiel Ames MD Hypertensive disorder (Primary Dx) [...] Visit [facility] [address] [place] [address] Arden Topete MD [address] [facility] [address] [place] [address] Health Maintenance Due Date Last Done Comments Breast Cancer Screening 1959 Pneumococcal Vaccine: 50+ Ye ars (1 of 2 - PCV) 1978 Colorectal Cancer Screening: Annual FOBT 01/18/2008 Colorectal Cancer Screening: Colonoscopy 01/18/2008 Colorectal Cancer Screening: Sigmoidoscopy 01/18/2008 Influenza Vaccine (#1) 2025 Hepatitis B Vaccine Aged Out No longe r eligible based on patient's age to complete this topic Insurance [facility] ([id number]) [place] [id number] Care Teams Candy Maker Relationship Specialty Start Date End Date Rae Nunez MD [address] [place] PCP - General 05/15/20
--- OUTSIDE RECORDS SUMMARY | 2025-03-28 10:20 | XMS_ITS | Encounter Summary ---
Author Organization [employer] Address [address] [place] [address] 7t [place] [address] Care Team Providers Care Breastfeeding Peer Counselor Name Role Phone Unavailable Primary Care Provider Unavailabl e Encounter Details Date Type Department Care Team (Latest Contact Info) Description 09/27/2020 Abstract [facility] CONVERSIONS Dental, Provider, DDS Social History [...] Description 05/20/2025 1:30 PM EST Office Visit [facility] ADULT DENT[facility] [address] [place] [address] Tj Wagoner DDS [address] [place] [address] 09/22/2025 2:15 PM EDT Office Visit [facility]ULT [facility] [address] [place] [address] Michael Acostaaris [address] [place] [address] documented as of this encounter Visit Diagnoses Not on filedocumented in this encounter
--- OUTSIDE RECORDS SUMMARY | 2025-03-28 10:20 | XMS_ITS | Encounter Summary ---
Author Organization [facility] Address [address] [place] [address] [address] [place] [address] Care Team Providers Care Machine Fancy Stitcher Name Role Phone Unavailable Primary Care Provider Unavailabl e Encounter Details Date Type Department Care Team (Late st Contact Info) Description 04/01/2022 Abstract [facility] ADULT D[facility] [address] [place] [address] Dental, Provider, DDS Social History Tobacco Use [...] Description 05/20/2025 1:30 PM EST Office Visit [facility]ULT [facility] [address] [place] [address] Tj Wagoner DDS [address] [place] [address] 09/22/2025 2:15 PM EDT Office Visit [facility]ULT [facility] [address] [place] [address] Katie Acosta [address] [place] [address] documented as of this encounter Procedures Procedure [...]
--- OUTSIDE RECORDS SUMMARY | 2025-03-28 10:20 | XMS_ITS | Clinical Summary ---
Author Organization [employer] Address [address] [facility] 7t [place] [address] Care Team Providers Care Supervisor [place] Name Role Phone Unavailable Primary Care Provider [...] Description 03/24/2025 12:45 PM EST Office Visit [facility] ADULT D[facility] [address] [place] [address] KarlaKatie Abfraction (Primary Dx); Dental plaque; Crowded [...] Description 05/20/2025 1:30 PM EST Office Visit [facility] ADULT [facility] [address] [place] [address] Tj Wagoner DDS [address] [place] [address] 09/22/2025 2:15 PM EDT Office Visit [facility]ULT [facility] [address] [place] [address] Katie Acosta [address] [place] [address] Health Maintenance Due Date Last Done Comments [...] Health Maintenance Insurance [facility] STAND [facility]ULT [facility]
--- OUTSIDE RECORDS SUMMARY | 2025-03-28 10:20 | XMS_ITS | Encounter Summary ---
Author Organization [employer] Address [address] [place] [address] [address] [place] [address] Care Team Providers Care Absorption And Adsorption Engineer Name Role Phone Unavailable Primary Care Provider Unavailabl e Encounter Details Date Type Department Care Team (Latest Contact Info) Description 03/09/2019 Abstract [facility] CONVERSIONS Dental, Provider, DDS Social History [...] Description 05/20/2025 1:30 PM EST Office Visit [facility] ADULT DENT[facility] [address] [place] [address] Tj Wagoner DDS [address] [place] [address] 09/22/2025 2:15 PM EDT Office Visit [facility] ADULT DENT[facility] [address] [place] [address] Karla, Katie [address] [place] [address] documented as of this encounter Visit Diagnoses Not on filedocumented in this encounter
--- OUTSIDE RECORDS SUMMARY | 2025-03-28 10:20 | XMS_ITS | Encounter Summary ---
Author Organization [employer] Address [address] [place] [address] 7t [place] [address] Care Team Providers Care Vocational Coordinator Name Role Phone Unavailable Primary Care Provider Unavailabl e Encounter Details Date Type Department Care Team (Latest Contact Info) Description 09/27/2020 Abstract [facility] CONVERSIONS Dental, Provider, DDS Social [...] Description 05/20/2025 1:30 PM EST Office Visit [facility] ADULT DENTAL [address] [place] [address] Tj Wagoner DDS [address] [place] [address] 09/22/2025 2:15 PM EDT Office Visit [facility] ADULT DENT[facility] [address] [place] [address] Michael Acostaaris [address] [place] [address] documented as of this encounter Visit Diagnoses Not on filedocumented in this encounter
== END 2025-03-25 09:16 | disposition home or self-care (01) ==
LOC: HO.HOSX 09:15
PROVIDERS: Visit Provider Physician Assistant
DX: M17.11 Unilateral primary osteoarthritis, right knee (principal); M25.561 Pain in right knee
CPT/HCPCS: 20610; 73562; 99212; J0665; J1100; J2003

== ENCOUNTER 2025-03-25 11:02 | Outpatient (AMB) | payer OTHER, SELFPAY ==
--- OUTSIDE RECORDS SUMMARY | 2025-03-24 12:45 | XMS_ITS | Encounter Summary ---
Author Organization [employer] Address [address] [place] [address] 7[address] [place] [address] Care Team Providers Care Blood Bank Manager Name Role Phone Unavailable Primary Care Provider Unavailabl e Reason for Visit * Reason Comments x-rays Perio chart Routine Cleaning Dental Exam Encounter Details Date Type Department Care Team ([facility] st Contact Info) Description 03/24/2025 12:45 PM EST Office Visit [facility] AD[facility]ENTAL [address] [place] [address] Katie Acosta [address] [place] [address] Abfraction (Primary Dx); Dental plaque; Crowded teeth; Gingival recession, localized; Abrasion of teeth, localized; Excessive attrition of teeth, limited to enamel Social History Tobacco Use Types Packs/Day Years Used Date Smoking Tobacco: Never Smokeless Tobacco: Never Alcohol Use Standard Drinks/Week Comments Never 0 (1 standard drink = 0.6 oz pur e alcohol) Comments Unknown Sex and Gender Information Value Date Recorded Sex Assigned at Female 03/04/2022 10:22 AM EDT Legal Sex Female 10:22 AM EDT Gender Identity Female 03/04/2022 10:22 AM EDT Sexual Orientation Choose not to disclose 2021 10:22 AM EDT documented as of this encounter Last Filed Vital Signs Vital Sign Reading Time Taken Comments Blood Pressure 132/76 03/24/2025 12:33 PM EST Pulse - - Temperature - - Respiratory Rate - - Oxygen Saturation - - Inhaled Oxygen Concentration - - Weight - - Height - - Body Mass Index - - documented in this encounter Progress Notes * Katie Acosta - 03/24/2025 12:45 PM EST Patient ID: Genna Chang is a 65 y.o. female. Time Out: Timeout Date: 03/24/25, Timeout Time: 1239 (Prophy. Perio chart, x-rays, P. exam with Dr. Wagoner) Location: [facility] Tooth: Maxilla and Mandible Procedure: Exam, X-rays, Prophylaxis, and Perio chart Verified the above with patient, administrative assistant receptionist, and provider. Confirmed via patient's chart, intraorally and by radiographs. Manager Service Desk: not applicable Medical Hx: Vitals: Blood pressure 132/76. Medications, Med Hx reviewed with patient and updated in chart. Treatment Provided Dental procedures in this visit D0274 - BITEWINGS - 4 RADIOGRAPHIC IMAGES (Completed) Service provider: Katie Acosta [place] provider: Tj Wagoner DDS D0220 - INTRAORAL - PERIAPICAL FIRST RADIOGRAPHIC IMAGE (Completed) Service provider: Katie Acosta [place] provider: Tj Wagoner DDS D0230 - INTRAORAL - PERIAPICAL EACH ADDITIONAL RADIOGRAPHIC IMAGE (Completed) Service provider: Katie Acosta Billing provider: Tj Wagoner DDS D1110 - PROPHYLAXIS - ADULT (Completed) Service provider: Katie Acosta Billing provider: Tj Wagoner DDS D1330 - ORAL HYGIENE INSTRUCTIONS (Completed) Service provider: Katie Acosta [place] provider: Tj Wagoner DDS D9450 - CASE PRESENTATION, DETAILED AND EXTENSIVE TREATMENT PLANNING (Completed) Service provider: Katie Acosta [place] provider: MELISSA Andujar for take x-rays, took BWXs , [address] Wagoner to do P. Exam. Instruments Used: Ultrasonic Scalers, Hand Scalers, and Prophy angle. Oral Cancer Screening: No lesions Head/Neck Exam: No Lesions Calculus: trace Plaque: Light and Moderate Stain: Light Bleeding: Light and Moderate Gingiva: recession pink OH: Good Perio Chart: Completed Oral hygiene instructions provided to patient including brushing technique and flossing. Recommendations: [place] two times daily, modified marc technique, Floss daily, Electric toothbrush, Soft bristle toothbrush, [place] Tongue, Anti-sensitivity toothpaste with out whitening due to sensitivity. Recall Frequency: 6 mo Prophy NV: Restorations with Dr. Wagoner Hygienist: Katie Acosta RDH * Tj Wagoner DDS - 03/24/2025 12:45 PM EST Dental procedures in this visit D0274 - BITEWINGS - 4 RADIOGRAPHIC IMAGES (Completed) Service provider: Katie Acosta Billing provider: Tj Wagoner DDS D0220 - INTRAORAL - PERIAPICAL FIRST RADIOGRAPHIC IMAGE (Completed) Service provider: Katie Acosta Billing provider: Tj Wagoner DDS D0230 - INTRAORAL - PERIAPICAL EACH ADDITIONAL RADIOGRAPHIC IMAGE (Completed) Service provider: Katie Acosta [place] provider: Tj Wagoner DDS D1110 - PROPHYLAXIS - ADULT (Completed) Service provider: Katie Acosta [place] provider: Tj Wagoner DDS D1330 - ORAL HYGIENE INSTRUCTIONS (Completed) Service provider: Katie Acosta [place] provider: Tj Wagoner DDS D9450 - CASE PRESENTATION, DETAILED AND EXTENSIVE TREATMENT PLANNING (Completed) Service provider: Katie Acosta Billing provider: Tj Wagoner DDS D0120 - PERIODIC ORAL EVALUATION - ESTABLISHED PATIENT (Completed) Service provider: Tj Wagoner DDS [place] provider: Tj Wagoner DDS Patient ID: Genna Chang is a 65 y.o. female. Time Out: Timeout Date: 03/24/25, Timeout Time: 1239 (Prophy. Perio chart, x-rays, P. exam with Dr. Wagoner) Location: [facility] Tooth: Maxilla and Mandible Procedure: Exam, X-rays, and Prophylaxis Verified the above with patient, administrative assistant receptionist, and provider. Confirmed via patient's chart, intraorally and by radiographs. Manager Service Desk: not applicable Chief Complaint Patient presents with x-rays Perio chart Routine Cleaning Dental Exam Medical Hx: Vitals: Blood pressure 132/76. Medical History[1] Medications: Encounter Medications[2] Objective HPI Head and Neck Exam: Lymph Nodes, Lips, Palate, Buccal Mucosa, Floor of Mouth, Tongue, Tonsils, Alveolar Ridges, Oropharynx, Salivary Ducts, and Vestibules normal appearance Details: Skin NSF OCS: negative Dental Exam charted Abfraction Dental plaque Gingival recession No new carious lesion noticed Reference tooth chart for additional findings. Oral Cancer Risk: Moderate Risk family cancer history Oral Hygiene Instructions: [place] two times daily, modified marc technique, Floss daily, Electric toothbrush, Soft bristle toothbrush, [place] Tongue Caries Risk Assessment: Low- no risk factor Assessment/Plan LEONOR X rays Prophy Jainism Recall Patient tolerated procedure well, all questions answered and expressed understanding. Dismissed in good condition. NV: Tay Head Chopper: Katie Acosta RDH Dentist: Tj Wagoner DDS [1] Past Medical History: Diagnosis Date Anxiety Arthritis GERD (gastroesophageal reflux disease) Hypertension Hypothyroidism Kidney cysts on both kidneys, DX about 15 years ago, as reported by PT [2] Outpatient Encounter Medications as of 03/24/2025 Medication Sig Dispense Refill acetaminophen (Tylenol) 325 MG tablet Take 1 tablet by mouth every 4 (four) hours. atorvastatin (Lipitor) 10 MG tablet Take 1 tablet by mouth at bed time. calcium carbonate 1500 (600 Ca) MG tablet Take 1,500 mg by mouth in the morning and at bedtime. clotrimazole-betamethasone (Lotrisone) cream APPLY TO AFFECTED AREA(S) TOPICALLY TWICE DAILY FOR FOURTEEN DAYS cyclobenzaprine (Flexeril) 10 MG tablet Take 10 mg by mouth if needed in the morning, at noon, and at bedtime. darifenacin (Enablex) 15 MG 24 hr tablet Take 1 tablet by mouth in the morning. dicyclomine (Bentyl) 20 MG tablet Take 20 mg by mouth 3 times daily. famotidine (Pepcid) 40 MG tablet Take 40 mg by mouth at bedtime. hydrocortisone 2.5 % cream APPLY TO DARK SPOTS ON RIGHT CHEEK TWICE A DAY NEEDED FOR ITCH. DECREASE SYMPTOMS IMPROVE ibuprofen 800 MG tablet Take 1 tablet by mouth every 8 (eight) hours. lactulose (Kristalose) 10 g packet Take by mouth. levothyroxine (Synthroid, Levoxyl) 175 MCG tablet Take 175 mcg by mouth in the morning. levothyroxine (Synthroid, Levoxyl) 200 MCG tablet Take 200 mcg by mouth in the morning. lidocaine (Lidoderm) 5 % patch APPLY 1 PATCH TOPICALLY TO SKIN, LEAVE ON FOR 12 HOURS AND OFF FOR 12 HOURS DIRECTED Linzess 290 MCG capsule Take 290 mcg by mouth in the morning. LORazepam (Ativan) 0.5 MG tablet Take 0.5 mg by mouth if needed in the morning and at bedtime. lubiprostone (Amitiza) 24 MCG capsule Take 24 mcg by mouth in the morning and at bedtime. metoclopramide (Reglan) 5 MG tablet TAKE 1 TABLET BY MOUTH FOUR TIMES DAILY BEFORE MEALS AND AT BEDTIME midodrine (Proamatine) 5 MG tablet TAKE 1 TABLET BY MOUTH THREE TIMES DAILY DO NOT TAKE AFTER 600pmOR WITHIN 4 HOURS OF BEDTIME Multiple Vitamins-Minerals (CertaVite/Antioxidants) tablet Take 1 tablet by mouth in the morning. nystatin (Mycostatin) cream APPLY TO THE AFFECTED AREA(S) EVERY DAY omeprazole OTC (PriLOSEC OTC) 20 MG EC tablet pantoprazole (ProtoNix) 40 MG EC tablet Take 40 mg by mouth in the morning. PARoxetine (Paxil) 40 MG tablet Take 40 mg by mouth in the morning. QUEtiapine (SEROquel) 200 MG tablet Take 200 mg by mouth at bedtime. sucralfate (Carafate) 1 g tablet Take 1 g by mouth 2 times daily. terbinafine (LamISIL) 250 MG tablet Take 250 mg by mouth in the morning. traZODone (Desyrel) 150 MG tablet Take 150 mg by mouth if needed at bedtime. No facility-administered encounter medications on file as of 03/24/2025. documented in this encounter Plan of Treatment Upcoming Encounters Date Type Department Care Team (Late st Contact Info) Description 05/20/2025 1:30 PM EST Office Visit [facility] AD[facility] D[facility] [address] [place] [address] Tj Wagoner DDS [address] [place] [address] 09/22/2025 2:15 PM EDT Office Visit [facility] [address] [place] [address] Katie Acosta [address] [place] [address] Scheduled Orders Name Type Priority Associated Diagnoses Orde r Schedule 5 B(V) 5 B(V) RESIN-BASED COMPOSITE - 1 SURF, POSTERIOR Dental Routine 1 Occurrences starting 03/24/2025 21 B(V) 21 B(V) RESIN-BASED COMPOSITE - 1 SURF, POSTERIOR Dental Routine 1 Occurrences starting 03/24/2025 20 B(V) 20 B(V) RESIN-BASED COMPOSITE - 1 SURF, POSTERIOR Dental Routine 1 Occurrences starting 03/24/2025 12 B(V) 12 B(V) RESIN-BASED COMPOSITE - 1 SURF, POSTERIOR Dental Routine 1 Occurrences starting 03/24/2025 CASE PRESENTATION, DETAILED AND EXTENSIVE TREATMENT PLANNING Dental Routine 1 Occurrences starting 03/24/2025 CASE PRESENTATION, DETAILED AND EXTENSIVE TREATMENT PLANNING Dental Routine 1 Occurrences starting 03/24/2025 Full Full PROPHYLAXIS - ADULT Dental Routine [address] arting 03/24/2025 CASE PRESENTATION, DETAILED AND EXTENSIVE TREATMENT PLANNING Dental Routine 1 Occurrences starting 03/24/2025 documented as of this encounter Procedures Procedure Name Priority Date/Time Associated Diagnosis Comments PROPHYLAXIS - ADULT Routine 03/24/2025 1 2:45 PM EST Dental plaque PERIODIC ORAL EVALUATION - ESTABLISHED PATIENT Routine 03/24/2025 12:45 PM EST ORAL HYGIENE INSTRUCTIONS Routine 03/24/2025 12:45 PM EST Abfraction Dental plaque Crowded teeth Gingival recession, localized Abrasion of teeth, localized Excessive attrition of teeth, limited to enamel INTRAORAL - PERIAPICAL FIRST RADIOGRAPHIC IMAGE Routine 03/24/2025 12:45 PM EST Abfraction Dental plaque Crowded teeth Gingival recession, localized Abrasion of teeth, localized Excessive attrition of teeth, limited to enamel INTRAORAL - PERIAPICAL EACH ADDITIONAL RADIOGRAPHIC IMAGE Routine 03/24/2025 12:45 PM EST Abfraction Dental plaque Crowded teeth Gingival recession, localized Abrasion of teeth, localized Excessive attrition of teeth, limited to enamel CASE PRESENTATION, DETAILED AND EXTENSIVE TREATMENT PLANNING Routine 03/24/2025 12:45 PM EST BITEWINGS - 4 RADIOGRAPHIC IMAGES Routine 03/24/2025 12:45 PM EST Abfraction Dental plaque Crowded teeth Gingival recession, localized Abrasion of teeth, localized Excessive attrition of teeth, limited to enamel documented in this encounter Visit Diagnoses Diagnosis Abfraction- Primary Dental plaque Accretions on teeth Crowded teeth Crowding of teeth Gingival recession, localized Abrasion of teeth, localized Excessive attrition of teeth, limited to enamel documented in this encounter
--- NOTE | 2025-03-25 11:20 | A.OFFVIS_ITS ---
Intake Visit Reasons: New Prob - B/L knee pain Intake Note: Genna is a 65 year old female who presents today for a evaluation of her bilateral knee pain. Patient was see on 03/31/24 for her right knee. She states her right knee is worse than the left. Patient mentions that her left knee started to give her pain about 2 - 3 months. Patient has tried 3 + months of Tylenol arthritis with relief but her pain comes back. School Bus Driver/Mechanic Services: School Bus Driver/Mechanic Present (Baljeet ([id number])) Allergies egg Allergy (Intermediate, Verified 03/25/25 11:23) Rash seafood Allergy (Intermediate, Verified 03/25/25 11:23) Rash shellfish derived Allergy (Intermediate, Verified 03/25/25 11:23) RASH zolpidem (ZOLPIDEM) Allergy (Intermediate, Verified 03/25/25 11:23) HEART PALPITATIONS morphine Adverse Reaction (Intermediate, Verified 03/25/25 11:23) Vomiting HPI HPI New Prob - B/L knee pain: Details: Ms. Charlene Chang this is a 65-year-old female who presents to the office today for evaluation of bilateral knee pain due to osteoarthritis. The patient has a past medical history significant for hypertension, depression, osteopenia, renal cysts, hypothyroidism, dyslipidemia, GERD and peptic ulcer disease. Her BMI is 40.3. Patient has received cortisone injections in the right knee in the past which gave her some relief. Additionally, the patient had an MRI performed on 02/19/2024 which were significant for degenerative changes. The MRI was reviewed with Dr. Cade at that time in which conservative treatment was recommended. [facility] Medical History (Updated 03/01/25 @ 13:30 by Rae Landis MD) Morbid obesity with BMI of 40.0-44.9, adult Right knee pain Left knee pain Physical exam Lumbar pain Right knee DJD Renal cyst PUD (peptic ulcer disease) Complex renal cyst Dyspepsia Obesity (BMI 35.0-39.9 without comorbidity) Urinary tract infection Lower back pain Cough Constipation Morbid obesity Pre-op exam Low back pain Screening examination for infectious disease Abdominal pain Onychomycosis Dyslipidemia Mild recurrent major depression Skin lesion Tubular adenoma of colon Idiopathic chronic hypotension Unsteady gait Hypothyroidism Takes daily multivitamins GERD (gastroesophageal reflux disease) Surgical History H/O elbow surgery History of varicose vein ligation H/O knee surgery H/O hand surgery History of foot surgery History of section History of hysterectomy History of removal of cyst History of cholecystectomy Family History Father Diabetes Mother Thyroid disease Chronic mental illness Hypertension Hypercholesterolemia Dementia Brother In good health Daughter In good health Daughter In good health Sister No problems noted. Family/Other Breast cancer Social History Household Members: None Housing: Apartment Alcohol intake: never Patient Tobacco Use Status: Never used Tobacco Tobacco use type: Cigarette e-Cigarette/Vaping Use: Never Used Second Hand Smoke Exposure: No service: No Current occupational status: disabled Sexual orientation: Straight/Heterosexual Gender identity: Female Cognitive needs: No Hearing needs: No Vision needs: Yes Female Reproductive History Menstrual Age of Menarche: 9 Review of Systems Const All systems reviewed & are unremarkable except as noted in HPI and below Physical Exam Const General: cooperative and no acute distress Orientation/consciousness: patient oriented x3 Resp Effort & Inspection: normal respiratory effort and able to speak in complete sentences Cardio Peripheral pulses: Peripheral pulses 2+ throughout Skin General skin exam: no rashes or lesions noted Neuro General: patient oriented x3 Extrem Other: Right knee: Normal to inspection. No ecchymosis, erythema, or joint effusion. No tenderness to palpation along the medial or lateral joint lines. Full knee extension and flexion. Negative Tavo?s. NVI. Office Procedures AMB Joint Injection/Aspiration Joint Injection/Aspiration Primary Site: Right Knee Prep: site was prepped using aseptic technique, ethochloride spray was applied and injection warnings given Injected: 40 mg of, Decadron, with 3 mL of, 1% plain Lidocaine, 0.25% Bupivacaine and in the joint Approach Used: anterolateral Procedure: The patient tolerated the procedure well, but had some pain with the injection and there was some relief with the local anesthesia Coding 46229 - Large joint Procedure code (CPT) selection complete Assessment & Plan Assessment & Plan (1) Right knee DJD: Code(s): M17.11 - Unilateral primary osteoarthritis, right knee Category: Medical Qualifiers: Osteoarthritis type: primary Qualified Code(s): M17.11 - Unilateral primary osteoarthritis, right knee Plan Ms. Charlene Chang this is a 65-year-old female who presents to the office today for evaluation of bilateral knee pain due to osteoarthritis. The patient has a past medical history significant for hypertension, depression, osteopenia, renal cysts, hypothyroidism, dyslipidemia, GERD and peptic ulcer disease. Her BMI is 40.3. Patient has received cortisone injections in the right knee in the past which gave her some relief. Additionally, the patient had an MRI performed on 02/19/2024 which were significant for degenerative changes. The MRI was reviewed with Dr. Cade at that time in which conservative treatment was recommended. While in the office today, we discussed continuation of conservative treatment options versus surgical intervention. We discussed a right total knee arthroplasty as a surgical recommendation due to the patient's osteoarthritis and continued pain. Patient states that she is not ready to move forward with surgical intervention at this time and would like to continue with conservative treatment options. These treatment options include repeat cortisone injection, gel injections, and physical therapy. Patient has seen nephrology in the past for hematuria therefore, we have deferred on any attend therapy at this time. The patient was offered a cortisone injection in right knee. The patient was explained the risks, benefits, and alternatives to receiving this injection. After receiving consent for the injection, the patient had the procedure done while in the office today. The patient tolerated the procedure well with no complications. The risks, benefits, and alternatives to a corticosteroid injection were discussed with the patient, including the potential benefits of decreased inflammation and pain, improved function, and diagnostic value. Risks were reviewed, including post-injection flare, skin or fat atrophy, transient facial flushing, temporary elevation in blood glucose, bruising, and rare but serious complications such as infection, tendon weakening or rupture, and cartilage damage with repeated injections. Procedure-related discomfort and possible vasovagal symptoms were also explained. Alternatives were reviewed, including NSAIDs, physical therapy, activity modification, bracing, ice/heat, weight management, hyaluronic acid injections when appropriate, PRP or other orthobiologics, oral steroids, surgery depending on pathology, and observation. The patient verbalized understanding and elected to proceed. After receiving consent for the injection, the patient had the procedure done while in the office today. The patient tolerated the procedure well with no complications. Lastly, I provided the patient with a wrap pop knee brace off the shelf that she can wear during activities. Should this injection not be helpful to the patient she will contact our office and we will discuss moving forward with total knee arthroplasty in more detail. Follow-up will be PRN, or sooner if needed X-rays of the bilateral knees which were obtained while in the office today and were reviewed by me, Solange Puri PA-C, revealed osteoarthritis. Orders: Orders XR knee LT 3V Today M25.569 - Pain in unspecified knee XR knee RT 3V Today M25.569 - Pain in unspecified knee Coding Level of Care Code Est Pt Level 4 (31536) Diagnoses Primary osteoarthritis of right knee M17.11 Osteoarthritis type: primary CPT Codes Coding - 17391 Large joint: 31849 - Large joint ([id number])
--- OUTSIDE RECORDS SUMMARY | 2025-03-25 11:53 | XMS_ITS | Encounter Summary ---
Author Organization [employer] [facility] Address [address] [place] [address] [address] [place] [address] Care Team Providers Care Train System Operator Name Role Phone Unavailable Primary Care Provider Unavailabl e Encounter Details Date Type Department Care Team (Late st Contact Info) Description 04/01/2022 Abstract [facility] ADULT DENT[facility] [address] [place] [address] Dental, Provider, DDS Social History Tobacco Use [...] Description 05/20/2025 1:30 PM EST Office Visit [facility] ADULT DENTAL [address] [place] [address] Tj Wagoner DDS [address] [place] [address] 09/22/2025 2:15 PM EDT Office Visit [facility] ADULT DENT[facility] [address] [place] [address] Katie Acosta [address] [place] [address] documented as of this encounter Procedures Procedure [...]
--- OUTSIDE RECORDS SUMMARY | 2025-03-25 11:53 | XMS_ITS | Encounter Summary ---
Author Organization [employer] Address [address] [place] [address] 7t [place] [address] Care Team Providers Care Licensed Club Manager Name Role Phone Unavailable Primary Care Provider Unavailabl e Encounter Details Date Type Department Care Team (Latest Contact Info) Description 03/09/2019 Abstract [facility] CONVERSIONS Dental, Provider, DDS Social [...] Description 05/20/2025 1:30 PM EST Office Visit [facility]ULT [facility] [address] [place] [address] Tj Wagoner DDS [address] [place] [address] 09/22/2025 2:15 PM EDT Office Visit [facility] [address] [place] [address] Karla, Katie [address] [place] [address] documented as of this encounter Visit Diagnoses Not on filedocumented in this encounter
--- OUTSIDE RECORDS SUMMARY | 2025-03-25 11:53 | XMS_ITS | Encounter Summary ---
Author Organization [employer] Address [address] [place] [address] 7t [place] [address] Care Team Providers Care Central Sterile Tech Name Role Phone Unavailable Primary Care Provider Unavailabl e Encounter Details Date Type Department Care Team (Latest Contact Info) Description 09/27/2020 Abstract [facility] CONVERSIONS Dental, Provider, DDS Social History Tobacco [...] Description 05/20/2025 1:30 PM EST Office Visit [facility]ULT [facility] [address] [place] [address] Tj Wagoner DDS [address] [place] [address] 09/22/2025 2:15 PM EDT Office Visit [facility]ULT [facility] [address] [place] [address] Michael Acostaaris [address] [place] [address] documented as of this encounter Visit Diagnoses Not on filedocumented in this encounter
--- OUTSIDE RECORDS SUMMARY | 2025-03-25 11:53 | XMS_ITS | Clinical Summary ---
Author Organization [employer] Address [address]t [place] [address] Care Team Providers Care Lifter/Driver Name Role Phone Unavailable Primary Care Provider Unavailabl e Allergies Active Allergy Reactions Criticality Noted Date Comments Morphine Vomiting Medium 09/27/2020 Other reaction(s): Vomiting Other reaction(s): Vomiting Other reaction(s): Vomiting Shellfish Allergy Rash Low 10/03/2020 Shellfish Protein-Containing Drug Products Rash Low 09/26/2017 Medications acetaminophen (Tylenol) 325 MG tablet Take [...] Active Problems Problem Noted Date Diagnosed Date Abrasion of teeth, localized 08/11/2024 Excessive attrition of teeth, limited to enamel 04/08/2024 Dental plaque 03/09/2024 Crowded teeth 03/09/2024 Dental calculus 10/15/2022 Gingival recession, localized 04/10/2022 Back problem 01/08/2013 Dizzy spells 01/08/2013 High blood pressure 01/08/2013 Kidney disease 01/08/2013 Mental health problem 01/08/2013 Seasonal allergic rhinitis 01/08/2013 Stomach problems 01/08/2013 Encounters Date Type Department Care Team Description 03/24/2025 12:45 PM EST Office Visit [facility]ULT [facility] [address] [place] [address] KarlaKatie Abfraction (Primary Dx); Dental plaque; Crowded teeth; Gingival recession, localized; Abrasion of teeth, localized; Excessive attrition of teeth, limited to enamel from Last 3 Months Social History Tobacco [...] Pressure 132/76 03/24/2025 12:33 PM EST Pulse 80 08/11/2024 1:07 PM EDT Temperature [...] Description 05/20/2025 1:30 PM EST Office Visit [facility] [address] [place] [address] Tj Wagoner DDS [address] [place] [address] 09/22/2025 2:15 PM EDT Office Visit [facility] [address] [place] [address] Katie Acosta [address] [place] [address] Health Maintenance Due Date Last Done Comments CT Colonography 1959 Colonoscopy 1959 Colorectal Cancer Screening 1959 Depression Screening 1959 FIT DNA/Cologuard 1959 FIT 1959 FOBT 1959 Lipid Panel 1959 SDOH Screening 1959 Sigmoidoscopy 1959 Alcohol/Substance Use Screening 1971 Hepatitis C Screening 1977 Mammogram 1999 Zoster Vaccines (2 of 2) 03/19/2021 01/22/2021 COVID-19 Vaccine ( season) 2025 11/16/2021, 10/18/2020, 09/20/2020 Influenza Vaccine (#1) 2025 , 02/26/2023, 04/03/2022, Additional history exists Dental Oral Exam 09/22/2025 03/24/2025, 09/2023, 10/15/2022 Dental Prophylaxis 09/22/2025 03/24/2025, 0 09/07/2024, 03/09/2024, Additional history exists Tobacco Screening 03/24/2026 03/24/2025 Dental X-Ray: Bitewings 03/25/2026 03/24/20, 03/09/2024, 10/15/2022 Dental X-Ray: Full Mouth 03/10/2027 03/09/2024, 09/03 [...] Procedure Name Priority Date/Time Associated Diagnosis Comments PERIODIC ORAL EVALUATION - ESTABLISHED PATIENT Routine 03/24/2025 12:45 PM EST CASE PRESENTATION, DETAILED AND EXTENSIVE TREATMENT PLANNING Routine 03/24/2025 12:45 PM EST ORAL HYGIENE INSTRUCTIONS Routine 03/24/2025 12:45 PM EST Abfraction Dental plaque Crowded teeth Gingival recession, localized Abrasion of teeth, localized Excessive attrition of teeth, limited to enamel PROPHYLAXIS - ADULT Routine 03/24/2025 1 2:45 PM EST Dental plaque INTRAORAL - PERIAPICAL EACH ADDITIONAL RADIOGRAPHIC IMAGE Routine 03/24/2025 12:45 PM EST Abfraction Dental plaque Crowded teeth Gingival recession, localized Abrasion of teeth, localized Excessive attrition of teeth, limited to enamel INTRAORAL - PERIAPICAL FIRST RADIOGRAPHIC IMAGE Routine 03/24/2025 12:45 PM EST Abfraction Dental plaque Crowded teeth Gingival recession, localized Abrasion of teeth, localized Excessive attrition of teeth, limited to enamel BITEWINGS - 4 RADIOGRAPHIC IMAGES Routine 03/24/2025 12:45 PM EST Abfraction Dental plaque Crowded teeth Gingival recession, localized Abrasion of teeth, localized Excessive attrition of teeth, limited to enamel INTRAORAL - COMPLETE SERIES OF RADIOGRAPHIC IMAGES Routine 03/09/2024 1:00 PM EST Dental plaque Crowded teeth from Last 3 Months or Most Recently Relevant to Health Maintenance Insurance [facility] STAND ADULT [facility]
--- OUTSIDE RECORDS SUMMARY | 2025-03-25 11:53 | XMS_ITS | Encounter Summary ---
Author Organization [employer] Address [address] [place] [address] 7t [place] [address] Care Team Providers Care Doctor Of Chiropractic Name Role Phone Unavailable Primary Care Provider Unavailabl e Encounter Details Date Type Department Care Team (Latest Contact Info) Description 09/27/2020 Abstract [facility] CONVERSIONS Dental, Provider, DDS Social History [...] Description 05/20/2025 1:30 PM EST Office Visit [facility] ADULT DENTAL [address] [place] [address] Tj Wagoner DDS [address] [place] [address] 09/22/2025 2:15 PM EDT Office Visit [facility] ADULT DENT[facility] [address] [place] [address] Michael Acostaaris [address] [place] [address] documented as of this encounter Visit Diagnoses Not on filedocumented in this encounter
--- OUTSIDE RECORDS SUMMARY | 2025-03-25 11:53 | XMS_ITS | Clinical Summary ---
Author Organization [facility] Address [address] [place] [address] [address] [place] [place] [address] Phone Care Team Providers Care Prototype Model Maker Name Role Phone Rae Nunez MD Primary Care Provider [phone] Allergies Active Allergy Reactions Criticality Noted Date Comments Morphine Vomiting Medium 09/27/2020 Other reaction(s): Vomiting Other reaction(s): Vomiting Shellfish Allergy Other (see comments) 10/04/19 21 Shellfish Protein-Containing Drug Products Rash Low 09/26/2017 Medications atorvastatin (LIPITOR) [...] Encounters Date Type Department Care Team Description 02/10/2025 Orders Only [facility] [address] [place] [address] Afshan Nolen [place] 01/31/2025 2:45 PM EDT Office Visit [facility] [address] [place] [address] Adiel Ames MD Hypertensive disorder (Primary Dx) [...] Visit [facility] [address] [place] [address] Arden Topete MD [address] [place] [address] Health Maintenance Due Date Last Done Comments Breast Cancer Screening 1959 Pneumococcal Vaccine: 50+ Ye ars (1 of 2 - PCV) 1978 Colorectal Cancer Screening: Annual FOBT 01/18/2008 Colorectal Cancer Screening: Colonoscopy 01/18/2008 Colorectal Cancer Screening: Sigmoidoscopy 01/18/2008 Influenza Vaccine (#1) 2025 Hepatitis B Vaccine Aged Out No longe r eligible based on patient's age to complete this topic Insurance [facility] ([id number]) [place] [id number] Care Teams Prototype Model Maker Relationship Specialty Start Date End Date Rae Nunez MD [address] [place] PCP - General 05/15/20
== END 2025-03-25 12:49 | disposition home or self-care (01) ==
LOC: HO.HOS 11:03
PROVIDERS: PCP Internal Medicine; Visit Provider Physician Assistant
DX: M17.11 Unilateral primary osteoarthritis, right knee (principal)
CPT/HCPCS: 20610; 99214

== ENCOUNTER → 2025-03-25 11:11 | Outpatient (BNV) | payer OTHER, SELFPAY | PROVIDERS: Visit Provider Radiology Diagnostic Ultrasound | DX: M17.0 Bilateral primary osteoarthritis of knee (principal) | CPT/HCPCS: 73562 ==

== ENCOUNTER 2025-03-28 12:56 | Outpatient (REF) | payer OTHER, SELFPAY ==
--- NOTE | ~2025-03-28 | MM_ITS ---
EXAMINATION: MM SCREENING DIGITAL BREAST TOMOSYNTHESIS, BILATERAL CLINICAL INFORMATION: Screening. Asymptomatic. COMPARISON: Mammography: Comparison is made with available priors TECHNIQUE: Digital breast mammography with tomosynthesis is performed in both the craniocaudal and mediolateral oblique views along with computer-aided detection (CAD). FINDINGS: There are scattered areas of fibroglandular density. There are no significant masses, abnormal calcifications, or other abnormalities. MM/MM tomosynthesis screening BI IMPRESSION: No mammographic evidence of malignancy. ASSESSMENT: BI-RADS Category 1: Negative RECOMMENDATION: Routine annual mammography screening. 1 year F/U This examination should not preclude the clinical evaluation of a suspicious palpable abnormality. This patient's information was entered into a reminder system with a target due date for their next mammogram. Electronically signed by: Sarina Donnelly DO 03/29/2025 03:31 PM JUAN
== END 2025-03-28 12:57 | disposition home or self-care (01) ==
LOC: HO.MAMMO 12:56
PROVIDERS: PCP Internal Medicine; Visit Provider Internal Medicine
DX: Z12.31 Encounter for screening mammogram for malignant neoplasm of breast (principal)
CPT/HCPCS: 77063; 77067

== ENCOUNTER → 2025-03-28 13:15 | Outpatient (BNV) | payer OTHER, SELFPAY | PROVIDERS: PCP Internal Medicine; Visit Provider Internal Medicine | DX: Z12.31 Encounter for screening mammogram for malignant neoplasm of breast (principal) | CPT/HCPCS: 77063; 77067 ==

== ENCOUNTER 2025-04-19 13:56 | Outpatient (AMB) | payer OTHER, SELFPAY ==
[2025-04-19 14:13] VITALS: BP 130/86; PULSE 84; RESP 16; TEMP 36.2; O2SAT 98; BMI 40.1
--- NOTE | 2025-04-19 14:13 | A.OFFPC_ITS ---
Vital Signs 04/19/25 14:13 Height 5 ft 7 in Weight 256 lb 6 oz BMI 40.1 BP 130/86 Blood Pressure Location Lt brachial Position Sitting Respiration 16 Pulse 84 Pulse Source Pulse Oximeter Temp 97.1 F Temp Source Temporal Artery Scan Pulse Oximetry (%) 98 Oxygen Delivery Method Room Air Intake Visit Reasons: Annual Exam Agency Operator Required: No Accompanied by: Self / Same As Patient Allergies egg Allergy (Intermediate, Verified 04/19/25 14:40) Rash seafood Allergy (Intermediate, Verified 04/19/25 14:40) Rash shellfish derived Allergy (Intermediate, Verified 04/19/25 14:40) RASH zolpidem (ZOLPIDEM) Allergy (Intermediate, Verified 04/19/25 14:40) HEART PALPITATIONS morphine Adverse Reaction (Intermediate, Verified 04/19/25 14:40) Vomiting Medication List - Last Reconciled 04/19/25 by Rae Landis MD acetaminophen 500 mg PO Q6H PRN ascorbic acid (vitamin C) (Vitamin C) 500 mg PO DAILY atorvastatin 10 mg PO DAILY blood pressure test kit-large ([facility]ocate Blood Pressure Monitor kit) As directed blood pressure test kit-large ([facility]ocate Blood Pressure Monitor kit) As directed calcium carbonate 600 mg PO BID cane As directed diclofenac sodium 1% 4 grams topical QID dicyclomine 40 mg (2 x 20 mg) PO TID docusate sodium (Colace) 100 mg PO .DAILY WITH FOOD 30 days famotidine 40 mg PO BEDTIME [grab bar As directed] humidifiers As directed ibuprofen 600 mg PO TID PRN incontinence pad, liner, disp (GoodNites Kyle-Fit Liners pads) USe 2 pads per day incontinence pad, liner, disp (GoodNites Kyle-Fit Liners pads) use as directed lactulose 30 mL PO TID levothyroxine 137 mcg PO DAILY 90 days lorazepam 0.5 mg PO BID PRN metoclopramide HCl 5 mg PO QID midodrine 2.5 mg PO BID 30 days [id number]-scuz-ugmpm acid 18-400 mg-mcg (Certavite-Antioxidant) 1 tab PO DAILY 30 days nystatin 1 appl topical BID ondansetron 4 mg PO Q6H PRN 2 days pantoprazole 40 mg PO QAM paroxetine HCl 40 mg PO DAILY prochlorperazine maleate (Compazine) 10 mg PO BID PRN quetiapine 200 mg PO BEDTIME [raised toilet seat As directed] [recliner As directed] [toilet seat As directed] [toilet seat elevator As directed] trazodone 150 mg PO BEDTIME triamcinolone acetonide 0.025% 1 appl topical DAILY 2 weeks vitamin E 268 mg PO DAILY [wipes As directed] Tobacco use date assessed: 04/19/25 Fall risk assessment: No Falls in past year Dental Screening Dental Screen Date: 04/19/25 Did you have a dental visit in the last 12 months?: Yes Did you have a dental problem in the last 6 months where you did not have access to dental care?: No Was dental information given to patient?: Patient has dentist HPI HPI Comments History of Present Illness Details The patient is a 65-year-old female presenting for an annual physical exam. Her last colonoscopy was in 2021. Her mammography results are good. A bone density scan revealed osteopenia, for which she takes calcium with vitamin D, with the next scan scheduled for 2026. Her current medications include Tylenol, vitamin C, atorvastatin 10 mg for cholesterol, calcium, dicyclomine for stomach issues, docusate and lactulose for constipation, famotidine, ibuprofen as needed, incontinence pads, levothyroxine 137 mcg, lorazepam for anxiety from her psychiatrist, metoclopramide for stomach, midodrine for low blood pressure, multivitamins, nystatin, ondansetron for nausea, pantoprazole for acidity, paroxetine, Seroquel, trazodone for sleep, and vitamin E. She has no history of heart attack, asthma, COPD, chronic bronchitis, emphysema, pulmonary fibrosis, pulmonary hypertension, diabetes, heart failure, arrhythmia, coronary artery disease, or thromboembolism. She has allergies to eggs, seafood, shellfish, zolpidem, and morphine. Her past surgical history includes procedures on her elbow, varicose veins, knee, hand, and foot, as well as a section, hysterectomy, cyst removal, and cholecystectomy. Her father is alive with diabetes, and her mother is with a history of dementia, high cholesterol, hypertension, and thyroid issues. The patient has a history of moderate depression with a PHQ-9 score of 15 and is followed by psychiatry. She has never smoked and does not drink alcohol. Her last labs in December showed excellent cholesterol, vitamin B12, and vitamin D levels, and her thyroid was normal. [facility] Medical History Morbid obesity with BMI of 40.0-44.9, adult Right knee pain Left knee pain Physical exam Lumbar pain Right knee DJD Renal cyst PUD (peptic ulcer disease) Complex renal cyst Dyspepsia Obesity (BMI 35.0-39.9 without comorbidity) Urinary tract infection Lower back pain Cough Constipation Morbid obesity Pre-op exam Low back pain Screening examination for infectious disease Abdominal pain Onychomycosis Dyslipidemia Mild recurrent major depression Skin lesion Tubular adenoma of colon Idiopathic chronic hypotension Unsteady gait Hypothyroidism Takes daily multivitamins GERD (gastroesophageal reflux disease) Surgical History H/O elbow surgery History of varicose vein ligation H/O knee surgery H/O hand surgery History of foot surgery History of section History of hysterectomy History of removal of cyst History of cholecystectomy Family History Father Diabetes Mother Thyroid disease Chronic mental illness Hypertension Hypercholesterolemia Dementia Brother In good health Daughter In good health Daughter In good health Sister No problems noted. Family/Other Breast cancer Social History Household Members: None Housing: Apartment Alcohol intake: never Patient Tobacco Use Status: Never used Tobacco Tobacco use type: Cigarette e-Cigarette/Vaping Use: Never Used Second Hand Smoke Exposure: No service: No Current occupational status: disabled Sexual orientation: Straight/Heterosexual Gender identity: Female Cognitive needs: No Hearing needs: No Vision needs: Yes Female Reproductive History Menstrual Age of Menarche: 9 Questionnaire PHQ-9 Over the last 2 weeks, how often have you been bothered by any of the following problems? 1. Little interest or pleasure in doing things: nearly every day 2. Feeling down, depressed, or hopeless: nearly every day 3. Trouble falling or staying asleep, or sleeping too much: nearly every day 4. Feeling tired or having little energy: nearly every day 5. Poor appetite or overeating: several days 6. Feeling bad about yourself - or that you are a failure or have let yourself or your family down: not at all 7. Trouble concentrating on things, such as reading the newspaper or watching television: several days 8. Moving or speaking so slowly that other people could have noticed. Or the opposite - being so fidgety or restless that you have been moving around a lot more than usual: several days 9. Thoughts that you would be better off or of hurting yourself in some way: not at all Total score: 15 Depression Screening Interpretation: Positive (no suicidal thoughts) Depression Screening Follow-up: Existing condition, In treatment, Community Mental Health Worker F/U and Follow-up Visit Requested Depression Screening Done: Yes 61466 - PHQ-9 Billing: Yes Source: Developed by Drs. Fady Bustos, Minerva Laws, Marquis Matute and colleagues, with an educational victoriano from [employer]. Thrive Questionnaire Date Thrive assessed: 04/19/25 I am a: Patient What is your living situation today?: I have a steady place to live Within the past 12 months, did the food you bought not last and you didn't have the money to get more?: Never true Within the past 12 months, did you worry whether your food would run out before you got money to buy more?: Never true Do you have trouble paying for medicines?: No Do you have trouble getting transportation to medical appointments?: No Do you have trouble paying your heating and electricity bill?: No Do you have trouble taking care of your child, family member or friend?: No Do you have trouble with day-to-day activities such as bathing, preparing meals, shopping, managing finances, etc.?: No Are you currently unemployed and looking for a job?: Yes Are you interested in more education?: No Please select the resources that you would like help with: None Currently or been in a relationship where the following occur: No concerns reported THRIVE Score: 0 AUDIT C Alcohol Use Questionnaire (AUDIT-C) 1. How often do you have a drink containing alcohol?: Never 3. How often do you have six or more drinks on one occasion?: Never Total Score: 0 Score Reviewed/Action Taken: No NANCY-7 AMB Questionnaire NANCY-7 Date NANCY - 7 assessed: 04/19/25 Feeling nervous, anxious, or on edge: 1 = Several days Not being able to stop or control worryin = Several days Worrying too much about different things: 1 = Several days Trouble relaxin = Several days Being so restless that it is hard to sit still: 1 = Several days Becoming easily annoyed or irritable: 0 = Not at all Feeling afraid as if something awful might happen: 1 = Several days Total NANCY-7 score (0-4 normal; 5-9 mild; 10-14 moderate; 15-21 severe): 6 Source: Developed by Drs. Fady Bustos, Minerva Laws, Marquis Matute and colleagues, with an educational victoriano from [employer]. NANCY-7 Assessment Billing NANCY-7 Assessment Tool: NANCY-7 Assessment 10554 Review of Systems Const All systems reviewed & are unremarkable except as noted in HPI and below Card Denies chest pain at rest, Denies chest pain with activity, Denies edema, Denies irregular heart rhythm, Denies claudication, Denies dyspnea, Denies dyspnea on exertion, Denies orthopnea, Denies paroxysmal nocturnal dyspnea and Denies slow heart rate Resp Denies cough, Denies dyspnea and Denies dyspnea on exertion GI Denies abdominal pain, Denies change in bowel habits, Denies excessive flatus, Denies nausea and Denies vomiting Denies urinary incontinence, Denies urinary hesitancy and Denies urinary urgency Musc Denies atrophy, Denies deformity and Denies limited range of motion Skin/Breast Denies bleeding lesions, Denies changing lesions and Denies rash Physical exam (Primary Care) Vital Signs: Last Vital Signs Temp 97.1 F 04/19/25 14:13 Pulse 84 04/19/25 14:13 Resp 16 04/19/25 14:13 BP 130/86 04/19/25 14:13 Pulse Ox 98 04/19/25 14:13 Oxygen Delivery Method Room Air 04/19/25 14:13 BMI result Body Mass Index 40.1 BMI Assessment/Plan discussion: High BMI High, discussed plan: lifestyle, weight reduction, dietary and physical activity Tobacco/Smoking Status: Tobacco use Status Tobacco use date assessed 04/19/25 04/19/25 14:24 Patient Tobacco Use Status Never used Tobacco 04/19/25 14:24 Tobacco use type Cigarette 04/19/25 14:24 e-Cigarette/Vaping Use Never Used 04/19/25 14:24 PHQ-9: PHQ-9 Score PHQ-9: Total score 15 04/19/25 15:05 Depression Screening Interpretation: Positive (no suicidal thoughts) Depression Screening Follow-up: Existing condition, In treatment, Community Mental Health Worker F/U and Follow-up Visit Requested Thrive Assessment: Date of Thrive Assessment Date Thrive assessed 04/19/25 04/19/25 14:24 Currently or been in a relationship where the following occur: No concerns reported [facility] Head: Yes normal to inspection, Yes normocephalic and Yes atraumatic Ears: external ears normal Eyes General: appearance normal, both eyes and all related structures Eyelids: Yes eyelids normal Conjunctivae: conjunctivae normal Neck Neck: Yes normal visual inspection and Yes supple Resp Effort & Inspection: normal respiratory effort Auscultation: clear to auscultation bilaterally Cardio Jugular venous distension: no JVD Rate: regular rate Rhythm: regular rhythm Heart sounds: S1 normal heart sound present and S2 normal heart sound present GI Inspection: Yes normal to inspection Palpation (GI): Soft to palpation and nontender Auscultation: normal bowel sounds Skin General skin exam: no rashes or lesions noted Neuro General: no focal motor deficits Extrem General: Yes full ROM Psych Appearance: grossly normal Office Procedures Flu Questionnaire Does the patient have a severe egg allergy?: No Does the patient have severe life threatening allergies?: No Does the patient have a fever or illness today?: No Has the patient ever had Guillain-[place] Syndrome?: No Has the patient ever had any past reaction to a flu shot?: No Immunizations Fluarix [id number] (PF) 45 mcg (15 mcg x 3)/0.5 mL IM syringe Performing Provider: Rae Landis MD [facility] Administered by: Evelina Peterson LPN on 04/19/25 15:00 Dose Route Admin Location Dispensed Lot Number Expiration Date [facility] Instructional Supervisor 0.5 mL IM Left Deltoid 0.5 mL [id number] 11/01/25 23471-024-85 [employer] VIS Given Date VIS Provided VIS Publication Date 04/19/25 Single Vaccine 24 Eligibility Eligibility Date Funding Source Not [facility] Eligible 04/19/25 Private Coding Level of Care Code Est Pt Prev Care >65y(49120) Diagnoses Physical exam Z00.00 Urge urinary incontinence N39.41 Morbid obesity with BMI of 40.0-44.9, adult E66.01; Z68.41 Moderate recurrent major depression F33.1 Additional Codes NANCY-7 Assessment Billing - NANCY-7 Assessment Tool: NANCY-7 Assessment 75099 ([id number]) PHQ-9 - 25067 - PHQ-9 Billing: Yes ([id number]) Time Spent (min) 30 Assessment & Plan Assessment & Plan (1) Physical exam: Code(s): Z00.00 - Encounter for general adult medical examination without abnormal findings Category: Medical (2) Urge urinary incontinence: Code(s): N39.41 - Urge incontinence Category: Medical (3) Morbid obesity with BMI of 40.0-44.9, adult: Code(s): E66.01 - Morbid (severe) obesity due to excess calories; Z68.41 - Body mass index [BMI] 40.0-44.9, adult Category: Medical (4) Moderate recurrent major depression: Code(s): F33.1 - Major depressive disorder, recurrent, moderate Category: Medical Plan Plan 1. Annual Physical Exam The patient is here for her annual wellness visit. She is up to date on her pneumonia and tetanus vaccinations. It was recommended that she receive the influenza, Shingrix, and RSV vaccines. Repeat labs will be ordered for her next visit since the last ones were in December. 2. Osteopenia The patient's bone density scan showed osteopenia. The treatment is calcium with vitamin D. Her next bone density exam is scheduled for 2026. 3. Weight Management The patient expressed a desire to lose weight. She may benefit from a weight management program that includes diet and psychologist support. Orders: Orders Lipid Panel 6 Months E78.5 - Hyperlipidemia, unspecified Vitamin D 25-OH Total 6 Months E55.9 - Vitamin D deficiency, unspecified Influenza 8895-1065 Immunization Today Z23 - Encounter for immunization Vitamin B12 and Folate 6 Months E53.8 - Deficiency of other specified B group vitamins Comprehensive [place]. Panel Fast 6 Months M25.561 - Pain in right knee Thyroid Stimulating Hormone 6 Months E03.9 - Hypothyroidism, unspecified Medications: New underpads (Bed Underpads) USe 4 pads per day 100 ea 11RF N39.41 - Urge incontinence latex gloves (Latex Gloves, Large) As directed 24 ea 11RF N39.41 - Urge incontinence Refilled incontinence pad, liner, disp (GoodNites Kyle-Fit Liners pads) use as directed 48 ea 11RF N39.41 - Urge incontinence [wipes] As directed 5 ea 11RF N39.41 - Urge incontinence
--- OUTSIDE RECORDS SUMMARY | 2025-04-19 18:07 | XMS_ITS | Encounter Summary ---
Author Organization [employer] Address [address] [place] [address] [address] [place] [address] Care Team Providers Care Property Adjuster Name Role Phone Unavailable Primary Care Provider Unavailabl e Encounter Details Date Type Department Care Team (Latest Contact Info) Description 09/27/2020 Abstract [facility] CONVERSION[facility] Dental, Provider, DDS Social History [...] Description 05/20/2025 1:30 PM EST Office Visit [facility] [address] [place] [address] Tj Wagoner DDS [address] [place] [address] 09/22/2025 2:15 PM EDT Office Visit [facility] [address] [place] [address] Michael Acostaaris [address] [place] [address] documented as of this encounter Visit Diagnoses Not on filedocumented in this encounter
--- OUTSIDE RECORDS SUMMARY | 2025-04-19 18:07 | XMS_ITS | Encounter Summary ---
Author Organization [employer] Address [address] [place] [address] [address] [place] [address] Care Team Providers Care Sterile Preparation Technician Name Role Phone Unavailable Primary Care Provider Unavailabl e Encounter Details Date Type Department Care Team (Latest Contact Info) Description 09/27/2020 Abstract [facility] CONVERSIONS Dental, Provider, DDS Social History Tobacco [...] Description 05/20/2025 1:30 PM EST Office Visit [facility]ULT [facility] [address] [place] [address] Tj Wagoner DDS [address] [place] [address] 09/22/2025 2:15 PM EDT Office Visit [facility] [address] [place] [address] Michael Acostaaris [address] [place] [address] documented as of this encounter Visit Diagnoses Not on filedocumented in this encounter
--- OUTSIDE RECORDS SUMMARY | 2025-04-19 18:07 | XMS_ITS | Encounter Summary ---
Author Organization [employer] Address [address] [place] [address] [address] [place] [address] Care Team Providers Care Hot Plate Plywood Press Laborer Name Role Phone Unavailable Primary Care Provider Unavailabl e Encounter Details Date Type Department Care Team (Latest Contact Info) Description 03/09/2019 Abstract [facility] CONVERSIONS Dental, Provider, DDS Social History [...] Description 05/20/2025 1:30 PM EST Office Visit [facility] ADULT [facility] [address] [place] [address] Tj Wagoner DDS [address] [place] [address] 09/22/2025 2:15 PM EDT Office Visit [facility]ULT [facility] [address] [place] [address] Karla, Katie [address] [place] [address] documented as of this encounter Visit Diagnoses Not on filedocumented in this encounter
--- OUTSIDE RECORDS SUMMARY | 2025-04-19 18:07 | XMS_ITS | Encounter Summary ---
Author Organization [employer] [facility] Address [address] [place] [address] [address] [place] [address] Care Team Providers Care Mess Cook Name Role Phone Unavailable Primary Care Provider Unavailabl e Encounter Details Date Type Department Care Team (Late st Contact Info) Description 04/01/2022 Abstract [facility] [address] [place] [address] Dental, Provider, DDS Social History Tobacco Use [...] Description 05/20/2025 1:30 PM EST Office Visit [facility] [address] [place] [address] Tj Wagoner DDS [address] [place] [address] 09/22/2025 2:15 PM EDT Office Visit [facility] [address] [place] [address] Katie Acosta [address] [place] [address] documented as of this encounter Procedures Procedure [...]
--- OUTSIDE RECORDS SUMMARY | 2025-04-19 18:07 | XMS_ITS | Clinical Summary ---
Author Organization [employer] Address [address] [facility] [address] [place] [address] Care Team Providers Care Medicaid Business Analyst Name Role Phone Unavailable Primary Care Provider [...] Description 03/24/2025 12:45 PM EST Office Visit [facility] [address] [place] [address] KarlaKatie Abfraction (Primary Dx); Dental plaque; Crowded [...] 1:30 PM EST Office Visit [facility] [address] [place] [address] Tj Wagoner DDS [address] [place] [address] 09/22/2025 2:15 PM EDT Office Visit [facility] [address] [place] [address] Katie Acosta [address] [place] [address] Health Maintenance Due Date Last Done Comments [...] Health Maintenance Insurance [place] AD[place] [facility]
== END 2025-04-19 15:04 | disposition home or self-care (01) ==
LOC: HO.HMCH 13:57
PROVIDERS: PCP Internal Medicine; Visit Provider Internal Medicine
DX: Z00.00 Encounter for general adult medical examination without abnormal findings (principal); E66.01 Morbid (severe) obesity due to excess calories; Z68.41 Body mass index [BMI] 40.0-44.9, adult; F33.1 Major depressive disorder, recurrent, moderate; N39.41 Urge incontinence; Z23 Encounter for immunization

== ENCOUNTER → 2025-04-19 13:56 | Outpatient (BNVA) | payer OTHER, SELFPAY | PROVIDERS: PCP Internal Medicine; Visit Provider Internal Medicine | DX: Z00.00 Encounter for general adult medical examination without abnormal findings (principal); Z23 Encounter for immunization; N39.41 Urge incontinence; E66.01 Morbid (severe) obesity due to excess calories; F33.1 Major depressive disorder, recurrent, moderate; Z68.41 Body mass index [BMI] 40.0-44.9, adult | CPT/HCPCS: 90471; 90656; 96127; 99397 ==